=== PATIENT | female | born 1970 | race Caucasian/White ===

== ENCOUNTER 2017-07-27 14:41 | Emergency (ER) | payer BC ==
[2017-07-27 15:02] VITALS: RESP 18
[2017-07-27] MEDS ORDERED: SODIUM CHLORIDE 0.9% 1,000 ML IV ONE (15:31)
[2017-07-27] MEDS ORDERED: METOCLOPRAMIDE 5 MG/ML 2 ML VIAL IVP STA (15:31)
[2017-07-27] MEDS ORDERED: diphenhydrAMINE 50 MG/ML 1 ML VIAL IVP STA (15:31)
--- NOTE | 2017-07-27 15:37 | ED ---
Headache HPI - General Chief Complaint: Headache Stated Complaint: Headache Time Seen by Provider: 07/27/17 15:18 Mode of arrival: ambulatory Limitations: no limitations - History of Present Illness Initial Comments: Physical 6-year-old female to history of headaches and chronic low back pain on opiate pain medications or presents emergency room for headache. She states it started at 5:30 this morning and has been persistent. She states that she took some Excedrin which normally relieves her headaches however this did not relieve it. She also took one of her opiate pain medications however this did not help either. She admits to photophobia however no photophobia. Also admits to little bit of nausea and vomiting. She denies any head trauma. No neck pain. She states that she thought she may have slept wrong and has been massaging her neck however does not have any pain there. Denies any focal weakness in her extremities. No focal numbness however states that she feels like her forehead is numb at times. States that she has been sick for the last month with upper respiratory infection however feels better from that. She denies any cough or short of breath. No fevers or chills. No other complaints. - Related Data Home Medications Medication Instructions Recorded Confirmed HYDROcodone/IBUPROFEN 7.5-200 1 tab PO DAILY PRN 07/27/17 07/27/17 [Vicoprofen 7.5-200 mg] LORazepam [Ativan] 1 mg PO HS PRN 07/27/17 07/27/17 Losartan [Cozaar] 25 mg PO DAILY 07/27/17 07/27/17 Previous Rx's Medication Instructions Recorded Butalb/Acetaminophen/Caffeine 1 - 2 cap PO Q4HR #8 cap 07/27/17 [Fioricet 50-300-40 mg Capsule] Allergies Allergy/AdvReac Type Severity Reaction Status Date / Time Iodinated Contrast- Oral and Allergy Anaphylaxis Verified 07/27/17 15:56 IV Dye Review of Systems ROS Statement: Those systems with pertinent positive or pertinent negative responses have been documented in the HPI. ROS Other: All systems not noted in ROS Statement are negative. Past Medical History Past Medical History: Hypertension History of Any Multi-Drug Resistant Organisms: None Reported Past Surgical History: Section, Cholecystectomy, Tubal Ligation Past Psychological History: No Psychological Hx Reported Smoking Status: Never smoker Past Alcohol Use History: None Reported Past Drug Use History: None Reported General Exam - General Exam Comments Initial Comments: Constitutional: Awake alert appears uncomfortable and gripping her head Head: Normocephalic atraumatic Eyes: no conjunctival injection No scleral icterus EOMI, pupils are 4 mm and reactive bilaterally Neck: No JVD Supple Heart: Regular rate rhythm normal S1-S2 no murmurs Lungs: Clear to auscultation bilaterally No wheezing No rales Abdomen: Soft nondistended nontender Extremities: Non edematous DP pulses intact Radial pulses intact Neuro: A&Ox3, cranial nerves II through XII are grossly intact, 5 out of 5 strength in upper and lower extremities bilaterally, the patient is able to ambulate under her own power without any gait disturbance, sensation intact in all extremities No focal neurologic deficits Psych: Appropriate mood and affect Limitations: no limitations Course Vital Signs 07/27/17 14:59 Temperature 97.7 F Pulse Rate 82 Respiratory 18 Rate Blood Pressure 185/105 O2 Sat by Pulse 98 Oximetry Medical Decision Making - Medical Decision Making This is a 46-year-old female who presents emergency department for headache. Patient was given Reglan and Benadryl and fluids and she had much improvement in her headache. CT of the head was negative. No focal neurologic findings on examination. The patient has been battling sinusitis for the last month and I feel that the headache may be related to this. I stated to continue with her Excedrin at home. I did give her some Fioricet that she can use as needed over the next couple of days. I told to return if the headache worsens or return. All questions were answered. - Lab Data Lab Results 07/27/17 Range/Units 16:00 Urine HCG, Qual Not Detected (Not Detectd) Disposition Clinical Impression: Headache Disposition: HOME SELF-CARE Condition: Stable Instructions: Acute Headache (ED) Prescriptions: Butalb/Acetaminophen/Caffeine [Fioricet 50-300-40 mg Capsule] 1 - 2 cap PO Q4HR #8 cap Referrals: Andree Sanchez MD [Primary Care Provider] - 1-2 days
--- NOTE | 2017-07-27 17:01 | CT ---
EXAMINATION TYPE: CT brain wo con DATE OF EXAM: 07/27/2017 COMPARISON: NONE HISTORY: Headache and numbness to head today. CT DLP: 1025.10 mGycm. Automated Exposure Control for Dose Reduction was Utilized. TECHNIQUE: CT scan of the head is performed without contrast. FINDINGS: There is mucosal thickening and almost complete opacification of the right maxillary sinu s. There is fluid level in left maxillary sinus. There is mild mucosal thickening in the anterior eth moid sinus. Ventricles have normal size. There is no mass effect nor midline shift. There is no sign of intracran ial hemorrhage. The calvarium is intact. CONCLUSION: Sinusitis. Otherwise negative CT scan of the brain.
[2017-07-27] MEDS ORDERED: KETOROLAC 30 MG/ML 1 ML VIAL IVP STA (17:22)
[2017-07-27 17:32] VITALS: BP 169/70; PULSE 67; TEMP 97
== END 2017-07-27 17:38 | disposition home or self-care (01) ==
LOC: EC 14:41
DX: R51 Headache (principal); H53.149 Visual discomfort, unspecified; R11.2 Nausea with vomiting, unspecified; I10 Essential (primary) hypertension; Z79.899 Other long term (current) drug therapy; Z91.041 Radiographic dye allergy status
CPT/HCPCS: 81025; 70450; 99284; 96374; 96375 ×2; 96361; J1200; J2765; J1885

== ENCOUNTER 2021-05-07 11:10 | Emergency (ER) | payer BC, OTHER ==
[2021-05-07 11:15] VITALS: RESP 18; TEMP 98
[2021-05-07] MEDS ORDERED: MECLIZINE 12.5 MG TAB PO STA (11:53)
--- NOTE | 2021-05-07 11:55 | ED ---
Dizziness HPI - General Chief Complaint: Dizziness Stated Complaint: blurred vision/dizziness Source: patient Mode of arrival: ambulatory Limitations: no limitations - History of Present Illness Initial Comments: 50-year-old female past history of high blood pressure presents emergency room with reported vertiginous symptoms and presyncope. Patient states that her symptoms [place] States that the dizziness has gotten so severe that she had an episode on Tuesday night where her vision became slightly blurry. She denies headaches. No current vision changes. No neck stiffness. No recent head trauma or chiropractic manipulations melanotic. No history of aneurysm. She denies chest pain or shortness of breath. No weakness, slurred speech, unilateral numbness or facial droop. No history of stroke. She denies any fevers, chills or shortness of breath. No weakness in her chimneys. No history of similar in the past. Patient does arrive and is super hypertensive. States that she did not take her medications today. She is on 25 mg of losartan. No other alleviating, precipitating or modifying factors - Related Data Home Medications Medication Instructions Recorded Confirmed HYDROcodone/IBUPROFEN 7.5-200 1 tab PO DAILY PRN 07/27/17 05/07/21 [Vicoprofen 7.5-200 mg] Losartan [Cozaar] 25 mg PO HS 07/27/17 05/07/21 Previous Rx's Medication Instructions Recorded Losartan [Cozaar] 50 mg PO DAILY #14 tab 05/07/21 Allergies Allergy/AdvReac Type Severity Reaction Status Date / Time Iodinated Contrast Media Allergy Anaphylaxis Verified 05/07/21 12:20 [Iodinated Contrast- Oral and IV Dye] Review of Systems ROS Statement: Those systems with pertinent positive or pertinent negative responses have been documented in the HPI. ROS Other: All systems not noted in ROS Statement are negative. Past Medical History Past Medical History: Hypertension History of Any Multi-Drug Resistant Organisms: None Reported Past Surgical History: Section, Cholecystectomy, Tubal Ligation Past Psychological History: No Psychological Hx Reported Smoking Status: Never smoker Past Alcohol Use History: Occasional Past Drug Use History: None Reported General Exam Limitations: no limitations General appearance: alert, in no apparent distress Head exam: Present: atraumatic, normocephalic, normal inspection Eye exam: Present: normal appearance, PERRL, EOMI. Absent: scleral icterus, conjunctival injection, periorbital swelling ENT exam: Present: normal exam, mucous membranes moist Neck exam: Present: normal inspection. Absent: tenderness, meningismus, lymphadenopathy Respiratory exam: Present: normal lung sounds bilaterally. Absent: respiratory distress, wheezes, rales, rhonchi, stridor Cardiovascular Exam: Present: regular rate, normal rhythm, normal heart sounds. Absent: systolic murmur, diastolic murmur, rubs, gallop, clicks GI/Abdominal exam: Present: soft, normal bowel sounds. Absent: distended, tenderness, guarding, rebound, rigid Extremities exam: Present: normal inspection, full ROM, normal capillary refill. Absent: tenderness, pedal edema, joint swelling, calf tenderness Back exam: Present: normal inspection Neurological exam: Present: alert, oriented X3, CN II-XII intact Psychiatric exam: Present: normal affect, normal mood Skin exam: Present: warm, dry, intact, normal color. Absent: rash Course Vital Signs 05/07/21 05/07/21 05/07/21 11:13 13:26 14:21 Temperature 98 F Pulse Rate 88 71 71 Respiratory 18 18 Rate Blood Pressure 187/128 205/110 199/94 O2 Sat by Pulse 97 97 95 Oximetry 05/07/21 15:06 Temperature Pulse Rate 88 Respiratory 18 Rate Blood Pressure 137/79 O2 Sat by Pulse 97 Oximetry EKG Findings - EKG Comments: EKG Findings:: EKG demonstrates normal sinus rhythm with a ventricular rate of 73. WI interval 150. QRS 98. QTC of 427. No acute ST segment elevations or depressions Medical Decision Making - Medical Decision Making Upon arrival patient is placed into room 2. A thorough history and physical exam was performed. NIH is obtained and is 0. Patient is markedly hypertensive with a blood pressure of 205/110. IV is established laboratory studies were conducted. 12-lead EKG was performed. She is sent over for a CT as well as CT angiography of her head due to her reported dizziness and hypertension. Laboratory studies within normal limits. Chest x-ray demonstrates no acute intrathoracic process.. CT angiography of the head demonstrates no significant stenosis or any additional abnormality. The patient is given 20 mg of hydralazine pressure control. She does have improvement in her blood pressures. She is able to get up and ambulate and states she feels much improved. Patient requests discharge at this time. I did recommend increasing the patient's dose of losartan to 50 mg. She is to keep a blood pressure log and follow up with her primary care doctor for further evaluation of her medication change. Patient understood this. Given written and verbal discharge instructions and discharged home in stable condition - Lab Data Result diagrams: 05/07/21 12:02 05/07/21 12:02 Lab Results 05/07/21 05/07/21 05/07/21 Range/Units 12:01 12:02 12:02 WBC 5.5 (3.8-10.6) k/uL RBC 4.74 (3.80-5.40) m/uL Hgb 14.4 (11.4-16.0) gm/dL Hct 41.3 (34.0-46.0) % MCV 87.1 (80.0-100.0) fL MCH 30.4 (25.0-35.0) pg MCHC 34.9 (31.0-37.0) g/dL RDW 13.0 (11.5-15.5) % Plt Count 226 (150-450) k/uL MPV 7.9 Neutrophils % 68 % Lymphocytes % 24 % Monocytes % 4 % Eosinophils % 2 % Basophils % 0 % Neutrophils # 3.8 (1.3-7.7) k/uL Lymphocytes # 1.3 (1.0-4.8) k/uL Monocytes # 0.2 (0-1.0) k/uL Eosinophils # 0.1 (0-0.7) k/uL Basophils # 0.0 (0-0.2) k/uL PT 9.8 (9.0-12.0) sec INR 0.9 (<1.2) APTT 23.3 (22.0-30.0) sec Sodium (137-145) mmol/L Potassium (3.5-5.1) mmol/L Chloride (98-107) mmol/L Carbon Dioxide (22-30) mmol/L Anion Gap mmol/L BUN (7-17) mg/dL Creatinine (0.52-1.04) mg/dL Est GFR (CKD-EPI)AfAm (>60 ml/min/1.73 sqM) Est GFR (CKD-EPI)NonAf (>60 ml/min/1.73 sqM) Glucose (74-99) mg/dL Calcium (8.4-10.2) mg/dL Total Bilirubin (0.2-1.3) mg/dL AST (14-36) U/L ALT (4-34) U/L Alkaline Phosphatase (38-126) U/L Troponin I (0.000-0.034) ng/mL Total Protein (6.3-8.2) g/dL Albumin (3.5-5.0) g/dL TSH (0.465-4.680) mIU/L Urine Color Yellow Urine Appearance Clear (Clear) Urine pH 5.5 (5.0-8.0) Ur Specific [place] 1.021 (1.001-1.035) Urine Protein Trace H (Negative) Urine Glucose (UA) Negative (Negative) Urine Ketones Negative (Negative) Urine Blood Small H (Negative) Urine Nitrite Negative (Negative) Urine Bilirubin Negative (Negative) Urine Urobilinogen <2.0 (<2.0) mg/dL Ur Leukocyte Esterase Negative (Negative) Urine RBC 3 (0-5) /hpf Urine WBC 1 (0-5) /hpf Ur Squamous Epith Cells 3 (0-4) /hpf Urine Bacteria Rare H (None) /hpf Urine Mucus Rare H (None) /hpf 05/07/21 05/07/21 Range/Units 12:02 12:02 WBC (3.8-10.6) k/uL RBC (3.80-5.40) m/uL Hgb (11.4-16.0) gm/dL Hct (34.0-46.0) % MCV (80.0-100.0) fL MCH (25.0-35.0) pg MCHC (31.0-37.0) g/dL RDW (11.5-15.5) % Plt Count (150-450) k/uL MPV Neutrophils % % Lymphocytes % % Monocytes % % Eosinophils % % Basophils % % Neutrophils # (1.3-7.7) k/uL Lymphocytes # (1.0-4.8) k/uL Monocytes # (0-1.0) k/uL Eosinophils # (0-0.7) k/uL Basophils # (0-0.2) k/uL PT (9.0-12.0) sec INR (<1.2) APTT (22.0-30.0) sec Sodium 138 (137-145) mmol/L Potassium 3.8 (3.5-5.1) mmol/L Chloride 105 (98-107) mmol/L Carbon Dioxide 26 (22-30) mmol/L Anion Gap 7 mmol/L BUN 15 (7-17) mg/dL Creatinine 0.69 (0.52-1.04) mg/dL Est GFR (CKD-EPI)AfAm >90 (>60 ml/min/1.73 sqM) Est GFR (CKD-EPI)NonAf >90 (>60 ml/min/1.73 sqM) Glucose 116 H (74-99) mg/dL Calcium 9.2 (8.4-10.2) mg/dL Total Bilirubin 0.6 (0.2-1.3) mg/dL AST 24 (14-36) U/L ALT 22 (4-34) U/L Alkaline Phosphatase 70 (38-126) U/L Troponin I <0.012 (0.000-0.034) ng/mL Total Protein 7.6 (6.3-8.2) g/dL Albumin 4.3 (3.5-5.0) g/dL TSH 1.720 (0.465-4.680) mIU/L Urine Color Urine Appearance (Clear) Urine pH (5.0-8.0) Ur Specific [place] (1.001-1.035) Urine Protein (Negative) Urine Glucose (UA) (Negative) Urine Ketones (Negative) Urine Blood (Negative) Urine Nitrite (Negative) Urine Bilirubin (Negative) Urine Urobilinogen (<2.0) mg/dL Ur Leukocyte Esterase (Negative) Urine RBC (0-5) /hpf Urine WBC (0-5) /hpf Ur Squamous Epith Cells (0-4) /hpf Urine Bacteria (None) /hpf Urine Mucus (None) /hpf Disposition Clinical Impression: Pre-syncope, Ataxia, Hypertensive urgency Disposition: HOME SELF-CARE Condition: Stable Instructions (If sedation given, give patient instructions): Chronic Hypertension (ED), Dizziness (ED) Additional Instructions: Please follow up with your PCP in 2-4 days for re-evaluation. Take your blood pressure measurements twice daily and keep a log. Return to the ED for any new or worsening symptoms. Prescriptions: Losartan [Cozaar] 50 mg PO DAILY #14 tab Is patient prescribed a controlled substance at d/c from ED?: No Referrals: Andree Sanchez MD [Primary Care Provider] - 1-2 days Time of Disposition: 14:54
[2021-05-07] MEDS ORDERED: diphenhydrAMINE 50 MG/ML 1 ML VIAL IVP STA (12:03)
[2021-05-07] MEDS ORDERED: methylPREDNISolone SOD SUCCI 125 MG/2 ML VIAL IV STA (12:03)
[2021-05-07] MEDS ORDERED: FAMOTIDINE 20 MG/2 ML VIAL IV STA (12:03)
[2021-05-07 12:28] LABS: Appearance,Urine Clear (Clear); Bacteria,Urine Rare /hpf; Bilirubin,Urine Negative (Negative); Blood,Urine Small (Negative); Color,Urine Yellow; Glucose,Urine (UA) Negative (Negative); Ketones,Urine Negative (Negative); Leukocyte Esterase,Urine Negative (Negative); Mucus,Urine Rare /hpf; Nitrite,Urine Negative (Negative); PH, Urine 5.5 (5.0-8.0); Protein,Urine Trace (Negative); RBC,Urine 3 /hpf (0-5); Specific Gravity,Urine 1.021 (1.001-1.035); Squamous Epithelial Cell,Urine 3 /hpf (0-4); Urobilinogen,Urine <2.0 mg/dL (<2.0); WBC,Urine 1 /hpf (0-5)
[2021-05-07 12:38] LABS: INR 0.9 (<1.2); Partial Thromboplastin Time 23.3 sec (22.0-30.0); Prothrombin Time 9.8 sec (9.0-12.0)
[2021-05-07 12:40] LABS: Basophils % (A) 0 %; Eosinophils # (A) 0.1 k/uL (0-0.7); Eosinophils % (A) 2 %; HCT 41.3 % (34.0-46.0); HGB 14.4 gm/dL (11.4-16.0); Lymphocytes # (A) 1.3 k/uL (1.0-4.8); Lymphocytes % (A) 24 %; MCH 30.4 pg (25.0-35.0); MCHC 34.9 g/dL (31.0-37.0); MCV 87.1 fL (80.0-100.0); Mean Platelet Volume 7.9; Monocytes # (A) 0.2 k/uL (0-1.0); Monocytes % (A) 4 %; Neutrophils # (A) 3.8 k/uL (1.3-7.7); Neutrophils % (A) 68 %; Platelet Count 226 k/uL (150-450); RBC 4.74 m/uL (3.80-5.40); WBC 5.5 k/uL (3.8-10.6)
--- NOTE | 2021-05-07 12:41 | XR ---
EXAMINATION TYPE: XR chest 2V DATE OF EXAM: 05/07/2021 COMPARISON: NONE HISTORY: Chest pain TECHNIQUE: Frontal and lateral views of the chest are obtained. FINDINGS: There is no focal air space opacity. No evidence for pneumothorax. No pleural effusion. The cardiac silhouette size is within normal limits. The osseous structures are grossly intact. IMPRESSION: 1. No acute cardiopulmonary process.
[2021-05-07 12:43] LABS: ALT 22 U/L (4-34); AST 24 U/L (14-36); African American GFR (CKD) >90 (>60 ml/min/1.73 sqM); Albumin 4.3 g/dL (3.5-5.0); Alkaline Phosphatase 70 U/L (38-126); Anion Gap 7 mmol/L; Blood Urea Nitrogen 15 mg/dL (7-17); Calcium 9.2 mg/dL (8.4-10.2); Carbon Dioxide 26 mmol/L (22-30); Chloride 105 mmol/L (98-107); Glucose 116 mg/dL (74-99); Non-African American GFR(CKD) >90 (>60 ml/min/1.73 sqM); Potassium 3.8 mmol/L (3.5-5.1); Sodium 138 mmol/L (137-145); Total Bilirubin 0.6 mg/dL (0.2-1.3); Total Protein 7.6 g/dL (6.3-8.2)
--- NOTE | 2021-05-07 12:47 | CT ---
EXAMINATION TYPE: CT brain wo con DATE OF EXAM: 05/07/2021 COMPARISON: CT brain July 27, 2017 HISTORY: dizziness, high blood pressure CT DLP: 1022 mGycm. Automated Exposure Control for Dose Reduction was Utilized. TECHNIQUE: CT scan of the head is performed without contrast. FINDINGS: There is no acute intracranial hemorrhage, mass effect, or midline shift identified. The ventricles and sulci are within normal limits in size. No significant change from prior study. The g lobes are intact and the visualized sinuses are clear on current study. IMPRESSION: Unremarkable study.
--- NOTE | 2021-05-07 13:03 | CT ---
EXAMINATION TYPE: CT angio head neck DATE OF EXAM: 05/07/2021 HISTORY: dizziness, high blood pressure COMPARISON: None. CT DLP: 548.4 mGycm. Automated Exposure Control for Dose Reduction was Utilized. TECHNIQUE: CTA scan of the head and neck are performed with IV Contrast, patient injected with 65 mL of Isovue 370, axial images are obtained, coronal and sagittal reformatted images are reviewed. 3D r econstructed images are created on an independent workstation and reviewed. FINDINGS: Carotid/Vascular Structures: There is bovine type aortic arch which is normal variant. No significant focal plaque or stenosis. Normal origin right common carotid artery from right brachiocephalic arter y. Less than optimal opacification without significant plaque or stenosis in the common carotid arter ies bilaterally. Patent external carotid arteries bilaterally without significant plaque or stenosis. No significant plaque or stenosis at carotid bulb level bilaterally. There are codominant vertebral arteries patent to basilar junction. There is no significant focal ritika nosis or aneurysm identified. There is a patent right-sided posterior communicating artery. There is hypoplastic left-sided posterior communicating artery. No significant focal plaque or stenosis in the internal carotid arteries bilaterally. Suspect hypoplastic anterior communicating artery. No signifi cant focal stenosis or aneurysm change in the anterior circulation. Other: Mild disc space narrowing and spurring C5-C6 and C6-C7 levels with posterior spurs effacing th e anterior thecal sac. IMPRESSION: No significant abnormality is seen. NASCET criteria was used in interpretation of this exam?
[2021-05-07] MEDS ORDERED: hydrALAZINE HCL 20 MG/ML 1 ML VIAL IVP STA (13:30)
[2021-05-07 15:06] VITALS: BP 137/79; PULSE 88
== END 2021-05-07 15:19 | disposition home or self-care (01) ==
LOC: EC 11:10
DX: R27.0 Ataxia, unspecified (principal); I10 Essential (primary) hypertension; R55 Syncope and collapse; I16.0 Hypertensive urgency; Z79.899 Other long term (current) drug therapy; Z88.8 Allergy status to other drugs, medicaments and biological substances
CPT/HCPCS: 36415; 93005; 80053; 84443; 84484; 85025; 85610; 85730; 81001; 71046; 70496; 70450; 70498; 99284; 96374; 96375; J0360; J1200; J2930; Q9967

== ENCOUNTER 2021-07-06 09:40 | Inpatient (IN) | payer OTHER ==
[2021-07-06] MEDS ORDERED: SODIUM CHLORIDE 0.9% 1,000 ML IV STA (09:49)
[2021-07-06 10:32] LABS: Basophils % (A) 0 %; Eosinophils % (A) 0 %; HCT 33.9 % (34.0-46.0); Lymphocytes % (A) 8 %; MCHC 32.6 g/dL (31.0-37.0); Monocytes % (A) 8 %; Neutrophils # (A) 10.5 k/uL (1.3-7.7); Neutrophils % (A) 82 %; Platelet Count 257 k/uL (150-450); RDW 12.1 % (11.5-15.5); WBC 12.8 k/uL (3.8-10.6)
[2021-07-06 10:43] LABS: Appearance,Urine Cloudy (Clear); Bilirubin,Urine Negative (Negative); Blood,Urine Small (Negative); Color,Urine Yellow; Glucose,Urine (UA) Negative (Negative); Ketones,Urine Negative (Negative); Leukocyte Esterase,Urine Negative (Negative); Mucus,Urine Occasional /hpf; Nitrite,Urine Negative (Negative); Protein,Urine 1+ (Negative); RBC,Urine 3 /hpf (0-5); Specific Gravity,Urine 1.023 (1.001-1.035); Squamous Epithelial Cell,Urine 16 /hpf (0-4); WBC,Urine 4 /hpf (0-5)
[2021-07-06 10:44] LABS: ALT 19 U/L (4-34); AST 20 U/L (14-36); African American GFR (CKD) >90 (>60 ml/min/1.73 sqM); Albumin 3.1 g/dL (3.5-5.0); Alkaline Phosphatase 66 U/L (38-126); Amylase 32 U/L (30-110); Anion Gap 7 mmol/L; Blood Urea Nitrogen 11 mg/dL (7-17); Calcium 8.3 mg/dL (8.4-10.2); Carbon Dioxide 30 mmol/L (22-30); Chloride 99 mmol/L (98-107); Glucose 130 mg/dL (74-99); Lipase 44 U/L (23-300); Non-African American GFR(CKD) >90 (>60 ml/min/1.73 sqM); Potassium 3.6 mmol/L (3.5-5.1); Sodium 136 mmol/L (137-145); Total Bilirubin 0.9 mg/dL (0.2-1.3); Total Protein 6.3 g/dL (6.3-8.2)
--- NOTE | 2021-07-06 10:44 | CT ---
EXAMINATION TYPE: CT abdomen pelvis wo con DATE OF EXAM: 07/06/2021 COMPARISON: HISTORY: Right lower quadrant pain. CT DLP: 1073.4 mGycm Examination of the solid and hollow viscera is limited given the lack of contrast. FINDINGS: LUNG BASES: No evidence for nodule. No evidence for infiltrate. LIVER/GB: The gallbladder surgically absent. No space-occupying hepatic lesion. PANCREAS: No pancreatic mass identified. No inflammatory process seen. SPLEEN: No evidence for splenomegaly. No intrasplenic lesions seen. ADRENALS: No adrenal nodules identified. No evidence for thickening. KIDNEYS: No evidence for renal mass. No nephrolithiasis. No hydronephrosis. BOWEL: Large area of inflammatory phlegmon right lower quadrant measuring 6.1 x 4.7 cm. There is poor visualization of the appendix. No free air or drainable abscess. Lymph nodes: No evidence for adenopathy greater than 1 cm. Abdominal aorta: Atheromatous changes seen. No evidence for aneurysm. Genital organs: Tubal ligation changes left ovary. Visualization of the right ovary. Other: No significant abnormality. IMPRESSION: 1. Findings which may reflect acute appendicitis with phlegmon formation.
[2021-07-06] MEDS ORDERED: PIPERACILLIN-TAZOBACTAM 3.375 GM in SODIUM CHLORIDE 0.9% 100 ML IVPB STA ×2 (10:58→11:19)
--- NOTE | 2021-07-06 10:59 | ED ---
Abdominal Pain HPI - General Chief Complaint: Abdominal Pain Stated Complaint: abd pain Time Seen by Provider: 07/06/21 09:48 Source: patient, RN notes reviewed Mode of arrival: ambulatory Limitations: no limitations - History of Present Illness Initial Comments: This a 50-year-old female presents emergency Department chief complaint of abdominal pain. Patient states pain started 3-4 days ago and right lower quadrant states it seems to be spreading. Patient states she feels nauseated when she eats. No specific diarrhea or constipation patient does complain of some chills without fever. Patient had prior cholecystomy, history of diverticulitis, states that she seen Dr. Dorado the past also had some breast biopsies by him. Patient denies any dysuria hematuria - Related Data Home Medications Medication Instructions Recorded Confirmed Losartan Potassium 100 mg PO DAILY 07/06/21 07/06/21 atenoloL [Tenormin] 25 mg PO HS 07/06/21 07/06/21 hydroCHLOROthiazide [Hydrodiuril] 12.5 mg PO DAILY 07/06/21 07/06/21 hydroCHLOROthiazide [Hydrodiuril] 25 mg PO DAILY 07/06/21 07/06/21 Allergies Allergy/AdvReac Type Severity Reaction Status Date / Time Iodinated Contrast Media Allergy Anaphylaxis Verified 07/06/21 10:28 [Iodinated Contrast- Oral and IV Dye] Review of Systems ROS Statement: Those systems with pertinent positive or pertinent negative responses have been documented in the HPI. ROS Other: All systems not noted in ROS Statement are negative. Past Medical History Past Medical History: Hypertension History of Any Multi-Drug Resistant Organisms: None Reported Past Surgical History: Section, Cholecystectomy, Tubal Ligation Past Psychological History: No Psychological Hx Reported Smoking Status: Never smoker Past Alcohol Use History: Occasional Past Drug Use History: None Reported General Exam Limitations: no limitations General appearance: alert, in no apparent distress Head exam: Present: atraumatic, normocephalic, normal inspection Eye exam: Present: normal appearance, PERRL, EOMI. Absent: scleral icterus, conjunctival injection, periorbital swelling ENT exam: Present: normal exam, mucous membranes moist Neck exam: Present: normal inspection, full ROM. Absent: tenderness, meningismus, lymphadenopathy Respiratory exam: Present: normal lung sounds bilaterally. Absent: respiratory distress, wheezes, rales, rhonchi, stridor Cardiovascular Exam: Present: regular rate, normal rhythm, normal heart sounds. Absent: systolic murmur, diastolic murmur, rubs, gallop, clicks GI/Abdominal exam: Present: soft, tenderness (Right lower quadrant), normal bowel sounds. Absent: distended, guarding, rebound, rigid Back exam: Absent: CVA tenderness (R), CVA tenderness (L) Skin exam: Present: warm, dry, intact, normal color. Absent: rash Course Vital Signs 07/06/21 09:41 Temperature 98.1 F Pulse Rate 104 H Respiratory 18 Rate Blood Pressure 119/76 O2 Sat by Pulse 97 Oximetry Medical Decision Making - Medical Decision Making Case discussed with Dr. Green on-call for surgery. Patient has acute appendicitis, NPO, admitted nothing by mouth with IV antibiotics. - Lab Data Result diagrams: 07/06/21 10:22 07/06/21 10:22 Lab Results 07/06/21 07/06/21 07/06/21 Range/Units 10:22 10:22 10:22 WBC 12.8 H (3.8-10.6) k/uL RBC 3.80 (3.80-5.40) m/uL Hgb 11.0 L D (11.4-16.0) gm/dL Hct 33.9 L (34.0-46.0) % MCV 89.0 (80.0-100.0) fL MCH 29.0 (25.0-35.0) pg MCHC 32.6 (31.0-37.0) g/dL RDW 12.1 (11.5-15.5) % Plt Count 257 (150-450) k/uL MPV 8.0 Neutrophils % 82 % Lymphocytes % 8 % Monocytes % 8 % Eosinophils % 0 % Basophils % 0 % Neutrophils # 10.5 H (1.3-7.7) k/uL Lymphocytes # 1.0 (1.0-4.8) k/uL Monocytes # 1.0 (0-1.0) k/uL Eosinophils # 0.0 (0-0.7) k/uL Basophils # 0.0 (0-0.2) k/uL Sodium 136 L (137-145) mmol/L Potassium 3.6 (3.5-5.1) mmol/L Chloride 99 (98-107) mmol/L Carbon Dioxide 30 (22-30) mmol/L Anion Gap 7 mmol/L BUN 11 (7-17) mg/dL Creatinine 0.73 (0.52-1.04) mg/dL Est GFR (CKD-EPI)AfAm >90 (>60 ml/min/1.73 sqM) Est GFR (CKD-EPI)NonAf >90 (>60 ml/min/1.73 sqM) Glucose 130 H (74-99) mg/dL Plasma Lactic Acid David (0.7-2.0) mmol/L Calcium 8.3 L (8.4-10.2) mg/dL Total Bilirubin 0.9 (0.2-1.3) mg/dL AST 20 (14-36) U/L ALT 19 (4-34) U/L Alkaline Phosphatase 66 (38-126) U/L Total Protein 6.3 (6.3-8.2) g/dL Albumin 3.1 L (3.5-5.0) g/dL Amylase 32 (30-110) U/L Lipase 44 (23-300) U/L Urine Color Yellow Urine Appearance Cloudy H (Clear) Urine pH 6.0 (5.0-8.0) Ur Specific [place] 1.023 (1.001-1.035) Urine Protein 1+ H (Negative) Urine Glucose (UA) Negative (Negative) Urine Ketones Negative (Negative) Urine Blood Small H (Negative) Urine Nitrite Negative (Negative) Urine Bilirubin Negative (Negative) Urine Urobilinogen 6.0 (<2.0) mg/dL Ur Leukocyte Esterase Negative (Negative) Urine RBC 3 (0-5) /hpf Urine WBC 4 (0-5) /hpf Ur Squamous Epith Cells 16 H (0-4) /hpf Urine Mucus Occasional H (None) /hpf 07/06/ Range/Units 10:22 WBC (3.8-10.6) k/uL RBC (3.80-5.40) m/uL Hgb (11.4-16.0) gm/dL Hct (34.0-46.0) % MCV (80.0-100.0) fL MCH (25.0-35.0) pg MCHC (31.0-37.0) g/dL RDW (11.5-15.5) % Plt Count (150-450) k/uL MPV Neutrophils % % Lymphocytes % % Monocytes % % Eosinophils % % Basophils % % Neutrophils # (1.3-7.7) k/uL Lymphocytes # (1.0-4.8) k/uL Monocytes # (0-1.0) k/uL Eosinophils # (0-0.7) k/uL Basophils # (0-0.2) k/uL Sodium (137-145) mmol/L Potassium (3.5-5.1) mmol/L Chloride (98-107) mmol/L Carbon Dioxide (22-30) mmol/L Anion Gap mmol/L BUN (7-17) mg/dL Creatinine (0.52-1.04) mg/dL Est GFR (CKD-EPI)AfAm (>60 ml/min/1.73 sqM) Est GFR (CKD-EPI)NonAf (>60 ml/min/1.73 sqM) Glucose (74-99) mg/dL Plasma Lactic Acid David 0.8 (0.7-2.0) mmol/L Calcium (8.4-10.2) mg/dL Total Bilirubin (0.2-1.3) mg/dL AST (14-36) U/L ALT (4-34) U/L Alkaline Phosphatase (38-126) U/L Total Protein (6.3-8.2) g/dL Albumin (3.5-5.0) g/dL Amylase (30-110) U/L Lipase (23-300) U/L Urine Color Urine Appearance (Clear) Urine pH (5.0-8.0) Ur Specific [place] (1.001-1.035) Urine Protein (Negative) Urine Glucose (UA) (Negative) Urine Ketones (Negative) Urine Blood (Negative) Urine Nitrite (Negative) Urine Bilirubin (Negative) Urine Urobilinogen (<2.0) mg/dL Ur Leukocyte Esterase (Negative) Urine RBC (0-5) /hpf Urine WBC (0-5) /hpf Ur Squamous Epith Cells (0-4) /hpf Urine Mucus (None) /hpf Disposition Clinical Impression: Acute appendicitis Disposition: ADMITTED IP TO THIS [facility] Condition: Fair Referrals: Andree Sanchez MD [Primary Care Provider] - 1-2 days
[2021-07-06] MEDS ORDERED: ONDANSETRON 4 MG/2 ML VIAL IVP PRN (11:22)
[2021-07-06] MEDS ORDERED: HYDROmorphone 0.5 MG/0.5 ML SYRINGE IVP PRN (11:22)
[2021-07-06] MEDS ORDERED: NALOXONE 0.4 MG/ML 1 ML VIAL IV PRN (11:22)
[2021-07-06] MEDS: SODIUM CHLORIDE 0.9% 1,000 ML IV SCH ×2 (12:23→21:06)
[2021-07-06] MEDS ORDERED: ACETAMINOPHEN IV (For NPO) 1,000 MG in EMPTY BAG 1 BAG IVPB STA (12:44)
[2021-07-06] MEDS: atenoloL 25 MG TAB PO SCH (21:04)
[2021-07-07] MEDS ORDERED: TRIMETHOBENZAMIDE 100 MG/ML 2 ML VIAL IM PRN (02:39)
[2021-07-07] MEDS ORDERED: SODIUM CHLORIDE 0.9% 2,000 ML IV ONE (02:40)
[2021-07-07] MEDS ORDERED: HYDROmorphone 1 MG/ML 1 ML SYRINGE IVP PRN (02:41)
[2021-07-07] MEDS ORDERED: diphenhydrAMINE 50 MG/ML 1 ML VIAL IVP PRN (02:41)
[2021-07-07] MEDS ORDERED: SCOPOLAMINE 1.5MG/72HR PATCH TRANSDERM SCH (02:45)
[2021-07-07] MEDS: ACETAMINOPHEN TAB 500 MG TAB PO SCH ×4 (02:57→21:42)
[2021-07-07] MEDS: SODIUM CHLORIDE 0.9% 1,000 ML IV SCH ×3 (02:58→21:42)
[2021-07-07] MEDS: ONDANSETRON 4 MG/2 ML VIAL IVP SCH ×3 (03:13→14:59)
[2021-07-07] MEDS: PIPERACILLIN-TAZOBACTAM 3.375 GM in SODIUM CHLORIDE 0.9% 100 ML IVPB SCH ×3 (03:15→19:11)
[2021-07-07] MEDS: metroNIDAZOLE-NS PMX 500 MG in SALINE 1 100ML.BAG IVPB SCH ×4 (06:08→23:52)
[2021-07-07] MEDS: KETOROLAC 30 MG/ML 1 ML VIAL IVP SCH ×4 (06:08→23:51)
--- NOTE | 2021-07-07 07:44 | P.GSHP ---
History of Present Illness H&P Date: 07/06/21 CHIEF COMPLAINT: Right lower quadrant abdominal pain for 4 days. HISTORY OF PRESENT ILLNESS: The patient is a 50-year-old female with pre-existing history of diverticulitis and passed Covid infection over 3-1/2 weeks ago who presented with 4 day history of right lower quadrant abdominal pain. She reports her pain felt crampy similar to her diverticulitis attack. No reports of blood in stools. Diagnostic studies demonstrated appendicitis. No recent colonoscopies. Patient is admitted for appendicitis. PAST MEDICAL HISTORY: List reviewed. PAST SURGICAL HISTORY: List reviewed. CURRENT MEDICATIONS: List reviewed. ALLERGIES: List reviewed. SOCIAL HISTORY: Non-tobacco user. FAMILY HISTORY: Denies Crohns disease and ulcerative colitis. REVIEW OF ORGAN SYSTEMS: CONSTITUTIONAL: Had fever in the emergency room over 100.0. Morbidly obese with body mass index 37.6. HEENT: Denies any trouble with vision, hearing or nosebleeds. No difficulty swallowing. LYMPHATIC: The patient denies any lumps and bumps around the neck. ENDOCRINE: Denies any thyroid disorders. Denies any blood sugar glucose intolerance. RESPIRATORY: Denies shortness of breath including chronic cough. CARDIOVASCULAR: Denies history of chest pain with exertion. Has hypertensive heart disease. GASTROINTESTINAL: Personal history of diverticulitis. GENITOURINARY: Denies any blood in urine or increased urinary frequency. MUSCULOSKELETAL: Denies current joint arthritis. NEUROLOGIC: Denies any numbness or tingling along the distal extremities. No seizure disorders or headaches. PSYCHIATRIC: Denies any depression or suicidal ideation. HEMATOLOGIC: Denies any abnormal bleeding or bruising. PHYSICAL EXAMINATION: Vital signs: Reviewed GENERAL: Well developed and in no acute distress. HEENT: No sclera icterus. Extraocular movements grossly intact. Moist buccal mucosa. Head is atraumatic, normocephalic. Hears conversational speech. No nasal drainage. NECK: Supple without lymphadenopathy. No JV distention. CHEST: Prior to tachypnea now improved. Non-labored respirations and equal bilateral excursions. CARDIOVASCULAR: Regular rate and rhythm. Palpable 2+ radial pulses. ABDOMEN: Soft, tender at the right lower quadrant. MUSCULOSKELETAL: No clubbing, cyanosis or edema. NEUROLOGIC: No focal or lateralizing signs. PSYCH: Appropriate affect. Alert and oriented to person, place and time. SKIN: Well perfused. Good skin turgor. LABS: Reviewed. WBC over 12,800. Covid antigen negative. STUDIES: CT of the abdomen and pelvis independently reviewed with severe inflammatory changes with the right lower quadrant consistent with phlegmon and perforated appendicitis. This is my independent interpretation. ASSESSMENT: 1. Right lower quadrant pain due to perforated appendicitis. 2. Sepsis due to appendicitis. 3. Hypertensive heart disease 4. Fevers with tachypnea PLAN: 1. She has perforation with phlegmon on computed tomography scan. She is high risk for right colectomy due to phlegmon. Interval appendectomy described. 2. Conservative management with intravenous antibiotics. 3. Infectious disease consultation for antibiotic management. 4. Inpatient hospitalization more than 2 nights due to sepsis from perforated appendicitis and phlegmon 5. Scheduled nonnarcotic pain management reviewed 6. May have diet. Past Medical History Past Medical History: Hypertension Additional Past Medical History / Comment(s): Diverticulitis, occasionally low back pain, covid infection approximately 3.5 weeks ago History of Any Multi-Drug Resistant Organisms: None Reported Past Surgical History: Section, Cholecystectomy, Tubal Ligation Additional Past Surgical History / Comment(s): D&Cs, EGD, colonoscopy Past Anesthesia/Blood Transfusion Reactions: No Reported Reaction Past Psychological History: No Psychological Hx Reported Additional Psychological History / Comment(s): Pt lives with her spouse and matt. She is independent. Smoking Status: Never smoker Past Alcohol Use History: Occasional Past Drug Use History: None Reported - Past Family History Father Family Medical History: Cancer Additional Family Medical History / Comment(s): Father is living. He has heart problems. Mother Family Medical History: COPD Additional Family Medical History / Comment(s): Mother from COPD. She was a smoker. Medications and Allergies Home Medications Medication Instructions Recorded Confirmed Type Losartan Potassium 100 mg PO DAILY 07/06/21 07/06/21 History atenoloL [Tenormin] 25 mg PO HS 07/06/21 07/06/21 History hydroCHLOROthiazide [Hydrodiuril] 12.5 mg PO DAILY 07/06/21 07/06/21 History hydroCHLOROthiazide [Hydrodiuril] 25 mg PO DAILY 07/06/21 07/06/21 History Allergies Allergy/AdvReac Type Severity Reaction Status Date / Time Iodinated Contrast Media Allergy Anaphylaxis Verified 07/06/21 10:28 [Iodinated Contrast- Oral and IV Dye] Surgical - Exam Vital Signs Temp Pulse Resp BP Pulse Ox 98.1 F 104 H 18 119/76 97 07/06/21 09:41 07/06/21 09:41 07/06/21 09:41 07/06/21 09:41 07/06/21 09:41 Results - Labs 07/06/21 10:22 07/06/21 10:22 Abnormal Lab Results - Last 24 Hours (Table) 07/06/21 07/06/21 07/06/21 Range/Units 10:22 10:22 10:22 WBC 12.8 H (3.8-10.6) k/uL Hgb 11.0 L D (11.4-16.0) gm/dL Hct 33.9 L (34.0-46.0) % Neutrophils # 10.5 H (1.3-7.7) k/uL Sodium 136 L (137-145) mmol/L Glucose 130 H (74-99) mg/dL Calcium 8.3 L (8.4-10.2) mg/dL Albumin 3.1 L (3.5-5.0) g/dL Urine Appearance Cloudy H (Clear) Urine Protein 1+ H (Negative) Urine Blood Small H (Negative) Ur Squamous Epith Cells 16 H (0-4) /hpf Urine Mucus Occasional H (None) /hpf Diabetes panel 07/06/21 Range/Units 10:22 Sodium 136 L (137-145) mmol/L Potassium 3.6 (3.5-5.1) mmol/L Chloride 99 (98-107) mmol/L Carbon Dioxide 30 (22-30) mmol/L BUN 11 (7-17) mg/dL Creatinine 0.73 (0.52-1.04) mg/dL Glucose 130 H (74-99) mg/dL Calcium 8.3 L (8.4-10.2) mg/dL AST 20 (14-36) U/L ALT 19 (4-34) U/L Alkaline Phosphatase 66 (38-126) U/L Total Protein 6.3 (6.3-8.2) g/dL Albumin 3.1 L (3.5-5.0) g/dL Calcium panel 07/06/21 Range/Units 10:22 Calcium 8.3 L (8.4-10.2) mg/dL Albumin 3.1 L (3.5-5.0) g/dL Pituitary panel 07/06/21 Range/Units 10:22 Sodium 136 L (137-145) mmol/L Potassium 3.6 (3.5-5.1) mmol/L Chloride 99 (98-107) mmol/L Carbon Dioxide 30 (22-30) mmol/L BUN 11 (7-17) mg/dL Creatinine 0.73 (0.52-1.04) mg/dL Glucose 130 H (74-99) mg/dL Calcium 8.3 L (8.4-10.2) mg/dL Adrenal panel 07/06/21 Range/Units 10:22 Sodium 136 L (137-145) mmol/L Potassium 3.6 (3.5-5.1) mmol/L Chloride 99 (98-107) mmol/L Carbon Dioxide 30 (22-30) mmol/L BUN 11 (7-17) mg/dL Creatinine 0.73 (0.52-1.04) mg/dL Glucose 130 H (74-99) mg/dL Calcium 8.3 L (8.4-10.2) mg/dL Total Bilirubin 0.9 (0.2-1.3) mg/dL AST 20 (14-36) U/L ALT 19 (4-34) U/L Alkaline Phosphatase 66 (38-126) U/L Total Protein 6.3 (6.3-8.2) g/dL Albumin 3.1 L (3.5-5.0) g/dL Assessment and Plan (1) Ruptured appendicitis Current Visit: Yes Status: Acute Code(s): K35.32 - ACUTE APPENDICITIS WITH PERF AND LOC PERITONITIS, W/O ABSCS SNOMED Code(s): 72375687 (2) Acute phlegmonous appendicitis Current Visit: Yes Status: Acute Code(s): K35.890 - OTHER ACUTE APPENDICITIS WITHOUT PERFORATION OR GANGRENE SNOMED Code(s): 384728428 (3) Sepsis Current Visit: Yes Status: Acute Code(s): A41.9 - SEPSIS, UNSPECIFIED ORGANISM SNOMED Code(s): 30064111 (4) Hypertensive heart disease Current Visit: Yes Status: Acute Code(s): I11.9 - HYPERTENSIVE HEART DISEASE WITHOUT HEART FAILURE SNOMED Code(s): 10043078 (5) Diverticulitis Current Visit: Yes Status: Acute Code(s): K57.92 - DVTRCLI OF INTEST, PART UNSP, W/O PERF OR ABSCESS W/O BLEED SNOMED Code(s): 528693402 (6) Morbid obesity due to excess calories Current Visit: Yes Status: Acute Code(s): E66.01 - MORBID (SEVERE) OBESITY DUE TO EXCESS CALORIES SNOMED Code(s): 614595104 (7) Adult BMI 37.0-37.9 kg/sq m Current Visit: Yes Status: Acute Code(s): Z68.37 - BODY MASS INDEX [BMI] 37.0-37.9, ADULT SNOMED Code(s): 454774643
[2021-07-07] MEDS: hydroCHLOROthiazide 25 MG TAB PO SCH (09:05)
[2021-07-07] MEDS: LOSARTAN 50 MG TAB PO SCH (09:05)
[2021-07-07] MEDS: hydroCHLOROthiazide 12.5 MG CAP PO SCH (09:05)
[2021-07-07 11:41] LABS: Basophils % (A) 0 %; Eosinophils # (A) 0.1 k/uL (0-0.7); Eosinophils % (A) 1 %; HCT 31.3 % (34.0-46.0); HGB 10.2 gm/dL (11.4-16.0); Hypochromasia Slight; Lymphocytes # (A) 0.8 k/uL (1.0-4.8); Lymphocytes % (A) 8 %; MCH 29.2 pg (25.0-35.0); MCHC 32.4 g/dL (31.0-37.0); Mean Platelet Volume 7.5; Monocytes # (A) 0.6 k/uL (0-1.0); Monocytes % (A) 7 %; Neutrophils # (A) 7.6 k/uL (1.3-7.7); Neutrophils % (A) 82 %; Platelet Count 270 k/uL (150-450); RBC 3.48 m/uL (3.80-5.40); RDW 12.5 % (11.5-15.5); WBC 9.3 k/uL (3.8-10.6)
[2021-07-07 11:59] VITALS: BMI 37.5
[2021-07-07 13:12] LABS: ALT 24 U/L (4-34); AST 25 U/L (14-36); African American GFR (CKD) >90 (>60 ml/min/1.73 sqM); Albumin 2.8 g/dL (3.5-5.0); Alkaline Phosphatase 69 U/L (38-126); Anion Gap 5 mmol/L; Blood Urea Nitrogen 8 mg/dL (7-17); Calcium 7.8 mg/dL (8.4-10.2); Carbon Dioxide 29 mmol/L (22-30); Chloride 108 mmol/L (98-107); Glucose 89 mg/dL (74-99); Non-African American GFR(CKD) >90 (>60 ml/min/1.73 sqM); Potassium 3.4 mmol/L (3.5-5.1); Sodium 142 mmol/L (137-145); Total Bilirubin 0.7 mg/dL (0.2-1.3); Total Protein 5.9 g/dL (6.3-8.2)
[2021-07-07] MEDS ORDERED: ONDANSETRON 4 MG/2 ML VIAL IVP PRN (17:39)
--- NOTE | 2021-07-07 20:13 | P.PN ---
Subjective Progress Note Date: 07/07/21 CHIEF COMPLAINT: Ruptured appendicitis with phlegmon HISTORY OF PRESENT ILLNESS: The patient is a 50-year-old female admitted with 4-5 day history of right lower quadrant abdominal pain. Overnight, she had fevers over 100.0. She is COVID negative. She is in scheduled non-narcotic pain management. She is tolerating regular diet. Her pain is well controlled. She is having bowel movements with diarrhea. Her initial moderate to severe right lower quadrant abdominal pain is very mild. REVIEW OF ORGAN SYSTEMS: No chest pain. No shortness of breath. Fevers initially 100.8 now resolved 98.1 PHYSICAL EXAMINATION: Vital signs: Reviewed GENERAL: Well developed and in no acute distress. HEENT: No sclera icterus. Extraocular movements grossly intact. Moist buccal mucosa. Head is atraumatic, normocephalic. Hears conversational speech. No nasal drainage. NECK: Supple without lymphadenopathy. No JV distention. CHEST: Prior to tachypnea now improved. Non-labored respirations and equal bilateral excursions. CARDIOVASCULAR: Palpable 2+ radial pulses. ABDOMEN: Protuberant, right lower quadrant tenderness moderately improved. MUSCULOSKELETAL: No clubbing, cyanosis or edema. NEUROLOGIC: No focal or lateralizing signs. PSYCH: Appropriate affect. Alert and oriented to person, place and time. SKIN: Well perfused. Good skin turgor. LABS: Reviewed. WBC over 12,800 now normal 9,300 ASSESSMENT: 1. Right lower quadrant pain due to perforated appendicitis and phlegmon. 2. Sepsis due to appendicitis. 3. Hypertensive heart disease 4. Fevers with tachypnea PLAN: 1. Continue scheduled IV antibiotics. 2. Diet as tolerated 3. Interval appendectomy reviewed 4. Discharge pending completed resolution of abdominal pain without narcotic pain medications. 5. Prolonged antibiotics treatment beyond 2 weeks reviewed for interval appendectomy. Objective - Vital Signs Vital signs: Vital Signs Temp 98.5 F 07/07/21 19:39 Pulse 89 07/07/21 19:39 Resp 16 07/07/21 19:39 BP 124/81 07/07/21 19:39 Pulse Ox 97 07/07/21 08:00 Intake & Output 07/07/21 07/07/21 07/08/21 06:59 18:59 06:59 Weight 108.862 kg Other: # Voids 3 2 # Bowel Movements 2 - Labs CBC & Chem 7: 07/07/21 11:04 07/07/21 11:04 Labs: Abnormal Lab Results - Last 24 Hours (Table) 07/07/21 07/07/21 Range/Units 11:04 11:04 RBC 3.48 L (3.80-5.40) m/uL Hgb 10.2 L (11.4-16.0) gm/dL Hct 31.3 L (34.0-46.0) % Lymphocytes # 0.8 L (1.0-4.8) k/uL Potassium 3.4 L (3.5-5.1) mmol/L Chloride 108 H (98-107) mmol/L Calcium 7.8 L (8.4-10.2) mg/dL Total Protein 5.9 L (6.3-8.2) g/dL Albumin 2.8 L (3.5-5.0) g/dL Assessment and Plan (1) Ruptured appendicitis Current Visit: Yes Status: Acute Code(s): K35.32 - ACUTE APPENDICITIS WITH PERF AND LOC PERITONITIS, W/O ABSCS SNOMED Code(s): 02939757 (2) Acute phlegmonous appendicitis Current Visit: Yes Status: Acute Code(s): K35.890 - OTHER ACUTE APPENDICITIS WITHOUT PERFORATION OR GANGRENE SNOMED Code(s): 878912966 (3) Sepsis Current Visit: Yes Status: Acute Code(s): A41.9 - SEPSIS, UNSPECIFIED ORGANISM SNOMED Code(s): 34746402 (4) Hypertensive heart disease Current Visit: Yes Status: Acute Code(s): I11.9 - HYPERTENSIVE HEART DISEASE WITHOUT HEART FAILURE SNOMED Code(s): 57689322 (5) Diverticulitis Current Visit: Yes Status: Acute Code(s): K57.92 - DVTRCLI OF INTEST, PART UNSP, W/O PERF OR ABSCESS W/O BLEED SNOMED Code(s): 813333833 (6) Morbid obesity due to excess calories Current Visit: Yes Status: Acute Code(s): E66.01 - MORBID (SEVERE) OBESITY DUE TO EXCESS CALORIES SNOMED Code(s): 745019495 (7) Adult BMI 37.0-37.9 kg/sq m Current Visit: Yes Status: Acute Code(s): Z68.37 - BODY MASS INDEX [BMI] 37.0-37.9, ADULT SNOMED Code(s): 512604782
[2021-07-07] MEDS: atenoloL 25 MG TAB PO SCH (21:43)
--- NOTE | 2021-07-08 00:14 | P.CONS ---
History of Present Illness - Reason for Consult Consult date: 07/07/21 perforated appendicitis Requesting physician: Ethel Yu - Chief Complaint abd pain x 3 days - History of Present Illness History of present illness : Patient is a 50-year-old female with a past medical history sniffing for diverticulitis in this patient presented to hospital yesterday morning for evaluation of abdominal pain in the right lower quadrant that has been going on for 3 to 4 days before presentation to the hospital patient described the pain to be more of a sharp in nature intensity is almost 7-8 out of 10 and no radiation patient has felt nauseated but did not have any vomiting denies any vomiting diarrhea or any constipation patient did have some chills but denies high-grade fever on presentation to the hospital patient did have a fever of 100.8 F patient fever has subsequently resolved patient also white count of 12.8 with a left shift kidney function has been normal urine is negative brown PCR was negative patient did have CT of abdominal pelvis findings reflect acute appendicitis with follicle formation patient was started on Zosyn has been admitted to hospital infectious disease was consulted for further management Review of system: CONSTITUTIONAL: Positive for weakness along with the fever. EYES: No complaint. ENT: No complaint. RESPIRATORY: No complaint. CARDIOVASCULAR: No complaint. GENITOURINARY: No complaint. GASTROINTESTINAL: As per history of present illness. MUSCULOSKELETAL: No complaint. INTEGUMENTARY: No complaint. PSYCHOLOGIC: No complaint. ENDOCRINE: No complaint. NEUROLOGIC: No complaint. Past medical history : Reviewed, documented below Past surgical history : Reviewed, documented below Social history: Reviewed, documented below Medications: Reviewed, as documented below EXAMINATION: Vital sigans= Reviewed and documented below GENERAL DESCRIPTION: Middle-aged female lying in bed, no distress. No tachypnea or accessory muscle of respiration use. HEENT: Shows Pallor , no scleral icterus. Oral mucous membrane is dry. NECK: Trachea central, no thyromegaly. LUNGS: Unlabored breathing. Clear to auscultation anteriorly. No wheeze or crackle. HEART: S1, S2, regular rate and rhythm. ABDOMEN: Soft, mild right lower quadrant tenderness , guarding or rigidity EXTREMITIES: No edema of feet. SKIN: No rash, no masses palpable. NEUROLOGICAL: The patient is awake, alert, oriented x3, mood and affect normal. LABS AND RADIOLOGY: Reviewed results see below Assessment : Patient presented to hospital with sepsis and respiratory fever elevated white count source is acute perforated appendicitis with phlegmon formation and no evidence of any drainable abscess CT was reviewed with the IR, will need to cover for the enteric gram-negative both aerobes and anaerobes, with no plan for surgery at this point patient benefit from a PICC line outpatient antibiotic for at least 2 weeks Plan: 1-patient to continue with the Zosyn 3.37 g every 8 hours 2-gentle IV fluid and pain control 3-manager audit to arrange for outpatient antibiotic therapy 2 weeks We will follow on clinical condition and cultures to further adjust medication if needed Thank you for this consultation we will follow the patient along with you Past Medical History Past Medical History: Hypertension Additional Past Medical History / Comment(s): Diverticulitis, occasionally low back pain, covid infection approximately 3.5 weeks ago History of Any Multi-Drug Resistant Organisms: None Reported Past Surgical History: Section, Cholecystectomy, Tubal Ligation Additional Past Surgical History / Comment(s): D&Cs, EGD, colonoscopy Past Anesthesia/Blood Transfusion Reactions: No Reported Reaction Past Psychological History: No Psychological Hx Reported Additional Psychological History / Comment(s): Pt lives with her spouse and matt. She is independent. Smoking Status: Never smoker Past Alcohol Use History: Occasional Past Drug Use History: None Reported - Past Family History Father Family Medical History: Cancer Additional Family Medical History / Comment(s): Father is living. He has heart problems. Mother Family Medical History: COPD Additional Family Medical History / Comment(s): Mother from COPD. She was a smoker. Medications and Allergies Home Medications Medication Instructions Recorded Confirmed Type Losartan Potassium 100 mg PO DAILY 07/06/21 07/06/21 History atenoloL [Tenormin] 25 mg PO HS 07/06/21 07/06/21 History hydroCHLOROthiazide [Hydrodiuril] 12.5 mg PO DAILY 07/06/21 07/06/21 History hydroCHLOROthiazide [Hydrodiuril] 25 mg PO DAILY 07/06/21 07/06/21 History Allergies Allergy/AdvReac Type Severity Reaction Status Date / Time Iodinated Contrast Media Allergy Anaphylaxis Verified 07/06/21 10:28 [Iodinated Contrast- Oral and IV Dye] Physical Exam Vitals: Vital Signs Temp Pulse Pulse Resp BP BP Pulse Ox 07/07/21 08:00 98.3 F 70 16 112/74 97 07/07/21 04:39 98.8 F 07/07/21 02:59 100.6 F H 92 16 107/72 07/06/21 23:55 100.0 F H 82 16 109/72 07/06/21 20:00 99.0 F 89 16 120/78 07/06/21 15:30 100.0 F H 84 18 107/66 99 07/06/21 14:20 100.8 F H 84 20 130/68 97 07/06/21 12:12 100.2 F H 72 16 125/80 97 Intake and Output 07/06/21 07/07/21 07/07/21 22:59 06:59 14:59 Intake Total 0 Balance 0 Intake: Oral 0 Other: # Voids 2 3 Results CBC & Chem 7: 07/07/21 11:04 07/07/21 11:04
[2021-07-08] MEDS: PIPERACILLIN-TAZOBACTAM 3.375 GM in SODIUM CHLORIDE 0.9% 100 ML IVPB SCH ×3 (02:53→19:27)
[2021-07-08] MEDS: ACETAMINOPHEN TAB 500 MG TAB PO SCH ×2 (02:54→08:57)
[2021-07-08] MEDS: KETOROLAC 30 MG/ML 1 ML VIAL IVP SCH ×3 (06:16→18:50)
[2021-07-08] MEDS: metroNIDAZOLE-NS PMX 500 MG in SALINE 1 100ML.BAG IVPB SCH ×3 (06:16→18:14)
[2021-07-08] MEDS: SODIUM CHLORIDE 0.9% 1,000 ML IV SCH ×2 (06:17→16:55)
[2021-07-08 07:36] LABS: Basophils % (A) 0 %; Eosinophils # (A) 0.1 k/uL (0-0.7); Eosinophils % (A) 1 %; HCT 30.7 % (34.0-46.0); HGB 9.9 gm/dL (11.4-16.0); Lymphocytes # (A) 0.8 k/uL (1.0-4.8); Lymphocytes % (A) 8 %; MCH 28.9 pg (25.0-35.0); MCHC 32.2 g/dL (31.0-37.0); MCV 89.8 fL (80.0-100.0); Mean Platelet Volume 7.6; Monocytes # (A) 0.8 k/uL (0-1.0); Monocytes % (A) 8 %; Neutrophils # (A) 8.1 k/uL (1.3-7.7); Neutrophils % (A) 81 %; Platelet Count 277 k/uL (150-450); RBC 3.42 m/uL (3.80-5.40); WBC 9.9 k/uL (3.8-10.6)
[2021-07-08 07:48] LABS: ALT 21 U/L (4-34); AST 18 U/L (14-36); African American GFR (CKD) >90 (>60 ml/min/1.73 sqM); Albumin 2.7 g/dL (3.5-5.0); Alkaline Phosphatase 65 U/L (38-126); Anion Gap 8 mmol/L; Blood Urea Nitrogen 8 mg/dL (7-17); Calcium 7.7 mg/dL (8.4-10.2); Carbon Dioxide 26 mmol/L (22-30); Chloride 107 mmol/L (98-107); Glucose 103 mg/dL (74-99); Non-African American GFR(CKD) >90 (>60 ml/min/1.73 sqM); Potassium 3.2 mmol/L (3.5-5.1); Sodium 141 mmol/L (137-145); Total Bilirubin 0.4 mg/dL (0.2-1.3); Total Protein 5.7 g/dL (6.3-8.2)
[2021-07-08] MEDS: hydroCHLOROthiazide 25 MG TAB PO SCH (08:59)
[2021-07-08] MEDS: hydroCHLOROthiazide 12.5 MG CAP PO SCH (08:59)
[2021-07-08] MEDS: LOSARTAN 50 MG TAB PO SCH (08:59)
[2021-07-08] MEDS ORDERED: Potassium Replacement Protocol 1 EACH MISC MISCELLANE PRN (09:59)
[2021-07-08] MEDS ORDERED: ACETAMINOPHEN TAB 500 MG TAB PO PRN (10:00)
[2021-07-08 11:02] LABS: Prothrombin Time 10.9 sec (9.0-12.0)
[2021-07-08] MEDS: POTASSIUM CHLORIDE ER 20 MEQ TAB.ER PO SCH ×2 (12:10→12:48)
--- NOTE | 2021-07-08 12:22 | P.PN ---
Subjective Progress Note Date: 07/08/21 CHIEF COMPLAINT: Ruptured appendicitis with phlegmon HISTORY OF PRESENT ILLNESS: The patient is a 50-year-old female admitted with ruptured appendicitis with phlegmon. She reports 0- out of 10 pain today. No fevers. She is eager to go home. I personally discussed her case with infectious disease specialist where IV antibiotics is advised due to the extent of infection. Patient's also at bedside. REVIEW OF ORGAN SYSTEMS: No chest pain. No shortness of breath. Afebrile. Morbid obesity due to excess calories, BMI 37.6 PHYSICAL EXAMINATION: Vital signs: Reviewed GENERAL: Well developed and in no acute distress. HEENT: No sclera icterus. Extraocular movements grossly intact. Moist buccal mucosa. Head is atraumatic, normocephalic. Hears conversational speech. No nasal drainage. NECK: Supple without lymphadenopathy. No JV distention. CHEST: Prior to tachypnea now improved. Non-labored respirations and equal bilateral excursions. CARDIOVASCULAR: Palpable 2+ radial pulses. ABDOMEN: Protuberant. no peritonitis. MUSCULOSKELETAL: No clubbing, cyanosis or edema. NEUROLOGIC: No focal or lateralizing signs. PSYCH: Appropriate affect. Alert and oriented to person, place and time. SKIN: Well perfused. Good skin turgor. LABS: Reviewed. WBC over 12,800 on admission trending upward from 9.3-9.9 today. Potassium with hypokalemia at 3.2 ASSESSMENT: 1. Right lower quadrant pain due to perforated appendicitis and phlegmon. 2. Sepsis due to appendicitis. 3. Hypertensive heart disease 4. Morbid obesity due to excess calories, BMI 37.6 5. Hypokalemia PLAN: 1. Potassium replacement advised with 40 mEq by mouth potassium supplement 2. IV fluid normal saline discontinue from 130 mL/h to 70 mL per hour with potassium supplement 3. Patient scheduled for PICC line placement for prolonged IV antibiotics due to ruptured appendicitis with phlegmon 4. Continued inpatient hospitalization pending PICC line including arrangement for home IV antibiotics 5. Extended discussion with patient, nurse, including review of images and computed tomography scan described with care plan over 30 minutes reviewed. Objective - Vital Signs Vital signs: Vital Signs Temp 98.3 F 07/08/21 08:00 Pulse 74 07/08/21 08:00 Resp 18 07/08/21 08:00 BP 116/70 12/29/21 08:00 Pulse Ox 96 07/08/21 08:00 Intake & Output 07/07/21 07/08/21 07/08/21 18:59 06:59 18:59 Weight 108.862 kg Other: # Voids 2 4 # Bowel Movements 2 - Labs CBC & Chem 7: 07/08/21 07:16 07/08/21 07:16 Labs: Abnormal Lab Results - Last 24 Hours (Table) 07/07/21 07/08/21 07/08/21 Range/Units 11:04 07:16 07:16 RBC 3.42 L (3.80-5.40) m/uL Hgb 9.9 L (11.4-16.0) gm/dL Hct 30.7 L (34.0-46.0) % Neutrophils # 8.1 H (1.3-7.7) k/uL Lymphocytes # 0.8 L (1.0-4.8) k/uL Potassium 3.4 L 3.2 L (3.5-5.1) mmol/L Chloride 108 H (98-107) mmol/L Glucose 103 H (74-99) mg/dL Calcium 7.8 L 7.7 L (8.4-10.2) mg/dL Total Protein 5.9 L 5.7 L (6.3-8.2) g/dL Albumin 2.8 L 2.7 L (3.5-5.0) g/dL Assessment and Plan (1) Ruptured appendicitis Current Visit: Yes Status: Acute Code(s): K35.32 - ACUTE APPENDICITIS WITH PERF AND LOC PERITONITIS, W/O ABSCS SNOMED Code(s): 45157517 (2) Acute phlegmonous appendicitis Current Visit: Yes Status: Acute Code(s): K35.890 - OTHER ACUTE APPENDICITIS WITHOUT PERFORATION OR GANGRENE SNOMED Code(s): 826024468 (3) Sepsis Current Visit: Yes Status: Acute Code(s): A41.9 - SEPSIS, UNSPECIFIED ORGANISM SNOMED Code(s): 14266965 (4) Hypertensive heart disease Current Visit: Yes Status: Acute Code(s): I11.9 - HYPERTENSIVE HEART DISEASE WITHOUT HEART FAILURE SNOMED Code(s): 02743197 (5) Diverticulitis Current Visit: Yes Status: Acute Code(s): K57.92 - DVTRCLI OF INTEST, PART UNSP, W/O PERF OR ABSCESS W/O BLEED SNOMED Code(s): 414684387 (6) Morbid obesity due to excess calories Current Visit: Yes Status: Acute Code(s): E66.01 - MORBID (SEVERE) OBESITY DUE TO EXCESS CALORIES SNOMED Code(s): 963780855 (7) Adult BMI 37.0-37.9 kg/sq m Current Visit: Yes Status: Acute Code(s): Z68.37 - BODY MASS INDEX [BMI] 37.0-37.9, ADULT SNOMED Code(s): 024023350
[2021-07-08] MEDS ORDERED: LIDOCAINE 1% INJ 10MG/ML (20 ML MDV) ONE (14:36)
[2021-07-08] MEDS ORDERED: LIDOCAINE 1% INJ 10MG/ML (20 ML MDV) SQ ONE (14:52)
[2021-07-08] MEDS: 0.9% NACL WITH KCL 20 MEQ/L 1,000 ML IV SCH (15:33)
--- NOTE | 2021-07-08 15:54 | PN ---
PROGRESS NOTE DATE OF SERVICE: 07/08/2021 REASON FOR FOLLOWUP: Intraabdominal infection from a perforated appendicitis. INTERVAL HISTORY: The patient is afebrile. The patient's abdominal pain is currently controlled. The patient denies having any chest pain. No shortness of breath or cough. No nausea, vomiting. No diarrhea. PHYSICAL EXAMINATION: Blood pressure 138/78 with a pulse of 94, temperature 98.4. She is 97% on room air. General description is a middle-aged female lying in bed in no distress. Respiratory system: Unlabored breathing, clear to auscultation anteriorly. Heart S1, S2. Regular rate. Abdomen soft, no tenderness. Extremities: No edema of the feet. LABS: Hemoglobin 9.1, white count 9.9, creatinine 0.65. DIAGNOSTIC IMPRESSION AND PLAN: Patient with and intraabdominal no definite abscess. In view of extensive infection, she will benefit from Zosyn to continue for another 10 days. this was discussed with the surgeon. Continue supportive care. MMODL / IJN: [id number] /
[2021-07-08] MEDS ORDERED: BENZONATATE 100 MG CAP PO PRN (16:15)
--- NOTE | 2021-07-08 19:54 | P.PN ---
Progress Note - Text Progress Note Date: 07/08/21 Patient had pre-existing cough and still persistent during hospitalization. 2 view chest x-ray ordered. Per discussion with nursing, patient being arranged for home IV infusion. Patient had infiltration of her peripheral IV where antibiotics are due. Antibiotics switched to oral 1 dose of Augmentin and Flagyl. Anticipated discharge pending clearance from infectious disease and home infusion therapy.
[2021-07-08] MEDS ORDERED: AMOXIC-POT CLAV 875-125MG 1 EACH TAB PO ONE (20:00)
[2021-07-08] MEDS ORDERED: metroNIDAZOLE 500 MG TAB PO ONE (20:00)
[2021-07-08] MEDS: atenoloL 25 MG TAB PO SCH (20:23)
--- NOTE | 2021-07-08 23:09 | XR ---
EXAMINATION TYPE: XR chest 2V DATE OF EXAM: 07/08/2021 COMPARISON: 05/07/2021 HISTORY: Cough TECHNIQUE: FINDINGS: Heart and mediastinum are normal. Lungs are clear. Diaphragm is normal. There is left-sided central venous catheter with tip in the superior vena cava. Bony thorax is intact. IMPRESSION: Normal chest. No change.
[2021-07-09] MEDS: KETOROLAC 30 MG/ML 1 ML VIAL IVP SCH ×3 (00:27→13:03)
[2021-07-09] MEDS: 0.9% NACL WITH KCL 20 MEQ/L 1,000 ML IV SCH ×2 (06:38→13:29)
[2021-07-09 07:27] LABS: Basophils % (A) 0 %; Eosinophils # (A) 0.2 k/uL (0-0.7); Eosinophils % (A) 2 %; HCT 30.9 % (34.0-46.0); HGB 9.9 gm/dL (11.4-16.0); Hypochromasia Slight; Lymphocytes # (A) 0.9 k/uL (1.0-4.8); Lymphocytes % (A) 8 %; MCH 28.8 pg (25.0-35.0); MCHC 32.2 g/dL (31.0-37.0); MCV 89.4 fL (80.0-100.0); Mean Platelet Volume 7.6; Monocytes # (A) 0.8 k/uL (0-1.0); Monocytes % (A) 7 %; Neutrophils # (A) 9.3 k/uL (1.3-7.7); Neutrophils % (A) 81 %; Platelet Count 298 k/uL (150-450); RBC 3.45 m/uL (3.80-5.40); RDW 12.2 % (11.5-15.5); WBC 11.5 k/uL (3.8-10.6)
[2021-07-09 07:37] LABS: African American GFR (CKD) >90 (>60 ml/min/1.73 sqM); Anion Gap 5 mmol/L; Blood Urea Nitrogen 7 mg/dL (7-17); Calcium 7.9 mg/dL (8.4-10.2); Carbon Dioxide 29 mmol/L (22-30); Chloride 105 mmol/L (98-107); Glucose 117 mg/dL (74-99); Non-African American GFR(CKD) >90 (>60 ml/min/1.73 sqM); Potassium 3.4 mmol/L (3.5-5.1); Sodium 139 mmol/L (137-145)
[2021-07-09] MEDS: hydroCHLOROthiazide 12.5 MG CAP PO SCH (08:34)
[2021-07-09] MEDS: hydroCHLOROthiazide 25 MG TAB PO SCH (08:35)
[2021-07-09] MEDS: LOSARTAN 50 MG TAB PO SCH (08:35)
[2021-07-09] MEDS: POTASSIUM BICARBONATE/CIT AC 20 MEQ TABLET.EFF PO SCH ×2 (08:41→09:41)
--- NOTE | 2021-07-09 08:57 | IR ---
PICC LINE PLACEMENT: HISTORY: Infection requiring long-term antibiotic therapy PROCEDURE: Ultrasound and fluoroscopic guidance of PICC line placement. COMPLICATIONS: None ANESTHESIA: 1. 1% Lidocaine locally. FINDINGS/TECHNIQUE: The procedure was explained to the patient. The risks, complications, benefits and alternatives were discussed and any questions were answered. Informed consent was obtained. The patient was placed supine on the fluoroscopic table and prepped and draped in the usual sterile fas ion. Utilizing a 21 gauge needle and sonographic and fluoroscopic guidance, access in the vein was achieved and there is placement of a 0.018 guidewire. The vein is patent. A 4-F sheath was placed o popeye the guidewire. The guidewire and dilator were removed and a 4-F. PICC line was placed through th e sheath with the tip at the level of the SVC. The sheath was removed, the catheter was flushed and sutured into position. The patient was stable throughout the procedure and remained stable upon disc harge from the Department of Radiology. The vein puncture was patent under ultrasound. A bernardo scale image was obtained to document patency of the vein punctured. All elements of the maximal barrier technique were utilized. FLUOROSCOPY TIME: 0.2 minutes and one image submitted. IMPRESSION: Successful PICC line placement under ultrasound and fluoroscopic guidance.
[2021-07-09] MEDS: metroNIDAZOLE-NS PMX 500 MG in SALINE 1 100ML.BAG IVPB SCH ×2 (09:06→09:15)
[2021-07-09] MEDS: ACETAMINOPHEN TAB 500 MG TAB PO SCH ×2 (09:12→13:03)
[2021-07-09] MEDS: BARIUM SULFATE 450 ML ORAL.SUSP BOTTLE PO PRN ×2 (10:09→13:29)
[2021-07-09 10:41] VITALS: BP 143/83; PULSE 92; RESP 14; TEMP 99.6
[2021-07-09] MEDS: PIPERACILLIN-TAZOBACTAM 3.375 GM in SODIUM CHLORIDE 0.9% 100 ML IVPB SCH ×2 (11:36)
--- NOTE | 2021-07-09 14:25 | P.DS ---
Providers Date of admission: 07/07/21 07:45 Expected date of discharge: 07/09/21 Attending physician: Ethel Yu Consults: 07/07/21 09:31 Consult Physician Stat Consulting Provider: Miley Posada Consult Reason/Comments: Sepsis due to perforated appendix Do you want consulting provider notified?: Yes Primary care physician: Daniel Candelario - Discharge Diagnosis(es) (1) Ruptured appendicitis Status: Acute (2) Acute phlegmonous appendicitis Status: Acute (3) Sepsis Status: Acute (4) Hypertensive heart disease Status: Acute (5) Diverticulitis Status: Acute (6) Morbid obesity due to excess calories Status: Acute (7) Adult BMI 37.0-37.9 kg/sq m Status: Acute Hospital Course: CHIEF COMPLAINT: Ruptured appendicitis with phlegmon HISTORY OF PRESENT ILLNESS: The patient is a 50-year-old female admitted with ruptured appendicitis with phlegmon. She reports her abdominal pain is resolved. She also reports diarrhea which was present prior to her admission. She is tolerating diet. She has a PICC line. REVIEW OF ORGAN SYSTEMS: No chest pain. No shortness of breath. Morbid obesity due to excess calories, BMI 37.6 PHYSICAL EXAMINATION: Vital signs: Reviewed GENERAL: Well developed and in no acute distress. HEENT: No sclera icterus. Extraocular movements grossly intact. Moist buccal mucosa. Head is atraumatic, normocephalic. Hears conversational speech. No nasal drainage. NECK: Supple without lymphadenopathy. No JV distention. CHEST: Prior to tachypnea now improved. Non-labored respirations and equal bilateral excursions. CARDIOVASCULAR: Palpable 2+ radial pulses. ABDOMEN: Protuberant. No peritonitis. MUSCULOSKELETAL: No clubbing, cyanosis or edema. NEUROLOGIC: No focal or lateralizing signs. PSYCH: Appropriate affect. Alert and oriented to person, place and time. SKIN: Well perfused. Good skin turgor. LABS: Reviewed. WBC over 11,000. ASSESSMENT: 1. Right lower quadrant pain due to perforated appendicitis and phlegmon. 2. Sepsis due to appendicitis. 3. Hypertensive heart disease 4. Morbid obesity due to excess calories, BMI 37.6 5. Hypokalemia PLAN: 1. She had mild elevation of white blood cell count with repeat CT of the abdomen pelvis and personally reviewed demonstrating no organized fluid collection or abscess. 2. I personally spoke with infectious disease provider regarding antibiotic management and patient being cleared for discharge. Patient to receive Rocephin daily as outpatient. 3. Strict follow-up instructions in 1 week also reviewed. Patient Condition at Discharge: Stable Plan - Discharge Summary Discharge Rx Participant: No New Discharge Prescriptions: New metroNIDAZOLE [Flagyl] 500 mg PO TID #30 tab Ibuprofen [Motrin] 600 mg PO Q8HR PRN #30 tab PRN Reason: Pain Acetaminophen Tab [Tylenol Tab] 1,000 mg PO Q6HR PRN #30 tablet PRN Reason: Pain Continue hydroCHLOROthiazide [Hydrodiuril] 25 mg PO DAILY atenoloL [Tenormin] 25 mg PO HS hydroCHLOROthiazide [Hydrodiuril] 12.5 mg PO DAILY Losartan Potassium 100 mg PO DAILY Discharge Medication List Losartan Potassium 100 mg PO DAILY 07/06/21 [History] atenoloL [Tenormin] 25 mg PO HS 07/06/21 [History] hydroCHLOROthiazide [Hydrodiuril] 12.5 mg PO DAILY 07/06/21 [History] hydroCHLOROthiazide [Hydrodiuril] 25 mg PO DAILY 07/06/21 [History] Acetaminophen Tab [Tylenol Tab] 1,000 mg PO Q6HR PRN #30 tablet 07/09/21 [Rx] Ibuprofen [Motrin] 600 mg PO Q8HR PRN #30 tab 07/09/21 [Rx] metroNIDAZOLE [Flagyl] 500 mg PO TID #30 tab 07/09/21 [Rx] Follow up Appointment(s)/Referral(s): Andree Sanchez MD [Primary Care Provider] - 1-2 days Ethel Yu MD [STAFF PHYSICIAN] - 07/16/21 [facility],Infusion [NON-STAFF] - 07/10/21 10:00 am Miley Posada MD [STAFF PHYSICIAN] - 1 Week Patient Instructions/Handouts: Appendicitis (GEN), Peripherally Inserted Central Catheters and Midline Catheters in... (DC) Activity/Diet/Wound Care/Special Instructions: Diet as tolerated. Use Tylenol and ibuprofen or Aleve scheduled for best pain relief. Discharge Disposition: HOME SELF-CARE
--- NOTE | 2021-07-09 14:37 | CT ---
EXAMINATION TYPE: CT abdomen pelvis wo con DATE OF EXAM: 07/09/2021 COMPARISON: 07/06/2021 HISTORY: Appendicitis. TECHNIQUE: CT scan of the abdomen and pelvis performed without IV contrast. Oral contrast was given for the stud y. CT DLP: 1207.3 mGycm Automated exposure control for dose reduction was used. FINDINGS: LUNG BASES: No significant abnormality is appreciated. INCLUDED CARDIAC STRUCTURES: Unremarkable LIVER: There is a 1.4 x 1.3 cm low attenuating lesion of fluid density in the medial aspect of the ri ght hepatic lobe. There is a subcentimeter low attenuating lesion left hepatic lobe, too small to vis ualize. The hepatic contour is smooth. No intrahepatic biliary ductal dilatation. GALLBLADDER : Surgically absent. BILIARY TREE: No abnormal biliary tree dilation. PANCREAS: No significant abnormality is seen. SPLEEN: No significant abnormality is seen. Surgical clips stable in position inferior to the spleen. ADRENALS: Normal in size KIDNEYS AND URETERS: No significant abnormality is seen. URINARY BLADDER: Partially distended, unremarkable as seen ESOPHAGUS: No significant abnormality is seen. STOMACH: No significant abnormality is seen. SMALL BOWEL: No significant abnormality is seen. LARGE BOWEL: Pancolonic diverticulosis. APPENDIX: Not definitely identified. HERNIAS: No hernia seen. UTERUS/ADNEXA: No gross abnormality seen. No significant change in appearance since prior. Surgical c lip again seen in the left adnexal region. PERITONEUM/MESENTRY: There is extensive mesenteric inflammation in the lower abdomen and upper pelvis . This appears to be centered more on the right side and associated with the cecum. Inflammatory mittal ges are also in close proximity to the descending and sigmoid colon. Soft tissue density in the right lower abdomen (series 3 image 71) has grown in size now measuring about 6.9 x 6.7 x 3.4 cm previousl y 6.3 x 5.5 x 3.4 cm. There is also free fluid in the pelvis which has increased and size. No definit e pneumoperitoneum. LYMPH NODES: Prominent, likely reactive lymph nodes are seen in the right abdomen. MAJOR VASCULAR STRUCTURES: Nonaneurysmal aorta. Unremarkable inferior vena cava. OSSEOUS STRUCTURES: Osseous structures are not significantly changed in appearance compared to the pr ior. There is no acute osseous abnormality. Mild to moderate degenerative changes mild scoliosis of t he spine are again seen. IMPRESSION: 1. Sqvzvjiuye-adkuzhqlo-saeaywerpjcp changes, free fluid in the pelvis and the size of soft tissue at tenuating collection in the right lower abdomen which may be on the basis of phlegmon. The appendix i s not visualized and may be the cause of these inflammatory changes. The presence of pancolonic diver ticulosis and the close proximity of the inflammatory changes to the sigmoid colon makes it difficult to exclude acute diverticulitis as the etiology. Additionally a cecal inflammatory/malignant mass is included in the differential given the patient's age. No definite pneumoperitoneum appreciated. At t his time, no drainable abscess is seen, I recommend using intravenous contrast if renal function allo ws if repeat CT is obtained. 2. Right hepatic lobe low attenuating lesion measuring up to 1.4 cm, stable in appearance since study performed 3 days ago, statistically likely to be on the basis of a cyst.
--- NOTE | 2021-07-09 18:44 | PN ---
PROGRESS NOTE DATE OF SERVICE: 07/09/2021 REASON FOR FOLLOWUP: Intraabdominal infection from perforated appendicitis. INTERVAL HISTORY: The patient did have a low-grade fever of 99.2 this morning. The patient denies having any fever or chills. The patient denies having any chest pain or shortness of breath or cough. Abdominal pain is currently controlled. No nausea, vomiting. PHYSICAL EXAMINATION: Blood pressure 173/83 with a pulse of 92, temperature 99.6. He is 96% on room air. General description is an elderly female lying in bed in no distress. Respiratory system: Unlabored breathing. Clear to auscultation anteriorly. Heart S1, S2. Regular rate and rhythm. Abdomen soft, no tenderness. No guarding or rigidity. LABS: Hemoglobin is 9.9, white count 11.5, creatinine 0.61. Patient did have a repeat CT which shows intraabdominal phlegmon with no evidence of any drainable abscess. DIAGNOSTIC IMPRESSION AND PLAN: Patient with an intraabdominal infection from perforated appendicitis. Patient did have some clinical response to the IV antibiotic therapy. We did recommend Zosyn at home; however, the patient does not have any coverage for home antibiotics and has to go to clinic. Antibiotic consequently has been switched to Rocephin and Flagyl with a plan for repeat CT scan in 10 days to 2 weeks before antibiotic therapy. She did have multiple questions. Those were answered. ESMER / EDDIE: [id number] /
== END 2021-07-09 15:50 | disposition home or self-care (01) | DRG 871 ==
LOC: EC 09:40 → 4FBP 11:28 → OBSVTOIN 07-07 07:45
PROVIDERS: ADMIT Surgery Plastic and Reconstructive Surgery; ATTEND Surgery Plastic and Reconstructive Surgery
PROC: B548ZZA Ultrasonography of Superior Vena Cava, Guidance (ICD-10-PCS; principal; 2021-07-08 16:50)
PROC: 02HV33Z Insertion of Infusion Device into Superior Vena Cava, Percutaneous Approach (ICD-10-PCS; principal; 2021-07-08 16:50)
PROC: B5181ZA Fluoroscopy of Superior Vena Cava using Low Osmolar Contrast, Guidance (ICD-10-PCS; principal; 2021-07-08 16:50)
DX: A41.9 Sepsis, unspecified organism (principal); K35.33 Acute appendicitis with perforation, localized peritonitis, and gangrene, with abscess; K35.80 Unspecified acute appendicitis; E66.01 Morbid (severe) obesity due to excess calories; E87.6 Hypokalemia; Z20.822 Contact with and (suspected) exposure to COVID-19; M54.50 Low back pain, unspecified; I11.9 Hypertensive heart disease without heart failure; Z68.37 Body mass index [BMI] 37.0-37.9, adult; Z98.51 Tubal ligation status; Z91.041 Radiographic dye allergy status; Z86.16 Personal history of COVID-19; Z90.49 Acquired absence of other specified parts of digestive tract; Z98.890 Other specified postprocedural states; Z79.899 Other long term (current) drug therapy; Z87.19 Personal history of other diseases of the digestive system; Z82.5 Family history of asthma and other chronic lower respiratory diseases; Z80.9 Family history of malignant neoplasm, unspecified
CPT/HCPCS: 36415; 36573; 71046; 74176; 80048; 80053; 81001; 82150; 83605; 83690; 83735; 85025; 85610; 87635; 93005; 96361; 96365; 96367; 99285

== ENCOUNTER 2021-07-09 23:51 | Inpatient (IN) | payer OTHER ==
[2021-07-10] MEDS ORDERED: SODIUM CHLORIDE 0.9% 1,000 ML IV STA ×2 (00:14)
[2021-07-10] MEDS ORDERED: SODIUM CHLORIDE 0.9% 500 ML 500 ML IV STA (00:14)
[2021-07-10] MEDS ORDERED: AMPICILLIN-SULBACTAM 3 GM in SODIUM CHLORIDE 0.9% 100 ML IVPB STA (00:17)
--- NOTE | 2021-07-10 00:20 | ED ---
Recheck HPI - General Chief Complaint: Abdominal Pain Stated Complaint: Abd Pain Time Seen by Provider: 07/10/21 00:09 Source: patient, EMS, RN notes reviewed, old records reviewed Mode of arrival: EMS Limitations: no limitations - History of Present Illness Initial Comments: This is a 50-year-old female to the emergency department today. Patient prese nts today for evaluation of recurrent infection persistent infection abdominal infection appendicitis. Patient is on at home antibiotics will getting worse with severe diarrhea severe abdominal pain and worsening symptoms. MD Complaint: wound re-check (Recheck of appendicitis) -: days(s) Returns Today for: persistent/worsening pain related to initial visit Symptoms Since Prior Visit: worsening pain, fever Context: planned re-check Associated Symptoms: fever, nausea, abdominal pain Treatments Prior to Arrival: Given Antibiotics on, Given Pain Meds on - Related Data Home Medications Medication Instructions Recorded Confirmed Losartan Potassium 100 mg PO DAILY 07/06/21 07/06/21 atenoloL [Tenormin] 25 mg PO HS 07/06/21 07/06/21 hydroCHLOROthiazide [Hydrodiuril] 12.5 mg PO DAILY 07/06/21 07/06/21 hydroCHLOROthiazide [Hydrodiuril] 25 mg PO DAILY 07/06/21 07/06/21 Previous Rx's Medication Instructions Recorded Acetaminophen Tab [Tylenol Tab] 1,000 mg PO Q6HR PRN #30 tablet 07/09/21 Ibuprofen [Motrin] 600 mg PO Q8HR PRN #30 tab 07/09/21 metroNIDAZOLE [Flagyl] 500 mg PO TID #30 tab 07/09/21 Allergies Allergy/AdvReac Type Severity Reaction Status Date / Time Iodinated Contrast Media Allergy Anaphylaxis Verified 07/09/21 23:58 [Iodinated Contrast- Oral and IV Dye] Review of Systems ROS Statement: Those systems with pertinent positive or pertinent negative responses have been documented in the HPI. ROS Other: All systems not noted in ROS Statement are negative. Past Medical History Past Medical History: Hypertension Additional Past Medical History / Comment(s): Diverticulitis, occasionally low back pain, covid 06/2021, PICC line History of Any Multi-Drug Resistant Organisms: None Reported Past Surgical History: Section, Cholecystectomy, Tubal Ligation Additional Past Surgical History / Comment(s): D&Cs, EGD, colonoscopy Past Anesthesia/Blood Transfusion Reactions: No Reported Reaction Past Psychological History: No Psychological Hx Reported Smoking Status: Never smoker Past Alcohol Use History: Occasional Past Drug Use History: None Reported - Past Family History Father Family Medical History: Cancer Additional Family Medical History / Comment(s): Father is living. He has heart problems. Mother Family Medical History: COPD Additional Family Medical History / Comment(s): Mother from COPD. She was a smoker. General Exam Limitations: no limitations General appearance: alert, in no apparent distress, anxious Head exam: Present: atraumatic, normocephalic, normal inspection Eye exam: Present: normal appearance, PERRL, EOMI. Absent: scleral icterus, conjunctival injection, periorbital swelling ENT exam: Present: normal exam, mucous membranes moist Neck exam: Present: normal inspection. Absent: tenderness, meningismus, lymphadenopathy Respiratory exam: Present: normal lung sounds bilaterally. Absent: respiratory distress, wheezes, rales, rhonchi, stridor Cardiovascular Exam: Present: regular rate, normal rhythm, normal heart sounds. Absent: systolic murmur, diastolic murmur, rubs, gallop, clicks GI/Abdominal exam: Present: soft, tenderness, normal bowel sounds. Absent: distended, guarding, rebound, rigid Extremities exam: Present: normal inspection, full ROM, normal capillary refill. Absent: tenderness, pedal edema, joint swelling, calf tenderness Back exam: Present: normal inspection Neurological exam: Present: alert, oriented X3, CN II-XII intact Psychiatric exam: Present: normal affect, normal mood Skin exam: Present: warm, dry, intact, normal color. Absent: rash Course Vital Signs 07/09/21 07/10/21 23:58 01:10 Temperature 98.6 F Pulse Rate 130 H 110 H Respiratory 20 20 Rate Blood Pressure 94/49 123/80 O2 Sat by Pulse 95 94 L Oximetry - Reevaluation(s) Reevaluation #1: 07/10/21 01:21 Record is reviewed Reevaluation #2: 07/10/21 01:21 Patient symptoms are improved here in the ER Reevaluation #3: 07/10/21 01:21 Patient is informed of results and questions have been answered - Consultations Consultation #1: Spoke with [facility] we'll admit this patient Medical Decision Making - Medical Decision Making 50 female for recheck of abdominal pain nausea vomiting diarrhea and acute appendicitis with rupture. Patient is on antibiotics at home and now will be admitted for IV antibiotics fluid resuscitation and monitoring of infection - Lab Data Result diagrams: 07/10/21 00:30 Lab Results 07/10/21 07/10/21 Range/Units 00:30 00:30 WBC 14.4 H (3.8-10.6) k/uL RBC 4.15 (3.80-5.40) m/uL Hgb 11.9 (11.4-16.0) gm/dL Hct 36.7 (34.0-46.0) % MCV 88.5 (80.0-100.0) fL MCH 28.8 (25.0-35.0) pg MCHC 32.5 (31.0-37.0) g/dL RDW 12.2 (11.5-15.5) % Plt Count 358 (150-450) k/uL MPV 7.8 Neutrophils % 85 % Lymphocytes % 6 % Monocytes % 7 % Eosinophils % 0 % Basophils % 0 % Neutrophils # 12.2 H (1.3-7.7) k/uL Lymphocytes # 0.9 L (1.0-4.8) k/uL Monocytes # 1.0 (0-1.0) k/uL Eosinophils # 0.1 (0-0.7) k/uL Basophils # 0.0 (0-0.2) k/uL PT 10.8 (9.0-12.0) sec INR 1.0 (<1.2) APTT 26.1 (22.0-30.0) sec - EKG Data -: EKG Interpreted by Me (EKG shows sinus tachycardia 116 NJ 128 QRS 78 QTc 464) Disposition Clinical Impression: Ruptured appendicitis, Sepsis Disposition: ADMITTED IP TO THIS HOSP Condition: Fair Is patient prescribed a controlled substance at d/c from ED?: No Referrals: Andree Sanchez MD [Primary Care Provider] - 1-2 days
[2021-07-10 01:09] LABS: Basophils % (A) 0 %; Eosinophils # (A) 0.1 k/uL (0-0.7); Eosinophils % (A) 0 %; HCT 36.7 % (34.0-46.0); HGB 11.9 gm/dL (11.4-16.0); Lymphocytes # (A) 0.9 k/uL (1.0-4.8); Lymphocytes % (A) 6 %; MCH 28.8 pg (25.0-35.0); MCHC 32.5 g/dL (31.0-37.0); MCV 88.5 fL (80.0-100.0); Mean Platelet Volume 7.8; Monocytes % (A) 7 %; Neutrophils # (A) 12.2 k/uL (1.3-7.7); Neutrophils % (A) 85 %; Platelet Count 358 k/uL (150-450); RBC 4.15 m/uL (3.80-5.40); RDW 12.2 % (11.5-15.5); WBC 14.4 k/uL (3.8-10.6)
[2021-07-10 01:14] LABS: Partial Thromboplastin Time 26.1 sec (22.0-30.0); Prothrombin Time 10.8 sec (9.0-12.0)
[2021-07-10] MEDS: HYDROmorphone 1 MG/ML 1 ML SYRINGE IVP PRN ×4 (01:19→23:05)
[2021-07-10] MEDS ORDERED: NALOXONE 0.4 MG/ML 1 ML VIAL IV PRN (01:22)
[2021-07-10 01:25] LABS: ALT 22 U/L (4-34); AST 27 U/L (14-36); African American GFR (CKD) >90 (>60 ml/min/1.73 sqM); Albumin 3.2 g/dL (3.5-5.0); Alkaline Phosphatase 64 U/L (38-126); Anion Gap 13 mmol/L; Blood Urea Nitrogen 9 mg/dL (7-17); Calcium 8.4 mg/dL (8.4-10.2); Carbon Dioxide 25 mmol/L (22-30); Chloride 100 mmol/L (98-107); Glucose 151 mg/dL (74-99); Magnesium 1.4 mg/dL (1.6-2.3); Non-African American GFR(CKD) >90 (>60 ml/min/1.73 sqM); Phosphorus 3.3 mg/dL (2.5-4.5); Potassium 3.8 mmol/L (3.5-5.1); Sodium 138 mmol/L (137-145); Total Bilirubin 0.7 mg/dL (0.2-1.3); Total Protein 6.6 g/dL (6.3-8.2)
[2021-07-10 01:37] LABS: C Reactive Protein 25.6 mg/dL (<1.0)
[2021-07-10] MEDS: LORazepam 2 MG/ML INJ IV PRN (03:49)
[2021-07-10] MEDS: ONDANSETRON 4 MG/2 ML VIAL IVP PRN ×2 (03:54→23:05)
[2021-07-10 04:35] LABS: Appearance,Urine Clear (Clear); Bilirubin,Urine Negative (Negative); Blood,Urine Negative (Negative); Color,Urine Yellow; Glucose,Urine (UA) Negative (Negative); Ketones,Urine Negative (Negative); Leukocyte Esterase,Urine Trace (Negative); Mucus,Urine Occasional /hpf; Nitrite,Urine Negative (Negative); Protein,Urine Trace (Negative); Specific Gravity,Urine 1.011 (1.001-1.035); Squamous Epithelial Cell,Urine 2 /hpf (0-4); Urobilinogen,Urine <2.0 mg/dL (<2.0); WBC,Urine 4 /hpf (0-5)
[2021-07-10] MEDS: PANTOPRAZOLE 40 MG/10 ML VIAL IV SCH (08:22)
[2021-07-10] MEDS ORDERED: AMPICILLIN-SULBACTAM 3 GM in SODIUM CHLORIDE 0.9% 100 ML IVPB SCH (09:00)
--- NOTE | 2021-07-10 14:51 | XR ---
EXAMINATION TYPE: XR chest 1V portable DATE OF EXAM: 07/10/2021 COMPARISON: 07/08/2021 HISTORY: Recent Covid TECHNIQUE: Single frontal view of the chest is obtained. FINDINGS: Mild increased density right medial lung base could reflect vascular crowding, atelectasis or develop ing infiltrate. Correlate clinically. The cardiac silhouette size is within normal limits. The osseous structures are intact. IMPRESSION: 1. Mild increased density right medial lung base could reflect vascular crowding, atelectasis or dev eloping infiltrate. Correlate clinically.
--- NOTE | 2021-07-10 14:59 | P.GSCN ---
History of Present Illness Consult date: 07/10/21 History of present illness: CHIEF COMPLAINT: Complicated ruptured appendicitis HISTORY OF PRESENT ILLNESS: The patient is a 50-year-old female recently discharged yesterday for complicated ruptured appendicitis with phlegmon treated with IV antibiotics for over 3 days with anticipated interval appendectomy. Patient reports prior to discharge that her abdominal pain resolved. Her pain was 0 out of 10. She was passing flatus. She was eager to go home. Antibiotic management was provided by infectious disease. Patient has pre-existing diarrhea from Covid over 3 weeks ago. Patient had gone home yesterday . She reports doing well prior to discharge. Patient went home and reported recurrent abdominal pain with worsening diarrhea. She came back to the emergency room. She denied fevers at home. She denies chills at home. PAST MEDICAL HISTORY: List reviewed. PAST SURGICAL HISTORY: List reviewed. CURRENT MEDICATIONS: List reviewed. ALLERGIES: List reviewed. SOCIAL HISTORY: Non-tobacco user. FAMILY HISTORY: Denies Crohns disease and ulcerative colitis. REVIEW OF ORGAN SYSTEMS: CONSTITUTIONAL: No fevers or chills and 24 hours. Morbidly obese with body mass index 37.6. HEENT: Denies any trouble with vision, hearing or nosebleeds. No difficulty swallowing. LYMPHATIC: The patient denies any lumps and bumps around the neck. ENDOCRINE: Denies any thyroid disorders. Denies any blood sugar glucose intolerance. RESPIRATORY: Denies shortness of breath including chronic cough. CARDIOVASCULAR: Denies history of chest pain with exertion. Has hypertensive heart disease. GASTROINTESTINAL: Personal history of diverticulitis. Has diarrhea over 2 weeks GENITOURINARY: Denies any blood in urine or increased urinary frequency. MUSCULOSKELETAL: Denies current joint arthritis. NEUROLOGIC: Denies any numbness or tingling along the distal extremities. No seizure disorders or headaches. PSYCHIATRIC: Denies any depression or suicidal ideation. HEMATOLOGIC: Denies any abnormal bleeding or bruising. PHYSICAL EXAMINATION: Vital signs: Reviewed GENERAL: Well developed and in no acute distress. HEENT: No sclera icterus. Extraocular movements grossly intact. Moist buccal mucosa. Head is atraumatic, normocephalic. Hears conversational speech. No nasal drainage. NECK: Supple without lymphadenopathy. No JV distention. CHEST: Prior to tachypnea now improved. Non-labored respirations and equal bilateral excursions. CARDIOVASCULAR: Regular rate and rhythm. Palpable 2+ radial pulses. ABDOMEN: Protuberant. Tender right lower quadrant. No peritonitis. MUSCULOSKELETAL: No clubbing, cyanosis or edema. NEUROLOGIC: No focal or lateralizing signs. PSYCH: Appropriate affect. Alert and oriented to person, place and time. SKIN: Well perfused. Good skin turgor. LABS: Reviewed. WBC over 12,800. Covid antigen negative. STUDIES: CT of the abdomen pelvis before discharge less than 24 hours ago reviewed demonstrates no identifiable abscess with phlegmon and ruptured appendicitis This is my independent interpretation. ASSESSMENT: 1. Complicated appendicitis with rupture, phlegmon 2. Covid positive 3. Leukocytosis 4. Hypertensive heart disease 5. Morbid obesity due to excess calories, BMI 37.6 6. Covid-induced diarrhea PLAN: 1. Recommend infectious disease consultation. 2. CT of the abdomen and pelvis may be deferred next week otherwise 3-5 days for assessment of progression of phlegmon. 3. Send stool cultures including C Diff. Past Medical History Past Medical History: Hypertension Additional Past Medical History / Comment(s): Diverticulitis, occasionally low back pain, covid 06/2021, PICC line, appendicitis History of Any Multi-Drug Resistant Organisms: None Reported Past Surgical History: Section, Cholecystectomy, Tubal Ligation Additional Past Surgical History / Comment(s): D&Cs, EGD, colonoscopy Past Anesthesia/Blood Transfusion Reactions: No Reported Reaction Past Psychological History: No Psychological Hx Reported Additional Psychological History / Comment(s): Pt lives with her spouse and matt. She is independent. Smoking Status: Never smoker Past Alcohol Use History: Occasional Past Drug Use History: None Reported - Past Family History Father Family Medical History: Cancer Additional Family Medical History / Comment(s): Father is living. He has heart problems. Mother Family Medical History: COPD Additional Family Medical History / Comment(s): Mother from COPD. She was a smoker. Medications and Allergies Home Medications Medication Instructions Recorded Confirmed Type Losartan Potassium 100 mg PO DAILY 07/06/21 07/10/21 History atenoloL [Tenormin] 25 mg PO HS 07/06/21 07/10/21 History hydroCHLOROthiazide [Hydrodiuril] 12.5 mg PO DAILY 07/06/21 07/10/21 History hydroCHLOROthiazide [Hydrodiuril] 25 mg PO DAILY 07/06/21 07/10/21 History metroNIDAZOLE [Flagyl] 500 mg PO TID #30 tab 07/09/21 07/10/21 Rx Acetaminophen Tab [Tylenol Tab] 1,000 mg PO Q6H PRN 07/10/21 07/10/21 History Ibuprofen [Motrin] 600 mg PO Q8H PRN 07/10/21 07/10/21 History Allergies Allergy/AdvReac Type Severity Reaction Status Date / Time Iodinated Contrast Media Allergy Anaphylaxis Verified 07/14/21 16:13 [Iodinated Contrast- Oral and IV Dye] Surgical - Exam Vital Signs Temp Pulse Resp BP Pulse Ox 98.6 F 130 H 20 94/49 95 07/09/21 23:58 07/09/21 23:58 07/09/21 23:58 07/09/21 23:58 07/09/21 23:58 Results - Labs 07/15/21 07:36 07/15/21 07:36 Abnormal Lab Results - Last 24 Hours (Table) 07/10/21 07/10/21 07/10/21 Range/Units 00:30 00:30 01:50 WBC 14.4 H (3.8-10.6) k/uL Neutrophils # 12.2 H (1.3-7.7) k/uL Lymphocytes # 0.9 L (1.0-4.8) k/uL Glucose 151 H (74-99) mg/dL Magnesium 1.4 L (1.6-2.3) mg/dL C-Reactive Protein 25.6 H (<1.0) mg/dL Albumin 3.2 L (3.5-5.0) g/dL Urine Protein (Negative) Ur Leukocyte Esterase (Negative) Urine Mucus (None) /hpf Coronavirus (PCR) Detected A (Not Detectd) 07/10/21 Range/Units 03:30 WBC (3.8-10.6) k/uL Neutrophils # (1.3-7.7) k/uL Lymphocytes # (1.0-4.8) k/uL Glucose (74-99) mg/dL Magnesium (1.6-2.3) mg/dL C-Reactive Protein (<1.0) mg/dL Albumin (3.5-5.0) g/dL Urine Protein Trace H (Negative) Ur Leukocyte Esterase Trace H (Negative) Urine Mucus Occasional H (None) /hpf Coronavirus (PCR) (Not Detectd) Diabetes panel 07/10/21 Range/Units 00:30 Sodium 138 (137-145) mmol/L Potassium 3.8 (3.5-5.1) mmol/L Chloride 100 (98-107) mmol/L Carbon Dioxide 25 (22-30) mmol/L BUN 9 (7-17) mg/dL Creatinine 0.75 (0.52-1.04) mg/dL Glucose 151 H (74-99) mg/dL Calcium 8.4 (8.4-10.2) mg/dL AST 27 (14-36) U/L ALT 22 (4-34) U/L Alkaline Phosphatase 64 (38-126) U/L Total Protein 6.6 (6.3-8.2) g/dL Albumin 3.2 L (3.5-5.0) g/dL Calcium panel 07/10/21 Range/Units 00:30 Calcium 8.4 (8.4-10.2) mg/dL Phosphorus 3.3 (2.5-4.5) mg/dL Albumin 3.2 L (3.5-5.0) g/dL Pituitary panel 07/10/21 Range/Units 00:30 Sodium 138 (137-145) mmol/L Potassium 3.8 (3.5-5.1) mmol/L Chloride 100 (98-107) mmol/L Carbon Dioxide 25 (22-30) mmol/L BUN 9 (7-17) mg/dL Creatinine 0.75 (0.52-1.04) mg/dL Glucose 151 H (74-99) mg/dL Calcium 8.4 (8.4-10.2) mg/dL Adrenal panel 07/10/21 Range/Units 00:30 Sodium 138 (137-145) mmol/L Potassium 3.8 (3.5-5.1) mmol/L Chloride 100 (98-107) mmol/L Carbon Dioxide 25 (22-30) mmol/L BUN 9 (7-17) mg/dL Creatinine 0.75 (0.52-1.04) mg/dL Glucose 151 H (74-99) mg/dL Calcium 8.4 (8.4-10.2) mg/dL Total Bilirubin 0.7 (0.2-1.3) mg/dL AST 27 (14-36) U/L ALT 22 (4-34) U/L Alkaline Phosphatase 64 (38-126) U/L Total Protein 6.6 (6.3-8.2) g/dL Albumin 3.2 L (3.5-5.0) g/dL Assessment and Plan (1) Ruptured appendicitis Current Visit: Yes Status: Acute Code(s): K35.32 - ACUTE APPENDICITIS WITH PERF AND LOC PERITONITIS, W/O ABSCS SNOMED Code(s): 01052800 (2) Sepsis Current Visit: Yes Status: Acute Code(s): A41.9 - SEPSIS, UNSPECIFIED ORGANISM SNOMED Code(s): 42139020 (3) Acute phlegmonous appendicitis Current Visit: No Status: Acute Code(s): K35.890 - OTHER ACUTE APPENDICITIS WITHOUT PERFORATION OR GANGRENE SNOMED Code(s): 607658463 (4) Adult BMI 37.0-37.9 kg/sq m Current Visit: No Status: Acute Code(s): Z68.37 - BODY MASS INDEX [BMI] 37.0-37.9, ADULT SNOMED Code(s): 165041241 (5) Hypertensive heart disease Current Visit: No Status: Acute Code(s): I11.9 - HYPERTENSIVE HEART DISEASE WITHOUT HEART FAILURE SNOMED Code(s): 42416982 (6) Morbid obesity due to excess calories Current Visit: No Status: Acute Code(s): E66.01 - MORBID (SEVERE) OBESITY DUE TO EXCESS CALORIES SNOMED Code(s): 472577900
--- NOTE | 2021-07-10 15:50 | HP ---
HISTORY AND PHYSICAL CHIEF COMPLAINT: Abdominal pain. HISTORY OF PRESENT ILLNESS: This 50-year-old woman with a past medical history of hypertension, history of diverticulitis, being followed by Dr. Sanchez in the outpatient setting was recently admitted and discharged by Dr. Yu with diagnosis of ruptured appendicitis and acute phlegmonous appendicitis. IV antibiotics arranged. Dr. Azul had also seen the patient during the hospitalization. After going home the patient complaining of abdominal distention, abdominal pain. Patient has significant diarrhea. The patient came to [facility] and for further evaluation and treatment. The patient also had Covid 19 positive. The patient apparently had Covid 19 previously also. The patient's sats are 90% on 2 L. The chest x-ray which was done in the ER and reviewed personally by me showed some lower lobe infiltrates. There is no history of fever, rigors. No headache or loss of consciousness or seizures. PAST MEDICAL HISTORY: History of hypertension, diabetes, recent history of perforated appendix and IV antibiotics. MEDICATIONS: Tenormin, losartan, Tylenol, Flagyl, Motrin. Doses are reviewed. ALLERGIES: Iodinated contrast. FAMILY HISTORY: History of cancer in the family. SOCIAL HISTORY: No history of smoking. Occasional alcohol intake. REVIEW OF SYSTEMS: ENT: No diminished vision. Cardiovascular: No chest pain. Respiratory: No cough or hemoptysis. GI as mentioned. : No dysuria or hematuria. Nervous system: No numbness or weakness. Allergy: No asthma or hayfever. Musculoskeletal: As mentioned. Hematology/Oncology: No history of anemia. Endocrine: No history of diabetes or hypothyroidism. Constitutional: Negative. Dermatology: Negative. Constitutional: As mentioned. PHYSICAL EXAMINATION: Alert and oriented. Pulse is 106, blood pressure 160/90, respirations 20, temperature 97.7, pulse ox 98% on 2 L. HEENT conjunctivae normal. Oral mucosa moist. Neck supple. Cardiovascular respirations diminished at the bases. Few scattered rhonchi. Abdomen soft, obese, distended. Mild diffuse tenderness. No guarding. No rigidity. Bowel sounds diminished. No ascites. Legs no edema, no swelling. Nervous system as mentioned. Moves all extremities equally. No focal numbness or weakness. Lymphatics no lymph nodes. Skin no rash. Joints no active arthropathy. LAB STUDIES: WBC 14, hemoglobin 7.9, glucose 151, magnesium 1.4, albumin to 3.2. UA noted. Covid 19 positive. Chest x-ray reviewed personally. ASSESSMENT: 1. Acute abdominal pain with possibly appendiceal perforation and abdominal distention possible sepsis with severe abdominal pain present on admission. 2. Severe diarrhea rule out C difficile colitis. 3. Status post PICC line and IV antibiotics. 4. Increased WBC. 5. Increased random glucose. 6. Hypomagnesemia. 7. Elevated CRP. 8. Acute COVID-19 infection. 9. History of hypertension. 10.History of diverticulitis. 11.Rule out pneumonia secondary to Covid 19. 12.History of PICC line. 13.Cholecystectomy. 14.Morbid obesity BMI of 37.6. 15.Full code. RECOMMENDATIONS: In this 50-year-old woman who presented with multiple medical issues, we will monitor the patient closely. Continue the current management. I recommend surgical evaluation. Continued evaluation by Dr. Yu. Also recommend consultation with Dr. Posada and also recommend consultation with Dr. Moe regarding the pulmonary status. Prognosis extremely guarded because of multiple complex medical issues. Discussed with the patient and family at the bedside and closely follow with surgery as mentioned earlier. Please refer to the previous admission notes and including Surgery and infectious Disease notes from the previous admission for further details. MMODL / IJN: [id number] /
[2021-07-10] MEDS: AMPICILLIN-SULBACTAM 3 GM in SODIUM CHLORIDE 0.9% 100 ML IVPB SCH (15:51)
[2021-07-10] MEDS: metroNIDAZOLE-NS PMX 500 MG in SALINE 1 100ML.BAG IVPB SCH ×2 (15:51→23:05)
[2021-07-10] MEDS ORDERED: ACETAMINOPHEN TAB 500 MG TAB PO PRN (23:02)
[2021-07-10] MEDS: atenoloL 25 MG TAB PO SCH (23:05)
[2021-07-11] MEDS: AMPICILLIN-SULBACTAM 3 GM in SODIUM CHLORIDE 0.9% 100 ML IVPB SCH ×4 (00:51→15:52)
[2021-07-11] MEDS: metroNIDAZOLE-NS PMX 500 MG in SALINE 1 100ML.BAG IVPB SCH ×4 (03:02→21:50)
[2021-07-11] MEDS: ONDANSETRON 4 MG/2 ML VIAL IVP PRN ×3 (06:45→21:50)
[2021-07-11] MEDS: PANTOPRAZOLE 40 MG/10 ML VIAL IV SCH (07:18)
[2021-07-11] MEDS: HYDROmorphone 1 MG/ML 1 ML SYRINGE IVP PRN ×4 (10:50→22:32)
[2021-07-11 13:33] LABS: Basophils # (A) 0.02 X 10*3/uL (0.00-0.10); Basophils % (A) 0.1 %; Eosinophils # (A) 0.02 X 10*3/uL (0.04-0.35); Eosinophils % (A) 0.1 %; HCT 31.6 % (37.2-46.3); HGB 9.7 g/dL (12.0-15.0); Lymphocytes # (A) 1.02 X 10*3/uL (0.90-5.00); Lymphocytes % (A) 5.9 %; MCH 27.6 pg (27.0-32.0); MCHC 30.7 g/dL (32.0-37.0); Mean Platelet Volume 10.1 fL (9.5-12.2); Monocytes # (A) 1.06 X 10*3/uL (0.20-1.00); Monocytes % (A) 6.2 %; Neutrophils # (A) 14.99 X 10*3/uL (1.80-7.70); Neutrophils % (A) 87.2 %; Platelet Count 396 X 10*3/uL (140-440); RBC 3.51 X 10*6/uL (4.10-5.20); RDW 12.9 % (11.5-14.5)
[2021-07-11 14:20] LABS: African American GFR (CKD) 100.3 (60.0-200.0); Albumin 2.5 g/dL (3.8-4.9); Anion Gap 12.7 mmol/L (10.00-18.00); BUN/Creat Ratio 14.63 Ratio (12.00-20.00); Blood Urea Nitrogen 11.7 mg/dL (9.0-27.0); Calcium 7.7 mg/dL (8.7-10.3); Carbon Dioxide 21.3 mmol/L (20.0-27.5); Globulin 2.5 g/dL (1.6-3.3); Non-African American GFR(CKD) 86.6 (60.0-200.0); Potassium 3.7 mmol/L (3.5-5.5); Total Bilirubin 0.4 mg/dL (0.30-1.20)
--- NOTE | 2021-07-11 19:10 | PN ---
PROGRESS NOTE DATE OF SERVICE: 07/11/2021 This 50-year-old woman who was admitted with abdominal pain has a recent history of appendicitis. The patient is on IV antibiotics. A CT scan of the abdomen has been deferred by surgery. No chest pain. No palpitations. No fever. The white count is elevated to 17.20. The patient is complaining of abdominal pain. The COVID-19 was positive at this time. PAST MEDICAL HISTORY: Reviewed. REVIEW OF SYSTEMS: Cardiovascular system: No angina. Respiratory system: As mentioned earlier. GI: As mentioned earlier. : No dysuria. Nervous system: No numbness or weakness. CURRENT MEDICATIONS: Reviewed and include Tylenol, Unasyn, Dilaudid, Ativan. PHYSICAL EXAMINATION: Patient is alert, oriented x3. Pulse is 101, blood pressure 103/70, respiration 17, temperature 98.2, T-max 100.6, pulse ox 96% on 2 L. HEENT: Conjunctivae normal. Oral mucosa moist. NECK: No jugular venous distention. No lymph node enlargement. CARDIOVASCULAR: S1, S2, muffled. No S3, no S4, RESPIRATORY: Diminished breath sounds at the bases. A few scattered rhonchi. ABDOMEN: Soft, diffuse distention, tender. No guarding or rigidity. Bowel sounds diminished. LEGS: No edema, no swelling. NERVOUS SYSTEM: No focal deficits. LAB STUDIES: WBC 17.20, hemoglobin 9.7. ASSESSMENT: 1. Acute abdominal pain with possible appendiceal perforation with abdominal distention possible sepsis and severe abdominal pain, present on admission. 2. Severe diarrhea, rule out C difficile colitis. 3. Acute COVID-19 infection. 4. Status post PICC line and IV antibiotics. 5. Increased WBC. 6. Increased random glucose. 7. Hypomagnesemia. 8. Elevated CRP. 9. History of hypertension. 10.History of diverticulitis. 11.Possible pneumonia secondary to COVID-19 infection. RECOMMENDATION: Recommend to continue current management, continue symptomatic treatment. Otherwise, closely follow with IV antibiotics. Closely follow with Infectious Disease. d/w Dr Posada. recommends surgery. Concurs. D/w Dr Azul. He advised CT. He will look in to that and decide. Guarded prognosis because of multiple complex medical issues. Further recommendations to follow. The patient's D-dimer is elevated up to 31.14. surgery aware. MMODL / IJN: [id number] / MTDD
[2021-07-11] MEDS ORDERED: IOPAMIDOL CONTRAST (ORAL USE) VIAL PO PRN (19:14)
[2021-07-11] MEDS ORDERED: BARIUM SULFATE 450 ML ORAL.SUSP BOTTLE PO ONE ×2 (20:01→23:30)
--- NOTE | 2021-07-11 21:37 | PN ---
PROGRESS NOTE DATE OF SERVICE: 07/11/2021 REASON FOR FOLLOWUP: Intraabdominal abscess from perforated appendicitis. INTERVAL HISTORY: The patient did spike a fever last night of 102 degrees Fahrenheit and low-grade fever of 100.6 this morning. She has been complaining of pain mostly in the left lower abdominal area and did have diarrhea. The patient denies having any chest pain or shortness of breath. She did have a cough; mentioned not any worsening from previous. No nausea. No vomiting. PHYSICAL EXAMINATION: Blood pressure 102/72 with a pulse of 101, temperature 98.8, T-max 102. She is 96% on 2 L nasal cannula. General description is a middle-aged female lying in bed in no distress. Respiratory system: Unlabored breathing, clear to auscultation anteriorly. Heart S1, S2. Regular rate and rhythm. Abdomen soft. Mostly tender in the left upper quadrant area. No guarding or rigidity. LABS: Hemoglobin is 9.3, white count 17.20, creatinine 0.8. DIAGNOSTIC IMPRESSION AND PLAN: Patient with abdominal sepsis from perforated appendicitis and a possible abscess with concern for possible failure of medical treatment. CT abdomen and pelvis is going to be repeated tonight, and if any worsening, may benefit from surgery as per discussion with the medical team, as her symptoms are mostly to the left abdominal area. We will go ahead and check stool for C difficile and treat if positive. Antibiotic will be adjusted to Zosyn while waiting for the workup to be completed and continue supportive care. MMODL / IJN: [id number] /
[2021-07-11] MEDS: atenoloL 25 MG TAB PO SCH (21:50)
[2021-07-12] MEDS: PIPERACILLIN-TAZOBACTAM 3.375 GM in SODIUM CHLORIDE 0.9% 100 ML IVPB SCH ×3 (00:05→17:40)
--- NOTE | 2021-07-12 01:17 | CT ---
EXAMINATION TYPE: CT ChestAbdPelvis wo con DATE OF EXAM: 07/12/2021 COMPARISON: CT abdomen pelvis 07/09/2021 HISTORY: Abd. pain CT DLP: 1457.80 mGycm Automated exposure control for dose reduction was used. Images obtained from the thoracic inlet to the floor the pelvis with oral contrast only. The lungs are clear of consolidation. There is no evidence of pleural effusion. Heart size is normal. There is no pericardial effusion. Liver is intact. There are clips from cholecystectomy. Spleen is intact. The stomach is intact. There is contrast in the stomach but no contrast in the small bowel. There are multiple dilated loops of f luid-filled small bowel upper and lower abdomen. There is no evidence of pancreatic mass. The bile du cts are nondilated. There is no adrenal mass. Kidneys show normal size and contour. There is no hydronephrosis. Ureters a re not dilated. Urinary bladder is almost empty. Uterus is intact. There is some free fluid in the pe lvis. There is small amount of free fluid in the paracolic gutters. There is no evidence of free air. Small bowel is dilated up to 5 cm. The thoracic and lumbar vertebrae have normal alignment. There is no compression fracture. Sternum is intact. The bony pelvis is intact. Hip joints are intact. There are multiple large bowel diverticula . The terminal ileum is dilated with wall thickening. There is a 6 cm inflammatory-appearing mass in the right lower quadrant. This is medial to the cecum and could relate to an inflamed appendix. The t horacic and lumbar spine appear intact. There is no compression fracture. Sternum is intact. The bony pelvis appears intact. IMPRESSION: There is extensive dilation of the small bowel with fluid and very minimal wall thickening involving the distal ileum. I would consider possibilities of mechanical bowel obstruction secondary to bowel i nflammation and peritonitis. There is inflammatory appearing mass right lower quadrant similar to las t exam and could be markedly thickened appendix with large phlegmon. Obstructive pattern of the small bowel is a change compared to recent exam. Mild ascites fluid.
[2021-07-12] MEDS: metroNIDAZOLE-NS PMX 500 MG in SALINE 1 100ML.BAG IVPB SCH ×4 (03:09→21:39)
[2021-07-12] MEDS: HYDROmorphone 1 MG/ML 1 ML SYRINGE IVP PRN ×6 (03:10→21:40)
[2021-07-12] MEDS: PANTOPRAZOLE 40 MG/10 ML VIAL IV SCH (07:34)
[2021-07-12] MEDS: ONDANSETRON 4 MG/2 ML VIAL IVP PRN ×3 (10:08→21:38)
--- NOTE | 2021-07-12 11:31 | P.GSCN ---
History of Present Illness Consult date: 07/11/21 Reason for Consult: History of chronic appendicitis History of present illness: Is a 50-year-old female who is readmitted to the hospital. Patient complaints of nausea abdominal pain. Patient's history of chronic appendicitis. She was just recently discharged from Hospital. She was being treated with IV antibiotics for possible interval appendectomy. Patient states her pain worsen which precipitated her coming back to the emergency room. The patient's also covered positive. She has minimal shortness of breath. Past Medical History Past Medical History: Hypertension Additional Past Medical History / Comment(s): Diverticulitis, occasionally low back pain, covid 06/2021, PICC line, appendicitis History of Any Multi-Drug Resistant Organisms: None Reported Past Surgical History: Section, Cholecystectomy, Tubal Ligation Additional Past Surgical History / Comment(s): D&Cs, EGD, colonoscopy Past Anesthesia/Blood Transfusion Reactions: No Reported Reaction Past Psychological History: No Psychological Hx Reported Additional Psychological History / Comment(s): Pt lives with her spouse and matt. She is independent. Smoking Status: Never smoker Past Alcohol Use History: Occasional Past Drug Use History: None Reported - Past Family History Father Family Medical History: Cancer Additional Family Medical History / Comment(s): Father is living. He has heart problems. Mother Family Medical History: COPD Additional Family Medical History / Comment(s): Mother from COPD. She was a smoker. Medications and Allergies Home Medications Medication Instructions Recorded Confirmed Type Losartan Potassium 100 mg PO DAILY 07/06/21 07/10/21 History atenoloL [Tenormin] 25 mg PO HS 07/06/21 07/10/21 History hydroCHLOROthiazide [Hydrodiuril] 12.5 mg PO DAILY 07/06/21 07/10/21 History hydroCHLOROthiazide [Hydrodiuril] 25 mg PO DAILY 07/06/21 07/10/21 History metroNIDAZOLE [Flagyl] 500 mg PO TID #30 tab 07/09/21 07/10/21 Rx Acetaminophen Tab [Tylenol Tab] 1,000 mg PO Q6H PRN 07/10/21 07/10/21 History Ibuprofen [Motrin] 600 mg PO Q8H PRN 07/10/21 07/10/21 History Allergies Allergy/AdvReac Type Severity Reaction Status Date / Time Iodinated Contrast Media Allergy Anaphylaxis Verified 07/10/21 07:41 [Iodinated Contrast- Oral and IV Dye] Surgical - Exam Vital Signs Temp Pulse Resp BP Pulse Ox 98.6 F 130 H 20 94/49 95 07/09/21 23:58 07/09/21 23:58 07/09/21 23:58 07/09/21 23:58 07/09/21 23:58 - General well developed, moderate distress - Eyes PERRL - ENT normal pinna - Neck no masses - Respiratory normal expansion - Cardiovascular Rhythm: regular - Abdomen Tender right lower quadrant Abdomen: soft Results - Labs 07/11/21 07:47 07/11/21 07:47 Abnormal Lab Results - Last 24 Hours (Table) 07/11/21 07/11/21 Range/Units 07:47 07:47 WBC 17.20 H (4.50-10.00) X 10*3/uL RBC 3.51 L (4.10-5.20) X 10*6/uL Hgb 9.7 L (12.0-15.0) g/dL Hct 31.6 L (37.2-46.3) % MCHC 30.7 L (32.0-37.0) g/dL Immature Gran # 0.09 H (0.00-0.04) X 10*3/uL Neutrophils # 14.99 H (1.80-7.70) X 10*3/uL Monocytes # 1.06 H (0.20-1.00) X 10*3/uL Eosinophils # 0.02 L (0.04-0.35) X 10*3/uL Glucose 114 H (70-110) mg/dL Calcium 7.7 L (8.7-10.3) mg/dL Total Protein 5.0 L (6.2-8.2) g/dL Albumin 2.5 L (3.8-4.9) g/dL Albumin/Globulin Ratio 1.00 L (1.60-3.17) g/dL Microbiology - Last 24 Hours (Table) 07/10/21 01:00 Blood Culture - Preliminary Blood No Growth after 48 hours 07/10/21 00:45 Blood Culture - Preliminary Blood No Growth after 48 hours Diabetes panel 07/11/21 Range/Units 07:47 Sodium 139 (135-145) mmol/L Potassium 3.7 (3.5-5.5) mmol/L Chloride 105 (96-109) mmol/L Carbon Dioxide 21.3 (20.0-27.5) mmol/L BUN 11.7 (9.0-27.0) mg/dL Creatinine 0.8 (0.6-1.5) mg/dL Glucose 114 H (70-110) mg/dL Calcium 7.7 L (8.7-10.3) mg/dL AST 24 (13-35) U/L ALT 19 (8-44) U/L Alkaline Phosphatase 50 (41-126) U/L Total Protein 5.0 L (6.2-8.2) g/dL Albumin 2.5 L (3.8-4.9) g/dL Calcium panel 07/11/21 Range/Units 07:47 Calcium 7.7 L (8.7-10.3) mg/dL Albumin 2.5 L (3.8-4.9) g/dL Pituitary panel 07/11/21 Range/Units 07:47 Sodium 139 (135-145) mmol/L Potassium 3.7 (3.5-5.5) mmol/L Chloride 105 (96-109) mmol/L Carbon Dioxide 21.3 (20.0-27.5) mmol/L BUN 11.7 (9.0-27.0) mg/dL Creatinine 0.8 (0.6-1.5) mg/dL Glucose 114 H (70-110) mg/dL Calcium 7.7 L (8.7-10.3) mg/dL Adrenal panel 07/11/21 Range/Units 07:47 Sodium 139 (135-145) mmol/L Potassium 3.7 (3.5-5.5) mmol/L Chloride 105 (96-109) mmol/L Carbon Dioxide 21.3 (20.0-27.5) mmol/L BUN 11.7 (9.0-27.0) mg/dL Creatinine 0.8 (0.6-1.5) mg/dL Glucose 114 H (70-110) mg/dL Calcium 7.7 L (8.7-10.3) mg/dL Total Bilirubin 0.40 (0.30-1.20) mg/dL AST 24 (13-35) U/L ALT 19 (8-44) U/L Alkaline Phosphatase 50 (41-126) U/L Total Protein 5.0 L (6.2-8.2) g/dL Albumin 2.5 L (3.8-4.9) g/dL Assessment and Plan Assessment: History of chronic appendicitis with phlegmon. Patient will continue receive IV antibiotics.
--- NOTE | 2021-07-12 11:32 | P.PN ---
Progress Note - Text Progress Note Date: 07/12/21 Patient states she feels better. She had a large bowel movement today. She has some complaints of diarrhea. On exam vital signs appear stable. Abdomen soft. There is tenderness in the right lower quadrant. There is no rebound or guarding. CAT scan of the abdomen was performed last night. This shows evidence of ileus. She also has a phlegmon in the right lower quadrant. The patient will be observed closely. If her condition changes she'll undergo exploratory laparotomy and possible appendectomy. She'll be reevaluated in the morning by Dr. Green.
[2021-07-12 12:17] LABS: Basophils % (A) 0 %; Eosinophils # (A) 0.2 k/uL (0-0.7); Eosinophils % (A) 1 %; Hypochromasia Marked; Lymphocytes # (A) 0.5 k/uL (1.0-4.8); Lymphocytes % (A) 3 %; MCH 29.4 pg (25.0-35.0); MCHC 31.4 g/dL (31.0-37.0); Mean Platelet Volume 7.8; Monocytes % (A) 7 %; Neutrophils # (A) 12.8 k/uL (1.3-7.7); Neutrophils % (A) 86 %; Platelet Count 333 k/uL (150-450); RBC 3.31 m/uL (3.80-5.40); RDW 12.4 % (11.5-15.5); WBC 14.9 k/uL (3.8-10.6)
[2021-07-12 12:21] LABS: ALT 17 U/L (4-34); AST 25 U/L (14-36); African American GFR (CKD) >90 (>60 ml/min/1.73 sqM); Albumin 2.3 g/dL (3.5-5.0); Albumin/Globulin Ratio 0.8; Alkaline Phosphatase 45 U/L (38-126); Anion Gap 10 mmol/L; Blood Urea Nitrogen 13 mg/dL (7-17); Calcium 7.9 mg/dL (8.4-10.2); Carbon Dioxide 23 mmol/L (22-30); Chloride 103 mmol/L (98-107); Globulin 2.8 g/dL; Glucose 113 mg/dL (74-99); Non-African American GFR(CKD) >90 (>60 ml/min/1.73 sqM); Potassium 3.4 mmol/L (3.5-5.1); Sodium 136 mmol/L (137-145); Total Bilirubin 0.4 mg/dL (0.2-1.3); Total Protein 5.1 g/dL (6.3-8.2)
[2021-07-12 12:37] LABS: MCV 93.7 fL (80.0-100.0)
[2021-07-12 12:38] LABS: HGB 9.7 gm/dL (11.4-16.0)
--- NOTE | 2021-07-12 17:43 | PN ---
PROGRESS NOTE DATE OF SERVICE: 07/12/2021 This 50-year-old woman who was admitted with acute abdomen as well as multiple other medical issues is on broad-spectrum IV antibiotics. CT scan of abdomen and pelvis was noted. Dr. Azul from the surgical team has seen the patient and felt the patient is feeling better. CT scan some phlegmon as well as some evidence of ileus, per Dr. Azul. The patient is to be re-evaluated in the morning by Dr. Yu per Dr. Azul. No chest pain. No palpitations. No fever. PHYSICAL EXAMINATION: Alert and oriented x3. Pulse 97, blood pressure 118/80, respiration 20, temperature 98.4, pulse ox 96% on room air. HEENT: Conjunctivae normal. NECK: No jugular venous distention. CARDIOVASCULAR: S1, S2 muffled. RESPIRATION: Breath sounds diminished at the bases. A few scattered rhonchi. ABDOMEN: Soft. Mild diffuse discomfort. LEGS: No edema. No swelling. NERVOUS SYSTEM: No focal deficit. LABS: WBC 14.9, hemoglobin 9.6, sodium 136, potassium 3.4. Other labs are noted. ASSESSMENT: 1. Acute abdominal pain with possible appendiceal perforation with abdominal distention with possible sepsis, abscess and severe abdominal pain, present on admission. 2. Severe diarrhea. Rule out C difficile colitis. 3. Acute COVID-19 infection. 4. Status post PICC line and IV antibiotics. 5. Increased white count. 6. Increased blood glucose. 7. Hypomagnesemia. 8. Elevated CRP. 9. Abnormal CT scan, reviewed by Surgery. 10.Hypertension. 11.History of diverticulitis. 12.Possible pneumonia secondary to COVID-19 infection. RECOMMENDATIONS AND DISCUSSION: I recommend to continue current medications, continue with the monitoring, symptomatic treatment. Otherwise at this time continue the antibiotics. Dr. Azul has seen the patient and deferred to Dr. Yu regarding any surgical intervention. Otherwise, we will continue to monitor. The CT scan did not show any significant pneumonia at this point. We will continue to monitor. White count is 14.9 compared to 17 yesterday. C difficile is negative. Closely monitor with Surgery and infectious Disease. Further recommendations to follow. MMODL / IJN: [id number] / [facility]
[2021-07-12] MEDS: atenoloL 25 MG TAB PO SCH (21:39)
--- NOTE | 2021-07-12 22:56 | PN ---
PROGRESS NOTE DATE OF SERVICE: 07/12/2021 REASON FOR FOLLOWUP: 1. Intraabdominal abscess from perforated appendicitis. 2. Positive COVID test. INTERVAL HISTORY: The patient is afebrile. The patient is feeling better today. The patient denies having any nausea or vomiting. Abdominal pain has decreased in intensity and no worsening diarrhea. The patient denies having any chest pain or shortness of breath or cough and currently is 98% on room air. PHYSICAL EXAMINATION: Blood pressure is 121/77 with a pulse of 97, temperature 98.2. She is 98% on room air. General description is a middle-aged female lying in bed in no distress. Respiratory system: Unlabored breathing. Clear to auscultation anteriorly. Heart S1, S2. Regular rate and rhythm. Abdomen soft, mildly distended. No guarding or rigidity. LABS: Hemoglobin is 9.7, white count 14.9. repeat CT did show evidence of a small- bowel ileus and right lower quadrant inflammatory changes, not significantly changed. DIAGNOSTIC IMPRESSION AND PLAN: 1. Patient with abdominal sepsis from perforated appendicitis and possible phlegmon with no evidence of any drainable abscess on the previous CT. Now the patient is developing complication in the form of an ileus, more likely related to the phlegmon and inflammatory changes at the cecal area. May benefit from surgical exploration. Will discuss with the surgical team. For now, continue with Cristina. 2. Patient with a positive COVID test. CT chest did not show any pneumonia and the patient did have a COVID infection back in May. She is currently out of the 10 to 20 days of required quarantine and can be taken off the droplet isolation. MMODL / IJN: [id number] /
[2021-07-13] MEDS: PIPERACILLIN-TAZOBACTAM 3.375 GM in SODIUM CHLORIDE 0.9% 100 ML IVPB SCH ×4 (00:32→23:55)
[2021-07-13] MEDS: HYDROmorphone 1 MG/ML 1 ML SYRINGE IVP PRN ×5 (03:45→22:06)
[2021-07-13] MEDS: ONDANSETRON 4 MG/2 ML VIAL IVP PRN ×4 (03:45→22:06)
[2021-07-13] MEDS: metroNIDAZOLE-NS PMX 500 MG in SALINE 1 100ML.BAG IVPB SCH ×4 (04:29→21:48)
[2021-07-13] MEDS: PANTOPRAZOLE 40 MG/10 ML VIAL IV SCH (07:05)
[2021-07-13 09:12] LABS: Basophils # (A) 0.01 X 10*3/uL (0.00-0.10); Basophils % (A) 0.1 %; Eosinophils # (A) 0.21 X 10*3/uL (0.04-0.35); Eosinophils % (A) 1.8 %; HCT 27.6 % (37.2-46.3); HGB 8.6 g/dL (12.0-15.0); Lymphocytes # (A) 0.78 X 10*3/uL (0.90-5.00); Lymphocytes % (A) 6.9 %; MCH 27.7 pg (27.0-32.0); MCHC 31.2 g/dL (32.0-37.0); Mean Platelet Volume 9.9 fL (9.5-12.2); Monocytes # (A) 0.74 X 10*3/uL (0.20-1.00); Monocytes % (A) 6.5 %; Neutrophils # (A) 9.55 X 10*3/uL (1.80-7.70); Neutrophils % (A) 84.1 %; Platelet Count 403 X 10*3/uL (140-440); RDW 12.8 % (11.5-14.5); WBC 11.36 X 10*3/uL (4.50-10.00)
[2021-07-13 09:24] LABS: ALT 15 U/L (8-44); AST 16 U/L (13-35); African American GFR (CKD) 117.9 (60.0-200.0); Albumin 2.5 g/dL (3.8-4.9); Albumin/Globulin Ratio 1.14 (1.60-3.17); Alkaline Phosphatase 45 U/L (41-126); BUN/Creat Ratio 12.29 Ratio (12.00-20.00); Blood Urea Nitrogen 8.6 mg/dL (9.0-27.0); Calcium 7.6 mg/dL (8.7-10.3); Carbon Dioxide 23.7 mmol/L (20.0-27.5); Chloride 106 mmol/L (96-109); Globulin 2.2 g/dL (1.6-3.3); Glucose 97 mg/dL (70-110); Non-African American GFR(CKD) 101.7 (60.0-200.0); Potassium 3.7 mmol/L (3.5-5.5); Sodium 140 mmol/L (135-145); Total Bilirubin <0.20 mg/dL (0.30-1.20); Total Protein 4.7 g/dL (6.2-8.2)
--- NOTE | 2021-07-13 09:47 | P.PN ---
Subjective Progress Note Date: 07/13/21 CHIEF COMPLAINT: Complicated ruptured appendicitis with phlegmon HISTORY OF PRESENT ILLNESS: The patient is a 50-year-old female readmitted with new coronavirus diagnosis after being tested negative on her recent hospitalization. She reports diarrhea. Today she is not passing flatus. She has abdominal distention. She has generalized pain. She has pre-existing history of joseph ruptured appendicitis with phlegmon. She is on IV antibiotics. ROS: Recent fevers or chills temperature 100.2 0.12 days ago now resolved. No new chest pain. No shortness of breath PHYSICAL EXAM: VITAL SIGNS: Reviewed CONSTITUTIONAL: Well developed and in no acute distress. EYES: Conjuctivae without sclera icterus. Extraocular movements grossly intact. HEAD, EARS, NOSE, THROAT: Moist buccal mucosa. Head is atraumatic, normocephalic. Hears conversational speech. No nasal drainage. RESPIRATORY: Non-labored respirations and equal bilateral excursions. CARDIOVASCULAR: Palpable 2+ radial pulses. ABDOMEN: Distended, mild. Mild tenderness right lower quadrant. MUSCULOSKELETAL: No gross deformity of the lower extremities noted. No clubbing. No cyanosis. SKIN: Good skin turgor. Well perfused. NEUROLOGIC: Cranial nerves II through XII grossly intact. No focal or lateralizing signs. PSYCH: Appropriate affect. Alert and oriented to person, place and time. CLINICAL LABS: Reviewed. WBC down from 17,000-11,000 today. Hemoglobin down 9.7-8.6 today. STUDIES: CT of the abdomen and pelvis independent review demonstrating new dilation of the small intestine consistent mechanical bowel obstruction. Phlegmon present in the right lower quadrant. This is my independent interpretation. ASSESSMENT: 1. Complicated ruptured appendicitis with phlegmon 2. Anemia 3. Diverticulosis 4. Small bowel obstruction PLAN: 1. Patient has worsening progression of her phlegmon and appendicitis. Open appendectomy with possible colectomy and ostomy were described. 2. Placement of nasogastric tube for small bowel obstruction 3. Recommend iron indices for anemia. 4. Recommend iron infusions Objective - Vital Signs Vital signs: Vital Signs Temp 98.6 F 07/13/21 05:14 Pulse 80 07/13/21 05:14 Resp 17 07/13/21 05:14 BP 105/67 07/13/21 05:14 Pulse Ox 92 L 07/13/21 05:14 Intake & Output 07/12/21 07/13/21 07/13/21 18:59 06:59 18:59 Other: # Voids 2 2 # Bowel Movements 4 # Emeses 0 - Labs CBC & Chem 7: 07/13/21 06:33 07/13/21 06:33 Labs: Abnormal Lab Results - Last 24 Hours (Table) 07/12/21 07/12/21 07/13/21 Range/Units 11:34 11:34 06:33 WBC 14.9 H 11.36 H (3.8-10.6) k/uL RBC 3.31 L 3.10 L (3.80-5.40) m/uL Hgb 9.7 L D 8.6 L (11.4-16.0) gm/dL Hct 31.0 L 27.6 L (34.0-46.0) % MCHC 31.2 L (32.0-37.0) g/dL Immature Gran # 0.07 H (0.00-0.04) X 10*3/uL Neutrophils # 12.8 H 9.55 H (1.3-7.7) k/uL Lymphocytes # 0.5 L 0.78 L (1.0-4.8) k/uL Sodium 136 L (137-145) mmol/L Potassium 3.4 L (3.5-5.1) mmol/L BUN (9.0-27.0) mg/dL Glucose 113 H (74-99) mg/dL Calcium 7.9 L (8.4-10.2) mg/dL Total Bilirubin (0.30-1.20) mg/dL Total Protein 5.1 L (6.3-8.2) g/dL Albumin 2.3 L (3.5-5.0) g/dL Albumin/Globulin Ratio (1.60-3.17) g/dL 07/13/21 Range/Units 06:33 WBC (3.8-10.6) k/uL RBC (3.80-5.40) m/uL Hgb (11.4-16.0) gm/dL Hct (34.0-46.0) % MCHC (32.0-37.0) g/dL Immature Gran # (0.00-0.04) X 10*3/uL Neutrophils # (1.3-7.7) k/uL Lymphocytes # (1.0-4.8) k/uL Sodium (137-145) mmol/L Potassium (3.5-5.1) mmol/L BUN 8.6 L (9.0-27.0) mg/dL Glucose (74-99) mg/dL Calcium 7.6 L (8.4-10.2) mg/dL Total Bilirubin <0.20 L (0.30-1.20) mg/dL Total Protein 4.7 L (6.3-8.2) g/dL Albumin 2.5 L (3.5-5.0) g/dL Albumin/Globulin Ratio 1.14 L (1.60-3.17) g/dL Microbiology - Last 24 Hours (Table) 07/10/21 01:00 Blood Culture - Preliminary Blood No Growth after 72 hours 07/10/21 00:45 Blood Culture - Preliminary Blood No Growth after 72 hours Assessment and Plan (1) Ruptured appendicitis Current Visit: Yes Status: Acute Code(s): K35.32 - ACUTE APPENDICITIS WITH PERF AND LOC PERITONITIS, W/O ABSCS SNOMED Code(s): 92210789 (2) Sepsis Current Visit: Yes Status: Acute Code(s): A41.9 - SEPSIS, UNSPECIFIED ORGANISM SNOMED Code(s): 17609448 (3) Acute phlegmonous appendicitis Current Visit: No Status: Acute Code(s): K35.890 - OTHER ACUTE APPENDICITIS WITHOUT PERFORATION OR GANGRENE SNOMED Code(s): 307537714 (4) Adult BMI 37.0-37.9 kg/sq m Current Visit: No Status: Acute Code(s): Z68.37 - BODY MASS INDEX [BMI] 37.0-37.9, ADULT SNOMED Code(s): 398296940 (5) Morbid obesity due to excess calories Current Visit: No Status: Acute Code(s): E66.01 - MORBID (SEVERE) OBESITY DUE TO EXCESS CALORIES SNOMED Code(s): 984081994 (6) Small bowel obstruction Current Visit: Yes Status: Acute Code(s): K56.609 - UNSP INTESTNL OBST, UNSP TO PARTIAL VERSUS COMPLETE OBST SNOMED Code(s): 108512907
[2021-07-13] MEDS ORDERED: ENOXAPARIN 30 MG/0.3 ML SYRINGE SQ SCH (10:00)
[2021-07-13] MEDS: LORazepam 2 MG/ML INJ IV PRN (10:51)
[2021-07-13] MEDS: ACETAMINOPHEN IV (For NPO) 1,000 MG in EMPTY BAG 1 BAG IVPB SCH ×3 (11:58→23:54)
[2021-07-13] MEDS ORDERED: KETOROLAC 30 MG/ML 1 ML VIAL IVP SCH (12:00)
--- NOTE | 2021-07-13 12:56 | XR ---
EXAMINATION TYPE: XR abdomen 1V DATE OF EXAM: 07/13/2021 12:41 PM CLINICAL HISTORY: NG tube placement. Bowel obstruction. TECHNIQUE: Single portable supine KUB image of the abdomen is obtained. COMPARISON: CT from one day earlier.. FINDINGS: Nasogastric tube projects below diaphragm. Gas prominent and distended small bowel loops in the left midabdomen are redemonstrated. Gas is seen in nondistended colon along the periphery on cur rent study. Cholecystectomy clips are redemonstrated. Tubal ligation clips in the pelvis redemonstrat ed. Osseous structures are intact. Lung bases not included. IMPRESSION: Successful placement of nasogastric tube. Persistent nonspecific bowel gas pattern, mid t o distal small bowel obstruction is in the differential.
[2021-07-13] MEDS ORDERED: BENZOCAINE SPRAY 1 CAN MUCOUS MEM PRN (13:35)
[2021-07-13 14:01] LABS: % Iron Saturation 8.62 (12.00-45.00)
--- NOTE | 2021-07-13 17:48 | XR ---
EXAMINATION TYPE: XR chest 1V portable DATE OF EXAM: 07/13/2021 COMPARISON: 07/10/2021 HISTORY: Short of breath TECHNIQUE: FINDINGS: Heart is normal. Lungs are clear of consolidation. There is nasogastric tube in the stomach . There are no hilar masses. The bony thorax is intact. There is left-sided central venous catheter w ith tip in the superior vena cava. IMPRESSION: No active cardiopulmonary disease. There is improved inspiration compared to last exam.
--- NOTE | 2021-07-13 17:51 | PN ---
PROGRESS NOTE DATE OF SERVICE: 07/13/2021 This 50-year-old woman was admitted with possible appendiceal perforation, phlegmon and sepsis also had a bowel obstruction. The patient was seen by Dr. Azul over the weekend. Please refer Dr. Azul's notes for further information. Dr. Yu has seen the patient today and recommended surgery at this time. No chest pain. No palpitations. No fever. Past medical history reviewed. REVIEW OF SYSTEMS: Cardiovascular system: No angina. Respiratory: As mentioned earlier. GI: As mentioned earlier. : No dysuria. Nervous system: No numbness or weakness. CURRENT MEDICATIONS: Reviewed and include: Tylenol, Tenormin, Dilaudid, Ativan, Flagyl, Zosyn. Doses and other medications reviewed. PHYSICAL EXAMINATION: Alert and oriented times three. Pulse 80, blood pressure 114/74, respirations 18, temperature 98.6, pulse ox 94% on room air. HEENT: Conjunctivae normal. Neck: No JVD. Cardiovascular: S1, S2 muffled. Respiratory: Breath sounds diminished in the bases. A few scattered rhonchi. Abdomen: Soft. Diffuse distention. Mild diffuse discomfort. No guarding. No mass palpable. Bowel sounds diminished. Legs are no edema, no swelling. LABS: WBC 11.36, hemoglobin 8.6, sodium 140, potassium 3.7. Other labs are noted. ASSESSMENT: 1. Acute abdominal pain with possible appendiceal perforation with abdominal distention, possible sepsis/phlegmon abscess, severe abdominal pain present on admission. 2. Severe diarrhea. C difficile ruled out. 3. Possible bowel obstruction secondary to phlegmon. 4. Acute Covid 19 infection. 5. Status post PICC line IV antibiotics. 6. Increased WBC. 7. Increased blood glucose. 8. Hypomagnesemia. 9. Elevated CRP. 10.Abnormal CT scan reviewed by surgery. 11.Hypertension. 12.History of diverticulitis. 13.Possible pneumonia secondary to Covid 19 infection. RECOMMENDATIONS AND DISCUSSION: Recommend to continue current medications, symptomatic treatment. Closely follow with Pulmonary as well as surgery and also Infectious Disease and surgery. Otherwise continue to monitor. D. dimer is elevated to 31.14. I would recommend a follow up chest x-ray also. Further recommendations to follow. MMODL / IJN: [id number] /
[2021-07-13] MEDS ORDERED: LACTATED RINGERS 1,000 ML IV SCH (19:14)
[2021-07-13] MEDS: atenoloL 25 MG TAB PO SCH (20:46)
--- NOTE | 2021-07-13 22:27 | PN ---
PROGRESS NOTE DATE OF SERVICE: 07/13/2021 REASON FOR FOLLOWUP: Intraabdominal abscess from perforated appendicitis. INTERVAL HISTORY: Patient is afebrile. The patient's abdominal pain seems to have slightly decreased in intensity. The patient denies having any chest pain, shortness of breath or cough. The patient did get NG for the ileus. No vomiting. PHYSICAL EXAMINATION: Blood pressure 154/86, pulse of 85, temperature 98.4. She is 93% on room air. General description is a middle-aged female lying in bed in no distress. Respiratory system: Unlabored breathing, decreased intensity in breath sounds. No wheeze. Heart S1, S2. Regular rate and rhythm. Abdomen: Soft, mildly distended. No guarding. No rigidity. LABS: Hemoglobin is 8.6, white count 11.36, creatinine 0.7. DIAGNOSTIC IMPRESSION AND PLAN: Patient with intraabdominal abscess from ruptured appendicitis seemed to have failed medical therapy, for surgery tomorrow. Continue Zosyn. White count showing a downward trend and continue supportive care. MMODL / IJN: [id number] /
[2021-07-14] MEDS: HYDROmorphone 1 MG/ML 1 ML SYRINGE IVP PRN ×6 (02:43→22:14)
[2021-07-14] MEDS: metroNIDAZOLE-NS PMX 500 MG in SALINE 1 100ML.BAG IVPB SCH ×4 (03:56→22:14)
[2021-07-14] MEDS: ONDANSETRON 4 MG/2 ML VIAL IVP PRN ×3 (03:59→15:56)
[2021-07-14] MEDS: ACETAMINOPHEN IV (For NPO) 1,000 MG in EMPTY BAG 1 BAG IVPB SCH (05:30)
[2021-07-14] MEDS: PANTOPRAZOLE 40 MG/10 ML VIAL IV SCH (08:04)
[2021-07-14] MEDS: PIPERACILLIN-TAZOBACTAM 3.375 GM in SODIUM CHLORIDE 0.9% 100 ML IVPB SCH ×2 (08:04→20:05)
[2021-07-14 10:18] LABS: Basophils % (A) 0 %; Eosinophils # (A) 0.1 k/uL (0-0.7); Eosinophils % (A) 1 %; HCT 31.3 % (34.0-46.0); HGB 9.8 gm/dL (11.4-16.0); Hypochromasia Slight; Lymphocytes # (A) 0.8 k/uL (1.0-4.8); Lymphocytes % (A) 6 %; MCHC 31.3 g/dL (31.0-37.0); MCV 89.5 fL (80.0-100.0); Mean Platelet Volume 7.2; Monocytes % (A) 8 %; Neutrophils # (A) 10.7 k/uL (1.3-7.7); Neutrophils % (A) 83 %; Platelet Count 521 k/uL (150-450); RDW 13.1 % (11.5-15.5); WBC 12.9 k/uL (3.8-10.6)
[2021-07-14 10:19] LABS: ALT 14 U/L (4-34); AST 22 U/L (14-36); African American GFR (CKD) >90 (>60 ml/min/1.73 sqM); Albumin 2.5 g/dL (3.5-5.0); Albumin/Globulin Ratio 0.8; Alkaline Phosphatase 59 U/L (38-126); Anion Gap 12 mmol/L; Blood Urea Nitrogen 7 mg/dL (7-17); Calcium 7.8 mg/dL (8.4-10.2); Carbon Dioxide 24 mmol/L (22-30); Chloride 104 mmol/L (98-107); Globulin 3.1 g/dL; Glucose 87 mg/dL (74-99); Non-African American GFR(CKD) >90 (>60 ml/min/1.73 sqM); Potassium 3.2 mmol/L (3.5-5.1); Sodium 140 mmol/L (137-145); Total Bilirubin 0.5 mg/dL (0.2-1.3); Total Protein 5.6 g/dL (6.3-8.2)
[2021-07-14] MEDS: atenoloL 25 MG TAB PO SCH ×2 (11:36→20:08)
[2021-07-14] MEDS ORDERED: Potassium Replacement Protocol 1 EACH MISC MISCELLANE PRN (12:40)
[2021-07-14] MEDS ORDERED: IV FLUID CONTINUATION 1,000 ML IV ONE (15:41)
--- NOTE | 2021-07-14 15:51 | P.HPADDEND ---
H&P Addendum H&P Addendum Date: 07/14/21 Open exploratory laparotomy with possible colectomy, appendectomy and possible ostomy reviewed. All questions addressed.
[2021-07-14] MEDS ORDERED: ONDANSETRON 4 MG/2 ML VIAL IVP ONE (15:52)
[2021-07-14] MEDS ORDERED: SCOPOLAMINE 1.5MG/72HR PATCH TRANSDERM ONE ×2 (15:52→15:57)
[2021-07-14] MEDS ORDERED: DEXAMETHASONE SOD PHOSPHATE 4 MG/ML 1 ML VIAL IV ONE (15:52)
[2021-07-14] MEDS ORDERED: DEXAMETHASONE SOD PHOSPHATE 4 MG/ML 1 ML VIAL IVP ONE (15:57)
[2021-07-14] MEDS ORDERED: LACTATED RINGERS 1,000 ML IV SCH (16:00)
[2021-07-14] MEDS ORDERED: HEPARIN SODIUM,PORCINE 5,000 UNIT/ML 1 ML VIAL SQ ONE (16:01)
[2021-07-14] MEDS ORDERED: MIDAZOLAM 2 MG/2 ML VIAL IVP ONE (16:01)
[2021-07-14] MEDS ORDERED: NEOSTIGMINE 1 MG/ML 10 ML VIAL ONE (16:15)
[2021-07-14] MEDS ORDERED: HYDROmorphone (PF) 1 MG/ML ONE (16:15)
[2021-07-14] MEDS ORDERED: GLYCOPYRROLATE 0.2 MG/ML 2 ML VIAL ONE (16:15)
[2021-07-14] MEDS ORDERED: diphenhydrAMINE 50 MG/ML 1 ML VIAL ONE (16:15)
[2021-07-14] MEDS ORDERED: LIDOCAINE 1% INJ 10MG/ML (20 ML MDV) ONE (16:15)
[2021-07-14] MEDS ORDERED: ROCURONIUM 10 MG/ML (5 ML VIAL) IV ONE (16:15)
[2021-07-14] MEDS ORDERED: SUCCINYLCHOLINE CHLORIDE 100 MG/5 ML SYR IV ONE (16:15)
[2021-07-14] MEDS ORDERED: PROPOFOL 10 MG/ML 20 ML VIAL IV ONE (16:15)
[2021-07-14] MEDS ORDERED: fentaNYL (PF) 50 MCG/ML 2 ML AMP ONE (16:15)
[2021-07-14] MEDS ORDERED: BUPIVACAIN-EPI 0.25%-1:200,000 30 ML VIAL SQ ONE (16:49)
[2021-07-14] MEDS ORDERED: LACTATED RINGERS 1,000 ML IV ONE (18:29)
--- NOTE | 2021-07-14 18:43 | P.OP ---
Date of Procedure: 07/14/21 Description of Procedure: SURGEON: HUSSAIN ARTEAGA MD PREOPERATIVE DIAGNOSIS: 1. Complicated appendicitis with rupture, phlegmon with sepsis 2. Covid positive 3. Leukocytosis 4. Hypertensive heart disease 5. Morbid obesity due to excess calories, BMI 37.6 6. Covid-induced diarrhea 7. Small bowel obstruction 8. Iron induced anemia POSTOPERATIVE DIAGNOSIS: 1. Complicated appendicitis with rupture, phlegmon with sepsis 2. Covid positive 3. Leukocytosis 4. Hypertensive heart disease 5. Morbid obesity due to excess calories, BMI 37.6 6. Covid-induced diarrhea 7. Appendiceal with pelvic abscess 8. Small bowel obstruction 9. Iron induced anemia 10. Peritoneal adhesions due to infection Procedure(s) Performed: 1. Exploratory laparotomy 2. Extensive lysis of adhesions over 1 hour 3. Drainage of appendiceal and pelvis abscess, 75 mL 4. Omentectomy, partial 5. Open appendectomy 6. Placement of incisional wound VAC system, 20-cm 7. Placement of Fawad-Garcia drain round #19, right pelvis 8. Peritoneal lavage 3 L normal saline Anesthesia: GETA Estimated Blood Loss (ml): 50 Pathology: other (Aerobic and anaerobic culture peritoneal fluid, appendix with omentum) Condition: gaurded Disposition: Floor Complications: None. Operative Findings: 1. Dense firm right lower quadrant phlegmon with over 75 mL non-malodorous thick purulent drainage evacuated. 2. Dense intrapelvic adhesions involving distal and mid ileum, mid and distal jejunum lysed over 1 hour 3. Cecum unremarkable 4. Phlegmon involving body and tip of the appendix 5. Sigmoid colon with dense inflammatory changes due to phlegmon and pelvic abscess INDICATIONS: The patient is a 50-year-old female She presented with complicated appendicitis including bowel obstruction and sepsis due to perforation and phlegmon. Despite conservative measures, patient's condition continued to deteriorate. Open appendectomy possible colectomy and ostomy creation were reviewed. Benefits and risks of the procedures were discussed. Informed consent was obtained. The patient's family were at bedside. DESCRIPTION: The patient was brought to the operating room. After general induction, a Vargas catheter was placed. Next, nasogastric tube was palpated in the stomach and positioned. The abdomen was prepped and draped in standard sterile fashion. Ioban draping was also placed. Prior to incision, a timeout protocol was confirmed with surgical team regarding patient's name including procedures to be performed. Patient is on scheduled antibiotics. DVT prophylaxis was confirmed. A #10 blade was used to enter along the epigastrium and extended down to the pubis. Carefully the abdomen was entered using electro- Bovie cautery. Abnormal adhesions were found along the right lower quadrant and pelvis involving a phlegmon. Adhesions were bluntly dissected over 1 hour using digital palpation. The distal omentum was resected using Enseal energy device. The small bowel was viable and dilated with adhesions causing small bowel obstruction to the appendiceal pocket involving the right lower quadrant. The inflammatory thick rind of the mid and distal ileum was peeled away with over 75 mL of non- malodorous thick purulent drainage evacuated from the abdominal cavity. The small bowel was investigated from the ligament of Treitz distally to the ileocecal valve with all adhesions dissected free. The omentum was tethered to the sigmoid colon and similarly dissected free. The base of the cecum was unremarkable. The base of the appendix was unremarkable. The body and tip of the appendix was encased in phlegmon of the greater omentum and resected using Enseal. The base of the appendix was mobilized with the mesoappendix. A Covidien 60 mm springer staple load was fired along the base of the appendix and hemostatic. The phlegmon and specimen was removed. Aerobic, anaerobic and fungal cultures were sent. The abdomen was irrigated with 3 L normal saline solution for abdominal lavage. A #19 HARESH drain was placed in deep pelvis to facilitate moderate fluid irrigation and exited via the right lower abdominal wall. The drain was tacked to the skin using 2-0 nylon. The abdomen was hemostatic. All sponge count was verified as correct. The abdomen was closed using double stranded 0 PDS. A 20-cm PREVENA incisional wound VAC system was placed. A suction device was placed. No leak within the system was confirmed. Optifoam Ag 4x4 was placed over the drain site. At the end of the procedure, needle, sponge, and instrument count had been verified correct by the surgical orderly. The patient was sent to the postanesthesia care unit in stable condition. Intraoperative findings were described to the patient's family. Postoperative recovery in detail was described.
[2021-07-14] MEDS ORDERED: SCOPOLAMINE 1.5MG/72HR PATCH TRANSDERM SCH (18:45)
[2021-07-14] MEDS: HYDROmorphone 0.5 MG/0.5 ML SYRINGE IVP PRN ×4 (18:55→19:38)
--- NOTE | 2021-07-14 19:37 | PN ---
PROGRESS NOTE DATE OF SERVICE: 07/14/2021 This 50-year-old woman was admitted with possible appendiceal perforation, phlegmon, sepsis, as well as features of bowel obstruction. She is scheduled for surgery today. The patient on broad spectrum IV antibiotics. Dr. Posada and as well as Surgery is following the patient closely. PAST MEDICAL HISTORY: Reviewed. REVIEW OF SYSTEMS: Cardiovascular system: No angina. Respiratory system: As mentioned earlier. GI: As mentioned earlier. : No dysuria. Nervous system: No numbness or weakness. CURRENT MEDICATIONS: Reviewed include Tenormin, Dilaudid, ( ), antibiotics, Ativan. Doses are reviewed. Other medications reviewed. PHYSICAL EXAMINATION: Alert and oriented x3. Pulse 98, blood pressure 130/75, respiration 18, temperature 98 degrees, pulse ox 98% on room air. HEENT: Conjunctivae normal. Oral mucosa moist. NG tube in situ. NECK: No jugular venous distention. No lymph node enlargement. CARDIOVASCULAR: S1, S2, muffled. No S3, no S4, RESPIRATORY: Diminished breath sounds at the bases. A few scattered rhonchi. ABDOMEN: Soft. Mild diffuse tenderness present. No guarding. No mass palpable. Bowel sounds diminished. LEGS: No edema, no swelling. NERVOUS SYSTEM: No focal deficits. LABS: WBC 12, hemoglobin 10.8, sodium 140, potassium 3.2. Other labs are noted. ASSESSMENT: 1. Acute abdominal pain with possible appendiceal perforation with abdominal distention, possible phlegmon abscess with severe abdominal pain, present on admission with sepsis. 2. Severe diarrhea. C difficile ruled out. 3. Possible bowel obstruction secondary to phlegmon. 4. Acute COVID-19 infection. 5. Status post PICC line for IV antibiotics. 6. Increased WBC. 7. Increased random glucose. 8. Hypomagnesemia. 9. Elevated CRP. 10.Abnormal CT scan reviewed by surgery. 11.Hypertension. 12.History of diverticulitis. 13.Possible pneumonia secondary to COVID-19 infection. RECOMMENDATIONS: Recommend to continue current management and symptomatic treatment. Otherwise, at this time we will continue to monitor, continue the antibiotics. Surgery by Dr. Yu. Otherwise, follow the cultures. Prognosis guarded because of multiple complex medical issues. Further recommendations to follow. Patient had a chest x-ray today which was reviewed personally by me, showed slightly improved inspiration compared to previous exam and continue to monitor. MMODL / IJN: [id number] /
[2021-07-14] MEDS: SODIUM FERRIC GLUCONAT-SUCROSE 125 MG in SODIUM CHLORIDE 0.9% 100 ML IVPB SCH ×2 (20:07→20:08)
[2021-07-14] MEDS: METOCLOPRAMIDE 5 MG/ML 2 ML VIAL IVP SCH (20:13)
[2021-07-14] MEDS: POTASSIUM CHLORIDE 20 MEQ in WATER FOR INJECTION 1 100ML.BAG IVPB SCH ×2 (20:13→23:16)
[2021-07-14] MEDS: 0.9% NACL WITH KCL 40 MEQ/L 1,000 ML IV SCH (21:10)
--- NOTE | 2021-07-14 23:43 | PN ---
PROGRESS NOTE DATE OF SERVICE: 07/14/2021 REASON FOR FOLLOWUP: Intraabdominal abscess from perforated diverticulitis. INTERVAL HISTORY: The patient was seen on rounds this morning. The patient was afebrile. She was feeling better, breathing comfortably. Abdominal pain was controlled. Still has the NG. No vomiting. No diarrhea. Subsequently the patient was taken to the OR and is status post laparotomy with lysis of adhesions, drainage of the abscess and appendectomy. PHYSICAL EXAMINATION: Blood pressure 121/79 with pulse of 90, temperature 98. She is 93% on 4 L nasal cannula. General description is a middle-aged female lying in bed in no distress. Respiratory system: Unlabored breathing, clear to auscultation anteriorly. Heart S1, S2. Regular rate and rhythm. Abdomen: Soft, mildly distended. No guarding. No rigidity. LABS: White count of 12.9, creatinine 0.57. DIAGNOSTIC IMPRESSION AND PLAN: Patient with intraabdominal abscess from a perforated appendicitis, status post drainage of wound. Culture will be done and will be followed for now. Continue Zosyn and monitor clinical course closely. MMODL / IJN: [id number] /
[2021-07-14] MEDS: KETOROLAC 30 MG/ML 1 ML VIAL IVP SCH (23:55)
[2021-07-15] MEDS: METOCLOPRAMIDE 5 MG/ML 2 ML VIAL IVP SCH ×4 (00:16→17:30)
[2021-07-15] MEDS: PIPERACILLIN-TAZOBACTAM 3.375 GM in SODIUM CHLORIDE 0.9% 100 ML IVPB SCH ×3 (01:18→16:40)
[2021-07-15] MEDS: 0.9% NACL WITH KCL 40 MEQ/L 1,000 ML IV SCH ×3 (01:19→18:05)
[2021-07-15] MEDS: KETOROLAC 30 MG/ML 1 ML VIAL IVP SCH ×3 (05:16→17:30)
[2021-07-15] MEDS: metroNIDAZOLE-NS PMX 500 MG in SALINE 1 100ML.BAG IVPB SCH ×4 (05:18→22:25)
[2021-07-15] MEDS: PANTOPRAZOLE 40 MG/10 ML VIAL IV SCH (07:28)
[2021-07-15] MEDS: HYDROmorphone 1 MG/ML 1 ML SYRINGE IVP PRN ×5 (07:28→20:41)
[2021-07-15] MEDS: ENOXAPARIN 30 MG/0.3 ML SYRINGE SQ SCH (07:29)
[2021-07-15 07:54] LABS: Basophils % (A) 0 %; Eosinophils % (A) 0 %; HCT 31.6 % (34.0-46.0); HGB 10.1 gm/dL (11.4-16.0); Hypochromasia Slight; Lymphocytes # (A) 0.9 k/uL (1.0-4.8); Lymphocytes % (A) 5 %; MCH 28.8 pg (25.0-35.0); MCHC 31.9 g/dL (31.0-37.0); MCV 90.6 fL (80.0-100.0); Mean Platelet Volume 7.3; Monocytes # (A) 1.2 k/uL (0-1.0); Monocytes % (A) 7 %; Neutrophils # (A) 15.6 k/uL (1.3-7.7); Neutrophils % (A) 87 %; Platelet Count 630 k/uL (150-450); RBC 3.49 m/uL (3.80-5.40); RDW 13.6 % (11.5-15.5); WBC 18.1 k/uL (3.8-10.6)
[2021-07-15 07:58] LABS: African American GFR (CKD) 74 (>60 ml/min/1.73 sqM); Anion Gap 10 mmol/L; Blood Urea Nitrogen 13 mg/dL (7-17); Calcium 7.6 mg/dL (8.4-10.2); Carbon Dioxide 26 mmol/L (22-30); Chloride 106 mmol/L (98-107); Glucose 111 mg/dL (74-99); Non-African American GFR(CKD) 64 (>60 ml/min/1.73 sqM); Sodium 142 mmol/L (137-145)
[2021-07-15] MEDS: SODIUM FERRIC GLUCONAT-SUCROSE 125 MG in SODIUM CHLORIDE 0.9% 100 ML IVPB SCH (08:55)
[2021-07-15] MEDS: ONDANSETRON 4 MG/2 ML VIAL IVP PRN ×2 (10:09→16:40)
[2021-07-15] MEDS: ACETAMINOPHEN IV (For NPO) 1,000 MG in EMPTY BAG 1 BAG IVPB SCH ×2 (12:16→17:29)
--- NOTE | 2021-07-15 14:38 | P.PN ---
<Nisa Altamirano - Last Filed: 07/15/21 14:29> Subjective Progress Note Date: 07/15/21 CHIEF COMPLAINT: Complicated ruptured appendicitis with phlegmon HISTORY OF PRESENT ILLNESS: Patient is POD#1 status post Exploratory laparotomy, Extensive lysis of adhesions, Drainage of appendiceal abscess, partial omentectomy and Open appendectomy. Patient currently complaining of abdominal pain. Has been having nausea controlled with the Zofran. NG tube output about 100ml bilious in color. Patient denies any flatus. Afebrile. Minimal tachycardia heart rate of 103 during the night now down to 91. WBC is up from 12.9 and 18.1 hemoglobin is up from 9.8-10.1 sodium 142 potassium 4.0 creatinine 1.06 PHYSICAL EXAM: VITAL SIGNS: Reviewed GENERAL: Well-developed in no acute distress. HEENT: No sclera icterus. Extraocular movements grossly intact. Moist buccal mucosa. Head is atraumatic, normocephalic. Hears conversational speech. No nasal drainage. NECK: Supple without lymphadenopathy. CHEST: Non-labored respirations and equal bilateral excursions. CARDIOVASCULAR: Palpable 2+ radial pulses. ABDOMEN: Soft. Nondistended. Has abdominal binder in place. Has prevena dressing. Area is clean dry and intact HARESH drain serosanguineous 50 mL output MUSCULOSKELETAL: No clubbing or cyanosis. NEUROLOGIC: No focal or lateralizing signs. Cranial nerves II through XII grossly intact. PSYCH: Appropriate affect. Alert and oriented to person, place and time. SKIN: Well perfused. Good skin turgor. ASSESSMENT: 1. Complicated appendiceal abscess status post Exploratory laparotomy, Extensive lysis of adhesions, Drainage of appendiceal abscess, partial omentectomy and Open appendectomy PLAN: -Add IV Tylenol to help with pain control -Continue NG tube for decompression -Continue antibiotics -Continue IV fluids -Encourage incentive spirometer use -Patient has 1 more dose of IV iron -GI prophylaxis Protonix and DVT prophylaxis Lovenox Physician Knockdown Man note has been reviewed by physician. Signing provider agrees with the documented findings, assessment, and plan of care. Objective - Vital Signs Vital signs: Vital Signs Temp 98.4 F 07/15/21 08:00 Pulse 91 07/15/21 08:00 Resp 18 07/15/21 08:00 BP 105/64 07/15/21 08:00 Pulse Ox 96 07/15/21 08:00 Intake & Output 07/14/21 07/15/21 07/15/21 18:59 06:59 18:59 Intake Total 1100 960 Output Total 275 350 Balance 825 610 Intake: IV 1100 960 0.9% NaCl with KCl 40 Meq 260 /l 1,000 ml @ 130 mls/hr IV .Q7H42M [facility] Rx#: [id number] Piperacillin-Tazobactam 3 100 .375 gm In Sodium Chloride 0.9% 100 ml @ 25 mls/hr IVPB Q8HR [facility] Rx# :[id number] Potassium Chloride 20 meq 200 In Water For Injection 1 100ml.bag @ 50 mls/hr IVPB Q2H [facility] Rx#: [id number] metroNIDAZOLE-NS PMX 500 200 mg In Saline 1 100ml.bag @ 100 mls/hr IVPB Q6H [facility] Rx#:[id number] Output: Drainage 50 Abdomen 50 Urine 225 300 Estimated Blood Loss 50 Other: Voiding Method Indwelling Catheter - Labs CBC & Chem 7: 07/15/21 07:36 07/15/21 07:36 Labs: Abnormal Lab Results - Last 24 Hours (Table) 07/15/21 07/15/21 Range/Units 07:36 07:36 WBC 18.1 H (3.8-10.6) k/uL RBC 3.49 L (3.80-5.40) m/uL Hgb 10.1 L (11.4-16.0) gm/dL Hct 31.6 L (34.0-46.0) % Plt Count 630 H (150-450) k/uL Neutrophils # 15.6 H (1.3-7.7) k/uL Lymphocytes # 0.9 L (1.0-4.8) k/uL Monocytes # 1.2 H (0-1.0) k/uL Glucose 111 H (74-99) mg/dL Calcium 7.6 L (8.4-10.2) mg/dL Microbiology - Last 24 Hours (Table) 07/10/21 00:45 Blood Culture - Preliminary Blood No Growth after 120 hours 07/10/21 01:00 Blood Culture - Preliminary Blood No Growth after 120 hours <Ethel Yu - Last Filed: 07/16/21 10:09> Subjective CHIEF COMPLAINT: Complicated ruptured appendicitis HISTORY OF PRESENT ILLNESS: Patient is a 50-year-old female status post exploratory laparotomy for ruptured appendicitis with phlegmon. She reports moderate incisional pain. She is yet to ambulate. No passage of flatus. Intraoperative findings were described reviewed. REVIEW OF ORGAN SYSTEMS: No fevers or chills. No shortness of breath. PHYSICAL EXAMINATION: Vital signs: Reviewed GENERAL: Well developed and in no acute distress. HEENT: No sclera icterus. Extraocular movements grossly intact. Moist buccal mucosa. Head is atraumatic, normocephalic. Hears conversational speech. No nasal drainage. Nasogastric tube present. CHEST: Non-labored respirations and equal bilateral excursions. CARDIOVASCULAR: Palpable 2+ radial pulses. ABDOMEN: Incisional wound VAC system intact. HARESH serosanguineous. MUSCULOSKELETAL: No clubbing, cyanosis or edema. NEUROLOGIC: No focal or lateralizing signs. PSYCH: Appropriate affect. Alert and oriented to person, place and time. SKIN: Well perfused. Good skin turgor. LABS: Reviewed. WBC over 18,000. Iron panel low. ASSESSMENT: 1. Complicated appendicitis with rupture, phlegmon 2. Covid positive 3. Leukocytosis 4. Hypertensive heart disease 5. Morbid obesity due to excess calories, BMI 37.6 6. Covid-induced diarrhea 7. Periappendiceal abscess 8. Small bowel obstruction 9. Iron deficiency anemia PLAN: 1. Recommend iron infusions for deficiency anemia. 2. Continue IV antibiotics. 3. Postoperative course of 7-10 days' due to concurrent Covid infection reviewed Objective - Vital Signs Vital signs: Vital Signs Temp 98.4 F 07/15/21 08:00 Pulse 91 07/15/21 08:00 Resp 18 07/15/21 08:00 BP 105/64 07/15/21 08:00 Pulse Ox 96 07/15/21 08:00 Intake & Output 07/14/21 07/15/21 07/15/21 18:59 06:59 18:59 Intake Total 1100 960 Output Total 275 350 Balance 825 610 Weight 108.862 kg Intake: IV 1100 960 0.9% NaCl with KCl 40 Meq 260 /l 1,000 ml @ 130 mls/hr IV .Q7H42M [facility] Rx#: [id number] Piperacillin-Tazobactam 3 100 .375 gm In Sodium Chloride 0.9% 100 ml @ 25 mls/hr IVPB Q8HR [facility] Rx# :[id number] Potassium Chloride 20 meq 200 In Water For Injection 1 100ml.bag @ 50 mls/hr IVPB Q2H [facility] Rx#: [id number] metroNIDAZOLE-NS PMX 500 200 mg In Saline 1 100ml.bag @ 100 mls/hr IVPB Q6H TIM Rx#:[id number] Output: Drainage 50 Abdomen 50 Urine 225 300 Estimated Blood Loss 50 Other: Voiding Method Indwelling Catheter - Labs CBC & Chem 7: 07/15/21 07:36 07/15/21 07:36 Labs: Abnormal Lab Results - Last 24 Hours (Table) 07/15/21 07/15/21 Range/Units 07:36 07:36 WBC 18.1 H (3.8-10.6) k/uL RBC 3.49 L (3.80-5.40) m/uL Hgb 10.1 L (11.4-16.0) gm/dL Hct 31.6 L (34.0-46.0) % Plt Count 630 H (150-450) k/uL Neutrophils # 15.6 H (1.3-7.7) k/uL Lymphocytes # 0.9 L (1.0-4.8) k/uL Monocytes # 1.2 H (0-1.0) k/uL Glucose 111 H (74-99) mg/dL Calcium 7.6 L (8.4-10.2) mg/dL Microbiology - Last 24 Hours (Table) 07/14/21 18:15 Wound Culture - Preliminary Other - Other 07/14/21 18:15 Anaerobic Culture - Preliminary Other - Other 07/14/21 18:15 Wound Culture - Preliminary Other - Other 07/14/21 18:15 Anaerobic Culture - Preliminary Other - Other 07/14/21 18:15 Anaerobic Culture - Preliminary Other - Other 07/14/21 18:15 Tissue Culture - Preliminary Other - Other 07/10/21 00:45 Blood Culture - Preliminary Blood No Growth after 120 hours 07/10/21 01:00 Blood Culture - Preliminary Blood No Growth after 120 hours Assessment and Plan (1) Ruptured appendicitis Current Visit: Yes Status: Acute Code(s): K35.32 - ACUTE APPENDICITIS WITH PERF AND LOC PERITONITIS, W/O ABSCS SNOMED Code(s): 58944901 (2) Sepsis Current Visit: Yes Status: Acute Code(s): A41.9 - SEPSIS, UNSPECIFIED ORGAN ISM SNOMED Code(s): 92286922 (3) Acute phlegmonous appendicitis Current Visit: No Status: Acute Code(s): K35.890 - OTHER ACUTE APPENDICITIS WITHOUT PERFORATION OR GANGRENE SNOMED Code(s): 479557768 (4) Adult BMI 37.0-37.9 kg/sq m Current Visit: No Status: Acute Code(s): Z68.37 - BODY MASS INDEX [BMI] 37.0-37.9, ADULT SNOMED Code(s): 929415237 (5) Morbid obesity due to excess calories Current Visit: No Status: Acute Code(s): E66.01 - MORBID (SEVERE) OBESITY DUE TO EXCESS CALORIES SNOMED Code(s): 810779242 (6) Small bowel obstruction Current Visit: Yes Status: Acute Code(s): K56.609 - UNSP INTESTNL OBST, UNSP TO PARTIAL VERSUS COMPLETE OBST SNOMED Code(s): 616380621 (7) Iron deficiency anemia Current Visit: Yes Status: Acute Code(s): D50.9 - IRON DEFICIENCY ANEMIA, UNSPECIFIED SNOMED Code(s): 03793431
[2021-07-15 16:03] VITALS: BMI 37.5
--- NOTE | 2021-07-15 17:29 | PN ---
PROGRESS NOTE DATE OF SERVICE: 07/15/2021 This 50-year-old woman was admitted with acute abdomen with abdominal distention, had surgery by Dr. Yu. The patient underwent exploratory laparotomy, extensive lysis of adhesions and drainage of abscess, partial omentectomy and open appendectomy. The patient is also seen by multiple consultants. The patient is on broad-spectrum IV antibiotics. Cultures are negative so far. Past medical history reviewed. REVIEW OF SYSTEMS: Cardiovascular: No angina. Respiratory: As mentioned earlier. GI: As mentioned earlier. : No dysuria. Nervous system: No numbness or weakness. CURRENT MEDICATIONS: Reviewed and include: Tylenol, Tenormin, Lovenox, iron, Dilaudid, Ativan, doses reviewed. PHYSICAL EXAMINATION: Patient is alert, oriented x2, NG tube in. Pulse 91, blood pressure 105/64, respiration 18. Temperature 98.4, pulse ox 96% on room air. HEENT: Conjunctivae normal. Neck: No JVD. Cardiovascular: S1, S2 muffled. Respirations: Breath sounds diminished in the bases. A few scattered rhonchi and crackles. Legs: No edema. No swelling. Nervous system: Higher functions as mentioned earlier. Moves all four extremities. No focal deficits. Lymphatics: No lymph nodes palpable in the neck, axillae or groin. Skin: No ulcer, no rash and no bleeding. Joints: No active deforming arthropathy. Examination of the abdomen status post surgery. LABS: WBC 18.1, hemoglobin 10.1, sodium 142, potassium 4. Other labs are noted. ASSESSMENT: 1. Acute abdominal pain with possible appendiceal perforation, abdominal distention with possible phlegmon abscess, severe abdominal pain present on admission, sepsis. 2. Status post exploratory laparotomy, extensive lysis of adhesions and drainage of appendiceal abscess, partial omentectomy and open appendectomy. 3. Severe diarrhea. C difficile ruled out. 4. Possible bowel obstruction secondary to phlegmon. 5. Possible bowel obstruction secondary to phlegmon. 6. Acute COVID-19 infection. 7. Status post PICC line for IV antibiotics. 8. Increased WBC. 9. Increased random glucose. 10.Hypomagnesemia. 11.Elevated CRP. 12.Abnormal CT scan reviewed by surgery. 13.Hypertension. 14.History of diverticulitis. 15.Possible pneumonia secondary to Covid 19 infection. RECOMMENDATIONS AND DISCUSSION: Continue current medications, symptomatic treatment. I would recommend continue the antibiotics. Follow the cultures. The patient's pulse ox maintained by supplemental oxygen at this time. The last x-ray on July 13 reviewed. I would recommend a repeat chest x-ray tomorrow along with labs. Closely monitor. Further recommendations to follow. MMBRYSONL / IJN: [id number] / MTDD
[2021-07-15] MEDS: atenoloL 25 MG TAB PO SCH (20:27)
--- NOTE | 2021-07-15 23:25 | PN ---
PROGRESS NOTE DATE OF SERVICE: 07/15/2021 REASON FOR FOLLOWUP: Intraabdominal abscess from perforated appendicitis. INTERVAL HISTORY: Patient is afebrile. The patient is breathing comfortably. The patient's abdominal pain is currently controlled. Patient denies having any chest pain, shortness of breath or cough. No abdominal pain. No diarrhea. PHYSICAL EXAMINATION: Blood pressure 114/76, pulse 102, temperature is 97.8. She is 95% on room air. General description is a middle-aged female lying in bed in no distress. Respiratory system: Unlabored breathing. Decreased intensity of breath sounds. No wheeze. Heart S1, S2. Regular rate and rhythm. Abdomen: Soft, mildly tender. No guarding. No rigidity. LABS: Hemoglobin is 10, white count 18.1, creatinine is 1.0. DIAGNOSTIC IMPRESSION AND PLAN: Patient with intraabdominal abscess from ruptured appendicitis, status post laparotomy and drainage of the abscess. The patient tolerated the procedure. The patient is covered with Zosyn that will be continued while waiting for the culture to finalize and monitor clinical course closely. MMODL / IJN: [id number] /
[2021-07-16] MEDS: METOCLOPRAMIDE 5 MG/ML 2 ML VIAL IVP SCH ×5 (00:09→23:58)
[2021-07-16] MEDS: KETOROLAC 30 MG/ML 1 ML VIAL IVP SCH ×4 (00:09→17:42)
[2021-07-16] MEDS: ACETAMINOPHEN IV (For NPO) 1,000 MG in EMPTY BAG 1 BAG IVPB SCH ×2 (00:10→06:20)
[2021-07-16] MEDS: HYDROmorphone 1 MG/ML 1 ML SYRINGE IVP PRN ×8 (00:10→22:49)
[2021-07-16] MEDS: PIPERACILLIN-TAZOBACTAM 3.375 GM in SODIUM CHLORIDE 0.9% 100 ML IVPB SCH ×4 (02:00→23:58)
[2021-07-16] MEDS: 0.9% NACL WITH KCL 40 MEQ/L 1,000 ML IV SCH ×3 (02:00→19:15)
[2021-07-16] MEDS: metroNIDAZOLE-NS PMX 500 MG in SALINE 1 100ML.BAG IVPB SCH ×3 (06:19→17:41)
[2021-07-16] MEDS: ENOXAPARIN 30 MG/0.3 ML SYRINGE SQ SCH (07:22)
[2021-07-16] MEDS: PANTOPRAZOLE 40 MG/10 ML VIAL IV SCH (07:22)
--- NOTE | 2021-07-16 07:38 | XR ---
EXAMINATION TYPE: XR chest 1V portable DATE OF EXAM: 07/16/2021 Comparison: 07/13/2021 Clinical History: 50-year-old female pneumonia Findings: Low lung volumes and crowded vascular markings. Interval projects along the periphery of the left lex g. Left PICC tip at the caval atrial junction. Heart normal size. Some mild patchy retrocardiac opaci ty. Hazy density in the periphery of the left base shows improvement. New patchy opacity at the right base. NG tube courses below the diaphragm. Surgical clips right upper quadrant and upper abdominal m idline skin delaney. Impression: Hypoventilatory changes. New right basilar opacity could represent atelectasis or early developing in filtrate.
[2021-07-16] MEDS: SODIUM FERRIC GLUCONAT-SUCROSE 125 MG in SODIUM CHLORIDE 0.9% 100 ML IVPB SCH (08:14)
--- NOTE | 2021-07-16 10:50 | P.PN ---
Subjective Progress Note Date: 07/16/21 CHIEF COMPLAINT: Complicated ruptured appendicitis with phlegmon HISTORY OF PRESENT ILLNESS: Patient is POD#2 status post Exploratory laparotomy, Extensive lysis of adhesions, Drainage of appendiceal abscess, partial omentectomy and Open appendectomy. She is complaining of abdominal pain. She is having flatus. Pain medication does help with the pain. She does complain of nausea. Afebrile. Mild tachycardia heart rate 102 Labs pending. Chest x-ray hypoventilatory changes. New right basilar opacity could represent atelectasis or early developing infiltrate PHYSICAL EXAM: VITAL SIGNS: Reviewed GENERAL: Well-developed in no acute distress. HEENT: No sclera icterus. Extraocular movements grossly intact. Moist buccal mucosa. Head is atraumatic, normocephalic. Hears conversational speech. No nasal drainage. NECK: Supple without lymphadenopathy. CHEST: Non-labored respirations and equal bilateral excursions. CARDIOVASCULAR: Palpable 2+ radial pulses. ABDOMEN: Soft. Nondistended. Has abdominal binder in place. Has prevena dressing. Area is clean dry and intact HARESH drain serosanguineous 40 mL output MUSCULOSKELETAL: No clubbing or cyanosis. NEUROLOGIC: No focal or lateralizing signs. Cranial nerves II through XII grossly intact. PSYCH: Appropriate affect. Alert and oriented to person, place and time. SKIN: Well perfused. Good skin turgor. ASSESSMENT: 1. Complicated appendicitis with rupture, phlegmon and appendiceal abscess status post Exploratory laparotomy, Extensive lysis of adhesions, Drainage of appendiceal abscess, partial omentectomy and Open appendectomy 2. Covid positive 3. Leukocytosis 4. Hypertensive heart disease 5. Morbid obesity due to excess calories, BMI 37.6 6. Covid-induced diarrhea 7. Periappendiceal abscess 8. Small bowel obstruction 9. Iron deficiency anemia PLAN: -Discontinue NG tube -Start full liquid diet -Discontinue Vargas catheter -Encouraged patient to use incentive spirometer -Encouraged patient to ambulate. PT OT consulted -GI prophylaxis Protonix and DVT prophylaxis Lovenox Physician Quilting Supervisor note has been reviewed by physician. Signing provider agrees with the documented findings, assessment, and plan of care. Objective - Vital Signs Vital signs: Vital Signs Temp 98.3 F 07/16/21 09:02 Pulse 99 07/16/21 09:02 Resp 16 07/16/21 09:02 BP 149/83 07/16/21 09:02 Pulse Ox 97 07/16/21 09:02 Intake & Output 07/15/21 07/16/21 07/16/21 18:59 06:59 18:59 Output Total 570 300 40 Balance -570 -300 -40 Weight 108.862 kg Output: Drainage 20 40 Abdomen 20 40 Urine 550 300 Other: Voiding Method Indwelling Catheter Indwelling Catheter - Labs CBC & Chem 7: 07/15/21 07:36 07/15/21 07:36 Labs: Microbiology - Last 24 Hours (Table) 07/14/21 18:15 Gram Stain - Preliminary Other - Other Wound Culture - Preliminary 07/14/21 18:15 Gram Stain - Preliminary Other - Other Wound Culture - Preliminary 07/14/21 18:15 Gram Stain - Preliminary Other - Other Tissue Culture - Preliminary 07/10/21 01:00 Blood Culture - Final Blood No Growth after 144 hours 07/10/21 00:45 Blood Culture - Final Blood No Growth after 144 hours 07/14/21 18:15 Anaerobic Culture - Preliminary Other - Other 07/14/21 18:15 Anaerobic Culture - Preliminary Other - Other 07/14/21 18:15 Anaerobic Culture - Preliminary Other - Other
[2021-07-16 11:09] LABS: Basophils # (A) 0.04 X 10*3/uL (0.00-0.10); Basophils % (A) 0.2 %; Eosinophils % (A) 0.5 %; HCT 30.9 % (37.2-46.3); HGB 9.2 g/dL (12.0-15.0); Lymphocytes # (A) 1.23 X 10*3/uL (0.90-5.00); Lymphocytes % (A) 6.6 %; MCH 27.6 pg (27.0-32.0); MCHC 29.8 g/dL (32.0-37.0); MCV 92.8 fL (80.0-97.0); Mean Platelet Volume 9.6 fL (9.5-12.2); Monocytes # (A) 0.98 X 10*3/uL (0.20-1.00); Monocytes % (A) 5.3 %; Neutrophils # (A) 15.95 X 10*3/uL (1.80-7.70); Neutrophils % (A) 86.3 %; Platelet Count 585 X 10*3/uL (140-440); RBC 3.33 X 10*6/uL (4.10-5.20); RDW 13.8 % (11.5-14.5); WBC 18.51 X 10*3/uL (4.50-10.00)
[2021-07-16 12:33] LABS: Albumin 2.5 g/dL (3.8-4.9); Albumin/Globulin Ratio 0.93 (1.60-3.17); Anion Gap 11.2 mmol/L (10.00-18.00); BUN/Creat Ratio 17.33 Ratio (12.00-20.00); Blood Urea Nitrogen 15.6 mg/dL (9.0-27.0); Calcium 7.6 mg/dL (8.7-10.3); Carbon Dioxide 22.8 mmol/L (20.0-27.5); Globulin 2.7 g/dL (1.6-3.3); Non-African American GFR(CKD) 75.1 (60.0-200.0); Potassium 4.8 mmol/L (3.5-5.5); Total Bilirubin 0.2 mg/dL (0.30-1.20); Total Protein 5.2 g/dL (6.2-8.2)
[2021-07-16] MEDS: ONDANSETRON 4 MG/2 ML VIAL IVP PRN ×2 (13:02→19:14)
[2021-07-16] MEDS ORDERED: ALBUTEROL HFA INHALER INHALATION PRN (16:14)
--- NOTE | 2021-07-16 18:06 | PN ---
PROGRESS NOTE DATE OF SERVICE: 07/16/2021 This 50-year-old woman who was admitted with acute abdominal pain with possible appendiceal perforation and abdominal distention with possible phlegmon, had surgery. The patient continues to have some shortness of breath with severe pain. The most recent chest x-ray which was done today and reviewed personally by me showed features of some possible atelectasis. The patient is being closely monitored. PAST MEDICAL HISTORY: Reviewed. REVIEW OF SYSTEMS: Cardiovascular system: No angina. Respiratory system: As mentioned earlier. GI: As mentioned earlier. : No dysuria. Nervous system: No numbness or weakness. CURRENT MEDICATIONS: Are reviewed include Tenormin, Hurricaine spray, Lovenox, Dilaudid, Toradol, Ativan. Doses are and other medications reviewed. PHYSICAL EXAMINATION: Alert and oriented x3. Pulse 106, blood pressure 124/80, respirations 16, temperature 98.2, pulse ox 98% on 3 L. HEENT: Conjunctivae normal. Oral mucosa moist. NECK: No jugular venous distention. No lymph node enlargement. CARDIOVASCULAR: S1, S2, muffled. No S3, no S4, RESPIRATORY: Diminished breath sounds at the bases. A few scattered rhonchi. ABDOMEN: Soft, obese, status post surgery. LEGS: No edema, no swelling. NERVOUS SYSTEM: No focal deficits. LABS: WBC 18, hemoglobin 10.2, total protein is 5 and albumin is 2.5. ASSESSMENT: 1. Acute abdominal pain with possible appendiceal perforation, abdominal distention with possible phlegmon abscess, severe abdominal pain present on admission with sepsis. 2. Status post exploratory laparotomy, extensive lysis of adhesions and drainage of the appendiceal abscess, partial omentectomy and open appendectomy. 3. Severe diarrhea, C difficile ruled out, improved. 4. Possible bowel obstruction secondary to phlegmon. 5. Atelectasis. 6. Acute COVID-19 infection. 7. Status post PICC line for IV antibiotics. 8. Increased WBC. 9. Increased random glucose. 10.Hypomagnesemia. 11.Elevated CRP. 12.Abnormal CT scan reviewed by Surgery previously. 13.Hypertension. 14.History of diverticulitis. 15.Possible pneumonia secondary to COVID-19 infection. RECOMMENDATIONS AND DISCUSSION: Recommend to continue current management, continue symptomatic treatment. I would recommend incentive spirometry. Add albuterol to the current regimen. Continue the rest of medications. Further recommendations to follow. Incentive spirometry. DVT prophylaxis. MMODL / IJN: [id number] /
[2021-07-16] MEDS: atenoloL 25 MG TAB PO SCH (20:01)
[2021-07-16] MEDS: ALBUTEROL HFA INHALER INHALATION SCH (21:14)
[2021-07-16] MEDS: FLUCONAZOLE IN NACL,ISO-OSM 200 MG in SALINE 1 100ML.BAG IVPB SCH (22:49)
--- NOTE | 2021-07-17 | PN ---
PROGRESS NOTE DATE OF SERVICE: 07/16/2021 REASON FOR FOLLOWUP: Intra-abdominal abscess from ruptured appendicitis. INTERVAL HISTORY: The patient is afebrile. The patient is breathing slightly comfortably. The patient denies having any chest pain or shortness of breath or cough. Abdominal pain is currently controlled. No vomiting or diarrhea. PHYSICAL EXAMINATION: Blood pressure 130/82 with a pulse of 108 temperature 98.5. She is 97% on 2 L nasal cannula. General description is a middle-aged female lying in bed in no distress. Respiratory system: Unlabored breathing, decreased intensity of breath sounds, no wheeze. Heart S1, S2. Regular rate and rhythm. Abdomen soft, no tenderness. LABS: Hemoglobin is 9.1, white count 18.5. DIAGNOSTIC IMPRESSION AND PLAN: Patient with intra-abdominal abscess from ruptured appendicitis, status post laparotomy and drainage of the abscess. Patient's abdominal cultures currently pending. White count is still elevated. We will continue with Zosyn, add Diflucan and monitor clinical course closely. MMODL / IJN: [id number] /
[2021-07-17] MEDS: 0.9% NACL WITH KCL 40 MEQ/L 1,000 ML IV SCH ×2 (01:56→12:16)
[2021-07-17] MEDS: ONDANSETRON 4 MG/2 ML VIAL IVP PRN ×2 (01:56→11:59)
[2021-07-17] MEDS: HYDROmorphone 1 MG/ML 1 ML SYRINGE IVP PRN ×7 (01:56→21:11)
[2021-07-17] MEDS: METOCLOPRAMIDE 5 MG/ML 2 ML VIAL IVP SCH ×3 (05:45→18:05)
[2021-07-17] MEDS: ENOXAPARIN 30 MG/0.3 ML SYRINGE SQ SCH (07:37)
[2021-07-17] MEDS: PANTOPRAZOLE 40 MG/10 ML VIAL IV SCH (07:37)
[2021-07-17] MEDS: PIPERACILLIN-TAZOBACTAM 3.375 GM in SODIUM CHLORIDE 0.9% 100 ML IVPB SCH ×2 (07:37→17:24)
[2021-07-17] MEDS: ALBUTEROL HFA INHALER INHALATION SCH ×4 (08:35→20:22)
[2021-07-17] MEDS ORDERED: FUROSEMIDE 10 MG/ML 2 ML VIAL IV STA (11:32)
[2021-07-17 11:45] LABS: Basophils # (A) 0.04 X 10*3/uL (0.00-0.10); Basophils % (A) 0.2 %; Eosinophils % (A) 2.4 %; HGB 9.3 g/dL (12.0-15.0); Lymphocytes # (A) 1.26 X 10*3/uL (0.90-5.00); Lymphocytes % (A) 7.6 %; MCH 27.5 pg (27.0-32.0); MCHC 29.1 g/dL (32.0-37.0); MCV 94.7 fL (80.0-97.0); Mean Platelet Volume 9.9 fL (9.5-12.2); Monocytes # (A) 0.86 X 10*3/uL (0.20-1.00); Monocytes % (A) 5.2 %; Neutrophils % (A) 82.7 %; Platelet Count 669 X 10*3/uL (140-440); RBC 3.38 X 10*6/uL (4.10-5.20); RDW 13.9 % (11.5-14.5); WBC 16.48 X 10*3/uL (4.50-10.00)
[2021-07-17 12:31] LABS: ALT 16 U/L (8-44); AST 22 U/L (13-35); African American GFR (CKD) 109.7 (60.0-200.0); Albumin 2.6 g/dL (3.8-4.9); Albumin/Globulin Ratio 0.88 (1.60-3.17); Alkaline Phosphatase 51 U/L (41-126); BUN/Creat Ratio 15.61 Ratio (12.00-20.00); Blood Urea Nitrogen 11.6 mg/dL (9.0-27.0); Calcium 7.8 mg/dL (8.7-10.3); Carbon Dioxide 23.6 mmol/L (20.0-27.5); Chloride 108 mmol/L (96-109); Globulin 2.9 g/dL (1.6-3.3); Glucose 108 mg/dL (70-110); Non-African American GFR(CKD) 94.7 (60.0-200.0); Potassium 4.9 mmol/L (3.5-5.5); Sodium 142 mmol/L (135-145); Total Bilirubin <0.20 mg/dL (0.30-1.20); Total Protein 5.5 g/dL (6.2-8.2)
--- NOTE | 2021-07-17 12:53 | P.PN ---
Subjective Progress Note Date: 07/17/21 CHIEF COMPLAINT: Complicated ruptured appendicitis with phlegmon HISTORY OF PRESENT ILLNESS: Patient is POD#3 status post Exploratory laparotomy, Extensive lysis of adhesions, Drainage of appendiceal abscess, partial omentectomy and Open appendectomy. She reports that her abdominal pain is controlled with the pain medication. She is now having bowel movements and flatus. Patient is working with physical therapy. She denies any nausea or vomiting. She is tolerating full liquid diet. She is urinating a lot and without difficulty. Patient reports that she is starting to feel better each day. Afebrile. WBC trending down at 16.48 hemoglobin 9.3 platelets 669 creatinine 0.7 abdominal cultures pending PHYSICAL EXAM: VITAL SIGNS: Reviewed GENERAL: Well-developed in no acute distress. HEENT: No sclera icterus. Extraocular movements grossly intact. Moist buccal mucosa. Head is atraumatic, normocephalic. Hears conversational speech. No nasal drainage. NECK: Supple without lymphadenopathy. CHEST: Non-labored respirations and equal bilateral excursions. CARDIOVASCULAR: Palpable 2+ radial pulses. ABDOMEN: Soft. Nondistended. Has abdominal binder in place. Has prevena dressing. Area is clean dry and intact. HARESH drain 20 mL serous output MUSCULOSKELETAL: No clubbing or cyanosis. NEUROLOGIC: No focal or lateralizing signs. Cranial nerves II through XII grossly intact. PSYCH: Appropriate affect. Alert and oriented to person, place and time. SKIN: Well perfused. Good skin turgor. ASSESSMENT: 1. Complicated appendicitis with rupture, phlegmon and appendiceal abscess status post Exploratory laparotomy, Extensive lysis of adhesions, Drainage of appendiceal abscess, partial omentectomy and Open appendectomy 2. Covid positive 3. Leukocytosis 4. Hypertensive heart disease 5. Morbid obesity due to excess calories, BMI 37.6 6. Covid-induced diarrhea 7. Periappendiceal abscess 8. Small bowel obstruction 9. Iron deficiency anemia PLAN: -Advance diet to low fiber -Hep-Lock IV fluids -Antibiotics per ID service -Continue pain medication as needed -Encouraged patient to use incentive spirometer -Encouraged patient to ambulate. PT OT consulted -GI prophylaxis Protonix and DVT prophylaxis Lovenox Physician Registered Radiation Therapist note has been reviewed by physician. Signing provider agrees with the documented findings, assessment, and plan of care. Objective - Vital Signs Vital signs: Vital Signs Temp 98.4 F 07/17/21 07:43 Pulse 88 07/17/21 07:43 Resp 16 07/17/21 07:43 BP 149/89 07/17/21 07:43 Pulse Ox 98 07/17/21 07:43 Intake & Output 07/16/21 07/17/21 07/17/21 18:59 06:59 18:59 Output Total 40 1020 20 Balance -40 -1020 -20 Weight 108.862 kg Output: Drainage 40 20 20 Abdomen 40 20 20 Urine 1000 Other: Voiding Method Indwelling Catheter Indwelling Catheter # Voids 2 4 # Bowel Movements 2 1 - Labs CBC & Chem 7: 07/17/21 07:51 07/17/21 07:51 Labs: Abnormal Lab Results - Last 24 Hours (Table) 07/17/21 07/17/21 Range/Units 07:51 07:51 WBC 16.48 H (4.50-10.00) X 10*3/uL RBC 3.38 L (4.10-5.20) X 10*6/uL Hgb 9.3 L (12.0-15.0) g/dL Hct 32.0 L (37.2-46.3) % MCHC 29.1 L (32.0-37.0) g/dL Plt Count 669 H (140-440) X 10*3/uL Immature Gran # 0.32 H (0.00-0.04) X 10*3/uL Neutrophils # 13.60 H (1.80-7.70) X 10*3/uL Eosinophils # 0.40 H (0.04-0.35) X 10*3/uL Calcium 7.8 L (8.7-10.3) mg/dL Total Bilirubin <0.20 L (0.30-1.20) mg/dL Total Protein 5.5 L (6.2-8.2) g/dL Albumin 2.6 L (3.8-4.9) g/dL Albumin/Globulin Ratio 0.88 L (1.60-3.17) g/dL Microbiology - Last 24 Hours (Table) 07/14/21 18:15 Gram Stain - Final Other - Other Wound Culture - Final 07/14/21 18:15 Gram Stain - Final Other - Other Wound Culture - Final 07/14/21 18:15 Gram Stain - Preliminary Other - Other Tissue Culture - Preliminary
--- NOTE | 2021-07-17 17:34 | PN ---
PROGRESS NOTE DATE OF SERVICE: 07/17/2021 This 50-year-old woman who was admitted with acute abdominal pain had possible appendiceal perforation and surgery. No chest pain. No palpitations. No fever. The patient had some fluid overload, also. Past medical history reviewed. REVIEW OF SYSTEMS: CARDIOVASCULAR SYSTEM: No angina. RESPIRATION: As mentioned earlier. GI: As mentioned earlier. : No dysuria. NERVOUS SYSTEM: No numbness, weakness. CURRENT MEDICATIONS: Reviewed. They include Ventolin, Tenormin,, Lovenox, fluconazole, Dilaudid. Doses and other medications are reviewed. PHYSICAL EXAMINATION: Patient is alert, oriented x3. Pulse is 98, blood pressure 126/87, respirations 16, temperature 98.2, pulse ox 94% on room air. HEENT: Conjunctivae normal. NECK: No jugular venous distention. RESPIRATION: Breath sounds diminished at the bases. A few scattered rhonchi. ABDOMEN: Soft, nontender. No mass palpable. LEGS: No edema. No swelling. NERVOUS SYSTEM: No focal deficit. LABS: WBC 16.8. Otherwise, noted. ASSESSMENT: 1. Acute abdominal pain with acute appendiceal perforation and abdominal distention with possible phlegmon abscess, severe abdominal pain with sepsis. 2. Status post exploratory laparotomy, extensive lysis of adhesions, drainage of appendiceal abscess and partial omentectomy and open appendectomy. 3. Severe diarrhea. C difficile ruled out. Improved. 4. Possible bowel obstruction secondary to phlegmon. 5. Possible fluid overload. 6. Atelectasis. 7. Acute COVID-19 infection. 8. Status post PICC line for IV antibiotics. 9. Increased white count. 10.Increased random glucose. 11.Hypomagnesemia. 12.Elevated CRP. 13.Abdominal CT scan reviewed by Surgery previously. 14.Hypertension. 15.History of diverticulosis. 16.Possible pneumonia secondary to COVID-19 infection. RECOMMENDATIONS AND DISCUSSION: I recommend to continue current medications, continue with the monitoring, symptomatic treatment. Continue with antibiotics, antifungals. Continue to monitor. Closely follow with Dr. Posada. I would also recommend a small dose of Lasix, troponin, BNP and 2D echo also. Prognosis guarded. Further recommendations to follow. Recommend close followup with primary physician in the outpatient setting regarding the cardiac issues once the acute condition has been resolved. MMODL / IJN: [id number] / BURT
--- NOTE | 2021-07-17 20:37 | PN ---
PROGRESS NOTE DATE OF SERVICE: 07/17/2021 REASON FOR FOLLOWUP: Intraabdominal abscess from a perforated appendicitis. INTERVAL HISTORY: The patient is afebrile. The patient is breathing slightly comfortably. The patient denies having any chest pain or worried cough or sputum production. Abdominal pain is currently controlled. No vomiting. Did have bowel movement. PHYSICAL EXAMINATION: Blood pressure 136/87, pulse of 94, temperature 97.9. She is 98% on room air. General description is a middle-aged female up in the bed in no distress. Respiratory system: Unlabored breathing, decreased intensity of breath sounds. No wheeze. Heart S1, S2. Regular rate and rhythm. Abdomen soft, mildly distended. No guarding or rigidity. LABS: Hemoglobin is 9.3, white count down to 16.4, creatinine 0.7. DIAGNOSTIC IMPRESSION AND PLAN: Patient with an intraabdominal abscess from perforated appendicitis, status post drainage of the abscess. Cultures are currently pending. The patient's white count is trending down with the addition of Diflucan. That will be continued along with Zosyn, with the discharge antibiotic on the basis of culture report. Continue supportive care. MMODL / IJN: [id number] /
[2021-07-17] MEDS: FLUCONAZOLE IN NACL,ISO-OSM 200 MG in SALINE 1 100ML.BAG IVPB SCH (21:12)
[2021-07-17] MEDS: atenoloL 25 MG TAB PO SCH (21:12)
[2021-07-18] MEDS: HYDROmorphone 1 MG/ML 1 ML SYRINGE IVP PRN ×8 (00:02→22:30)
[2021-07-18] MEDS: PIPERACILLIN-TAZOBACTAM 3.375 GM in SODIUM CHLORIDE 0.9% 100 ML IVPB SCH ×3 (00:03→16:16)
[2021-07-18] MEDS: METOCLOPRAMIDE 5 MG/ML 2 ML VIAL IVP SCH ×4 (00:36→16:15)
[2021-07-18] MEDS: ALBUTEROL HFA INHALER INHALATION SCH ×4 (08:23→19:04)
[2021-07-18] MEDS: PANTOPRAZOLE 40 MG/10 ML VIAL IV SCH (09:01)
[2021-07-18] MEDS: ENOXAPARIN 30 MG/0.3 ML SYRINGE SQ SCH (09:01)
[2021-07-18 10:03] LABS: Basophils # (A) 0.03 X 10*3/uL (0.00-0.10); Basophils % (A) 0.2 %; Eosinophils # (A) 0.44 X 10*3/uL (0.04-0.35); Eosinophils % (A) 3.5 %; HCT 28.6 % (37.2-46.3); HGB 8.4 g/dL (12.0-15.0); MCH 27.5 pg (27.0-32.0); MCHC 29.4 g/dL (32.0-37.0); MCV 93.5 fL (80.0-97.0); Mean Platelet Volume 9.9 fL (9.5-12.2); Monocytes % (A) 6.3 %; Neutrophils # (A) 9.86 X 10*3/uL (1.80-7.70); Neutrophils % (A) 77.7 %; Platelet Count 571 X 10*3/uL (140-440); RBC 3.06 X 10*6/uL (4.10-5.20); RDW 14.1 % (11.5-14.5)
[2021-07-18 10:35] LABS: African American GFR (CKD) 105.3 (60.0-200.0); Anion Gap 9.7 mmol/L (10.00-18.00); BUN/Creat Ratio 10.99 Ratio (12.00-20.00); Blood Urea Nitrogen 8.5 mg/dL (9.0-27.0); Calcium 7.5 mg/dL (8.7-10.3); Carbon Dioxide 25.7 mmol/L (20.0-27.5); Non-African American GFR(CKD) 90.8 (60.0-200.0); Potassium 4.3 mmol/L (3.5-5.5)
--- NOTE | 2021-07-18 10:44 | ECHOF ---
Referral Reason:chf MEASUREMENTS -------- HEIGHT: 170.2 cm WEIGHT: 108.9 kg BP: 126/87 RVIDd: 3.4 cm (< 3.3) IVSd: 1.1 cm (0.6 - 1.1) LVIDd: 4.8 cm (3.9 - 5.3) LVPWd: 1.1 cm (0.6 - 1.1) IVSs: 1.5 cm LVIDs: 3.2 cm LVPWs: 1.7 cm LA Diam: 4.0 cm (2.7 - 3.8) LAESV Index (A-L): 28.09 ml/m Ao Diam: 2.9 cm (2.0 - 3.7) AV Cusp: 1.9 cm (1.5 - 2.6) MV EXCURSION: 14.054 mm (> 18.000) MV EF SLOPE: 81 mm/s (70 - 150) EPSS: 0.5 cm MV E Nguyễn: 0.90 m/s MV DecT: 205 ms MV A Nguyễn: 1.03 m/s MV E/A Ratio: 0.88 RAP: 5.00 mmHg RVSP: 28.92 mmHg FINDINGS -------- Sinus rhythm. This was a technically good study. The left ventricular size is normal. There is borderline concentric left ventricular hypertrophy. Overall left ventricular systolic function is normal with, an EF between 60 - 65 %. The right ventricle is mildly enlarged. Normal LA size by volume 22+/-6 ml/m2. The right atrium is normal in size. Interatrial and interventricular septum intact. The aortic valve is trileaflet, and appears structurally normal. No aortic stenosis or regurgitation. There is trace mitral regurgitation. Trace tricuspid regurgitation present. Right ventricular systolic pressure is normal at < 35 mmHg. The pulmonic valve is normal. The aortic root size is normal. IVC Not well visulized. There is no pericardial effusion. CONCLUSIONS -------- 1. The left ventricular size is normal. 2. There is borderline concentric left ventricular hypertrophy. 3. Overall left ventricular systolic function is normal with, an EF between 60 - 65 %. 4. The right ventricle is mildly enlarged. 5. The aortic valve is trileaflet, and appears structurally normal. No aortic stenosis or regurgitati on. 6. There is trace mitral regurgitation. 7. Trace tricuspid regurgitation present. 8. There is no pericardial effusion. RETORT KILN BURNER: FLORENCE Ramirez
--- NOTE | 2021-07-18 11:55 | P.PN ---
Subjective Progress Note Date: 07/18/21 Principal diagnosis: Appendiceal abscess Patient doing better today. Says her diarrhea has improved. White blood cell count 12.7, hemoglobin 8.4. Tolerating low fiber diet. Feels tired today. Objective - Vital Signs Vital signs: Vital Signs Temp 98 F 07/18/21 08:24 Pulse 82 07/18/21 08:24 Resp 17 07/18/21 08:24 BP 125/84 07/18/21 08:24 Pulse Ox 100 07/18/21 08:24 Intake & Output 07/17/21 07/18/21 07/18/21 18:59 06:59 18:59 Intake Total 236 500 Output Total 20 20 Balance 216 480 Intake: IV 100 Piperacillin-Tazobactam 3 100 .375 gm In Sodium Chloride 0.9% 100 ml @ 25 mls/hr IVPB Q8HR [facility] Rx# :[id number] Intake, IV Titration 100 Amount Fluconazole in NaCl,Iso- 100 Osm 200 mg In Saline 1 100ml.bag @ 100 mls/hr IVPB DAILY@2100 [facility] Rx#: [id number] Oral 236 300 Output: Drainage 20 20 Abdomen 20 20 Other: Voiding Method Indwelling Catheter Bedside Commode Bedside Commode # Voids 6 4 # Bowel Movements 1 - Exam Abdomen: Soft, nondistended, dressing clean and dry, mild tenderness - Labs CBC & Chem 7: 07/18/21 05:53 07/18/21 05:53 Labs: Abnormal Lab Results - Last 24 Hours (Table) 07/17/21 07/18/21 07/18/21 Range/Units 07:51 05:53 05:53 WBC 12.70 H (4.50-10.00) X 10*3/uL RBC 3.06 L (4.10-5.20) X 10*6/uL Hgb 8.4 L (12.0-15.0) g/dL Hct 28.6 L (37.2-46.3) % MCHC 29.4 L (32.0-37.0) g/dL Plt Count 571 H (140-440) X 10*3/uL Immature Gran # 0.17 H (0.00-0.04) X 10*3/uL Neutrophils # 9.86 H (1.80-7.70) X 10*3/uL Eosinophils # 0.44 H (0.04-0.35) X 10*3/uL Anion Gap 9.70 L (10.00-18.00) mmol/L BUN 8.5 L (9.0-27.0) mg/dL BUN/Creatinine Ratio 10.99 L (12.00-20.00) Ratio Calcium 7.8 L 7.5 L (8.7-10.3) mg/dL Total Bilirubin <0.20 L (0.30-1.20) mg/dL Total Protein 5.5 L (6.2-8.2) g/dL Albumin 2.6 L (3.8-4.9) g/dL Albumin/Globulin Ratio 0.88 L (1.60-3.17) g/dL Microbiology - Last 24 Hours (Table) 07/14/21 18:15 Gram Stain - Preliminary Other - Other Tissue Culture - Preliminary 07/14/21 18:15 Anaerobic Culture - Preliminary Other - Other 07/14/21 18:15 Anaerobic Culture - Preliminary Other - Other 07/14/21 18:15 Anaerobic Culture - Preliminary Other - Other 07/14/21 18:15 Gram Stain - Final Other - Other Wound Culture - Final 07/14/21 18:15 Gram Stain - Final Other - Other Wound Culture - Final Assessment and Plan (1) Ruptured appendicitis Narrative/Plan: Seems to be doing better. Monitor labs. Monitor degree of diarrhea. Continue fiber diet. Crease activity as tolerated. Current Visit: Yes Status: Acute Code(s): K35.32 - ACUTE APPENDICITIS WITH PERF AND LOC PERITONITIS, W/O ABSCS SNOMED Code(s): 85553052
--- NOTE | 2021-07-18 16:12 | P.PN ---
Subjective This is a pleasant 50 years old female with past medical history of hypertension and presents with appendiceal abscess secondary to complicated appendicitis status post exploratory laparotomy and open appendectomy on 07/14. Also patient was found to have covert infection without evidence of pneumonia or hypoxia. Currently she is saturating 100% on 3 L oxygen via nasal cannula, she denies chest pain or dyspnea or coughing. She still have some abdominal pain and surgical site which is expected, drain is in place but is empty. Also looks like she has anemia of chronic disease and right lower lobe atelectasis. Patient herself denies any respiratory symptoms as above. She tolerates diet about 50% and have some loose bowel movement. Troponins are negative, covert this was positive on 07/10. C. diff is negative. Ejection fraction was 60-65% for chest bilateral Although she states improvement. We'll order ultrasound of the leg, Also she is on fluconazole and Zosyn pending abdominal wound results of which are not back yet. Objective - Vital Signs Vital signs: Vital Signs Temp 98 F 07/18/21 08:24 Pulse 82 07/18/21 08:24 Resp 17 07/18/21 08:24 BP 125/84 07/18/21 08:24 Pulse Ox 100 07/18/21 08:24 Intake & Output 07/17/21 07/18/21 07/18/21 18:59 06:59 18:59 Intake Total 236 500 Output Total 20 20 Balance 216 480 Intake: IV 100 Piperacillin-Tazobactam 3 100 .375 gm In Sodium Chloride 0.9% 100 ml @ 25 mls/hr IVPB Q8HR [facility] Rx# :[id number] Intake, IV Titration 100 Amount Fluconazole in NaCl,Iso- 100 Osm 200 mg In Saline 1 100ml.bag @ 100 mls/hr IVPB DAILY@2100 [facility] Rx#: [id number] Oral 236 300 Output: Drainage 20 20 Abdomen 20 20 Other: Voiding Method Indwelling Catheter Bedside Commode Bedside Commode # Voids 6 4 # Bowel Movements 1 - Exam GENERAL: The patient is alert and oriented x3, not in any acute distress. Well developed, well nourished. HEENT: Pupils are round and equally reacting to light. EOMI. No scleral icterus. No conjunctival pallor. Normocephalic, atraumatic. No pharyngeal erythema. No thyromegaly. CARDIOVASCULAR: S1 and S2 present. No murmurs, rubs, or gallops. PULMONARY: Chest is clear to auscultation, no wheezing or crackles. -ABDOMEN: Soft, nontender, nondistended, normoactive bowel sounds. No palpable organomegaly. Surgical abdominal wound is closed and healing with addressing the place, draining is in place which is empty MUSCULOSKELETAL: No joint swelling or deformity. -EXTREMITIES: No cyanosis, clubbing, or pedal edema. Patient has Moderate bilateral leg swelling, with some pitting edema NEUROLOGICAL: Gross neurological examination did not reveal any focal deficits. SKIN: No rashes. no petechiae. - Labs CBC & Chem 7: 07/18/21 05:53 07/18/21 05:53 Labs: Abnormal Lab Results - Last 24 Hours (Table) 07/18/21 07/18/21 Range/Units 05:53 05:53 WBC 12.70 H (4.50-10.00) X 10*3/uL RBC 3.06 L (4.10-5.20) X 10*6/uL Hgb 8.4 L (12.0-15.0) g/dL Hct 28.6 L (37.2-46.3) % MCHC 29.4 L (32.0-37.0) g/dL Plt Count 571 H (140-440) X 10*3/uL Immature Gran # 0.17 H (0.00-0.04) X 10*3/uL Neutrophils # 9.86 H (1.80-7.70) X 10*3/uL Eosinophils # 0.44 H (0.04-0.35) X 10*3/uL Anion Gap 9.70 L (10.00-18.00) mmol/L BUN 8.5 L (9.0-27.0) mg/dL BUN/Creatinine Ratio 10.99 L (12.00-20.00) Ratio Calcium 7.5 L (8.7-10.3) mg/dL Microbiology - Last 24 Hours (Table) 07/14/21 18:15 Gram Stain - Preliminary Other - Other Tissue Culture - Preliminary 07/14/21 18:15 Anaerobic Culture - Preliminary Other - Other 07/14/21 18:15 Anaerobic Culture - Preliminary Other - Other 07/14/21 18:15 Anaerobic Culture - Preliminary Other - Other 07/14/21 18:15 Gram Stain - Final Other - Other Wound Culture - Final 07/14/21 18:15 Gram Stain - Final Other - Other Wound Culture - Final Assessment and Plan Assessment: Appendiceal abscess secondary to complicated appendicitis status post expiratory laparotomy and adhesion lysis with abscess drainage and open appendectomy Intra-abdominal infection secondary to above Complete infection without pneumonia or hypoxia Anemia of chronic disease Right lower lobe atelectasis Plan: This is a pleasant 50 years old female with perforated appendicitis status post appendectomy and exploratory laparotomy. Continue with antibiotics fluconazole and Zosyn. Infectious disease on the case. Advance diet as tolerated. Surgical team consult. Follow-up wound culture results. we will do ultrasound of the legs although suspicion for DVT is low. Labs and medication were reviewed.. Continue same treatment. Continue with symptomatic treatment. Resume home medication. Monitor lytes and vitals. DVT and GI prophylaxis. Further recommendationsas per clinical course of the patient DVT prophylaxis: Subcutaneous Lovenox GI Prophylaxis: Ppi Prognosis is guarded
--- NOTE | 2021-07-18 17:18 | US ---
EXAMINATION TYPE: US venous doppler duplex LE BI DATE OF EXAM: 07/18/2021 5:01 PM COMPARISON: NONE CLINICAL HISTORY: leg swelling. Swelling s/p bowel surgery SIDE PERFORMED: Bilateral TECHNIQUE: The lower extremity deep venous system is examined utilizing real time linear array sonog mane with graded compression, doppler sonography and color-flow sonography. VESSELS IMAGED: Common Femoral Vein Deep Femoral Vein Greater Saphenous Vein * Femoral Vein Popliteal Vein Small Saphenous Vein * Proximal Calf Veins (* superficial vessels) Right Leg: Negative for DVT Left Leg: Negative for DVT IMPRESSION: No evidence of deep vein thrombosis in the right and left leg.
--- NOTE | 2021-07-18 18:44 | PN ---
PROGRESS NOTE DATE OF SERVICE: 07/18/2021 REASON FOR FOLLOWUP: Intraabdominal abscess. INTERVAL HISTORY: The patient is afebrile. The patient is breathing comfortably. The patient denies having any chest pain. No shortness of breath or cough. Abdominal pain is currently controlled. No vomiting or diarrhea. Has been tolerating her diet. PHYSICAL EXAMINATION: Blood pressure 136/81 with a pulse of 88, temperature of 98.5. She is 95% on 3 L nasal cannula. General description is a middle-aged female up in the bed in no distress. Respiratory system: Unlabored breathing, decreased intensity of breath sounds. No wheeze. Heart S1, S2. Regular rate and rhythm. Abdomen soft. Mild distention. No guarding or rigidity. LABS: Hemoglobin 8.4, white count 12.70. Creatinine 0.8. DIAGNOSTIC IMPRESSION AND PLAN: Patient with intraabdominal abscess from ruptured appendicitis. Abdominal cultures have been negative so far. Patient is covered with Zosyn. White count is currently trending down. Monitor clinical course closely. Discharge antibiotic on the basis of cultures. MMODL / IJN: [id number] /
[2021-07-18] MEDS: FLUCONAZOLE IN NACL,ISO-OSM 200 MG in SALINE 1 100ML.BAG IVPB SCH (20:35)
[2021-07-18] MEDS: atenoloL 25 MG TAB PO SCH (20:35)
[2021-07-19] MEDS: PIPERACILLIN-TAZOBACTAM 3.375 GM in SODIUM CHLORIDE 0.9% 100 ML IVPB SCH ×3 (00:28→17:30)
[2021-07-19] MEDS: METOCLOPRAMIDE 5 MG/ML 2 ML VIAL IVP SCH ×4 (00:28→20:44)
[2021-07-19] MEDS: HYDROmorphone 1 MG/ML 1 ML SYRINGE IVP PRN ×7 (01:34→20:44)
[2021-07-19] MEDS: PANTOPRAZOLE 40 MG/10 ML VIAL IV SCH (07:32)
[2021-07-19] MEDS: ENOXAPARIN 30 MG/0.3 ML SYRINGE SQ SCH (07:33)
[2021-07-19] MEDS: ALBUTEROL HFA INHALER INHALATION SCH ×4 (08:47→19:59)
[2021-07-19 11:00] LABS: Basophils # (A) 0.04 X 10*3/uL (0.00-0.10); Basophils % (A) 0.4 %; Eosinophils # (A) 0.29 X 10*3/uL (0.04-0.35); Eosinophils % (A) 2.9 %; HGB 8.9 g/dL (12.0-15.0); Lymphocytes # (A) 1.28 X 10*3/uL (0.90-5.00); Lymphocytes % (A) 12.6 %; MCH 27.6 pg (27.0-32.0); MCHC 29.7 g/dL (32.0-37.0); MCV 92.9 fL (80.0-97.0); Mean Platelet Volume 9.7 fL (9.5-12.2); Monocytes # (A) 0.68 X 10*3/uL (0.20-1.00); Monocytes % (A) 6.7 %; Neutrophils # (A) 7.65 X 10*3/uL (1.80-7.70); Neutrophils % (A) 75.6 %; Platelet Count 562 X 10*3/uL (140-440); RBC 3.23 X 10*6/uL (4.10-5.20); RDW 13.8 % (11.5-14.5); WBC 10.12 X 10*3/uL (4.50-10.00)
[2021-07-19 11:29] LABS: African American GFR (CKD) 104.1 (60.0-200.0); BUN/Creat Ratio 8.67 Ratio (12.00-20.00); Blood Urea Nitrogen 6.7 mg/dL (9.0-27.0); Calcium 7.9 mg/dL (8.7-10.3); Carbon Dioxide 29.1 mmol/L (20.0-27.5); Non-African American GFR(CKD) 89.8 (60.0-200.0); Potassium 4.5 mmol/L (3.5-5.5)
--- NOTE | 2021-07-19 12:23 | P.PN ---
Subjective Progress Note Date: 07/19/21 Principal diagnosis: Appendiceal abscess Patient doing well today. T-max 99.1. Says her diarrhea is definitely improved. Mild pain. Still requiring narcotics however. Objective - Vital Signs Vital signs: Vital Signs Temp 98.3 F 07/19/21 08:09 Pulse 91 07/19/21 08:09 Resp 18 07/19/21 08:09 BP 128/83 07/19/21 08:09 Pulse Ox 94 L 07/19/21 08:09 Intake & Output 07/18/21 07/19/21 07/19/21 18:59 06:59 18:59 Intake Total 450 Output Total 8 Balance 450 -8 Intake: IV 100 Piperacillin-Tazobactam 3 100 .375 gm In Sodium Chloride 0.9% 100 ml @ 25 mls/hr IVPB Q8HR [facility] Rx# :[id number] Oral 350 Output: Drainage 8 Abdomen 8 Other: Voiding Method Bedside Commode Bedside Commode Bedside Commode # Voids 3 4 # Bowel Movements 0 1 - Exam Abdomen: Soft, nondistended, incision clean and dry, mild tenderness - Labs CBC & Chem 7: 07/19/21 06:10 07/19/21 06:10 Labs: Abnormal Lab Results - Last 24 Hours (Table) 07/19/21 07/19/21 Range/Units 06:10 06:10 WBC 10.12 H (4.50-10.00) X 10*3/uL RBC 3.23 L (4.10-5.20) X 10*6/uL Hgb 8.9 L (12.0-15.0) g/dL Hct 30.0 L (37.2-46.3) % MCHC 29.7 L (32.0-37.0) g/dL Plt Count 562 H (140-440) X 10*3/uL Immature Gran # 0.18 H (0.00-0.04) X 10*3/uL Carbon Dioxide 29.1 H (20.0-27.5) mmol/L Anion Gap 9.00 L (10.00-18.00) mmol/L BUN 6.7 L (9.0-27.0) mg/dL BUN/Creatinine Ratio 8.67 L (12.00-20.00) Ratio Calcium 7.9 L (8.7-10.3) mg/dL Microbiology - Last 24 Hours (Table) 07/14/21 18:15 Anaerobic Culture - Final Other - Other 07/14/21 18:15 Anaerobic Culture - Final Other - Other 07/14/21 18:15 Anaerobic Culture - Final Other - Other 07/14/21 18:15 Gram Stain - Final Other - Other Tissue Culture - Final Assessment and Plan (1) Ruptured appendicitis Narrative/Plan: Patient seems to be doing better. Continue weaning narcotics as tolerated. Continue diet as tolerated. Current Visit: Yes Status: Acute Code(s): K35.32 - ACUTE APPENDICITIS WITH PERF AND LOC PERITONITIS, W/O ABSCS SNOMED Code(s): 92224305
--- NOTE | 2021-07-19 17:49 | P.PN ---
Subjective This is a pleasant 50 years old female with past medical history of hypertension and presents with appendiceal abscess secondary to complicated appendicitis status post exploratory laparotomy and open appendectomy on 07/14. Also patient was found to have covert infection without evidence of pneumonia or hypoxia. Currently she is saturating 100% on 3 L oxygen via nasal cannula, she denies chest pain or dyspnea or coughing. She still have some abdominal pain and surgical site which is expected, drain is in place but is empty. Also looks like she has anemia of chronic disease and right lower lobe atelectasis. Patient herself denies any respiratory symptoms as above. She tolerates diet about 50% and have some loose bowel movement. Troponins are negative, covert this was positive on 07/10. C. diff is negative. Ejection fraction was 60-65% for chest bilateral Although she states improvement. We'll order ultrasound of the leg, Also she is on fluconazole and Zosyn pending abdominal wound results of which are not back yet. 07/19/2020 Patient abdominal symptoms improving, her abdominal pain is minimal today, she tolerates his diet very well that 800% of her meals, no nausea vomiting, and having bowel movement. However with culture came back negative from her surgery on 07/14. She remains on Zosyn and fluconazole per infectious disease team on the case. She is hemodynamically stable, on 3 L/m oxygen. WBC is 10.1, She remains on fluconazole and Zosyn. Objective - Vital Signs Vital signs: Vital Signs Temp 98.3 F 07/19/21 08:09 Pulse 91 07/19/21 08:09 Resp 18 07/19/21 08:09 BP 128/83 07/19/21 08:09 Pulse Ox 94 L 07/19/21 08:09 Intake & Output 07/18/21 07/19/21 07/19/21 18:59 06:59 18:59 Intake Total 450 Output Total 8 Balance 450 -8 Intake: IV 100 Piperacillin-Tazobactam 3 100 .375 gm In Sodium Chloride 0.9% 100 ml @ 25 mls/hr IVPB Q8HR [facility] Rx# :[id number] Oral 350 Output: Drainage 8 Abdomen 8 Other: Voiding Method Bedside Commode Bedside Commode Bedside Commode # Voids 3 4 # Bowel Movements 0 1 - Exam GENERAL: The patient is alert and oriented x3, not in any acute distress. Well developed, well nourished. HEENT: Pupils are round and equally reacting to light. EOMI. No scleral icterus. No conjunctival pallor. Normocephalic, atraumatic. No pharyngeal erythema. No thyromegaly. CARDIOVASCULAR: S1 and S2 present. No murmurs, rubs, or gallops. PULMONARY: Chest is clear to auscultation, no wheezing or crackles. -ABDOMEN: Soft, nontender, nondistended, normoactive bowel sounds. No palpable organomegaly. Surgical abdominal wound is closed and healing with addressing the place, draining is in place which is empty MUSCULOSKELETAL: No joint swelling or deformity. -EXTREMITIES: No cyanosis, clubbing, or pedal edema. Patient has Moderate bilateral leg swelling, with some pitting edema NEUROLOGICAL: Gross neurological examination did not reveal any focal deficits. SKIN: No rashes. no petechiae. - Labs CBC & Chem 7: 07/19/21 06:10 07/19/21 06:10 Labs: Microbiology - Last 24 Hours (Table) 07/14/21 18:15 Gram Stain - Final Other - Other Tissue Culture - Final Assessment and Plan Assessment: Appendiceal abscess secondary to complicated appendicitis status post expiratory laparotomy and adhesion lysis with abscess drainage and open appendectomy Intra-abdominal infection secondary to above Complete infection without pneumonia or hypoxia Anemia of chronic disease Right lower lobe atelectasis Plan: This is a pleasant 50 years old female with perforated appendicitis status post appendectomy and exploratory laparotomy. Continue with antibiotics fluconazole and Zosyn. Infectious disease on the case. Advance diet as tolerated. Surgical team consult. Follow-up wound culture results. we will do ultrasound of the legs although suspicion for DVT is low. Labs and medication were reviewed.. Continue same treatment. Continue with symptomatic treatment. Resume home medication. Monitor lytes and vitals. DVT and GI prophylaxis. Further recommendationsas per clinical course of the patient DVT prophylaxis: Subcutaneous Lovenox GI Prophylaxis: Ppi Prognosis is guarded
[2021-07-19] MEDS: FLUCONAZOLE IN NACL,ISO-OSM 200 MG in SALINE 1 100ML.BAG IVPB SCH (20:44)
[2021-07-19] MEDS: atenoloL 25 MG TAB PO SCH (20:45)
[2021-07-20] MEDS: PIPERACILLIN-TAZOBACTAM 3.375 GM in SODIUM CHLORIDE 0.9% 100 ML IVPB SCH ×3 (00:13→16:59)
[2021-07-20] MEDS: HYDROmorphone 1 MG/ML 1 ML SYRINGE IVP PRN ×5 (00:14→15:55)
[2021-07-20] MEDS: METOCLOPRAMIDE 5 MG/ML 2 ML VIAL IVP SCH ×3 (00:14→12:26)
--- NOTE | 2021-07-20 05:27 | PN ---
PROGRESS NOTE DATE OF SERVICE: 07/19/2021 REASON FOR FOLLOWUP: Intraabdominal abscess from perforated appendicitis. INTERVAL HISTORY: Patient is afebrile. Patient is breathing comfortably on room air. The patient denies having any chest pain. No worsening of sputum production. Abdominal pain is currently controlled. No nausea, vomiting or diarrhea. PHYSICAL EXAMINATION: Blood pressure 135/79 with pulse of 89, temperature 98. She is 98% on room air. General description is a middle-aged female lying in bed in no distress. Respiratory system: Unlabored breathing, decreased intensity of breath sounds. No wheeze. Heart S1, S2. Regular rate and rhythm. Abdomen: Soft, no tenderness. LABS: Hemoglobin was 8, white count 10.1, and creatinine 0.8. Abdominal culture has been negative. DIAGNOSTIC IMPRESSION AND PLAN: Patient with intraabdominal sepsis from perforated appendix. Patient is status post appendectomy. Culture has been negative for any resistant pathogen. Patient has received more than 2 weeks of IV antibiotic therapy. We will be able to transition to oral Augmentin for a short course on discharge. No need for outpatient antibiotics. Continue supportive care. MMODL / IJN: [id number] /
[2021-07-20] MEDS: ALBUTEROL HFA INHALER INHALATION SCH ×4 (08:44→21:43)
[2021-07-20 09:21] LABS: Basophils % (A) 0 %; Eosinophils # (A) 0.3 k/uL (0-0.7); Eosinophils % (A) 3 %; HCT 29.4 % (34.0-46.0); HGB 9.3 gm/dL (11.4-16.0); Hypochromasia Moderate; Lymphocytes # (A) 0.9 k/uL (1.0-4.8); Lymphocytes % (A) 9 %; MCH 28.9 pg (25.0-35.0); MCHC 31.6 g/dL (31.0-37.0); MCV 91.6 fL (80.0-100.0); Mean Platelet Volume 7.2; Monocytes # (A) 0.6 k/uL (0-1.0); Monocytes % (A) 7 %; Neutrophils # (A) 7.2 k/uL (1.3-7.7); Neutrophils % (A) 78 %; Platelet Count 500 k/uL (150-450); RBC 3.21 m/uL (3.80-5.40); RDW 14.4 % (11.5-15.5); WBC 9.2 k/uL (3.8-10.6)
[2021-07-20] MEDS: PANTOPRAZOLE 40 MG/10 ML VIAL IV SCH (09:31)
[2021-07-20] MEDS: ENOXAPARIN 30 MG/0.3 ML SYRINGE SQ SCH (09:31)
--- NOTE | 2021-07-20 11:45 | P.PN ---
<Nisa Altamirano - Last Filed: 07/20/21 11:41> Subjective Progress Note Date: 07/20/21 CHIEF COMPLAINT: Complicated ruptured appendicitis with phlegmon HISTORY OF PRESENT ILLNESS: Patient is POD#6 status post Exploratory laparotomy, Extensive lysis of adhesions, Drainage of appendiceal abscess, partial omentectomy and Open appendectomy. Patient is still been requiring the IV Dilaudid regularly. Medicine service has added oral [place]. Patient does report bowel movements and flatus. Afebrile. WBC has normalized at 9.2 Hgb9.3 platelets 500 PHYSICAL EXAM: VITAL SIGNS: Reviewed GENERAL: Well-developed in no acute distress. HEENT: No sclera icterus. Extraocular movements grossly intact. Moist buccal mucosa. Head is atraumatic, normocephalic. Hears conversational speech. No nasal drainage. NECK: Supple without lymphadenopathy. CHEST: Non-labored respirations and equal bilateral excursions. CARDIOVASCULAR: Palpable 2+ radial pulses. ABDOMEN: Soft. Nondistended. Has abdominal binder in place. Has prevena dressing. Area is clean dry and intact. HARESH drain 5 mL serosanguineous output MUSCULOSKELETAL: No clubbing or cyanosis. NEUROLOGIC: No focal or lateralizing signs. Cranial nerves II through XII grossly intact. PSYCH: Appropriate affect. Alert and oriented to person, place and time. SKIN: Well perfused. Good skin turgor. ASSESSMENT: 1. Complicated appendicitis with rupture, phlegmon and appendiceal abscess status post Exploratory laparotomy, Extensive lysis of adhesions, Drainage of appendiceal abscess, partial omentectomy and Open appendectomy 2. Covid positive 3. Leukocytosis 4. Hypertensive heart disease 5. Morbid obesity due to excess calories, BMI 37.6 6. Covid-induced diarrhea 7. Periappendiceal abscess 8. Small bowel obstruction 9. Iron deficiency anemia PLAN: -Continue to wean off IV Dilaudid -Encouraged patient to use the oral [place] -Continue low fiber diet -Antibiotics per ID service -Encouraged patient to use incentive spirometer -Encouraged patient to ambulate -Anticipate discharge tomorrow -GI prophylaxis Protonix and DVT prophylaxis Lovenox Physician Behavioral Health Assistant note has been reviewed by physician. Signing provider agrees with the documented findings, assessment, and plan of care. Objective - Vital Signs Vital signs: Vital Signs Temp 98.0 F 07/20/21 08:00 Pulse 77 07/20/21 08:00 Resp 19 07/20/21 08:00 BP 145/82 07/20/21 08:00 Pulse Ox 97 07/20/21 08:00 Intake & Output 07/19/21 07/20/21 07/20/21 18:59 06:59 18:59 Intake Total 550 900 Output Total 3 5 Balance 547 895 Intake: IV 200 Piperacillin-Tazobactam 3 200 .375 gm In Sodium Chloride 0.9% 100 ml @ 25 mls/hr IVPB Q8HR [facility] Rx# :[id number] Intake, IV Titration 100 100 Amount Fluconazole in NaCl,Iso- 100 Osm 200 mg In Saline 1 100ml.bag @ 100 mls/hr IVPB DAILY@2100 [facility] Rx#: [id number] Piperacillin-Tazobactam 3 100 .375 gm In Sodium Chloride 0.9% 100 ml @ 25 mls/hr IVPB Q8HR [facility] Rx# :[id number] Oral 450 600 Output: Drainage 3 5 Abdomen 3 5 Other: Voiding Method Bedside Commode Toilet Toilet Bedside Commode # Voids 3 5 # Bowel Movements 1 - Labs CBC & Chem 7: 07/20/21 08:37 07/19/21 06:10 Labs: Abnormal Lab Results - Last 24 Hours (Table) 07/20/21 Range/Units 08:37 RBC 3.21 L (3.80-5.40) m/uL Hgb 9.3 L (11.4-16.0) gm/dL Hct 29.4 L (34.0-46.0) % Plt Count 500 H (150-450) k/uL Lymphocytes # 0.9 L (1.0-4.8) k/uL Microbiology - Last 24 Hours (Table) 07/14/21 18:15 Anaerobic Culture - Final Other - Other 07/14/21 18:15 Anaerobic Culture - Final Other - Other 07/14/21 18:15 Anaerobic Culture - Final Other - Other 07/14/21 18:15 Gram Stain - Final Other - Other Tissue Culture - Final <Sam Taylor - Last Filed: 07/20/21 12:31> Subjective I have personally seen and examined the patient, reviewed the ORE DRYER /PAs history, exam and MDM and agree with the assessment and plan as written. Based on total visit time, I have performed more than 50% of the visit. As above. Patient doing well. Pain is improved. Continue diet as tolerated. Stable for discharge. Objective - Vital Signs Vital signs: Vital Signs Temp 98.0 F 07/20/21 08:00 Pulse 77 07/20/21 08:00 Resp 19 07/20/21 08:00 BP 145/82 07/20/21 08:00 Pulse Ox 97 07/20/21 08:00 Intake & Output 07/19/21 07/20/21 07/20/21 18:59 06:59 18:59 Intake Total 550 900 Output Total 3 5 Balance 547 895 Intake: IV 200 Piperacillin-Tazobactam 3 200 .375 gm In Sodium Chloride 0.9% 100 ml @ 25 mls/hr IVPB Q8HR [facility] Rx# :[id number] Intake, IV Titration 100 100 Amount Fluconazole in NaCl,Iso- 100 Osm 200 mg In Saline 1 100ml.bag @ 100 mls/hr IVPB DAILY@2100 [facility] Rx#: [id number] Piperacillin-Tazobactam 3 100 .375 gm In Sodium Chloride 0.9% 100 ml @ 25 mls/hr IVPB Q8HR [facility] Rx# :[id number] Oral 450 600 Output: Drainage 3 5 Abdomen 3 5 Other: Voiding Method Bedside Commode Toilet Toilet Bedside Commode # Voids 3 5 # Bowel Movements 1 - Labs CBC & Chem 7: 07/20/21 08:37 07/19/21 06:10 Labs: Abnormal Lab Results - Last 24 Hours (Table) 07/20/21 Range/Units 08:37 RBC 3.21 L (3.80-5.40) m/uL Hgb 9.3 L (11.4-16.0) gm/dL Hct 29.4 L (34.0-46.0) % Plt Count 500 H (150-450) k/uL Lymphocytes # 0.9 L (1.0-4.8) k/uL Microbiology - Last 24 Hours (Table) 07/14/21 18:15 Anaerobic Culture - Final Other - Other 07/14/21 18:15 Anaerobic Culture - Final Other - Other 07/14/21 18:15 Anaerobic Culture - Final Other - Other 07/14/21 18:15 Gram Stain - Final Other - Other Tissue Culture - Final Assessment and Plan (1) Ruptured appendicitis Current Visit: Yes Status: Acute Code(s): K35.32 - ACUTE APPENDICITIS WITH PERF AND LOC PERITONITIS, W/O ABSCS SNOMED Code(s): 66719714
[2021-07-20] MEDS: HYDROcodone/APAP 5-325MG 1 EACH TAB PO PRN ×2 (12:31→18:05)
--- NOTE | 2021-07-20 17:31 | PN ---
PROGRESS NOTE DATE OF SERVICE: 07/20/2021 REASON FOR FOLLOW UP: Intraabdominal abscess. INTERVAL HISTORY: Patient is afebrile. The patient is currently breathing comfortably. Denies having any chest pain, shortness of breath, or cough. Abdominal pain has improved. No vomiting. No diarrhea. PHYSICAL EXAMINATION: Blood pressure 152/84 with a pulse of 83, temperature 98.6. She is 96% on room air. General description is a middle-aged female lying in bed in no distress. Respiratory system: Unlabored breathing, clear to auscultation anteriorly. Heart S1, S2. Regular rate and rhythm. Abdomen: Soft, no tenderness. LABORATORY DATA: Hemoglobin 9.4, white count 9.2. DIAGNOSTIC IMPRESSION AND PLAN: Patient with intraabdominal abscess from perforated appendicitis in this patient who has shown overall clinical improvement. The patient is status post drainage of the abscess surgically. Culture has been negative. White count normalized on Zosyn. Transition to a short course of oral Augmentin on discharge and close outpatient followup. MMODL / IJN: [id number] /
[2021-07-20] MEDS: METOCLOPRAMIDE 10 MG TAB PO SCH (18:05)
--- NOTE | 2021-07-20 20:29 | P.PN ---
Subjective This is a pleasant 50 years old female with past medical history of hypertension and presents with appendiceal abscess secondary to complicated appendicitis status post exploratory laparotomy and open appendectomy on 07/14. Also patient was found to have covert infection without evidence of pneumonia or hypoxia. Currently she is saturating 100% on 3 L oxygen via nasal cannula, she denies chest pain or dyspnea or coughing. She still have some abdominal pain and surgical site which is expected, drain is in place but is empty. Also looks like she has anemia of chronic disease and right lower lobe atelectasis. Patient herself denies any respiratory symptoms as above. She tolerates diet about 50% and have some loose bowel movement. Troponins are negative, covert this was positive on 07/10. C. diff is negative. Ejection fraction was 60-65% for chest bilateral Although she states improvement. We'll order ultrasound of the leg, Also she is on fluconazole and Zosyn pending abdominal wound results of which are not back yet. 07/19/2020 Patient abdominal symptoms improving, her abdominal pain is minimal today, she tolerates his diet very well that 800% of her meals, no nausea vomiting, and having bowel movement. However with culture came back negative from her surgery on 07/14. She remains on Zosyn and fluconazole per infectious disease team on the case. She is hemodynamically stable, on 3 L/m oxygen. WBC is 10.1, She remains on fluconazole and Zosyn. 07/20/2020 Patient is having bowel movement although it is smoshy or on the loose side, abdominal pain is minimal and her pain medication adjusted to [place] today instead of Dilaudid. She is able to tolerate diet 75-100%. She was walking in the room and to the restroom freely. Also she is hemodynamically stable. Labs today showing WBC is 9.2 and hemoglobin 9.3. Her wound culture is finalized with no specific organisms. She remains on fluconazole and Zosyn Possible discharge in 24-48 hours if she keeps improvement and was she is cleared by surgery team and other consultants Objective - Vital Signs Vital signs: Vital Signs Temp 98.0 F 07/20/21 08:00 Pulse 77 07/20/21 08:00 Resp 19 07/20/21 08:00 BP 145/82 07/20/21 08:00 Pulse Ox 97 07/20/21 08:00 Intake & Output 07/19/21 07/20/21 07/20/21 18:59 06:59 18:59 Intake Total 550 900 Output Total 3 5 Balance 547 895 Intake: IV 200 Piperacillin-Tazobactam 3 200 .375 gm In Sodium Chloride 0.9% 100 ml @ 25 mls/hr IVPB Q8HR TIM Rx# :[id number] Intake, IV Titration 100 100 Amount Fluconazole in NaCl,Iso- 100 Osm 200 mg In Saline 1 100ml.bag @ 100 mls/hr IVPB DAILY@2100 [facility] Rx#: [id number] Piperacillin-Tazobactam 3 100 .375 gm In Sodium Chloride 0.9% 100 ml @ 25 mls/hr IVPB Q8HR [facility] Rx# :[id number] Oral 450 600 Output: Drainage 3 5 Abdomen 3 5 Other: Voiding Method Bedside Commode Toilet Toilet Bedside Commode # Voids 3 5 # Bowel Movements 1 - Exam GENERAL: The patient is alert and oriented x3, not in any acute distress. Well developed, well nourished. HEENT: Pupils are round and equally reacting to light. EOMI. No scleral icterus. No conjunctival pallor. Normocephalic, atraumatic. No pharyngeal erythema. No thyromegaly. CARDIOVASCULAR: S1 and S2 present. No murmurs, rubs, or gallops. PULMONARY: Chest is clear to auscultation, no wheezing or crackles. -ABDOMEN: Soft, nontender, nondistended, normoactive bowel sounds. No palpable organomegaly. Surgical abdominal wound is closed and healing with addressing the place, draining is in place which is empty MUSCULOSKELETAL: No joint swelling or deformity. -EXTREMITIES: No cyanosis, clubbing, or pedal edema. Patient has Moderate bilateral leg swelling, with some pitting edema NEUROLOGICAL: Gross neurological examination did not reveal any focal deficits. SKIN: No rashes. no petechiae. - Labs CBC & Chem 7: 07/20/21 08:37 07/19/21 06:10 Labs: Abnormal Lab Results - Last 24 Hours (Table) 07/20/21 Range/Units 08:37 RBC 3.21 L (3.80-5.40) m/uL Hgb 9.3 L (11.4-16.0) gm/dL Hct 29.4 L (34.0-46.0) % Plt Count 500 H (150-450) k/uL Lymphocytes # 0.9 L (1.0-4.8) k/uL Microbiology - Last 24 Hours (Table) 07/14/21 18:15 Anaerobic Culture - Final Other - Other 07/14/21 18:15 Anaerobic Culture - Final Other - Other 07/14/21 18:15 Anaerobic Culture - Final Other - Other 07/14/21 18:15 Gram Stain - Final Other - Other Tissue Culture - Final Assessment and Plan Assessment: Appendiceal abscess secondary to complicated appendicitis status post expiratory laparotomy and adhesion lysis with abscess drainage and open appendectomy Intra-abdominal infection secondary to above Complete infection without pneumonia or hypoxia Anemia of chronic disease Right lower lobe atelectasis Plan: This is a pleasant 50 years old female with perforated appendicitis status post appendectomy and exploratory laparotomy. Continue with antibiotics fluconazole and Zosyn. Infectious disease on the case. Advance diet as tolerated. Surgical team consult. we will do ultrasound of the legs although suspicion for DVT is low. Labs and medication were reviewed.. Continue same treatment. Continue with symptomatic treatment. Resume home medication. Monitor lytes and vitals. DVT and GI prophylaxis. Further recommendationsas per clinical course of the patient DVT prophylaxis: Subcutaneous Lovenox GI Prophylaxis: Ppi Possible discharge in 24-48 hours
[2021-07-20] MEDS: atenoloL 25 MG TAB PO SCH (20:53)
[2021-07-20] MEDS: FLUCONAZOLE 100 MG TAB PO SCH (20:53)
[2021-07-20] MEDS: HYDROmorphone 0.5 MG/0.5 ML SYRINGE IVP PRN (21:23)
[2021-07-21] MEDS: PIPERACILLIN-TAZOBACTAM 3.375 GM in SODIUM CHLORIDE 0.9% 100 ML IVPB SCH ×3 (00:06→17:14)
[2021-07-21] MEDS: METOCLOPRAMIDE 10 MG TAB PO SCH ×4 (00:06→17:14)
[2021-07-21] MEDS: HYDROcodone/APAP 5-325MG 1 EACH TAB PO PRN ×2 (00:07→05:58)
[2021-07-21] MEDS: HYDROmorphone 0.5 MG/0.5 ML SYRINGE IVP PRN ×2 (03:23→08:36)
[2021-07-21] MEDS: ALBUTEROL HFA INHALER INHALATION SCH ×4 (07:26→21:56)
[2021-07-21] MEDS: ENOXAPARIN 30 MG/0.3 ML SYRINGE SQ SCH (08:05)
[2021-07-21] MEDS: PANTOPRAZOLE 40 MG TABLET PO SCH (08:05)
[2021-07-21] MEDS: HYDROcodone/APAP 7.5-325MG 1 EACH TAB PO PRN ×2 (12:29→18:09)
--- NOTE | 2021-07-21 12:37 | P.PN ---
<Nisa Altamirano - Last Filed: 07/21/21 12:33> Subjective Progress Note Date: 07/21/21 CHIEF COMPLAINT: Complicated ruptured appendicitis with phlegmon HISTORY OF PRESENT ILLNESS: Patient is POD#7 status post Exploratory laparotomy, Extensive lysis of adhesions, Drainage of appendiceal abscess, partial omentectomy and Open appendectomy. The patient reported increase in abdominal pain last night. She required IV pain medication. She reports that she had been moving a lot in bed and the abdominal binder had been bothering her. Her pain this morning has improved. Medicine service has added the [place] 7.5. The [place] 5s were not lasting long enough. She reports having bowel movements. Denies any nausea or vomiting. She has been up and ambulating. ID service recommending Augmentin at discharge. PHYSICAL EXAM: VITAL SIGNS: Reviewed GENERAL: Well-developed in no acute distress. HEENT: No sclera icterus. Extraocular movements grossly intact. Moist buccal mucosa. Head is atraumatic, normocephalic. Hears conversational speech. No nasal drainage. NECK: Supple without lymphadenopathy. CHEST: Non-labored respirations and equal bilateral excursions. CARDIOVASCULAR: Palpable 2+ radial pulses. ABDOMEN: Soft. Nondistended. Incision site clean dry and intact. HARESH drain 10 mL serosanguineous output MUSCULOSKELETAL: No clubbing or cyanosis. NEUROLOGIC: No focal or lateralizing signs. Cranial nerves II through XII grossly intact. PSYCH: Appropriate affect. Alert and oriented to person, place and time. SKIN: Well perfused. Good skin turgor. ASSESSMENT: 1. Complicated appendicitis with rupture, phlegmon and appendiceal abscess status post Exploratory laparotomy, Extensive lysis of adhesions, Drainage of appendiceal abscess, partial omentectomy and Open appendectomy 2. Covid positive 3. Leukocytosis 4. Hypertensive heart disease 5. Morbid obesity due to excess calories, BMI 37.6 6. Covid-induced diarrhea 7. Periappendiceal abscess 8. Small bowel obstruction 9. Iron deficiency anemia PLAN: -removed Prevena dressing and applied ABDs and gauze -Continue to monitor pain control -Continue low fiber diet -Antibiotics per ID service -Encouraged patient to use incentive spirometer -Encouraged patient to ambulate -Anticipate discharge tomorrow -GI prophylaxis Protonix and DVT prophylaxis Lovenox Physician Lump Receiver note has been reviewed by physician. Signing provider agrees with the documented findings, assessment, and plan of care. Objective - Vital Signs Vital signs: Vital Signs Temp 99.5 F 07/21/21 07:41 Pulse 77 07/21/21 07:41 Resp 18 07/21/21 07:41 BP 139/84 07/21/21 07:41 Pulse Ox 96 07/21/21 07:41 Intake & Output 07/20/21 07/21/21 07/21/21 18:59 06:59 18:59 Output Total 10 Balance -10 Weight 108.862 kg Output: Drainage 10 Abdomen 10 Other: Voiding Method Toilet # Voids 5 # Bowel Movements 4 - Labs CBC & Chem 7: 07/20/21 08:37 07/19/21 06:10 <aSm Taylor - Last Filed: 07/21/21 17:03> Subjective I have personally seen and examined the patient, reviewed the COST SPECIALIST /PAs history, exam and MDM and agree with the assessment and plan as written. Based on total visit time, I have performed more than 50% of the visit. As above. Patient says she had pain last night but that has resolved at this t lilian. Tolerating diet. No diarrhea. Probable discharge tomorrow. Objective - Vital Signs Vital signs: Vital Signs Temp 97.9 F 07/21/21 14:00 Pulse 87 07/21/21 14:00 Resp 18 07/21/21 14:00 BP 103/70 07/21/21 14:00 Pulse Ox 94 L 07/21/21 14:00 Intake & Output 07/20/21 07/21/21 07/21/21 18:59 06:59 18:59 Output Total 10 Balance -10 Weight 108.862 kg Output: Drainage 10 Abdomen 10 Other: Voiding Method Toilet # Voids 5 # Bowel Movements 4 - Labs CBC & Chem 7: 07/20/21 08:37 07/19/21 06:10 Assessment and Plan (1) Ruptured appendicitis Current Visit: Yes Status: Acute Code(s): K35.32 - ACUTE APPENDICITIS WITH PERF AND LOC PERITONITIS, W/O ABSCS SNOMED Code(s): 18316540
[2021-07-21] MEDS: atenoloL 25 MG TAB PO SCH (20:21)
[2021-07-21] MEDS: FLUCONAZOLE 100 MG TAB PO SCH (20:21)
--- NOTE | 2021-07-21 20:23 | PN ---
PROGRESS NOTE DATE OF SERVICE: 07/21/2021 REASON FOR FOLLOWUP: Intraabdominal abscess. INTERVAL HISTORY: The patient is afebrile. The patient mentioned she did have a lower abdominal pain last night. resolved since then. The patient denies having any chest pain, shortness of breath or cough. No nausea, vomiting or diarrhea. PHYSICAL EXAMINATION: Blood pressure 103/72 with a pulse of 87, temperature 97.9. She is 94% on room air. General description is a middle-aged female in the chair in no distress. Respiratory system: Unlabored breathing, clear to auscultation. Heart S1, S2. Regular rate and rhythm. Abdomen: Soft. No tenderness. No guarding. No rigidity. LABS: White count normal at as of yesterday. No CBC was done today. DIAGNOSTIC IMPRESSION AND PLAN: Patient with intraabdominal abscess with perforated appendicitis in this patient who is status post drainage of the abscess surgically. Culture has been negative. On Zosyn discharge and monitor clinical course closely. MMODL / IJN: [id number] /
--- NOTE | 2021-07-22 00:06 | P.PN ---
Subjective This is a pleasant 50 years old female with past medical history of hypertension and presents with appendiceal abscess secondary to complicated appendicitis status post exploratory laparotomy and open appendectomy on 07/14. Also patient was found to have covert infection without evidence of pneumonia or hypoxia. Currently she is saturating 100% on 3 L oxygen via nasal cannula, she denies chest pain or dyspnea or coughing. She still have some abdominal pain and surgical site which is expected, drain is in place but is empty. Also looks like she has anemia of chronic disease and right lower lobe atelectasis. Patient herself denies any respiratory symptoms as above. She tolerates diet about 50% and have some loose bowel movement. Troponins are negative, covert this was positive on 07/10. C. diff is negative. Ejection fraction was 60-65% for chest bilateral Although she states improvement. We'll order ultrasound of the leg, Also she is on fluconazole and Zosyn pending abdominal wound results of which are not back yet. 07/19/2020 Patient abdominal symptoms improving, her abdominal pain is minimal today, she tolerates his diet very well that 800% of her meals, no nausea vomiting, and having bowel movement. However with culture came back negative from her surgery on 07/14. She remains on Zosyn and fluconazole per infectious disease team on the case. She is hemodynamically stable, on 3 L/m oxygen. WBC is 10.1, She remains on fluconazole and Zosyn. 07/20/2020 Patient is having bowel movement although it is smoshy or on the loose side, abdominal pain is minimal and her pain medication adjusted to [place] today instead of Dilaudid. She is able to tolerate diet 75-100%. She was walking in the room and to the restroom freely. Also she is hemodynamically stable. Labs today showing WBC is 9.2 and hemoglobin 9.3. Her wound culture is finalized with no specific organisms. She remains on fluconazole and Zosyn Possible discharge in 24-48 hours if she keeps improvement and was she is cleared by surgery team and other consultants 07/21/2020 Patient tolerates diet, she is able to walk and that prompted her restroom. She is having bowel movement which is becoming more formed. However today she was having more abdominal pain after decreasing the dose of Dilaudid and start her on [place] 5 mg and after some physical activity therefore we'll decrease her narcotic to 7.5 mg and stopped Dilaudid altogether and we are going to monitor her response to pain management. Vitals are stable. Continue with antibiotics fluconazole and Zosyn Possible discharge tomorrow per surgery team recommendation Objective - Vital Signs Vital signs: Vital Signs Temp 99.5 F 07/21/21 07:41 Pulse 77 07/21/21 07:41 Resp 18 07/21/21 07:41 BP 139/84 07/21/21 07:41 Pulse Ox 96 07/21/21 07:41 Intake & Output 07/20/21 07/21/21 07/21/21 18:59 06:59 18:59 Output Total 10 Balance -10 Weight 108.862 kg Output: Drainage 10 Abdomen 10 Other: Voiding Method Toilet # Voids 5 # Bowel Movements 4 - Exam GENERAL: The patient is alert and oriented x3, not in any acute distress. Well developed, well nourished. HEENT: Pupils are round and equally reacting to light. EOMI. No scleral icterus. No conjunctival pallor. Normocephalic, atraumatic. No pharyngeal erythema. No thyromegaly. CARDIOVASCULAR: S1 and S2 present. No murmurs, rubs, or gallops. PULMONARY: Chest is clear to auscultation, no wheezing or crackles. -ABDOMEN: Soft, nontender, nondistended, normoactive bowel sounds. No palpable organomegaly. Surgical abdominal wound is closed and healing with addressing the place, draining is in place which is empty MUSCULOSKELETAL: No joint swelling or deformity. -EXTREMITIES: No cyanosis, clubbing, or pedal edema. Patient has Moderate bilateral leg swelling, with some pitting edema NEUROLOGICAL: Gross neurological examination did not reveal any focal deficits. SKIN: No rashes. no petechiae. - Labs CBC & Chem 7: 07/20/21 08:37 07/19/21 06:10 Assessment and Plan Assessment: Appendiceal abscess secondary to complicated appendicitis status post expiratory laparotomy and adhesion lysis with abscess drainage and open appendectomy Intra-abdominal infection secondary to above Complete infection without pneumonia or hypoxia Anemia of chronic disease Right lower lobe atelectasis Plan: This is a pleasant 50 years old female with perforated appendicitis status post appendectomy and exploratory laparotomy. Continue with antibiotics fluconazole and Zosyn. Infectious disease on the case. Advance diet as tolerated. Surgical team consult. we will do ultrasound of the legs although suspicion for DVT is low. Labs and medication were reviewed.. Continue same treatment. Continue with symptomatic treatment. Resume home medication. Monitor lytes and vitals. DVT and GI prophylaxis. Further recommendationsas per clinical course of the pat ient DVT prophylaxis: Subcutaneous Lovenox GI Prophylaxis: Ppi Possible discharge in 24-48 hours
[2021-07-22] MEDS: HYDROcodone/APAP 7.5-325MG 1 EACH TAB PO PRN ×3 (00:17→11:36)
[2021-07-22] MEDS: PIPERACILLIN-TAZOBACTAM 3.375 GM in SODIUM CHLORIDE 0.9% 100 ML IVPB SCH ×2 (00:18→09:18)
[2021-07-22] MEDS: METOCLOPRAMIDE 10 MG TAB PO SCH ×3 (00:50→11:36)
[2021-07-22 02:35] VITALS: RESP 16
[2021-07-22] MEDS: ENOXAPARIN 30 MG/0.3 ML SYRINGE SQ SCH (09:19)
[2021-07-22] MEDS: PANTOPRAZOLE 40 MG TABLET PO SCH (09:19)
[2021-07-22] MEDS: ALBUTEROL HFA INHALER INHALATION SCH ×3 (09:22→16:30)
--- NOTE | 2021-07-22 11:46 | P.PN ---
<NikkoshakeelNisa - Last Filed: 07/22/21 11:44> Subjective Progress Note Date: 07/22/21 CHIEF COMPLAINT: Complicated ruptured appendicitis with phlegmon HISTORY OF PRESENT ILLNESS: Patient is POD#8 status post Exploratory laparotomy, Extensive lysis of adhesions, Drainage of appendiceal abscess, partial omentectomy and Open appendectomy. Patient reports that her pain is improving. She reports that is controlled with the [place]. She feels comfortable with being discharged home. She is having bowel movements and flatus. Denies any nausea or vomiting. She is tolerating diet. Afebrile. Minimal serosanguineous output through HARESH drain. ID service recommending Augmentin at discharge. PHYSICAL EXAM: VITAL SIGNS: Reviewed GENERAL: Well-developed in no acute distress. HEENT: No sclera icterus. Extraocular movements grossly intact. Moist buccal mucosa. Head is atraumatic, normocephalic. Hears conversational speech. No nasal drainage. NECK: Supple without lymphadenopathy. CHEST: Non-labored respirations and equal bilateral excursions. CARDIOVASCULAR: Palpable 2+ radial pulses. ABDOMEN: Soft. Nondistended. Incision site clean dry and intact. HARESH drain 10 mL serosanguineous output MUSCULOSKELETAL: No clubbing or cyanosis. NEUROLOGIC: No focal or lateralizing signs. Cranial nerves II through XII grossly intact. PSYCH: Appropriate affect. Alert and oriented to person, place and time. SKIN: Well perfused. Good skin turgor. ASSESSMENT: 1. Complicated appendicitis with rupture, phlegmon and appendiceal abscess status post Exploratory laparotomy, Extensive lysis of adhesions, Drainage of appendiceal abscess, partial omentectomy and Open appendectomy 2. Covid positive 3. Leukocytosis 4. Hypertensive heart disease 5. Morbid obesity due to excess calories, BMI 37.6 6. Covid-induced diarrhea 7. Periappendiceal abscess 8. Small bowel obstruction 9. Iron deficiency anemia PLAN: -Patient can be discharge from surgical standpoint -Removed HARESH drain prior to discharge -Continue low fiber diet -Discharge Antibiotics per ID service -Continue pain medication as needed -Encouraged patient to use incentive spirometer -Encouraged patient to ambulate -GI prophylaxis Protonix and DVT prophylaxis Lovenox Physician Anode Worker note has been reviewed by physician. Signing provider agrees with the documented findings, assessment, and plan of care. Objective - Vital Signs Vital signs: Vital Signs Temp 98.4 F 07/22/21 07:45 Pulse 79 07/22/21 07:45 Resp 16 07/22/21 07:45 BP 131/79 07/22/21 07:45 Pulse Ox 93 L 07/22/21 07:45 Intake & Output 07/21/21 07/22/21 07/22/21 18:59 06:59 18:59 Output Total 10 Balance -10 Output: Drainage 10 Abdomen 10 Other: # Voids 4 2 # Bowel Movements 2 - Labs CBC & Chem 7: 07/20/21 08:37 07/19/21 06:10 <Sam Taylor - Last Filed: 07/22/21 12:14> Subjective I have personally seen and examined the patient, reviewed the SYSTEMS DESIGNER /PAs history, exam and MDM and agree with the assessment and plan as written. Based on total visit time, I have performed more than 50% of the visit. Patient doing well. May discharge. Removed HARESH drain. Follow-up with Dr. Yu 1 week. Objective - Vital Signs Vital signs: Vital Signs Temp 98.4 F 07/22/21 07:45 Pulse 79 07/22/21 07:45 Resp 16 07/22/21 07:45 BP 131/79 07/22/21 07:45 Pulse Ox 93 L 07/22/21 07:45 Intake & Output 07/21/21 07/22/21 07/22/21 18:59 06:59 18:59 Output Total 10 Balance -10 Output: Drainage 10 Abdomen 10 Other: # Voids 4 2 # Bowel Movements 2 - Labs CBC & Chem 7: 07/20/21 08:37 07/19/21 06:10 Assessment and Plan (1) Ruptured appendicitis Current Visit: Yes Status: Acute Code(s): K35.32 - ACUTE APPENDICITIS WITH PERF AND LOC PERITONITIS, W/O ABSCS SNOMED Code(s): 45826613
--- NOTE | 2021-07-22 12:30 | PN ---
PROGRESS NOTE DATE OF SERVICE: 07/22/2021 REASON FOR FOLLOWUP: Intraabdominal abscess from perforated appendicitis. INTERVAL HISTORY: The patient is afebrile. The patient is breathing comfortably. The patient denies having any chest pain, shortness of breath or cough. No further abdominal pain. No vomiting or diarrhea. PHYSICAL EXAMINATION: Blood pressure 131/79, pulse 69, temperature 98.4. She is 93% on room air. General description is a middle-aged female lying in bed in no distress. Respiratory system: Unlabored breathing. Clear to auscultation anteriorly. Heart S1, S2. Regular rate and rhythm. Abdomen soft, no tenderness. LABS: No new labs have been obtained today. DIAGNOSTIC IMPRESSION AND PLAN: Patient with abdominal abscess from a perforated appendicitis, status post drainage of the abscess. The patient received more than 2 weeks of IV antibiotic therapy which can be transitioned to oral Augmentin for a short course on discharge and close outpatient followup. MMODL / IJN: [id number] /
[2021-07-22 14:40] VITALS: BP 144/85; PULSE 77; TEMP 98.5
--- NOTE | 2021-07-23 00:18 | P.DS ---
Providers Date of admission: 07/10/21 01:22 Attending physician: Anna Arthur Consults: 07/10/21 01:23 Consult Physician Routine Consulting Provider: Ethel Yu Consult Reason/Comments: known Do you want consulting provider notified?: Yes Consult Physician Routine Consulting Provider: Miley Posada Consult Reason/Comments: known Do you want consulting provider notified?: Yes Primary care physician: Daniel Candelario Hospital Course: Diagnoses: Appendiceal abscess secondary to complicated appendicitis status post expiratory laparotomy and adhesion lysis with abscess drainage and open appendectomy Intra-abdominal infection secondary to above Complete infection without pneumonia or hypoxia Anemia of chronic disease Right lower lobe atelectasis Hospital course: This is a pleasant 50 years old female with past medical history of hypertension and presents with appendiceal abscess secondary to complicated appendicitis status post exploratory laparotomy and open appendectomy on 07/14. Also patient was found to have covid infection without evidence of pneumonia or hypoxia. Patient was followed closely by surgical team, infectious disease team. she was treated with antibiotics fluconazole and Zosyn. Patient showed interval improvement on the day of discharge she tolerates diet, pain controlled with [place] 7.5, she had regular bowel movement. Patient was cleared for discharge by both surgery and infectious disease team, discussed the case with ID team she will be discharged on Augmentin for 7 days Problems and management plan were discussed with the patient and he verbalized understanding and acceptance Patient was found stable and can be discharged home however he needs follow-up as an outpatient. Patient was instructed to follow up with PCP Dr. Sanchez within one week and patient agrees Patient was instructed to follow up with her surgeon Dr. Green on 07/28 and she agrees Physical exam Gen: patient is a AAOx3, no distress CVS: S1-S2, RRR, no murmur Lungs: B/L CTA, no wheezing -Abdomen: soft, no distention, no tenderness, positive bowel sounds. Surgical wound closed and healing, dressing is in place Extremity: no leg edema or induration Time spent more than 35 minutes Patient Condition at Discharge: Fair Plan - Discharge Summary Discharge Rx Participant: Yes New Discharge Prescriptions: New HYDROcodone/APAP 7.5-325MG [[place] 7.5-325] 1 tab PO Q6HR PRN 3 Days #12 tab PRN Reason: Pain Amoxicillin/Potassium Clav [Augmentin 875-125 Tablet] 1 tab PO Q12HR 7 Days #14 tab Continue hydroCHLOROthiazide [Hydrodiuril] 25 mg PO DAILY atenoloL [Tenormin] 25 mg PO HS hydroCHLOROthiazide [Hydrodiuril] 12.5 mg PO DAILY Acetaminophen Tab [Tylenol] 1,000 mg PO Q6H PRN PRN Reason: Pain Discontinued metroNIDAZOLE [Flagyl] 500 mg PO TID #30 tab Losartan Potassium 100 mg PO DAILY Ibuprofen [Motrin] 600 mg PO Q8H PRN PRN Reason: Pain Discharge Medication List atenoloL [Tenormin] 25 mg PO HS 07/06/21 [History] hydroCHLOROthiazide [Hydrodiuril] 12.5 mg PO DAILY 07/06/21 [History] hydroCHLOROthiazide [Hydrodiuril] 25 mg PO DAILY 07/06/21 [History] Acetaminophen Tab [Tylenol] 1,000 mg PO Q6H PRN 07/10/21 [History] Amoxicillin/Potassium Clav [Augmentin 875-125 Tablet] 1 tab PO Q12HR 7 Days #14 tab 07/22/21 [Rx] HYDROcodone/APAP 7.5-325MG [[place] 7.5-325] 1 tab PO Q6HR PRN 3 Days #12 tab 07/22/21 [Rx] Follow up Appointment(s)/Referral(s): Andree Sanchez MD [Primary Care Provider] - 07/30/21 10:20 am Ethel Yu MD [STAFF PHYSICIAN] - 07/28/21 1:45 pm Miley Posada MD [STAFF PHYSICIAN] - 07/27/21 3:15 pm Patient Instructions/Handouts: Open Appendectomy (DC) Activity/Diet/Wound Care/Special Instructions: Heart healthy, low fiber diet Activity is restricted till you see your doctor Discharge Disposition: HOME SELF-CARE
== END 2021-07-22 16:44 | disposition home or self-care (01) | DRG 853 ==
LOC: EC 23:51 → 4SSUR 07-10 01:22
PROVIDERS: ADMIT Hospitalist; ATTEND Hospitalist
PROC: 0DNW0ZZ Release Peritoneum, Open Approach (ICD-10-PCS; 2021-07-14)
PROC: 0DTJ0ZZ Resection of Appendix, Open Approach (ICD-10-PCS; principal; 2021-07-14 15:00)
PROC: 0DBU0ZZ Excision of Omentum, Open Approach (ICD-10-PCS; 2021-07-14 15:00)
DX: A41.89 Other specified sepsis (principal); U07.1 COVID-19; K35.33 Acute appendicitis with perforation, localized peritonitis, and gangrene, with abscess; A08.39 Other viral enteritis; K56.7 Ileus, unspecified; K56.50 Intestinal adhesions [bands], unspecified as to partial versus complete obstruction; D50.9 Iron deficiency anemia, unspecified; D63.8 Anemia in other chronic diseases classified elsewhere; E11.9 Type 2 diabetes mellitus without complications; E66.01 Morbid (severe) obesity due to excess calories; Z90.49 Acquired absence of other specified parts of digestive tract; Z68.37 Body mass index [BMI] 37.0-37.9, adult; E83.42 Hypomagnesemia; I11.9 Hypertensive heart disease without heart failure; Z79.899 Other long term (current) drug therapy; Z98.51 Tubal ligation status; Z98.890 Other specified postprocedural states; Z80.9 Family history of malignant neoplasm, unspecified; Z82.5 Family history of asthma and other chronic lower respiratory diseases
CPT/HCPCS: 36415; 64400; 71045; 71250; 74018; 74176; 80048; 80053; 81001; 81025; 82728; 83540; 83550; 83605; 83615; 83735; 83880; 84100; 84132; 84484; 85025; 85379; 85610; 85730; 86140; 86850; 86900; 86901; 87040; 87070; 87075; 87205; 87324; 87635; 88304; 93005; 93306; 93970; 94640; 94760; 96361; 96365; 96366; 96375

== ENCOUNTER → 2022-05-20 | Outpatient (CLI) | payer OTHER ==
--- NOTE | 2022-05-20 14:14 | XR ---
EXAMINATION TYPE: XR lumbosacral spine min 4V DATE OF EXAM: 05/20/2022 COMPARISON: None HISTORY: Low back pain TECHNIQUE: 5 view lumbar spine FINDINGS: There are 5 lumbar-type vertebral bodies. Pedicles are intact. Mild diffuse facet changes a re present. Disc heights are preserved. Vertebral body heights are preserved. Mild scoliosis may be p resent which can be positional. IMPRESSION: 1. No acute osseous abnormality lumbar spine
== END | disposition home or self-care (01) ==
LOC: RADXRMAIN 13:42
PROVIDERS: ATTEND Family Medicine
DX: M54.50 Low back pain, unspecified (principal)
CPT/HCPCS: 72110

== ENCOUNTER → 2022-07-06 | Outpatient (CLI) | payer OTHER ==
--- NOTE | 2022-07-06 17:53 | BD ---
EXAMINATION TYPE: Axial Bone Density DATE OF EXAM: 07/06/2022 COMPARISON: NONE CLINICAL HISTORY: 51 years year old Female. ICD-10 CODE: N95.1 POST MENOPAUSAL SYMPTOMS Height: 5 FT 6 IN Weight: 251 FRAX RISK QUESTIONS: Alcohol (3 or more units per day): NO Family History (Parent hip fracture): NO Glucocorticoids (More than 3mos): NO (Ex: prednisone, prednisolone, methylprednisolone, dexamethasone, and hydrocortisone). History of Fracture in Adulthood: NO Secondary Osteoporosis: 1. Type 1 Diabetes: NO 2. Hyperthyroidism: NO 3. Menopause before 45: YES 4. Malnutrition: NO 5. Chronic liver disease: NO Rheumatoid Arthritis: NO Current Tobacco Use: NO RISK FACTORS HISTORY OF: Surgery to Spine/Hip(right/left)/Wrist (right/left): NO Family History of Osteoporosis: UNKNOWN Active: YES Diet low in dairy products/other sources of calcium: NO Postmenopausal woman: YES Take estrogen and/or progesterone medications: NO Lost more than 2 inches in height since high school: NO Frequent falls: NO Poor Health: GOOD Hyperparathyroidism: NO Adrenal Insufficiency: NO MEDICATIONS: Additional Medications: BLOOD PRESSURE MEDS, BETA NENA ,AMBIEN, Additional History: EXAM MEASUREMENTS: Bone mineral densitometry was performed using the [employer] System. Bone mineral density as measured about the Lumbar spine is: ----- L1-L4(G/cm2): 1.312 T Score Values are as follows: ----- L1: -0.6 ----- L2: 1.0 ----- L3: 1.6 ----- L4: 1.8 ----- L1-L4: 1.1 BASELINE Bone mineral density about the R hip (g/cm2): 0.723 Bone mineral density about the L hip (g/cm2): 0.896 T Score values are as follows: -----R Neck: -2.3 -----L Neck: -1.0 -----R Total: -1.8 -----L Total: -0.4 BASELINE FRAX%s: The graph provided illustrates a 5.5 % chance for a major osteoporotic fx and a 0.9 % chance for the hips probability for fx in 10 years time. IMPRESSION: Osteopenia (T Score between -2.5 and -1). There is slightly increased risk of fracture and the patient may be considered for treatment. Re-Screen 2-5 years. NOTE: T-SCORE=SD OF THE YOUNG ADULT MEAN.
--- NOTE | 2022-07-08 08:17 | MM ---
Reason for Exam: Screening (asymptomatic). Last mammogram was performed 9 year(s) and 6 month(s) ago. Patient History: Menarche at age 16. First Full-Term at age 22. Postmenopausal. Hormonal Contraceptives, starting at age 18 for 1 year. 12/31/2011, Benign Core Biopsy on the left side. Risk Values: Sameera 5 year model risk: 0.9%. NCI Lifetime model risk: 8.6%. Prior Study Comparison: 12/16/2011 Bilateral Diagnostic Mammogram, [facility]. 06/20/2012 Left Diagnostic Mammogram, [facility]. 12/19/2012 Bilateral Diagnostic Mammogram, [facility]. Tissue Density: The breast tissue is heterogeneously dense. This may lower the sensitivity of mammography. Findings: Analyzed By CAD. Left biopsy clip There is no suspicious group of microcalcifications or new suspicious mass in either breast. Overall Assessment: Negative, BI-RAD 1 Management: Screening Mammogram of both breasts in 1 year. A clinical breast exam by your physician is recommended on an annual basis and results should be correlated with mammographic findings. [facility] will attempt to contact patient to return for supplemental views and ultrasound if indicated. Electronically signed and approved by: Yonny Bob DO
== END | disposition home or self-care (01) ==
LOC: RADMAMWWP 15:45
PROVIDERS: ATTEND Family Medicine
DX: Z12.31 Encounter for screening mammogram for malignant neoplasm of breast (principal); M85.89 Other specified disorders of bone density and structure, multiple sites; N95.1 Menopausal and female climacteric states
CPT/HCPCS: 77063; 77067; 77080

== ENCOUNTER → 2022-07-14 | Outpatient (CLI) | payer OTHER ==
--- NOTE | 2022-07-14 10:21 | CA ---
Exercise Stress Test Report Name: Latanya Moss Exam Date: 07/14/2022 09:34 Exam Location: [place] [facility] Ht (in): 67 Wt (lb): 235 BSA: 2.17 Ordering Phys: Jacob Chavira DO Referring Phys: Jacob Chavira DO Technologist: Jacob Hart Age: 51 Gender: F : 1970 Procedure CPT: Indications: R07.89 chest pain ICD-10 Codes: Patient History: CHEST HEAVINESS, NUMBNESS OF FACE/NECK, HTN, FAMILY HX OF HEART DISEASE Medications: ATENOLOL, LOSARTAN Meds past 24 hrs: Pretest Chest Pain: STRESS TEST Juan Manuel Protocol Exercise Duration (min:sec): 06:[address] Depressions (mm): Angina Score: Frederick Score: Resting HR (bpm): 79 Peak HR (bpm): 156 Resting BP (mmHg): 170 / 99 Peak BP (mmHg): 213 / 88 MPHR: 170 Target HR: 145 % MPHR: 92 METS: 7.1 Total Dose: Peak Dose: Atropine: Double Product: 54776 BP Response: Stress Termination: Stress Symptoms: CHEST PRESSURE "3" DURING EXERCISE Stress Summary: ECG ANALYSIS Resting ECG: Stress ECG: CONCLUSIONS Patient underwent exercise stress EKG with a Juan Manuel protocol treadmill stress test. Patient exercised into Stage 2 for a total of 6 minutes 9 seconds reaching a total of 7.1 METS. Patient's maximum heart rate was 156 which represented 91 % age- predicted maximum heart rate. Patient did have a 3 out of 10 chest pressure during exercise. Patient did have hypertensive blood pressure response with systolic going from 166 up to 213. Stress EKG findings: At baseline patient's EKG showed normal sinus rhythm, normal axis, no significant ST or T wave abnormalities. At peak exercise, EKG showed mild nonspecific 0.[address] depressions in the inferior and lateral leads. Conclusions: 1. Normal EKG response to exercise without evidence of inducible ischemia. 2. Chest pressure noted with exertion. Clinical correlation recommended 3. Hypertensive blood pressure response 4. Fair exercise capacity. Dr. Won Aceves DO (Electronically Signed) Final Date: 14 July 2022 10:20
== END | disposition home or self-care (01) ==
LOC: RADNMMAIN 08:31
PROVIDERS: ATTEND Family Medicine
DX: I10 Essential (primary) hypertension (principal); R07.89 Other chest pain
CPT/HCPCS: 93017

== ENCOUNTER → 2022-07-16 | Outpatient (CLI) | payer OTHER ==
--- NOTE | 2022-07-16 12:31 | XR ---
EXAMINATION TYPE: XR chest 2V DATE OF EXAM: 07/16/2022 12:23 PM COMPARISON: Chest radiographs from 07/16/2021 TECHNIQUE: XR chest 2V Frontal and lateral views of the chest. CLINICAL INDICATION:Female, 51 years old with history of R07.9 CHEST PAIN, UNSPECIFIED; FINDINGS: Lungs/Pleura: There is no evidence of pleural effusion, focal consolidation, or pneumothorax. Previo usly seen right basilar opacity has resolved. Pulmonary vascularity: Unremarkable. Heart/mediastinum: Cardiomediastinal silhouette is unremarkable. Musculoskeletal: No acute osseous pathology. IMPRESSION: No acute cardiopulmonary disease/process.
== END | disposition home or self-care (01) ==
LOC: RADXRMAIN 12:05
PROVIDERS: ATTEND Family Medicine
DX: R07.9 Chest pain, unspecified (principal)
CPT/HCPCS: 71046

== ENCOUNTER → 2022-08-09 | Outpatient (CLI) | payer OTHER ==
--- NOTE | 2022-08-09 11:13 | XR ---
EXAMINATION TYPE: XR foot complete LT DATE OF EXAM: 08/09/2022 10:36 AM INDICATION: Patient age:Female; 51 years old; Reason for study: M79.672 pain left foot; PHH. COMPARISON: None TECHNIQUE: The left foot was examined in the AP, oblique, and lateral projections. FINDINGS: No evidence of any acute osseous pathology. No evidence of soft tissue swelling. Joints are preserve d. Incidental note is made of symphalangism of the fifth distal interphalangeal joint. Moderate sized plantar calcaneal enthesophyte. IMPRESSION: No evidence of acute fracture.
== END | disposition home or self-care (01) ==
LOC: RADXRMAIN 10:24
PROVIDERS: ATTEND Family Medicine
DX: M79.672 Pain in left foot (principal)

== ENCOUNTER 2023-01-10 21:58 | Emergency (ER) | payer OTHER ==
[2023-01-10 23:10] VITALS: RESP 18; TEMP 98
--- NOTE | 2023-01-10 23:11 | ED ---
General Adult HPI - General Source: patient Mode of arrival: ambulatory Limitations: no limitations <Osiris Gordillo - Last Filed: 01/10/23 23:10> - History of Present Illness -: days(s) Location: back Quality: aching Consistency: constant Improves with: immobilization Worsens with: movement <Al Gerardo - Last Filed: 01/21/23 06:07> - General Chief complaint: Abdominal Pain Stated complaint: Lt side abd pain/lower back - History of Present Illness Initial comments: 52-year-old female presents emergency department chief complaint of left flank pain 2 days. Patient states that the pain radiates around to her abdomen. (Osiris Gordillo) This patient is a 52-year-old woman who presents with left back and flank pain. The patient states it is going on for a couple of days. The pain is worse with movements. She has not had any history of trauma. No fever or chills. She has not noted change in urination or bowel movements. No radiation to the legs, no saddle anesthesia no loss of control of bladder or bowel (Al Gerardo) - Related Data Home Medications Medication Instructions Recorded Confirmed atenoloL [Tenormin] 25 mg PO HS 07/06/21 07/10/21 hydroCHLOROthiazide [Hydrodiuril] 12.5 mg PO DAILY 07/06/21 07/10/21 hydroCHLOROthiazide [Hydrodiuril] 25 mg PO DAILY 07/06/21 07/10/21 Acetaminophen Tab [Tylenol] 1,000 mg PO Q6H PRN 07/10/21 07/10/21 Previous Rx's Medication Instructions Recorded Amoxicillin/Potassium Clav 1 tab PO Q12HR 7 Days #14 tab 07/22/21 [Augmentin 875-125 Tablet] HYDROcodone/APAP 7.5-325MG [[place] 1 tab PO Q6HR PRN 3 Days #12 tab 07/22/21 7.5-325] Chlorhexidine Gluconate [Hibiclens] 1 applic TOPICAL DAILY #120 ml 08/04/21 Ibuprofen [Motrin] 600 mg PO Q8HR PRN #20 tab 01/11/23 methocarbamoL [Robaxin-750] 1,500 mg PO TID #30 tab 01/11/23 Allergies Allergy/AdvReac Type Severity Reaction Status Date / Time Iodinated Contrast Media Allergy Anaphylaxis Verified 01/10/23 23:08 [Iodinated Contrast- Oral and IV Dye] Review of Systems ROS Other: All systems not noted in ROS Statement are negative. <Osiris Gordillo - Last Filed: 01/10/23 23:10> ROS Other: All systems not noted in ROS Statement are negative. Constitutional: Denies: fever, chills Respiratory: Denies: cough, dyspnea Cardiovascular: Denies: chest pain, palpitations, edema Gastrointestinal: Denies: abdominal pain, nausea, vomiting, diarrhea, constipation Genitourinary: Denies: dysuria, frequency, hematuria Musculoskeletal: Reports: back pain Skin: Denies: rash Neurological: Denies: headache, weakness, numbness, paresthesias <Al Gerardo - Last Filed: 01/21/23 06:07> ROS Statement: Those systems with pertinent positive or pertinent negative responses have been documented in the HPI. Past Medical History Past Medical History: Hypertension Additional Past Medical History / Comment(s): Diverticulitis, occasionally low back pain, covid 06/2021, PICC line, appendicitis History of Any Multi-Drug Resistant Organisms: None Reported Past Surgical History: Appendectomy, Section, Cholecystectomy, Tubal Ligation Additional Past Surgical History / Comment(s): D&Cs, EGD, colonoscopy Past Anesthesia/Blood Transfusion Reactions: No Reported Reaction Past Psychological History: No Psychological Hx Reported Smoking Status: Never smoker Past Alcohol Use History: None Reported Past Drug Use History: None Reported - Past Family History Father Family Medical History: Cancer Additional Family Medical History / Comment(s): Father is living. He has heart problems. Mother Family Medical History: COPD Additional Family Medical History / Comment(s): Mother from COPD. She was a smoker. <Osiris Gordillo - Last Filed: 01/10/23 23:10> General Exam Limitations: no limitations <Osiris Gordillo - Last Filed: 01/10/23 23:10> General appearance: alert, in no apparent distress Head exam: Present: atraumatic, normocephalic Eye exam: Present: normal appearance. Absent: scleral icterus, conjunctival injection Neck exam: Present: normal inspection Respiratory exam: Present: normal lung sounds bilaterally. Absent: respiratory distress, wheezes, rales, rhonchi, stridor Cardiovascular Exam: Present: regular rate, normal rhythm, normal heart sounds. Absent: systolic murmur, diastolic murmur, rubs, gallop GI/Abdominal exam: Present: soft. Absent: distended, tenderness, guarding, rebound, rigid, mass, pulsatile mass Extremities exam: Present: normal inspection, normal capillary refill. Absent: pedal edema, calf tenderness Back exam: Present: normal inspection, CVA tenderness (L), paraspinal tenderness. Absent: CVA tenderness (R), vertebral tenderness Neurological exam: Present: alert. Absent: motor sensory deficit Skin exam: Present: warm, dry, intact, normal color. Absent: rash <Al Gerardo - Last Filed: 01/21/23 06:07> Course Vital Signs 01/10/23 01/11/23 01/11/23 23:08 05:00 05:19 Temperature 98 F Pulse Rate 64 58 L Respiratory 18 18 Rate Blood Pressure 159/99 170/109 170/109 O2 Sat by Pulse 100 99 Oximetry Medical Decision Making - Lab Data Result diagrams: 01/11/23 00:07 01/11/23 00:07 <Al Gerardo - Last Filed: 01/21/23 06:07> - Medical Decision Making Patient's 52-year-old woman presenting with low back and flank pain. The patient did not recall any inciting injury. There were a few cells in the urine therefore computed tomography scan obtained to rule out kidney stone. The patient had CT which I interpreted as being negative for kidney stone or pyelonephritis. Discussed appropriate follow-up as well as return parameters. Was pt. sent in by a medical professional or institution (, PA, WAD LUBRICATOR, urgent care, hospital, or detention...) When possible be specific @ -[No] Did you speak to anyone other than the patient for history (EMS, parent, family, police, friend...)? What history was obtained from this source @ -[No] Did you review nursing and triage notes (agree or disagree)? Why? @ -[I reviewed and agree with nursing and triage notes] Were old charts reviewed (outside hosp., previous admission, EMS record, old EKG, old radiological studies, urgent care reports/EKG's, detention records)? Report findings @ -[No old charts were reviewed] Differential Diagnosis (chest pain, altered mental status, abdominal pain women, abdominal pain men, vaginal bleeding, weakness, fever, dyspnea, syncope, headache, dizziness, GI bleed, back pain, seizure, CVA, palpatations, mental health, musculoskeletal)? @ -[Differential Back Pain: Strain, zoster, cauda equina syndrome, epidural abscess, vertebral osteomyelit is, discitis, fracture, subluxation, disc herniation, DJD, spinal stenosis, dissection, AAA, pancreatitis, peptic ulcer disease, pyelonephritis, kidney stone, this is not meant to be an all-inclusive list. EKG interpreted by me (3pts min.). @ -[ X-rays interpreted by me (1pt min.). @ -[None done] CT interpreted by me (1pt min.). @ -[As above U/S interpreted by me (1pt. min.). @ -[None done] What testing was considered but not performed or refused? (CT, X-rays, U/S, labs)? Why? @ -[None] What meds were considered but not given or refused? Why? @ -[None] Did you discuss the management of the patient with other professionals (professionals i.e. , PA, WAD LUBRICATOR, lab, RT, psych nurse, social work instructor, chief of anesthesiology, teacher, air defence officer, human services case manager)? Give summary @ -[No] Was smoking cessation discussed for >3mins.? @ -[No] Was critical care preformed (if so, how long)? @ -[No] Were there social determinants of health that impacted care today? How? (Homelessness, low income, unemployed, alcoholism, drug addiction, transportation, low edu. Level, literacy, decrease access to med. care, [place] [facility], rehab)? @ -[No] Was there de-escalation of care discussed even if they declined (Discuss DNR or withdrawal of care, Hospice)? DNR status @ -[No] What co-morbidities impacted this encounter? (DM, HTN, Smoking, COPD, CAD, Cancer, CVA, ARF, Chemo, Hep., AIDS, mental health diagnosis, sleep apnea, morbid obesity)? @ -[None] Was patient admitted / discharged? Hospital course, mention meds given and route, prescriptions, significant lab abnormalities, going to OR and other pertinent info. @ -[The patient discharged with follow-up to ensure that her symptoms resolve, we discussed the return parameters as well Undiagnosed new problem with uncertain prognosis? @ -[No] Drug Therapy requiring intensive monitoring for toxicity (Heparin, Nitro, Insulin, Cardizem)? @ -[No] Were any procedures done? @ -[No] Diagnosis/symptom? @ -[Acute low back pain, uncomplicated Acute, or Chronic, or Acute on Chronic? @ -[default] Uncomplicated (without systemic symptoms) or Complicated (systemic symptoms)? @ -[default] Side effects of treatment? @ -[No] Exacerbation, Progression, or Severe Exacerbation? @ -[No] Poses a threat to life or bodily function? How? (Chest pain, [place], [place], pneumonia, PE, COPD, DKA, ARF, appy, cholecystitis, CVA, Diverticulitis, Homicidal, Suicidal, threat to staff... and all critical care pts) @ -[No] (Al Gerardo) - Lab Data Lab Results 01/11/23 01/11/23 01/11/23 Range/Units 00:07 00:07 00:10 WBC 6.3 (3.8-10.6) k/uL RBC 4.45 (3.80-5.40) m/uL Hgb 13.2 (11.4-16.0) gm/dL Hct 39.4 (34.0-46.0) % MCV 88.5 (80.0-100.0) fL MCH 29.8 (25.0-35.0) pg MCHC 33.6 (31.0-37.0) g/dL RDW 12.7 (11.5-15.5) % Plt Count 202 (150-450) k/uL MPV 8.4 Neutrophils % 62 % Lymphocytes % 29 % Monocytes % 5 % Eosinophils % 2 % Basophils % 0 % Neutrophils # 3.9 (1.3-7.7) k/uL Lymphocytes # 1.8 (1.0-4.8) k/uL Monocytes # 0.3 (0-1.0) k/uL Eosinophils # 0.1 (0-0.7) k/uL Basophils # 0.0 (0-0.2) k/uL Sodium 139 (137-145) mmol/L Potassium 3.4 L (3.5-5.1) mmol/L Chloride 103 (98-107) mmol/L Carbon Dioxide 28 (22-30) mmol/L Anion Gap 8 mmol/L BUN 16 (7-17) mg/dL Creatinine 1.02 (0.52-1.04) mg/dL Est GFR (CKD-EPI)AfAm 74 (>60 ml/min/1.73 sqM) Est GFR (CKD-EPI)NonAf 64 (>60 ml/min/1.73 sqM) Glucose 95 (74-99) mg/dL Calcium 8.9 (8.4-10.2) mg/dL Total Bilirubin 0.5 (0.2-1.3) mg/dL AST 21 (14-36) U/L ALT 21 (4-34) U/L Alkaline Phosphatase 58 (38-126) U/L Total Protein 7.0 (6.3-8.2) g/dL Albumin 4.0 (3.5-5.0) g/dL Amylase 47 (30-110) U/L Lipase 94 (23-300) U/L Urine Color Yellow Urine Appearance Clear (Clear) Urine pH 5.0 (5.0-8.0) Ur Specific [place] 1.017 (1.001-1.035) Urine Protein Negative (Negative) Urine Glucose (UA) Negative (Negative) Urine Ketones Negative (Negative) Urine Blood Trace H (Negative) Urine Nitrite Negative (Negative) Urine Bilirubin Negative (Negative) Urine Urobilinogen <2.0 (<2.0) mg/dL Ur Leukocyte Esterase Moderate H (Negative) Urine RBC 2 (0-5) /hpf Urine WBC 15 H (0-5) /hpf Ur Squamous Epith Cells 8 H (0-4) /hpf Amorphous Sediment Occasional H (None) /hpf Urine Bacteria Rare H (None) /hpf Hyaline Casts 11 H (0-2) /lpf Urine Mucus Occasional H (None) /hpf Disposition <Osiris Gordillo - Last Filed: 01/10/23 23:10> Is patient prescribed a controlled substance at d/c from ED?: No <Al Gerardo - Last Filed: 01/21/23 06:07> Clinical Impression: Back pain Disposition: HOME SELF-CARE Condition: Good Instructions (If sedation given, give patient instructions): Low Back Strain (E D) Prescriptions: Ibuprofen [Motrin] 600 mg PO Q8HR PRN #20 tab PRN Reason: Pain methocarbamoL [Robaxin-750] 1,500 mg PO TID #30 tab Referrals: Jacob Chavira DO [Primary Care Provider] - 1-2 days
[2023-01-11 00:16] LABS: Basophils % (A) 0 %; Eosinophils # (A) 0.1 k/uL (0-0.7); Eosinophils % (A) 2 %; HCT 39.4 % (34.0-46.0); HGB 13.2 gm/dL (11.4-16.0); Lymphocytes # (A) 1.8 k/uL (1.0-4.8); Lymphocytes % (A) 29 %; MCH 29.8 pg (25.0-35.0); MCHC 33.6 g/dL (31.0-37.0); MCV 88.5 fL (80.0-100.0); Mean Platelet Volume 8.4; Monocytes # (A) 0.3 k/uL (0-1.0); Monocytes % (A) 5 %; Neutrophils # (A) 3.9 k/uL (1.3-7.7); Neutrophils % (A) 62 %; Platelet Count 202 k/uL (150-450); RBC 4.45 m/uL (3.80-5.40); RDW 12.7 % (11.5-15.5); WBC 6.3 k/uL (3.8-10.6)
[2023-01-11 00:30] LABS: ALT 21 U/L (4-34); AST 21 U/L (14-36); African American GFR (CKD) 74 (>60 ml/min/1.73 sqM); Alkaline Phosphatase 58 U/L (38-126); Amylase 47 U/L (30-110); Anion Gap 8 mmol/L; Blood Urea Nitrogen 16 mg/dL (7-17); Calcium 8.9 mg/dL (8.4-10.2); Carbon Dioxide 28 mmol/L (22-30); Chloride 103 mmol/L (98-107); Glucose 95 mg/dL (74-99); Lipase 94 U/L (23-300); Non-African American GFR(CKD) 64 (>60 ml/min/1.73 sqM); Potassium 3.4 mmol/L (3.5-5.1); Sodium 139 mmol/L (137-145); Total Bilirubin 0.5 mg/dL (0.2-1.3)
[2023-01-11 00:35] LABS: Amorphous Sediment,Urine Occasional /hpf; Appearance,Urine Clear (Clear); Bacteria,Urine Rare /hpf; Bilirubin,Urine Negative (Negative); Blood,Urine Trace (Negative); Color,Urine Yellow; Glucose,Urine (UA) Negative (Negative); Hyaline Casts,Urine 11 /lpf (0-2); Ketones,Urine Negative (Negative); Leukocyte Esterase,Urine Moderate (Negative); Mucus,Urine Occasional /hpf; Nitrite,Urine Negative (Negative); Protein,Urine Negative (Negative); RBC,Urine 2 /hpf (0-5); Specific Gravity,Urine 1.017 (1.001-1.035); Squamous Epithelial Cell,Urine 8 /hpf (0-4); Urobilinogen,Urine <2.0 mg/dL (<2.0); WBC,Urine 15 /hpf (0-5)
[2023-01-11] MEDS ORDERED: ORPHENADRINE 30 MG/ML 2 ML VIAL IM STA (02:16)
--- NOTE | 2023-01-11 04:45 | CT ---
EXAM: CT Abdomen and Pelvis Without Intravenous Contrast CLINICAL HISTORY: ITS.REASON CT Reason: L flank pain, stone protocol TECHNIQUE: Axial computed tomography images of the abdomen and pelvis without intravenous contrast. CTDI is 17.6 mGy and DLP is 1037 mGy-cm. This CT exam was performed using one or more of the following dose reduction techniques: automated exposure control, adjustment of the mA and/or kV according to patient size, and/or use of iterative reconstruction technique. COMPARISON: No relevant prior studies available. FINDINGS: Lung bases: Unremarkable. No mass. No consolidation. ABDOMEN: Liver: 7 mm hepatic segment 3 hypodensity, likely benign. 10 mm hepatic segment 5 hypodensity, likely benign. Gallbladder and bile ducts: Prior cholecystectomy. No ductal dilation. Pancreas: Unremarkable. No ductal dilation. Spleen: Unremarkable. No splenomegaly. Adrenals: Unremarkable. No mass. Kidneys and ureters: Unremarkable. No obstructing stones. No hydronephrosis. Stomach and bowel: Colonic diverticulosis. No obstruction. No mucosal thickening. PELVIS: Appendix: Prior appendectomy. Bladder: Unremarkable. No stones. Reproductive: Unremarkable as visualized. ABDOMEN and PELVIS: Intraperitoneal space: Unremarkable. No free air. No significant fluid collection. Bones/joints: No acute fracture. No dislocation. Soft tissues: Small ventral hernia containing mesenteric fat. Vasculature: Unremarkable. No abdominal aortic aneurysm. Lymph nodes: Unremarkable. No enlarged lymph nodes. Other findings: Midline surgical scar. IMPRESSION: No hydroureteronephrosis, nephrolithiasis, or perinephric stranding.
[2023-01-11] MEDS ORDERED: HYDROcodone/APAP 5-325MG 1 EACH TAB PO STA (05:00)
[2023-01-11] MEDS ORDERED: IBUPROFEN 400 MG TAB PO STA (05:00)
[2023-01-11 05:19] VITALS: BP 170/109
[2023-01-11 05:21] VITALS: PULSE 58
== END 2023-01-11 05:21 | disposition home or self-care (01) ==
LOC: EC 21:58
DX: M54.50 Low back pain, unspecified (principal); I10 Essential (primary) hypertension; Z88.8 Allergy status to other drugs, medicaments and biological substances; Z79.899 Other long term (current) drug therapy; Z86.16 Personal history of COVID-19
CPT/HCPCS: 36415; 80053; 82150; 83690; 85025; 81001; 87086; 74176; 99284; 96372; J2360

== ENCOUNTER 2023-01-23 17:23 | Observation (INO) | payer OTHER ==
[2023-01-23] MEDS ORDERED: SODIUM CHLORIDE 0.9% 1,000 ML IV STA (17:57)
[2023-01-23] MEDS ORDERED: KETOROLAC 15 MG/ML 1 ML VIAL IVP STA (17:58)
--- NOTE | 2023-01-23 18:00 | ED ---
Recheck HPI - General Chief Complaint: Back Pain/Injury Stated Complaint: Back Pain Source: patient, RN notes reviewed, old records reviewed Mode of arrival: ambulatory Limitations: no limitations - History of Present Illness Initial Comments: This is a 52-year-old female presenting for evaluation of back pain left flank pain radiating to groin and abdomen. Patient was in the ER about a week prior for similar complaint. Patient states she was told she had muscle strain and does have follow-up with orthopedics as an outpatient. Patient presents to the ER she's had difficulty following up with orthopedics and is having increasing pain and decreased activity level. Patient states his stress at work activity level is diminished in her function is diminished. Pain is still severe and patient's taking Motrin at home for pain without help. No again traumatic injury no neurological complaints no loss of bowel or bladder MD Complaint: other (Recheck for back pain) -: week(s) Returns Today for: persistent/worsening pain related to initial visit Symptoms Since Prior Visit: worsening pain Associated Symptoms: none Treatments Prior to Arrival: Given Pain Meds on - Related Data Home Medications Medication Instructions Recorded Confirmed atenoloL [Tenormin] 25 mg PO HS 07/06/21 07/10/21 hydroCHLOROthiazide [Hydrodiuril] 12.5 mg PO DAILY 07/06/21 07/10/21 hydroCHLOROthiazide [Hydrodiuril] 25 mg PO DAILY 07/06/21 07/10/21 Acetaminophen Tab [Tylenol] 1,000 mg PO Q6H PRN 07/10/21 07/10/21 Previous Rx's Medication Instructions Recorded Amoxicillin/Potassium Clav 1 tab PO Q12HR 7 Days #14 tab 07/22/21 [Augmentin 875-125 Tablet] HYDROcodone/APAP 7.5-325MG [[place] 1 tab PO Q6HR PRN 3 Days #12 tab 07/22/21 7.5-325] Chlorhexidine Gluconate [Hibiclens] 1 applic TOPICAL DAILY #120 ml 08/04/21 Ibuprofen [Motrin] 600 mg PO Q8HR PRN #20 tab 01/11/23 methocarbamoL [Robaxin-750] 1,500 mg PO TID #30 tab 01/11/23 Allergies Allergy/AdvReac Type Severity Reaction Status Date / Time Iodinated Contrast Media Allergy Anaphylaxis Verified 01/23/23 17:34 [Iodinated Contrast- Oral and IV Dye] Review of Systems ROS Statement: Those systems with pertinent positive or pertinent negative responses have been documented in the HPI. ROS Other: All systems not noted in ROS Statement are negative. Past Medical History Past Medical History: Hypertension Additional Past Medical History / Comment(s): Diverticulitis, occasionally low back pain, covid 06/2021, PICC line, appendicitis History of Any Multi-Drug Resistant Organisms: None Reported Past Surgical History: Appendectomy, Section, Cholecystectomy, Tubal Ligation Additional Past Surgical History / Comment(s): D&Cs, EGD, colonoscopy Past Anesthesia/Blood Transfusion Reactions: No Reported Reaction Past Psychological History: No Psychological Hx Reported Smoking Status: Never smoker Past Alcohol Use History: None Reported Past Drug Use History: None Reported - Past Family History Father Family Medical History: Cancer Additional Family Medical History / Comment(s): Father is living. He has heart problems. Mother Family Medical History: COPD Additional Family Medical History / Comment(s): Mother from COPD. She was a smoker. General Exam Limitations: no limitations General appearance: alert, in no apparent distress Head exam: Present: atraumatic, normocephalic, normal inspection Eye exam: Present: normal appearance, PERRL, EOMI. Absent: scleral icterus, conjunctival injection, periorbital swelling ENT exam: Present: normal exam, mucous membranes moist Neck exam: Present: normal inspection. Absent: tenderness, meningismus, lymphadenopathy Respiratory exam: Present: normal lung sounds bilaterally. Absent: respiratory distress, wheezes, rales, rhonchi, stridor Cardiovascular Exam: Present: regular rate, normal rhythm, normal heart sounds. Absent: systolic murmur, diastolic murmur, rubs, gallop, clicks GI/Abdominal exam: Present: soft, normal bowel sounds. Absent: distended, tenderness, guarding, rebound, rigid Extremities exam: Present: normal inspection, full ROM, normal capillary refill. Absent: tenderness, pedal edema, joint swelling, calf tenderness Back exam: Present: normal inspection Neurological exam: Present: alert, oriented X3, CN II-XII intact Psychiatric exam: Present: normal affect, normal mood Skin exam: Present: warm, dry, intact, normal color. Absent: rash Course Vital Signs 01/23/23 17:31 Temperature 98.2 F Pulse Rate 74 Respiratory 18 Rate Blood Pressure 163/97 O2 Sat by Pulse 97 Oximetry - Reevaluation(s) Reevaluation #1: 01/23/23 20:01 Medical records reviewed Reevaluation #2: 01/23/23 20:01 Patient's pain is difficult to control here in the ER Reevaluation #3: 01/23/23 20:01 Patient informed results questions answered Reevaluation #4: 01/23/23 18:30 Was pt. sent in by a medical professional or institution? @ -no Did you speak to anyone other than the patient for history? @ -no Did you review nursing and triage notes? @ -agree Were old charts reviewed? @ -yes Differential Diagnosis? @ -prior EKG interpreted by me (3pts min.)? @ -yes X-rays interpreted by me (1pt min.)? @ -yes CT interpreted by me (1pt min.)? @ -no U/S interpreted by me (1pt. min.)? @ -no What testing was considered but not performed? (CT, X-rays, U/S, labs)? Why? @ -no What meds were considered but not given? Why? @ -no Did you discuss the management of the patient with other professionals? @ -no Did you reconcile home meds? @ -no Was smoking cessation discussed for >3mins.? @ -no Was critical care preformed (if so, how long)? @ -no Were there social determinants of health that impacted care today? How? (Homelessness, low income, unemployed, alcoholism, drug addiction, transportation, low edu. Level, literacy, decrease access to med. care, skilled nursing, rehab)? @ -no Was there de-escalation of care discussed even if they declined? (Discuss DNR or withdrawal of care, Hospice)? @ -no What co-morbidities impacted this encounter? (DM, HTN, Smoking, COPD, CAD, Cancer, CVA, Hep., AIDS, mental health diagnosis, sleep apnea, morbid obesity)? @ -none Was patient admitted / discharged? @ - Undiagnosed new problem with uncertain prognosis? @ -no Drug Therapy requiring intensive monitoring for toxicity (Heparin, Nitro, Insulin, Cardizem)? @ -no Were any procedures done? @ -no Diagnosis/symptom? @ - Acute, or Chronic, or Acute on Chronic? @ -acute Uncomplicated (without systemic symptoms) or Complicated (systemic symptoms)? @ -complicated Side effects of treatment? @ -no Exacerbation, Progression, or Severe Exacerbation] @ -no Poses a threat to life or bodily function? @ -yes Reevaluation #5: 01/23/23 18:30 Differential Back Pain: Strain, zoster, cauda equina syndrome, epidural abscess, vertebral osteomyelitis, discitis, fracture, subluxation, disc herniation, DJD, spinal stenosis, dissection, AAA, pancreatitis, peptic ulcer disease, pyelonephritis, kidney stone, this is not meant to be an all-inclusive list. - Consultations Consultation #1: spoke w NEVAEH who is ok for admission Medical Decision Making - Medical Decision Making 52 female to reveal left flank pain back pain abdominal pain. Patient has again normal imaging here in the ER similar to prior. Symptoms cannot be improved here in the ER, patient states she does not feel like she can go home and the significant amount of pain that she is currently in. Patient was placed in observation for pain management - Lab Data Result diagrams: 01/23/23 18:10 01/23/23 18:10 Lab Results 01/23/23 01/23/23 01/23/23 Range/Units 18:10 18:10 18:10 WBC 9.4 (3.8-10.6) k/uL RBC 4.61 (3.80-5.40) m/uL Hgb 13.7 (11.4-16.0) gm/dL Hct 41.1 (34.0-46.0) % MCV 89.2 (80.0-100.0) fL MCH 29.7 (25.0-35.0) pg MCHC 33.3 (31.0-37.0) g/dL RDW 12.7 (11.5-15.5) % Plt Count 204 (150-450) k/uL MPV 8.6 Neutrophils % 77 % Lymphocytes % 15 % Monocytes % 5 % Eosinophils % 1 % Basophils % 0 % Neutrophils # 7.2 (1.3-7.7) k/uL Lymphocytes # 1.4 (1.0-4.8) k/uL Monocytes # 0.5 (0-1.0) k/uL Eosinophils # 0.1 (0-0.7) k/uL Basophils # 0.0 (0-0.2) k/uL Sodium 142 (137-145) mmol/L Potassium 3.5 (3.5-5.1) mmol/L Chloride 106 (98-107) mmol/L Carbon Dioxide 29 (22-30) mmol/L Anion Gap 7 mmol/L BUN 27 H (7-17) mg/dL Creatinine 1.01 (0.52-1.04) mg/dL Est GFR (CKD-EPI)AfAm 75 (>60 ml/min/1.73 sqM) Est GFR (CKD-EPI)NonAf 65 (>60 ml/min/1.73 sqM) Glucose 145 H (74-99) mg/dL Plasma Lactic Acid David 1.4 (0.7-2.0) mmol/L Calcium 8.5 (8.4-10.2) mg/dL Phosphorus 3.2 (2.5-4.5) mg/dL Magnesium 2.0 (1.6-2.3) mg/dL Total Bilirubin 0.5 (0.2-1.3) mg/dL AST 69 H (14-36) U/L ALT 121 H (4-34) U/L Alkaline Phosphatase 56 (38-126) U/L Total Protein 6.7 (6.3-8.2) g/dL Albumin 3.8 (3.5-5.0) g/dL Amylase 50 (30-110) U/L Lipase 137 (23-300) U/L - Radiology Data Radiology results: report reviewed (CT head and pelvis negative for acute disease), image reviewed Disposition Clinical Impression: Left flank pain, Back pain Disposition: ADMITTED IP TO THIS [facility] Condition: Good Instructions (If sedation given, give patient instructions): Flank Pain (ED) Is patient prescribed a controlled substance at d/c from ED?: No Referrals: Jacob Chavira DO [Primary Care Provider] - 1-2 days Time of Disposition: 20:00
[2023-01-23 18:39] LABS: Potassium 3.5 mmol/L (3.5-5.1)
[2023-01-23 18:40] LABS: ALT 121 U/L (4-34); AST 69 U/L (14-36); African American GFR (CKD) 75 (>60 ml/min/1.73 sqM); Albumin 3.8 g/dL (3.5-5.0); Alkaline Phosphatase 56 U/L (38-126); Amylase 50 U/L (30-110); Anion Gap 7 mmol/L; Blood Urea Nitrogen 27 mg/dL (7-17); Calcium 8.5 mg/dL (8.4-10.2); Carbon Dioxide 29 mmol/L (22-30); Chloride 106 mmol/L (98-107); Glucose 145 mg/dL (74-99); Lipase 137 U/L (23-300); Non-African American GFR(CKD) 65 (>60 ml/min/1.73 sqM); Phosphorus 3.2 mg/dL (2.5-4.5); Sodium 142 mmol/L (137-145); Total Bilirubin 0.5 mg/dL (0.2-1.3); Total Protein 6.7 g/dL (6.3-8.2)
--- NOTE | 2023-01-23 18:42 | CT ---
EXAMINATION TYPE: CT abdomen pelvis wo con CT DLP: 1399 mGycm, Automated exposure control for dose reduction was used. DATE OF EXAM: 01/23/2023 6:24 PM COMPARISON: CT abdomen pelvis most recent from 01/11/2023 CLINICAL INDICATION:Female, 52 years old with history of pain; left flank pain TECHNIQUE: Axial CT of the abdomen and pelvis. Sagittal and coronal reformats were created on a [employer] workstation. Contrast used: None (none if empty) Oral contrast used: without Oral Contrast (none if empty) FINDINGS: LOWER CHEST: Unremarkable ABDOMEN LIVER: Unremarkable GALLBLADDER AND BILE DUCTS: Unremarkable. PANCREAS: Unremarkable. SPLEEN: Unremarkable. ADRENAL GLANDS: Unremarkable. KIDNEYS AND URETERS: No evidence of hydronephrosis or renal calculus. The ureters are unremarkable. PELVIS BLADDER: Unremarkable REPRODUCTIVE: Unremarkable. ABDOMEN & PELVIS STOMACH AND BOWEL: No evidence of bowel obstruction. Scattered colonic diverticula. PERITONEUM/RETROPERITONEUM: No evidence of pneumoperitoneum or free fluid. VASCULATURE: No evidence of aortic aneurysm. MUSCULOSKELETAL: No acute osseous abnormalities LYMPH NODES: No gross evidence for lymphadenopathy. SOFT TISSUE/ABDOMINAL WALL: Fat-containing umbilical hernia. IMPRESSION: No evidence for acute abdominal process. No evidence of obstructive uropathy or renal calculus.
[2023-01-23] MEDS: MORPHINE SULFATE 4 MG/ML SYRINGE IVP STA ×2 (18:43→18:44)
[2023-01-23] MEDS ORDERED: HYDROmorphone 1 MG/ML 1 ML SYRINGE IVP STA (18:49)
[2023-01-23 18:58] LABS: Basophils % (A) 0 %; Eosinophils # (A) 0.1 k/uL (0-0.7); Eosinophils % (A) 1 %; HCT 41.1 % (34.0-46.0); HGB 13.7 gm/dL (11.4-16.0); Lymphocytes # (A) 1.4 k/uL (1.0-4.8); Lymphocytes % (A) 15 %; MCH 29.7 pg (25.0-35.0); MCHC 33.3 g/dL (31.0-37.0); MCV 89.2 fL (80.0-100.0); Mean Platelet Volume 8.6; Monocytes # (A) 0.5 k/uL (0-1.0); Monocytes % (A) 5 %; Neutrophils # (A) 7.2 k/uL (1.3-7.7); Neutrophils % (A) 77 %; Platelet Count 204 k/uL (150-450); RBC 4.61 m/uL (3.80-5.40); RDW 12.7 % (11.5-15.5); WBC 9.4 k/uL (3.8-10.6)
[2023-01-23] MEDS ORDERED: DEXAMETHASONE SOD PHOSPHATE 10 MG/ML 1 ML VIAL IVP STA (19:33)
[2023-01-23] MEDS ORDERED: Acetaminophen-Codeine 300-30mg TAB PO STA (19:33)
[2023-01-23] MEDS: ACET/COD 300 MG/30 MG STARTER PACK 6 TAB BTL PO STA ×2 (19:48→20:20)
[2023-01-23] MEDS: IBUPROFEN 600 MG STARTER PACK 4 TAB BTL PO STA ×2 (19:51→20:20)
[2023-01-23] MEDS ORDERED: ACETAMINOPHEN TAB 325 MG TAB PO PRN (20:55)
[2023-01-23] MEDS ORDERED: ONDANSETRON 4 MG/2 ML VIAL IVP PRN (20:55)
[2023-01-23] MEDS ORDERED: NALOXONE 0.4 MG/ML 1 ML VIAL IV PRN (20:55)
[2023-01-23] MEDS: SODIUM CHLORIDE 0.9% 1,000 ML IV SCH (21:10)
[2023-01-23] MEDS ORDERED: ZOLPIDEM 5 MG TAB PO PRN (21:37)
[2023-01-23] MEDS ORDERED: FLUTICASONE 44 MCG INHALER INHALATION PRN (21:37)
[2023-01-23] MEDS ORDERED: methocarbamoL 750 MG TAB PO PRN (21:37)
[2023-01-23] MEDS ORDERED: hydrALAZINE HCL 20 MG/ML 1 ML VIAL IVP PRN (21:39)
[2023-01-23] MEDS: HYDROcodone/APAP 5-325MG 1 EACH TAB PO PRN (21:56)
[2023-01-23] MEDS: atenoloL 50 MG TAB PO SCH (21:57)
[2023-01-24] MEDS: HYDROmorphone 1 MG/ML 1 ML SYRINGE IVP PRN ×5 (00:18→21:36)
[2023-01-24] MEDS: PANTOPRAZOLE 40 MG TABLET PO SCH (06:01)
[2023-01-24] MEDS: LOSARTAN 50 MG TAB PO SCH (08:45)
[2023-01-24] MEDS: hydroCHLOROthiazide 12.5 MG CAP PO SCH (08:45)
[2023-01-24 10:05] LABS: ALT 118 U/L (8-44); AST 32 U/L (13-35); Albumin 4.1 d/dL (3.8-4.9); Albumin/Globulin Ratio 1.52 Ratio (1.60-3.17); Alkaline Phosphatase 62 U/L (41-126); BUN/Creat Ratio 25.75 Ratio (12.00-20.00); Blood Urea Nitrogen 20.6 mg/dL (9.0-27.0); Calcium 8.6 mg/dL (8.7-10.3); Carbon Dioxide 27.7 mmol/L (21.6-31.8); Chloride 104 mmol/L (96-109); Globulin 2.7 d/dL (1.6-3.3); Glucose 145 mg/dL (70-110); Potassium 4.3 mmol/L (3.5-5.5); Sodium 142 mmol/L (135-145); Total Bilirubin 0.3 mg/dL (0.3-1.2); Total Protein 6.8 d/dL (6.2-8.2)
--- NOTE | 2023-01-24 11:51 | P.CNOR ---
History of Present Illness - [facility] Consult date: 01/24/23 Requesting physician: Anna Arthur Consult reason: back pain (Left-sided thoracolumbar pain and flank pain) History of present illness: Patient is a very pleasant 52-year-old female who is seen and examined at bedside for further evaluation of her left-sided flank and low back pain. Patient states 2 weeks ago she woke up with significant pain over the left thoracolumbar paraspinal and flank with some radiation around the left ribs towards the abdomen and also into her left groin. She states she has significant difficulty with standing upright position or lying flat in bed. Her pain is better controlled ambulating in a flexed forward position or sitting in a chair with her legs slightly up. She denies any lower extremity weakness or radiculopathy bilaterally. She denies any change or difficulty in urination or bowel movements. She is not experiencing any burning sensations with urination. She denies fever or chills. She denies nausea or vomiting. She states her symptoms have been worsening over the past 2 weeks without any significant improvement. She was evaluated in the emergency department. CT of the abdomen and pelvis was taken at that time without significant findings. Due to her pain she is admitted for further evaluation. She is currently scheduled for further evaluation with pain management at [facility] with Dr. Vogel on 02/01/2023. She has not had MRI imaging. He does not have any other complaints. She is having difficulty working and performing her regular activities of daily living giving her pain. Past Medical History Past Medical History: Hypertension Additional Past Medical History / Comment(s): Diverticulitis, occasionally low back pain, covid 06/2021, PICC line with removal, appendicitis History of Any Multi-Drug Resistant Organisms: None Reported Past Surgical History: Appendectomy, Section, Cholecystectomy, Tubal Ligation Additional Past Surgical History / Comment(s): D&Cs, EGD, colonoscopy Past Anesthesia/Blood Transfusion Reactions: No Reported Reaction Past Psychological History: No Psychological Hx Reported Additional Psychological History / Comment(s): Pt lives with her spouse and matt. She is independent. Smoking Status: Never smoker Past Alcohol Use History: None Reported Past Drug Use History: None Reported - Past Family History Father Family Medical History: Cancer Additional Family Medical History / Comment(s): Father is living. He has heart problems. Mother Family Medical History: COPD Additional Family Medical History / Comment(s): Mother from COPD. She was a smoker. Medications and Allergies Home Medications Medication Instructions Recorded Confirmed Type Ibuprofen [Motrin] 600 mg PO Q8HR PRN #20 tab 01/11/23 01/23/23 Rx Fluticasone Propionate [Flovent 1 puff INHALATION RT-DAILY PRN 01/23/23 01/23/23 History Diskus] Losartan/Hydrochlorothiazide 1 tab PO DAILY 01/23/23 01/23/23 History [Losartan-Hctz 100-12.5 mg Tab] Zolpidem [Ambien] 10 mg PO HS PRN 01/23/23 01/23/23 History atenoloL 100 mg PO HS 01/23/23 01/23/23 History methocarbamoL [Robaxin-750] 1,500 mg PO TID PRN 01/23/23 01/23/23 History Allergies Allergy/AdvReac Type Severity Reaction Status Date / Time Iodinated Contrast Media Allergy Anaphylaxis Verified 01/23/23 21:04 [Iodinated Contrast- Oral and IV Dye] Physical Examination Osteopathic Statement: *. No significant issues noted on an osteopathic structural exam other than those noted in the History and Physical/Consult. Physical exam: Patient is awake, alert, and oriented 3 Vital signs stable Good chest excursion with deep inspiration and expiration Examination of thoracic and lumbar spine reveals skin is intact with no abrasions, lacerations, or bruises; no erythema, purulence or signs of infection Evidence of paraspinal muscle spasm over the left thoracolumbar spine Lower extremity strength 5/5 bilaterally Patient is able to perform active range of motion of lower extremities indepe ndently bilaterally without difficulty Hip flexion against resistance exacerbates left-sided low back pain Evidence of a tattoo over the left calf No signs or symptoms of DVT; no calf pain No pain with internal and external rotation of the hips bilaterally Neurovascularly intact Results Pertinent studies: CT the abdomen pelvis taken on 01/23/2023 reviewed for orthopedic purposes: No evidence of fracture at the lower thoracic and lumbar spine; overall alignment is adequate maintained; no spondylolisthesis; lower thoracic degenerative disc disease; T11-12 anterior osteophytic spurring; disc space and appears to be fairly well maintained throughout the lumbar spine X-ray of the lumbar spine taken on 05/20/2022: Slight scoliotic curvature; evidence of some lateral osteophytic spurring; L3-4 asymmetric degenerative disc disease; no compression fracture deformity; no spondylolisthesis; clips from pr evious cholecystectomy - Labs Labs: Abnormal Lab Results - Last 24 Hours (Table) 01/23/23 01/24/23 Range/Units 18:10 05:43 BUN 27 H (7-17) mg/dL BUN/Creatinine Ratio 25.75 H (12.00-20.00) Ratio Glucose 145 H 145 H (74-99) mg/dL Calcium 8.6 L (8.7-10.3) mg/dL AST 69 H (14-36) U/L ALT 121 H 118 H (4-34) U/L Albumin/Globulin Ratio 1.52 L (1.60-3.17) Ratio H & H 01/23/23 Range/Units 18:10 Hgb 13.7 (11.4-16.0) gm/dL Hct 41.1 (34.0-46.0) % Result Diagrams: 01/23/23 18:10 01/24/23 05:43 Assessment and Plan Assessment: Assessment: Left-sided thoracolumbar paraspinal pain Left-sided flank pain Radicular pain radiating around the left ribs towards the abdomen Pain radiating towards the left groin Lower thoracic degenerative disc disease osteophytic spurring L3-4 asymmetric degenerative disc disease Hypertension Obesity (1) Thoracolumbar back pain Current Visit: Yes Status: Acute Code(s): M54.50 - LOW BACK PAIN, UNSPECIFIED; M54.6 - PAIN IN THORACIC SPINE SNOMED Code(s): 144163212 (2) Left paraspinal back pain Current Visit: Yes Status: Acute Code(s): M54.89 - OTHER DORSALGIA SNOMED Code(s): 249260981 (3) Thoracic degenerative disc disease Current Visit: Yes Status: Acute Code(s): M51.34 - OTHER INTERVERTEBRAL DISC DEGENERATION, THORACIC REGION SNOMED Code(s): 63603274 (4) Lumbar degenerative disc disease Current Visit: Yes Status: Acute Code(s): M51.36 - OTHER INTERVERTEBRAL DISC DEGENERATION, LUMBAR REGION SNOMED Code(s): 89602927 (5) Left groin pain Current Visit: Yes Status: Acute Code(s): R10.32 - LEFT LOWER QUADRANT PAIN SNOMED Code(s): 64485079036050187 (6) Paraspinal muscle spasm Current Visit: Yes Status: Acute Code(s): M62.830 - MUSCLE SPASM OF BACK SNOMED Code(s): 34221880 (7) Hypertension Current Visit: Yes Status: Acute Code(s): I10 - ESSENTIAL (PRIMARY) HYPERTENSION SNOMED Code(s): 66850193 (8) Obesity Current Visit: Yes Status: Acute Code(s): E66.9 - OBESITY, UNSPECIFIED SNOMED Code(s): 202690061 (9) Left flank pain Current Visit: Yes Status: Acute Code(s): R10.9 - UNSPECIFIED ABDOMINAL PAIN SNOMED Code(s): 624595497 Plan: Plan: 1. Patient states 2 weeks ago she woke up with significant pain over the left thoracolumbar paraspinal and flank with some radiation around the left ribs towards the abdomen and also into her left groin. She states she has significant difficulty with standing upright position or lying flat in bed. Her pain is better controlled ambulating in a flexed forward position or sitting in a chair with her legs slightly up. She denies any lower extremity weakness or radiculopathy bilaterally. She denies any change or difficulty in urination or bowel movements. She is not experiencing any burning sensations with urination. She denies fever or chills. She denies nausea or vomiting. She states her symptoms have been worsening over the past 2 weeks without any significant improvement. She does have some mild degenerative change on CT and x-ray imaging. Given her ongoing and worsening symptoms and difficulty with regular activities of daily living and work given her symptoms, we'll plan to obtain further imaging for further evaluation. We will plan to obtain a lumbar MRI imaging to include the lower thoracic spine or possibly thoracic MRI imaging. Patient is discussed in detail with Dr. Mik Stover will plan to assess the patient and will order this imaging. We will follow up with the patient for further evaluation and further discussion about a plan of care proceeding forward following the completion and reviewing of her MRI imaging. We did discuss if she is a candidate for treatment with pain management we could plan to consult pain management here at [facility] during her admission. I agree with the above dictation. The patient was seen and examined at bedside. She has severe radiating pain from her lower thoracic spine towards her abdomen. She is not having any lower extremity symptoms. She does not have any weakness in her lower extremity is but has haven't excruciating pain which is been incapacitating for her despite aggressive conservative treatment and management. She has significant debility due to her symptoms. Her skin is clear. She has had computed tomography scan 2 which does not show evidence of nephrolithiasis apparently. With her persistent pain and radicular type pattern over her left flank toward her abdomen from her lower thoracic spine think that imaging with MRI of the thoracic spine is warranted. We'll obtain this and continue management. Time with Patient: Greater than 30 (Including obtaining history, physical examination, reviewing of imaging, and dictation.)
[2023-01-24] MEDS: SODIUM CHLORIDE 0.9% 1,000 ML IV SCH ×2 (12:10→21:36)
[2023-01-24] MEDS: HYDROcodone/APAP 5-325MG 1 EACH TAB PO PRN (13:32)
[2023-01-24] MEDS: methylPREDNISolone SOD SUCCI 125 MG/2 ML VIAL IV SCH ×2 (13:36→20:43)
[2023-01-24] MEDS: HEPARIN SODIUM,PORCINE/PF 5,000 UNIT/0.5 ML SYRINGE SQ SCH ×2 (16:59→23:27)
--- NOTE | 2023-01-24 17:29 | MR ---
EXAMINATION TYPE: MR thoracic spine wo con DATE OF EXAM: 01/24/2023 4:03 PM COMPARISON: 07/12/2021. INDICATION: Patient age:Female; 52 years old; Reason for study: Thoracolumbar back pain, radiating pain to abdomen; . Thoracolumbar back pain, radi ating pain to abdomen TECHNIQUE: Multi planar, multi sequence imaging was performed utilizing: T1-weighted, short-tau inver benito recovery and T2-weighted of the thoracic spine. The patient was not given Gadolinium. IV Contrast: None FINDINGS: Alignment: Alignment is within normal limits. Vertebral bodies have preserved heights. Spinal cord: Spinal cord is within normal limits for signal. Discs: Multilevel disc desiccation is present with multilevel disc space narrowing. T5-T6 disc bulge without significant spinal canal stenosis. The neural foramen are patent. T7-T8 disc bulge with osteophyte with narrowing the ventral subarachnoid space No evidence for signif icant spinal canal or neural foraminal stenosis. T8-T9 disc bulge/osteophyte which impresses upon thee spinal cord. Maintained. Osseous structures: Multilevel Modic endplate changes are seen throughout the spine with osteophyte f ormation and facet joint arthropathy. IMPRESSION: 1. T8-T9 disc bulge/osteophyte which impresses upon the spinal cord. Cord signal is maintained. This indents the spinal cord slightly. 2. The remainder of the levels demonstrate Multilevel disc degeneration changes are present througho ut the spine without significant spinal canal or neural foraminal stenosis.
[2023-01-24] MEDS: atenoloL 50 MG TAB PO SCH (20:43)
--- NOTE | 2023-01-25 00:58 | P.HPIM ---
History of Present Illness H&P Date: 01/24/23 Chief Complaint: Left flank pain. Patient is a 52-year-old female with known history of hypertension, diverticulitis and history of low back pain presents to ER with complaints of left flank pain and radiating across the anterior abdominal region. Patient was seen in the ER with similar symptoms about a week ago. Patient was supposed to follow-up with orthopedic surgery. Presents to ER due to increased pain and is not able to ambulate due to pain. Patient has been taking pain medications, muscle relaxants without much help. Otherwise patient denies any complaints of numbness or tingling. No weakness in the legs. No bowel bladder incontinence. No saddle anesthesia. No fever no chills. Denies any complaints of chest pain or shortness of breath. On admission CT of the abdomen pelvis was done showed no evidence for acute abdominal process. No evidence of obstructive uropathy renal calculus. Laboratory data showed sodium 142 potassium 3.5 chloride 106 bicarb is 29 BUN 27 creatinine 1.01 and blood sugar is 145 AST 69 ALT 121 and alk phos 56. Lipase level is 137. Acute left flank pain and back pain mainly thoracolumbar region. Thoracolumbar degenerative joint disease. Hypertension Obesity with BMI 37.3 DVT prophylaxis with heparin subcu Plan: Patient will be continued on pain management with [place] and Dilaudid as needed. Patient is also on methocarbamol. Patient was seen by orthopedic surgery and was started on Solu-Medrol 60 mg IV every 12 hours. Thoracic spine MRI was ordered. CT of abdomen pelvis showed no evidence of acute abdominal process. No evidence of obstructive uropathy or renal calculus. Continue with home medications and follow-up closely. Past Medical History Past Medical History: Hypertension Additional Past Medical History / Comment(s): Diverticulitis, occasionally low back pain, covid 06/2021, PICC line with removal, appendicitis History of Any Multi-Drug Resistant Organisms: None Reported Past Surgical History: Appendectomy, Section, Cholecystectomy, Tubal Ligation Additional Past Surgical History / Comment(s): D&Cs, EGD, colonoscopy Past Anesthesia/Blood Transfusion Reactions: No Reported Reaction Past Psychological History: No Psychological Hx Reported Additional Psychological History / Comment(s): Pt lives with her spouse and matt. She is independent. Smoking Status: Never smoker Past Alcohol Use History: None Reported Past Drug Use History: None Reported - Past Family History Father Family Medical History: Cancer Additional Family Medical History / Comment(s): Father is living. He has heart problems. Mother Family Medical History: COPD Additional Family Medical History / Comment(s): Mother from COPD. She was a smoker. Medications and Allergies Home Medications Medication Instructions Recorded Confirmed Type Ibuprofen [Motrin] 600 mg PO Q8HR PRN #20 tab 01/11/23 01/23/23 Rx Fluticasone Propionate [Flovent 1 puff INHALATION RT-DAILY PRN 01/23/23 01/23/23 History Diskus] Losartan/Hydrochlorothiazide 1 tab PO DAILY 01/23/23 01/23/23 History [Losartan-Hctz 100-12.5 mg Tab] Zolpidem [Ambien] 10 mg PO HS PRN 01/23/23 01/23/23 History atenoloL 100 mg PO HS 01/23/23 01/23/23 History methocarbamoL [Robaxin-750] 1,500 mg PO TID PRN 01/23/23 01/23/23 History Allergies Allergy/AdvReac Type Severity Reaction Status Date / Time Iodinated Contrast Media Allergy Anaphylaxis Verified 01/23/23 21:04 [Iodinated Contrast- Oral and IV Dye] Physical Exam Vitals: Vital Signs Temp Pulse Pulse Resp BP BP Pulse Ox 01/24/23 08:00 52 L 16 01/24/23 07:30 97.7 F 52 L 16 160/82 97 01/24/23 02:14 97.9 F 56 L 17 168/86 98 01/23/23 21:43 97.9 F 65 16 159/101 97 01/23/23 21:23 98.1 F 54 L 18 192/98 96 01/23/23 20:25 56 L 18 196/86 01/23/23 17:31 98.2 F 74 18 163/97 97 Intake and Output 01/23/23 01/24/23 01/24/23 22:59 06:59 14:59 Intake Total 250 222 Balance 250 222 Intake: Oral 250 222 Other: Voiding Method Toilet Toilet # Voids 1 2 Weight 111.13 kg Results CBC & Chem 7: 01/23/23 18:10 01/24/23 05:43 Labs: Abnormal Lab Results - Last 24 Hours (Table) 01/23/23 01/24/23 Range/Units 18:10 05:43 BUN 27 H (7-17) mg/dL BUN/Creatinine Ratio 25.75 H (12.00-20.00) Ratio Glucose 145 H 145 H (74-99) mg/dL Calcium 8.6 L (8.7-10.3) mg/dL AST 69 H (14-36) U/L ALT 121 H 118 H (4-34) U/L Albumin/Globulin Ratio 1.52 L (1.60-3.17) Ratio Thrombosis Risk Factor Assmnt - DVT/VTE Prophylaxis DVT/VTE Prophylaxis: Pharmacologic Prophylaxis ordered - Choose All That Apply Each Factor Represents 1 point: Age 41-60 years, Obesity (BMI >25) Thrombosis Risk Factor Assessment Total Risk Factor Score: 2 Thrombosis Risk Factor Assessment Level: Low Risk Assessment and Plan Time with Patient: Greater than 30
[2023-01-25] MEDS: HYDROmorphone 1 MG/ML 1 ML SYRINGE IVP PRN ×2 (04:37→10:00)
[2023-01-25] MEDS: PANTOPRAZOLE 40 MG TABLET PO SCH (05:37)
[2023-01-25 07:39] VITALS: RESP 20
[2023-01-25] MEDS: LOSARTAN 50 MG TAB PO SCH (07:53)
[2023-01-25] MEDS: hydroCHLOROthiazide 12.5 MG CAP PO SCH (07:53)
[2023-01-25] MEDS: HEPARIN SODIUM,PORCINE/PF 5,000 UNIT/0.5 ML SYRINGE SQ SCH ×2 (07:53→07:59)
[2023-01-25] MEDS: methylPREDNISolone SOD SUCCI 125 MG/2 ML VIAL IV SCH (07:54)
--- NOTE | 2023-01-25 08:49 | P.PN ---
Progress Note - Text Progress Note Date: 01/25/23 Orthopedic spine: History of present illness: Patient is a very pleasant 52-year-old female who is seen and examined at bedside for follow-up evaluation of her left-sided flank and low back pain. Patient states 2 weeks ago she woke up with significant pain over the left thoracolumbar paraspinal and flank with some radiation around the left ribs towards the abdomen and also into her left groin. She states she has significant difficulty with standing upright position or lying flat in bed. Her pain is better controlled ambulating in a flexed forward position or sitting in a chair with her legs slightly up. She continues to deny any lower extremity weakness or radiculopathy bilaterally. She has good range of motion of her lower extremities. She denies any change or difficulty in urination or bowel movements. She is not experiencing any burning sensations with urination. She denies fever or chills. She denies nausea or vomiting. She states her symptoms have been worsening over the past 2 weeks without any significant improvement. She was evaluated in the emergency department. CT of the abdomen and pelvis was taken at that time without significant findings. Due to her pain she is admitted for further evaluation. Since being seen and examined yesterday, she has had MRI imaging of the thoracic spine which showed some changes at her thoracic spine without significant stenosis or herniated nucleus pulposus. She has been taking hydrocodone, methocarbamol, and methylprednisolone as prescribed with some improvement of her symptoms. She states her symptoms are worse in the morning and later in the day and do improve throughout the day. She says she is ambulating better. Overall, she feels some improvement but her symptoms continue to be present. She would be willing to have further evaluation with pain management. Physical examination: Patient is awake, alert, and oriented 3 Vital signs stable Good chest excursion with deep inspiration and expiration Examination of thoracic and lumbar spine reveals skin is intact with no abrasions, lacerations, or bruises; no erythema, purulence or signs of infection Evidence of paraspinal muscle spasm over the left thoracolumbar spine Lower extremity strength 5/5 bilaterally Patient is able to perform active range of motion of lower extremities independently bilaterally without difficulty Hip flexion against resistance exacerbates left-sided low back pain Evidence of a tattoo over the left calf No signs or symptoms of DVT; no calf pain No pain with internal and external rotation of the hips bilaterally Neurovascularly intact Pertinent studies: MRI of the thoracic spine taken on 01/24/2023: T8-9 disc bulge with slight indentation to the spinal cord without significant stenosis in which cord signal is maintained; visualized thoracic spinal cord is a normal course, signal, and caliber; no evidence of vertebral body compression fracture; no significant stenosis throughout the thoracic spine CT the abdomen pelvis taken on 01/23/2023 reviewed for orthopedic purposes: No evidence of fracture at the lower thoracic and lumbar spine; overall alignment is adequate maintained; no spondylolisthesis; lower thoracic degenerative disc disease; T11-12 anterior osteophytic spurring; disc space and appears to be fairly well maintained throughout the lumbar spine X-ray of the lumbar spine taken on 05/20/2022: Slight scoliotic curvature; evidence of some lateral osteophytic spurring; L3-4 asymmetric degenerative disc disease; no compression fracture deformity; no spondylolisthesis; clips from previous cholecystectomy Assessment: Left-sided thoracolumbar paraspinal pain Left thoracolumbar paraspinal spasm Left-sided flank pain Radicular pain radiating around the left ribs towards the abdomen Pain radiating towards the left groin Lower thoracic degenerative disc disease osteophytic spurring T8-9 disc bulge L3-4 asymmetric degenerative disc disease Hypertension Obesity Plan: 1. Patient states 2 weeks ago she woke up with significant pain over the left thoracolumbar paraspinal and flank with some radiation around the left ribs towards the abdomen and also into her left groin. She states she has significant difficulty with standing upright position or lying flat in bed. Her pain is better controlled ambulating in a flexed forward position or sitting in a chair with her legs slightly up. She denies any lower extremity weakness or radiculopathy bilaterally. She denies any change or difficulty in urination or bowel movements. She is not experiencing any burning sensations with urination. She denies fever or chills. She denies nausea or vomiting. She states her symptoms had been worsening over the past 2 weeks without any significant improvement. Since being seen and examined yesterday, she has had MRI imaging of the thoracic spine which showed some changes at her thoracic spine without significant stenosis or herniated nucleus pulposus. She has been taking hydrocodone, methocarbamol, and methylprednisolone as prescribed with some improvement of her symptoms. She states her symptoms are worse in the morning and later in the day and do improve throughout the day. She says she is ambulating better. She does feel her pain has had some improvement as compared to yesterday. Currently, we'll plan to recommend conservative treatment with medication and consultation with pain management. We discussed would not currently planning for any acute surgical intervention in regards to her thoracic spine as we do not have indications which surgical intervention would provide any significant improvement of her symptoms. Patient has also had some improvement of her symptoms as compared to yesterday. We did recommend continued conservative treatment. We will plan for consultation with pain management. Patient does feel this is a good plan of care. We discussed patient will be cleared for discharge from an orthopedic spine standpoint and we'll plan to have her follow- up in the outpatient setting. Patient may follow-up with Luis Alberto Bautista PA-C or Dr. Mik Stover at [facility] in 3 weeks following discharge. Depending on her progress with conservative treatment, we could consider further imaging outpatient setting. Patient feels is a good plan of care.
[2023-01-25 08:52] LABS: Basophils # (A) 0.01 X 10*3/uL (0.00-0.10); Basophils % (A) 0.1 %; Eosinophils # (A) 0 X 10*3/uL (0.04-0.35); Eosinophils % (A) 0 %; HCT 41.7 % (37.2-46.3); HGB 13.8 d/dL (12.0-15.0); Lymphocytes % (A) 7.8 %; MCH 29.4 pg (27.0-32.0); MCHC 33.1 d/dL (32.0-37.0); MCV 88.9 FL (80.0-97.0); Mean Platelet Volume 11.2 FL (9.5-12.2); Monocytes # (A) 0.56 X 10*3/uL (0.20-1.00); NRBC Per 100 WBC 0 X 10*3/uL (0.00-0.01); Neutrophils # (A) 12.27 X 10*3/uL (1.80-7.70); Neutrophils % (A) 87.5 %; Platelet Count 265 X 10*3/uL (140-440); RBC 4.69 X 10*6/uL (4.10-5.20); RDW 12.5 % (11.5-14.5); WBC 14.02 X 10*3/uL (4.50-10.00)
[2023-01-25 09:37] LABS: BUN/Creat Ratio 27.25 Ratio (12.00-20.00); Blood Urea Nitrogen 21.8 mg/dL (9.0-27.0); Carbon Dioxide 26.8 mmol/L (21.6-31.8); Chloride 104 mmol/L (96-109); Glucose 125 mg/dL (70-110); Potassium 4.5 mmol/L (3.5-5.5); Sodium 141 mmol/L (135-145)
--- NOTE | 2023-01-25 12:48 | P.PAINCN ---
History of Present Illness - Reason for Consult Consult date: 01/25/23 - History of Present Illness This is 58 years old female with the 2 weeks history of severe low back pain, located in the left thoracolumbar area, with radiation to his left hip and left groin , patient denies any initiating event but she reported that she worked at [employer] and she does a lot of lifting, the pain is constant and severe increased with any activity she is not able to ambulate secondary to intensity of the pain, she denies any lower extremity weakness she denies any fever or night sweats, she denies any change in the bowel movement or urination, [facility] ,and she had appointment next week Pertinent studies: CT the abdomen pelvis taken on 01/23/2023 reviewed for orthopedic purposes: No evidence of fracture at the lower thoracic and lumbar spine; overall alignment is adequate maintained; no spondylolisthesis; lower thoracic degenerative disc disease; T11-12 anterior osteophytic spurring; disc space and appears to be fairly well maintained throughout the lumbar spine X-ray of the lumbar spine taken on 05/20/2022: Slight scoliotic curvature; evidence of some lateral osteophytic spurring; L3-4 asymmetric degenerative disc disease; no compression fracture deformity; no spondylolisthesis; clips from previous cholecystectomy Past Medical History Past Medical History: Hypertension Additional Past Medical History / Comment(s): Diverticulitis, occasionally low back pain, covid 06/2021, PICC line with removal, appendicitis History of Any Multi-Drug Resistant Organisms: None Reported Past Surgical History: Appendectomy, Section, Cholecystectomy, Tubal Ligation Additional Past Surgical History / Comment(s): D&Cs, EGD, colonoscopy Past Anesthesia/Blood Transfusion Reactions: No Reported Reaction Past Psychological History: No Psychological Hx Reported Additional Psychological History / Comment(s): Pt lives with her spouse and matt. She is independent. Smoking Status: Never smoker Past Alcohol Use History: None Reported Past Drug Use History: None Reported - Past Family History Father Family Medical History: Cancer Additional Family Medical History / Comment(s): Father is living. He has heart problems. Mother Family Medical History: COPD Additional Family Medical History / Comment(s): Mother from COPD. She was a smoker. Medications and Allergies Home Medications Medication Instructions Recorded Confirmed Type Ibuprofen [Motrin] 600 mg PO Q8HR PRN #20 tab 01/11/23 01/23/23 Rx Fluticasone Propionate [Flovent 1 puff INHALATION RT-DAILY PRN 01/23/23 01/23/23 History Diskus] Losartan/Hydrochlorothiazide 1 tab PO DAILY 01/23/23 01/23/23 History [Losartan-Hctz 100-12.5 mg Tab] Zolpidem [Ambien] 10 mg PO HS PRN 01/23/23 01/23/23 History atenoloL 100 mg PO HS 01/23/23 01/23/23 History methocarbamoL [Robaxin-750] 1,500 mg PO TID PRN 01/23/23 01/23/23 History Allergies Allergy/AdvReac Type Severity Reaction Status Date / Time Iodinated Contrast Media Allergy Anaphylaxis Verified 01/23/23 21:04 [Iodinated Contrast- Oral and IV Dye] Physical Exam Vitals: Vital Signs Temp Pulse Resp BP Pulse Ox 01/25/23 08:00 52 L 20 01/25/23 07:00 97.5 F L 52 L 20 165/91 100 01/25/23 02:19 97.9 F 53 L 15 151/84 95 01/24/23 19:12 98.2 F 52 L 15 171/75 98 01/24/23 14:23 98.2 F 59 L 16 150/79 100 01/24/23 14:00 59 L 16 Intake and Output 01/24/23 01/25/23 01/25/23 22:59 06:59 14:59 Intake Total 120 Balance 120 Intake: Oral 120 Other: Voiding Method Toilet Toilet # Voids 1 2 Physical Examinations : -Constitutiona : Cooperative , not in acute distress . -HEENT : nech : supple , no Lymphadenopathy , normal thyroid size . : eyes : no ptosis , no icterus, no photophobia . - neurologic : Cranial nerve II to XII intact , no focal neurological deffecit . -psychatric : alert , oriented X 3 , appropriate affect , intact judgment and insight . -Lymphatic : no Lymphadenopathy . - musculoskeltal : Lumber spine moter stegnth lower extremities ,thigh and legs 5/5 Right side , 5/5 Left side deep tendon reflexes : normal Knee Jerk , normal ankle Jerk lumber facet Loading Test = negative bilaterally Range of motion of the lumbar spine Flexion 60 degrees, extension 10 degrees strait leg raising test = negative bilaterally Fabere test= negative bilaterally Sever tenderness over the Sacroiliac joint on the Left sides Gaenslen test= positive left . Seated flexion test= positive Left . Distraction test= positive left Sacroiliac compression test= positive left Results CBC & Chem 7: 01/25/23 05:48 01/25/23 05:48 Labs: Abnormal Lab Results - Last 24 Hours (Table) 01/25/23 01/25/23 Range/Units 05:48 05:48 WBC 14.02 H (4.50-10.00) X 10*3/uL Neutrophils # 12.27 H (1.80-7.70) X 10*3/uL Eosinophils # 0 L (0.04-0.35) X 10*3/uL BUN/Creatinine Ratio 27.25 H (12.00-20.00) Ratio Glucose 125 H (70-110) mg/dL Comments: MRI of the thoracic spine= T8 9 bulging disc disease Assessment and Plan Plan: Assessment and plan=1-acute low back pain secondary to bulging disc disease thoracic spine. 2-left sacroiliitis. Discussed with the patient the option of doing thoracic epidural steroid injection and left sacroiliac joint steroid injection, she reported that currently she is comfortable on the current medication, Dilaudid and [place] when necessary. Patient's reported that she does not want any injection at this point and she want to see Dr Vogel as an outpatient once she is discharged. Time with Patient: Less than 30 PQRS Measure Charge Sheet - Pain Location Back Non-Pharmacological Interventions: Darkened Room, Distraction, Emotional/Spiritual Support, Environmental Control, Reduce Environmental Stimuli, Relaxation Technique Pharmacological Interventions: Medication PQRS Narrative: Smoking Status Never smoker Blood Pressure [Right Arm] 165/91 Blood Pressure 192/98 Pain Intensity [Back] 6 Pain Intensity 5 Pain Scale Used Numeric (1 - 10) Scale Used Numeric (1 - 10) Home Medications: Ambulatory Orders Ibuprofen [Motrin] 600 mg PO Q8HR PRN #20 tab 01/11/23 Fluticasone Propionate [Flovent Diskus] 1 puff INHALATION RT-DAILY PRN 01/23/23 Losartan/Hydrochlorothiazide [Losartan-Hctz 100-12.5 mg Tab] 1 tab PO DAILY 01/23/23 Zolpidem [Ambien] 10 mg PO HS PRN 01/23/23 atenoloL 100 mg PO HS 01/23/23 methocarbamoL [Robaxin-750] 1,500 mg PO TID PRN 01/23/23
[2023-01-25 14:42] VITALS: BP 147/75; PULSE 58; TEMP 98
== END 2023-01-25 16:42 | disposition home or self-care (01) ==
LOC: EC 17:23 → 6NMEDSUR 20:55
PROVIDERS: ADMIT Hospitalist; ATTEND Hospitalist
DX: R10.32 Left lower quadrant pain (principal); M51.34 Other intervertebral disc degeneration, thoracic region; M51.36 Other intervertebral disc degeneration, lumbar region; M41.86 Other forms of scoliosis, lumbar region; M51.16 Intervertebral disc disorders with radiculopathy, lumbar region; M47.25 Other spondylosis with radiculopathy, thoracolumbar region; M25.78 Osteophyte, vertebrae; M62.830 Muscle spasm of back; I10 Essential (primary) hypertension; E66.9 Obesity, unspecified; Z68.37 Body mass index [BMI] 37.0-37.9, adult; Z86.16 Personal history of COVID-19; Z90.49 Acquired absence of other specified parts of digestive tract; Z98.51 Tubal ligation status; Z79.51 Long term (current) use of inhaled steroids; Z79.899 Other long term (current) drug therapy
CPT/HCPCS: 96361 ×2; 96372; 96375 ×2; 96376 ×2; 96374; 99285; 36415; 80053 ×2; 80048; 82150; 83605; 83690; 83735; 84100; 85025 ×2; 83036; 74176; 72146; G0378 ×3; J1100; J2930 ×2; J2405; J1170 ×3; J1885; J1644

== ENCOUNTER → 2023-05-25 | Outpatient (CLI) | payer OTHER ==
--- NOTE | 2023-05-25 13:22 | XR ---
EXAMINATION TYPE: XR chest 2V DATE OF EXAM: 05/25/2023 COMPARISON: 07/16/2022 INDICATION: Presurgical clearance TECHNIQUE: Frontal and lateral views of the chest are obtained. FINDINGS: The heart size is normal. The pulmonary vasculature is normal. The lungs are clear. IMPRESSION: 1. No acute pulmonary process.
== END | disposition home or self-care (01) ==
LOC: LABPAT 12:19
PROVIDERS: ATTEND Orthopaedic Surgery Orthopaedic Surgery of the Spine
DX: Z01.818 Encounter for other preprocedural examination (principal); S06.A1XA Traumatic brain compression with herniation, initial encounter; X58.XXXA Exposure to other specified factors, initial encounter
CPT/HCPCS: 71046

== ENCOUNTER → 2023-05-28 | Outpatient (CLI) | payer OTHER ==
[2023-05-28 11:08] LABS: INR 0.9 (<1.2); Partial Thromboplastin Time 23.3 sec (22.0-30.0); Prothrombin Time 9.7 sec (10.0-12.5)
[2023-05-28 23:15] LABS: Basophils # (A) 0.05 X 10*3/uL (0.00-0.10); Basophils % (A) 0.9 %; Eosinophils # (A) 0.16 X 10*3/uL (0.04-0.35); Eosinophils % (A) 2.7 %; HCT 42.4 % (37.2-46.3); HGB 13.3 g/dL (12.0-15.0); Lymphocytes # (A) 1.26 X 10*3/uL (0.90-5.00); Lymphocytes % (A) 21.6 %; MCH 28.8 pg (27.0-32.0); MCHC 31.4 g/dL (32.0-37.0); MCV 91.8 FL (80.0-97.0); Mean Platelet Volume 10.6 FL (9.5-12.2); Monocytes # (A) 0.39 X 10*3/uL (0.20-1.00); Monocytes % (A) 6.7 %; NRBC Per 100 WBC 0 X 10*3/uL (0.00-0.01); Neutrophils # (A) 3.94 X 10*3/uL (1.80-7.70); Neutrophils % (A) 67.8 %; Platelet Count 252 X 10*3/uL (140-440); RBC 4.62 X 10*6/uL (4.10-5.20); RDW 12.1 % (11.5-14.5); WBC 5.82 X 10*3/uL (4.50-10.00)
[2023-05-28 23:24] LABS: Appearance,Urine Cloudy (Clear); Bilirubin,Urine Negative (Negative); Blood,Urine Trace (Negative); Color,Urine Yellow (Yellow); Ketones,Urine Negative (Negative); Nitrite,Urine Negative (Negative); Specific Gravity,Urine 1.018 (1.001-1.030)
[2023-05-28 23:30] LABS: Bacteria,Urine None Seen (None Seen)
[2023-05-28 23:36] LABS: Blood Urea Nitrogen 16.7 mg/dL (9.0-27.0); Calcium 9.9 mg/dL (8.7-10.3); Carbon Dioxide 28.1 mmol/L (21.6-31.8); Chloride 104 mmol/L (96-109); Glucose 101 mg/dL (70-110); Sodium 143 mmol/L (135-145)
== END | disposition home or self-care (01) ==
LOC: LABPAT 09:52
PROVIDERS: ATTEND Orthopaedic Surgery Orthopaedic Surgery of the Spine
DX: Z01.818 Encounter for other preprocedural examination (principal); S06.A1XA Traumatic brain compression with herniation, initial encounter; X58.XXXA Exposure to other specified factors, initial encounter
CPT/HCPCS: 80048; 81001; 85025; 85610; 85730; 86850; 86900; 86901; 87070

== ENCOUNTER 2023-06-08 06:10 | Observation (INO) | payer OTHER ==
[2023-05-31 10:21] VITALS: BMI 38.5
[~2023-06-08 06:10] MED LIST: ceFAZolin 1,000 MG in SODIUM CHLORIDE 0.9% IRRIGATIO 1,000 ML IRRIGATION PRN
[2023-06-08] MEDS ORDERED: ONDANSETRON 4 MG/2 ML VIAL IVP ONE (06:28)
[2023-06-08] MEDS ORDERED: LIDOCAINE 1% (10MG/ML) FOR IV START INTRADERMA PRN (06:28)
[2023-06-08] MEDS: LACTATED RINGERS 1,000 ML IV SCH ×2 (06:45→15:12)
[2023-06-08] MEDS ORDERED: SUCCINYLCHOLINE CHLORIDE 200 MG/10 ML VIAL IV ONE (07:32)
[2023-06-08] MEDS ORDERED: LIDOCAINE 1% INJ 10MG/ML (20 ML MDV) ONE (07:32)
[2023-06-08] MEDS ORDERED: PROPOFOL 10 MG/ML 20 ML VIAL IV ONE (07:32)
[2023-06-08] MEDS ORDERED: ePHEDrine 50 MG/ML 1 ML VIAL ONE (07:32)
[2023-06-08] MEDS ORDERED: GLYCOPYRROLATE 0.2 MG/ML 2 ML VIAL ONE (07:32)
[2023-06-08] MEDS ORDERED: MIDAZOLAM 2 MG/2 ML VIAL ONE (07:32)
[2023-06-08] MEDS ORDERED: ROCURONIUM 10 MG/ML (5 ML VIAL) IV ONE (07:32)
[2023-06-08] MEDS ORDERED: NEOSTIGMINE 1 MG/ML 10 ML VIAL ONE (07:32)
[2023-06-08] MEDS ORDERED: fentaNYL (PF) 50 MCG/ML 2 ML AMP ONE (07:32)
[2023-06-08] MEDS ORDERED: PHENYLEPHRINE-0.9% NACL SYG 1,000 MCG/10 ML SYRINGE ONE (07:32)
[2023-06-08] MEDS ORDERED: LACTATED RINGERS 1,000 ML IV ONE (07:37)
[2023-06-08] MEDS ORDERED: LIDOCAINE 0.5%-EPI 1:200,000 50 ML VIAL SQ ONE ×2 (08:25)
[2023-06-08] MEDS ORDERED: THROMBIN (BOVINE) 5,000 UNIT VIAL MISCELLANE ONE (08:28)
[2023-06-08] MEDS ORDERED: SENNOSIDES-DOCUSATE SODIUM 1 EACH TAB PO PRN (11:16)
[2023-06-08] MEDS ORDERED: MAGNESIUM HYDROXIDE 2,400 MG/30 ML CUP PO PRN (11:16)
[2023-06-08] MEDS ORDERED: BENZOCAINE/MENTHOL LOZENG 1 EACH LOZENGE MUCOUS MEM PRN (11:16)
[2023-06-08] MEDS ORDERED: methocarbamoL 750 MG TAB PO PRN (11:20)
[2023-06-08] MEDS ORDERED: ZOLPIDEM 5 MG TAB PO PRN (11:20)
[2023-06-08] MEDS ORDERED: HYDROmorphone 1 MG/ML 1 ML SYRINGE IVP ONE (11:26)
--- NOTE | 2023-06-08 11:28 | FL ---
Intraoperative/procedural fluoroscopic services were provided. Total fluoroscopy time is 48 seconds w ith a total of 6 submitted images to PACS. Please see the operative/procedural note for further detai ls. DAP: 134.25 Gycm2
--- NOTE | 2023-06-08 11:30 | P.OP ---
Date of Procedure: 06/08/23 Preoperative Diagnosis: Herniated nucleus pulposus L5-S1, spondylolisthesis L5-S1, degenerative disc disease L5-S1, lower extremity radiculopathy, lower extremity weakness, low back pain, facet arthritis, degenerative disc disease Postoperative Diagnosis: Same Anesthesia: GETA Pathology: none sent Condition: stable Disposition: PACU Description of Procedure: DESCRIPTION OF PROCEDURE(S): BRIEF OPERATIVE NOTE Preoperative Diagnosis: Herniated nucleus pulposus L5-S1, spondylolisthesis L5- S1, degenerative disc disease L5-S1, lower extremity radiculopathy, lower extremity weakness, low back pain, facet arthritis, degenerative disc disease Postoperative Diagnosis: Same Procedure: Laminectomy and decompression L5-S1 for decompression beyond the scope of preparation for fusion Computer CT navigation aided Minimally invasive Posterior lateral decompression and facet fusion L5-S1 Minimally invasive Transforaminal lumbar interbody fusion for a 360 fusion L5-S1 Discectomy for decompression beyond the scope of preparation for fusion at L5-S1 Placement of interbody graft at L5-S1 Use of computer navigation for fusion at L5-S1 Local autogenous bone grafting Aspiration of bone marrow from the vertebral body pedicle at L5 on the right Use of bone graft extenders with DBM bone putty Surgeon: Dr. Stover Antenna Installer: Nasim CERVANTES who is present throughout the entire the case persistence during positioning, dissection, exposure, visualization, and all crucial elements of the case as well as closure. Anesthesia: General anesthesia per Dr. Dorsey Estimated blood loss: Approximately 150 mL Complications: None apparent Components implanted: K2M minimally invasive [place] pedicle screw system withscrews measuring 6.5 mm in diameter to rods one [place] interbody cage with 1 bone graft substitute and 3 mL of DBM [place] bone putty to supplement the local autogenous bone graft and bone marrow aspirate. Of note the case was approved for DBM bone putty from [employer]. The Depuy bone putty was not available at the time of surgery at this hospital, and we had comparable product with DBM bone putty from [employer] with the [place] bone putty which was used in the case as a substitute. Disposition: To recovery room in good stable condition. OPERATIVE INDICATIONS The patient has had severe issues at their lower extremity in her lower back over the past several years with significant worsening over the past several months. Over the past few months the patient had pain at their back and their lower extremities. The patient is having severe radicular symptoms at their lower extremity with weakness. She was having persistent pain despite aggressive conservative care. Her pain stemmed from her disc herniation and listhesis at L5-S1 and correlated well with her imaging findings. The patient is having significant pain in their back. They are unable to obtain any comfort. We did aggressive conservative treatment with medications therapy and interventional pain management however thery were not having any relief. The patient also showed evidence of a listhesis with some dynamic instability. The patient has been through conservative treatment. We discussed various treatment options including surgery, and the patient wishes to proceed with surgery We discussed the risk, patient's alternatives and benefits of surgery including but not limited to, risk of bleeding risk of infection, risk of need for further surgery, risk of decreased, loss of motion, muscle function, malunion nonunion, hardware failure, nerve damage, paralysis, heart attack, blindness and . They understood issues with the current pandemic and the possibility of exposure. OPERATIVE SUMMARY After discussing all the risks, patient alternatives and benefits at length, the patient elected to proceed with surgical intervention, signed informed consent, and presented for their procedure. The patient was seen and examined in the preoperative holding area and the surgical site was marked. The patient was g iven antibiotics and brought to the operating room. The patient was sedated and intubated by anesthesia in standard fashion. The patient was positioned on to the operating room table in a prone position on the appropriate frame which was well-padded and well molded. We were careful to pad any bony prominences and pressure points. We were careful to maintain the patient's cervical spine and good neutral alignment and position throughout. The patient was prepped and draped in a normal standard fashion. An appropriate timeout and keystone protocol performed. We were able to proceed with the surgery. The local wound area was infiltrated with local anesthetic. Over the right iliac crest I was able to make small stab incisions and establish a guidepin screw fixation to the iliac crest 2. I was able place the computer referencing device over the guidepins to establish an appropriate reference point for the [facility] CT navigation. We then were able to place patient in an appropriate drape and do a navigation spin for visualization and 3-D reconstruction of the lumbar spine. I was able utilize C-arm guidance and navigation to establish appropriate position over the pedicles bilaterally at the appropriate levels at L5-S1 . We had to do multiple specimens in order to get excellent guidance system navigation but were able to obtain excellent navigation for the case. With the appropriate levels confirmed was able to make small incisions over the appropriate pedicle sites bilaterally. Utilizing the computer navigation device I was able to establish bony landmarks at the right iliac crest for a bony reference point for the navigation device. I was able to establish a Jamsh[place] needle over the lateral aspect of the pedicle and advanced the trocar into the pedicle being careful not to breech superiorly inferiorly medially or laterally using computer navigation device. Position was confirmed regularly with AP and lateral images on C-arm and with the computer navigation device at the appropriate levels bilaterally. I was able to establish the trocar into the pedicle appropriately into the posterior aspect of the vertebral body bilaterally at the appropriate levels. This was done at each of the pedicle positions and each of the vertebrae. At the superior vertebrae I was able to take approximately 25 mL of bone aspiration for use later in the case to supplement the allograft and autograft bone. I was able place the guidewire into the trocar and into the vertebral body appropriately under C-arm guidance. Dissection was taken down over the wire to the appropriate starting position for the screw placed. The appropriate length screw was chosen, threaded over the guidewire and screwed appropriately into the pedicle and vertebral body under C- arm guidance in excellent alignment and position with good bony purchase. This is done at each of the screw sites at the appropriate levels.. With the screws intact I extended the incision to connect the screw hole sites on the most symptomatic side on the left. I dissected down to establish access over the pars and lamina to the base of the spinous process. I was able to expose the facet joint. The capsule the facet was taken down and showed some facet arthrosis at the joint. I was able to use a combination of curettes and Kerrison rongeurs and a high-speed drill to take down the facet joint and do a facetectomy at L5-S1. I was able get excellent foraminal decompression and central decompression with undermining across midline to perform a laminectomy centrally and contralaterally. I was able get good central decompression. The ligamentum flavum was taken down to further decompress centrally and at bilateral neural foramen. I was able to expose the disc space and visualize the traversing nerve root. Note was made of some disc protrusion and disc herniation that was abutting the traversing nerve root at the level causing further compression of the nerve root. I was able to establish a annulotomy at the appropriate level protecting soft tissue and neural structures. There was a large left paracentral disc herniation with extruded fragment at the area. I was able to remove the disc extrusion and disc herniation. This provided further decompression of the area beyond the scope of preparation for fusion. Note was made of some significant disc desiccation at the disc. I performed a complete discectomy with accommodation of curettes and rasps and scrapers. I was able get good endplate preparation at the disc space. I sized for the appropriate size interbody spacer protecting the soft tissue and neural structures. The wound was copiously irrigated and suctioned dry. There is no evidence of any dural tear or leak. I was able to pack the disc space with local autogenous bone graft as well as a small amount of bone graft which was also placed into the interbody cage itself. Protecting the soft tissue structures and neural structures I was able place the interbody cage in good alignment and good position with good fit and fill at the interbody space. Position was confirmed with C-arm guidance. Good hemostasis maintained. There is no evidence of any dural tear or leak. The wound was irrigated and suctioned dry. With the hardware intact, intraoperative C-arm imaging was again taken which showed good alignment and position of the hardware at the appropriate levels. We were then able to measure, contour and place the rods and appropriate hardware bilaterally at L5-S1. I was able to place capcrews, tighten them down, and torque them with the torque screwdriver appropriately. With this intact I was able to place the local autogenous bone graft with additional bone graft enhancer as necessary into the posterior lateral gutters over the decorticated transverse processes and facet joints on the contralateral side. The remainder of the bone graft was placed over the facet joint on the contralateral side after taking down the facet joint capsule. With the bone graft intact, a stable construct, and good decompression at the appropriate levels, we were able to proceed with closure. Good hemostasis was maintained. There is no evidence of dural tear or leak. The fascia was closed for a watertight closure. he subcuticular tissue was closed with absorbable suture. The wound was cleaned and dried and dressed with the appropriate dressing. The drapes were broken down. The patient was gently rolled back onto their hospital bed being careful to maintain their cervical spine and good neutral alignment and position. They were woken up by anesthesia, extubated, and brought to the recovery room in good stable condition. The patient will be admitted to the hospital for appropriate postoperative care, medical management and monitoring. We will continue to follow them closely about the postoperative course.
[2023-06-08] MEDS: HYDROmorphone 0.5 MG/0.5 ML SYRINGE IVP PRN ×3 (11:39→14:45)
[2023-06-08] MEDS ORDERED: droPERidol 5 MG/2 ML VIAL IVP ONE (12:44)
[2023-06-08] MEDS: HYDROcodone/APAP 10-325MG 1 EACH TAB PO PRN ×2 (16:29→21:19)
[2023-06-08] MEDS: ONDANSETRON 4 MG/2 ML VIAL IVP PRN (17:31)
[2023-06-08] MEDS: CYCLOBENZAPRINE 10 MG TAB PO PRN (19:18)
[2023-06-08] MEDS: HYDROmorphone 1 MG/ML 1 ML SYRINGE IVP PRN ×2 (19:18→23:14)
[2023-06-08] MEDS: SODIUM CHLORIDE 0.9% 1,000 ML IV SCH (21:19)
[2023-06-08] MEDS: atenoloL 50 MG TAB PO SCH (21:19)
[2023-06-08] MEDS: FLUTICASONE 44 MCG INHALER INHALATION SCH (21:40)
--- NOTE | 2023-06-08 23:55 | CONS ---
CONSULTATION REASON FOR CONSULTATION: Advice regarding hypertension and other medical issues, requested by Orthopedic Surgery. HISTORY OF PRESENT ILLNESS: This is a 52-year-old woman with a past medical history of hypertension and multiple complex medical issues, underwent L5-S1 surgery for herniated nucleus pulposus. The patient is complaining of severe back pain. There is no history of any fever, rigor, or chills. PAST MEDICAL HISTORY: Reviewed includes hypertension. Rest of the history and rest of the chart are also reviewed. HOME MEDICATIONS: Reviewed, Robaxin. Doses and rest of the medications are reviewed. ALLERGIES: Iodinated contrast dye. FAMILY HISTORY: History of heart problems. SOCIAL HISTORY: No history of smoking or alcohol intake. REVIEW OF SYSTEMS: Fourteen-point review is negative except as mentioned earlier. PHYSICAL EXAMINATION: VITAL SIGNS: Pulse 64, blood pressure 92/60, respirations 18. HEENT: Conjunctivae are normal. NECK: No jugular venous distention. CARDIOVASCULAR: S1 and S2 muffled. RESPIRATORY: Breath sounds diminished at the bases. ABDOMEN: Soft and nontender. LEGS: No edema. NERVOUS SYSTEM: No focal deficits. BACK: Status post surgery. LABORATORY DATA: Not available. ASSESSMENT: 1. Status post herniated nucleus pulposus surgery. 2. Back pain. 3. Hypertension. 4. History of degenerative joint disease. 5. History of diverticulosis. RECOMMENDATIONS AND DISCUSSION: In this 52-year-old woman presented after surgery, at this time, I recommend to continue with current medications. Continue symptomatic treatment. Otherwise, resume the home medications. DVT prophylaxis. Incentive spirometry. We will follow the patient closely with you. MMODL / IJN: [id number] /
[2023-06-09] MEDS: SODIUM CHLORIDE 0.9% 1,000 ML IV SCH ×2 (00:54→21:22)
[2023-06-09] MEDS: HYDROcodone/APAP 10-325MG 1 EACH TAB PO PRN ×2 (01:58→22:57)
[2023-06-09] MEDS: ONDANSETRON 4 MG/2 ML VIAL IVP PRN (03:37)
[2023-06-09] MEDS: HYDROmorphone 1 MG/ML 1 ML SYRINGE IVP PRN ×5 (03:37→20:04)
[2023-06-09] MEDS: LACTATED RINGERS 1,000 ML IV SCH ×2 (06:14)
[2023-06-09] MEDS: SENNOSIDES-DOCUSATE SODIUM 1 EACH TAB PO SCH (08:00)
[2023-06-09] MEDS: hydroCHLOROthiazide 12.5 MG CAP PO SCH ×2 (08:00→08:01)
[2023-06-09] MEDS: LOSARTAN 50 MG TAB PO SCH (08:00)
[2023-06-09] MEDS: FLUTICASONE 44 MCG INHALER INHALATION SCH ×2 (08:58→21:06)
[2023-06-09] MEDS ORDERED: NON FORMULARY DRUG (Losartan/Hydrochlorothiazide [Losartan-Hctz 100-12.5 Mg Tab] 1 EACH Ta PO SCH (09:00)
--- NOTE | 2023-06-09 09:01 | P.PN ---
Progress Note - Text Progress Note Date: 06/09/23 Postoperative day #1 Patient is seen and examined today at bedside. The patient has some pain around the surgical site as expected. She says her legs are doing well. She is not having any new numbness tingling or weakness in her lower extremity is. She has been able tolerate some of her diet. She is not having any nausea or vomiting Pain is being controlled with medication. Physical Exam Afebrile with stable vital signs Abdomen is soft nontender. Chest has good excursion deep and space expiration The incision site is clean dry and intact. No erythema there is no purulence. Extremities have not had neurologic change from prior to surgery. She has sustained dorsal flexion plantar flexion and EHL intact Calves and thighs were soft nontender without evidence of DVT. Assessment/Plan Postoperative day #1 status post minimally invasive decompression fusion L5-S1 for disc herniation with listhesis and low back pain and lower extremity radiculopathy Patient is progressing as expected from the surgery. We will try to increase her mobilization today. She still requiring some IV medications but hopefully we'll be able to transition over to oral medications fully We will continue to increase the patient's mobilization with therapy. We will continue pain control with oral or IV medications. We'll continue to follow patient closely. Issac she'll be able to mobilize better and potentially be discharged and 1 or 2 days
[2023-06-09 11:16] LABS: Basophils # (A) 0.03 X 10*3/uL (0.00-0.10); Basophils % (A) 0.3 %; Eosinophils # (A) 0.01 X 10*3/uL (0.04-0.35); Eosinophils % (A) 0.1 %; HCT 35.6 % (37.2-46.3); HGB 11.7 g/dL (12.0-15.0); Lymphocytes # (A) 1.17 X 10*3/uL (0.90-5.00); Lymphocytes % (A) 9.9 %; MCH 28.7 pg (27.0-32.0); MCHC 32.9 g/dL (32.0-37.0); MCV 87.5 FL (80.0-97.0); Mean Platelet Volume 10.6 FL (9.5-12.2); Monocytes # (A) 0.82 X 10*3/uL (0.20-1.00); Monocytes % (A) 6.9 %; NRBC Per 100 WBC 0 X 10*3/uL (0.00-0.01); Neutrophils # (A) 9.73 X 10*3/uL (1.80-7.70); Neutrophils % (A) 82.4 %; Platelet Count 205 X 10*3/uL (140-440); RBC 4.07 X 10*6/uL (4.10-5.20); RDW 12.5 % (11.5-14.5); WBC 11.81 X 10*3/uL (4.50-10.00)
[2023-06-09 11:33] LABS: BUN/Creat Ratio 13.75 Ratio (12.00-20.00); Calcium 8.3 mg/dL (8.7-10.3); Carbon Dioxide 25.3 mmol/L (21.6-31.8); Chloride 105 mmol/L (96-109); Glucose 125 mg/dL (70-110); Potassium 3.6 mmol/L (3.5-5.5); Sodium 139 mmol/L (135-145)
--- NOTE | 2023-06-09 15:28 | PN ---
PROGRESS NOTE DATE OF SERVICE: 06/09/2023 SUBJECTIVE: This is a 52-year-old woman, who was admitted after a herniated nucleus pulposus surgery and is being closely monitored at this time. No chest pain. No palpitations. No fever. The patient is able to sit up. PHYSICAL EXAMINATION: VITAL SIGNS: Pulse 77, blood pressure 119/67, respirations 16. CHEST: Clear to auscultation. CARDIOVASCULAR: S1 and S2 muffled ABDOMEN: Soft. NERVOUS SYSTEM: Nonfocal. LABORATORY DATA: Reviewed. ASSESSMENT: 1. Status post herniated nucleus pulposus surgery. 2. Back pain. 3. Hypertension. 4. History of degenerative joint disease. 5. History of diverticulosis. RECOMMENDATIONS: Recommend to continue current medications. Continue symptomatic treatment. Otherwise, closely monitor. DVT prophylaxis. Incentive spirometry. Further recommendations to follow. MMODL / IJN: [id number] /
[2023-06-09] MEDS: atenoloL 50 MG TAB PO SCH (20:29)
[2023-06-09] MEDS: CYCLOBENZAPRINE 10 MG TAB PO PRN (20:29)
[2023-06-10] MEDS: HYDROmorphone 0.5 MG/0.5 ML SYRINGE IVP PRN ×2 (01:27→16:29)
[2023-06-10] MEDS: SODIUM CHLORIDE 0.9% 1,000 ML IV SCH ×2 (03:08→16:30)
[2023-06-10] MEDS: CYCLOBENZAPRINE 10 MG TAB PO PRN ×2 (05:00→16:30)
[2023-06-10] MEDS: HYDROcodone/APAP 10-325MG 1 EACH TAB PO PRN ×6 (05:01→22:10)
--- NOTE | 2023-06-10 08:03 | P.PN ---
Progress Note - Text Progress Note Date: 06/10/23 Postoperative day #2 Patient is seen and examined today at bedside. The patient has some pain around the surgical site as expected. She is up in the chair but still needed some assistance to get up. She still requiring some IV pain medication Pain is being controlled with medication. Physical Exam Afebrile with stable vital signs Abdomen is soft nontender. Chest has good excursion deep and space expiration The incision site is clean dry and intact. No erythema there is no purulence. There is no active drainage Extremities have not had neurologic change from prior to surgery. She has sustained dorsal flexion plantar flexion and EHL intact at her bilateral feet and hips Calves and thighs were soft nontender without evidence of DVT. Assessment/Plan Postoperative day #2 status post minimally invasive decompression fusion L5-S1 for her spondylolisthesis with spinal stenosis and lower extremity radiculopathy Patient is progressing as expected from the surgery. Her pain is getting better controlled that she still requiring occasional IV medication. She is transitioning adequately to orals. We will continue to increase the patient's mobilization with therapy. She still needing some assistance but is making progress and I think she'll be able walk toward the hallways today's with some assistance. I think she'll become more independent tomorrow We will continue pain control with oral or IV medications. We'll continue to follow patient closely. I think it is likely the patient will be able to be discharged home tomorrow when she is fully safe with her independence with mobilization and her pain control.
[2023-06-10] MEDS: FLUTICASONE 44 MCG INHALER INHALATION SCH ×2 (08:42→20:16)
[2023-06-10] MEDS: hydroCHLOROthiazide 12.5 MG CAP PO SCH ×2 (09:06→11:07)
[2023-06-10] MEDS: SENNOSIDES-DOCUSATE SODIUM 1 EACH TAB PO SCH (09:09)
[2023-06-10] MEDS: LACTATED RINGERS 1,000 ML IV SCH ×2 (09:18)
[2023-06-10] MEDS: LOSARTAN 50 MG TAB PO SCH (11:07)
[2023-06-10] MEDS: HYDROmorphone 1 MG/ML 1 ML SYRINGE IVP PRN ×2 (11:15→20:22)
--- NOTE | 2023-06-10 16:43 | PN ---
PROGRESS NOTE DATE OF SERVICE: 06/10/2023 SUBJECTIVE: This is a 52-year-old woman, who was admitted after back surgery. She is improving significantly. No chest pain. No palpitation. PHYSICAL EXAMINATION: VITAL SIGNS: Pulse is 84, blood pressure 104/67, respirations 18. CHEST: Clear to auscultation. CARDIOVASCULAR: S1 and S2 muffled. ABDOMEN: Soft non nontender. LABORATORY DATA: Reviewed. ASSESSMENT: 1. Status post herniated nucleus pulposus surgery. 2. Back pain. 3. Hypertension. 4. History of degenerative joint disease. 5. History of diverticulosis. RECOMMENDATIONS: Recommend to continue current medications. Continue symptomatic treatment. We will continue to monitor. Closely follow with Orthopedic Surgery. Further recommendations to follow. MMODL / IJN: [id number] /
[2023-06-10] MEDS: atenoloL 50 MG TAB PO SCH (20:21)
[2023-06-11] MEDS: CYCLOBENZAPRINE 10 MG TAB PO PRN ×3 (00:49→20:37)
[2023-06-11] MEDS: HYDROmorphone 1 MG/ML 1 ML SYRINGE IVP PRN ×5 (00:49→23:13)
[2023-06-11] MEDS: HYDROcodone/APAP 10-325MG 1 EACH TAB PO PRN ×4 (03:18→20:36)
[2023-06-11] MEDS: LACTATED RINGERS 1,000 ML IV SCH ×2 (06:52)
[2023-06-11] MEDS: SODIUM CHLORIDE 0.9% 1,000 ML IV SCH ×2 (06:52→20:38)
[2023-06-11] MEDS: hydroCHLOROthiazide 12.5 MG CAP PO SCH (08:46)
[2023-06-11] MEDS: LOSARTAN 50 MG TAB PO SCH (08:46)
[2023-06-11] MEDS: SENNOSIDES-DOCUSATE SODIUM 1 EACH TAB PO SCH (08:47)
[2023-06-11] MEDS: FLUTICASONE 44 MCG INHALER INHALATION SCH ×2 (09:38→18:21)
--- NOTE | 2023-06-11 10:03 | P.DS ---
Providers Date of admission: 06/09/23 11:41 Attending physician: Estephania Stover Consults: 06/08/23 11:16 Consult Physician Routine Consulting Provider: Anna Arthur Consult Reason/Comments: Medical management Do you want consulting provider notified?: Yes Primary care physician: Jacob Clinton Hospital Course: The patient presented on the day of admission as per their operative note. She had significant changes at L5-S1 with disc herniation lower extremity radiculopathy and listhesis. She underwent her minimally disc decompression fusion at L5-S1 as per her operative note. She is making progress postoperatively. She is tolerating her diet adequately. She is passing as well. She has been increasing her mobility adequately. Her incision is clear. She is passing gas but has not yet had a bowel movement Physical Exam The incision site is clean dry and intact. There is no erythema no drainage. There is no purulence no evidence of infection. There is no active drainage Abdomen soft and nontender. Chest has good excursion with deep inspiration and expiration. The patient has active and passive range of motion intact at the upper and lower extremities. There is no acute change in neurologic status. She has sustained dorsal flexion plantarflexion and EHL at her lower extremities Hospital Course Postoperative day #3 status post minimally invasive decompression fusion L5-S1 for her listhesis with stenosis and disc herniation and lower extremity radiculopathy. The patient has been making good progress postoperatively. They have completed the prophylactic antibiotics without any signs or symptoms of infection. The patient has been able to advance their diet, and is tolerating diet adequately. The pain was initially controlled with IV medications and is now controlled appropriately with oral medications. The patient has been able to increase their mobilization. The patient has progressed appropriately. I think they are in good stable condition for discharge today if she is able to somewhat improve her mobility and continues to pass cast. She feels she is ready to have a bowel movement and is not having any nausea. They will be sent home with appropriate prescriptions. I answered their questions to the best of my ability in a language that they can understand and they are agreeable with the plan. If she is able to continue to control her pain adequately with oral medications and she'll likely be discharged home today and They will follow up as directed. If she is not able to adequately tolerates they we may keep her overnight for 1 more he Patient Condition at Discharge: Good Plan - Discharge Summary Discharge Rx Participant: No New Discharge Prescriptions: New Hydrocodone/Acetaminophen [Hydrocodone/Acetaminophen 10-300 mg] 1 tab PO Q4HR PRN 7 Days #42 tab PRN Reason: Pain No Action Ibuprofen [Motrin] 600 mg PO Q8HR PRN #20 tab PRN Reason: Pain atenoloL 100 mg PO HS Losartan/Hydrochlorothiazide [Losartan-Hctz 100-12.5 mg Tab] 1 tab PO QAM Fluticasone Propionate [Flovent Diskus] 1 puff INHALATION DAILY PRN PRN Reason: Shortness Of Breath methocarbamoL [Robaxin-750] 1,500 mg PO TID PRN PRN Reason: Muscle Pain Zolpidem [Ambien] 10 mg PO HS PRN PRN Reason: Insomnia HYDROcodone/APAP 10-325MG [[place] 10-325] 1 tab PO Q6HR PRN PRN Reason: Pain Discharge Medication List Ibuprofen [Motrin] 600 mg PO Q8HR PRN #20 tab 01/11/23 [Rx] Fluticasone Propionate [Flovent Diskus] 1 puff INHALATION DAILY PRN 01/23/23 [History] Losartan/Hydrochlorothiazide [Losartan-Hctz 100-12.5 mg Tab] 1 tab PO QAM 01/23/23 [History] Zolpidem [Ambien] 10 mg PO HS PRN 01/23/23 [History] atenoloL 100 mg PO HS 01/23/23 [History] methocarbamoL [Robaxin-750] 1,500 mg PO TID PRN 01/23/23 [History] HYDROcodone/APAP 10-325MG [[place] 10-325] 1 tab PO Q6HR PRN 05/31/23 [History] Hydrocodone/Acetaminophen [Hydrocodone/Acetaminophen 10-300 mg] 1 tab PO Q4HR PRN 7 Days #42 tab 06/09/23 [Rx] Follow up Appointment(s)/Referral(s): Estephania Stover DO [Doctor of Osteopathic Medicine] - 2 Weeks [facility], [NON-STAFF] - As Needed Activity/Diet/Wound Care/Special Instructions: Keep site clean. May shower with waterproof Tegaderm intact. Do not soak in a tub. On June 12Tuesday patient May remove dressing and then may shower with area uncovered. Leave glue intact and allow it to fray off on its own. May ambulate as tolerated. Avoid heavy or rigorous activity. No repetitive bending twisting or lifting. No overhead work. Discharge Disposition: HOME SELF-CARE
--- NOTE | 2023-06-11 19:47 | PN ---
PROGRESS NOTE DATE OF SERVICE: 06/11/2023 SUBJECTIVE: This is a 52-year-old woman, who was admitted after herniated nucleus pulposus surgery. She still has some back pain. No chest pain. No palpitations. No fever. OBJECTIVE: VITAL SIGNS: Pulse 72, blood pressure 120/73, respirations 18. CHEST: Clear to auscultation. CARDIOVASCULAR: S1, S2. ABDOMEN: Soft. NERVOUS SYSTEM: Nonfocal. LABORATORY DATA: Reviewed. ASSESSMENT: 1. Status post herniated nucleus pulposus surgery. 2. Back pain. 3. Hypertension history. 4. History of degenerative joint disease. 5. History of diverticulosis. RECOMMENDATIONS: Recommend to continue current management and continue symptomatic treatment. Otherwise, the blood pressure is improved. We will continue to monitor. Continue with hydrochlorothiazide. Recommend repeat labs in the morning. Further recommendations to follow. MMODL / IJN: [id number] /
[2023-06-11] MEDS: atenoloL 50 MG TAB PO SCH (20:37)
[2023-06-12] MEDS: HYDROcodone/APAP 10-325MG 1 EACH TAB PO PRN ×3 (01:35→10:30)
[2023-06-12] MEDS: LACTATED RINGERS 1,000 ML IV SCH ×2 (02:58)
[2023-06-12] MEDS: HYDROmorphone 1 MG/ML 1 ML SYRINGE IVP PRN (04:42)
[2023-06-12] MEDS: CYCLOBENZAPRINE 10 MG TAB PO PRN (06:06)
[2023-06-12] MEDS: FLUTICASONE 44 MCG INHALER INHALATION SCH (09:09)
[2023-06-12] MEDS: LOSARTAN 50 MG TAB PO SCH (09:14)
[2023-06-12] MEDS: SENNOSIDES-DOCUSATE SODIUM 1 EACH TAB PO SCH (09:14)
[2023-06-12] MEDS: hydroCHLOROthiazide 12.5 MG CAP PO SCH (09:14)
[2023-06-12 09:24] VITALS: BP 109/73; PULSE 67; RESP 20; TEMP 98.3
--- NOTE | 2023-06-12 10:04 | P.DS ---
Providers Date of admission: 06/09/23 11:41 Expected date of discharge: 06/12/23 Attending physician: Estephania Stover Consults: 06/08/23 11:16 Consult Physician Routine Consulting Provider: Anna Arthur Consult Reason/Comments: Medical management Do you want consulting provider notified?: Yes Primary care physician: [place] Hospital Course: This is a 52 year-old female with a history of listhesis with stenosis, disc herniation and lower extremity radiculopathy. Patient is status post minimally invasive decompression fusion L5-S1 on 06/08/[address] Stover. Patient is doing well postoperatively. Labs and vital signs are stable and discharge. Patient is seen and evaluated at bedside today. Patient states that she has been able to walk the halls with minimal pain. Patient states that she is passing gas, but has not yet had a bowel movement. Patient denies any abdominal pain or nausea this morning. Patient states that she is feeling better and moving better than yesterday and agreeable to discharge home today. On exam dressing is clean, dry and intact. Patient moves bilateral upper and lower extremities freely. Bilateral lower extremities are warm and well perfused. Patient is in good condition for discharge home today. Patient Condition at Discharge: Good Plan - Discharge Summary Discharge Rx Participant: No New Discharge Prescriptions: New Hydrocodone/Acetaminophen [Hydrocodone/Acetaminophen 10-300 mg] 1 tab PO Q4HR PRN 7 Days #42 tab PRN Reason: Pain Cyclobenzaprine [Flexeril] 10 mg PO TID PRN #60 tab PRN Reason: Spasms No Action Ibuprofen [Motrin] 600 mg PO Q8HR PRN #20 tab PRN Reason: Pain atenoloL 100 mg PO HS Losartan/Hydrochlorothiazide [Losartan-Hctz 100-12.5 mg Tab] 1 tab PO QAM Fluticasone Propionate [Flovent Diskus] 1 puff INHALATION DAILY PRN PRN Reason: Shortness Of Breath methocarbamoL [Robaxin-750] 1,500 mg PO TID PRN PRN Reason: Muscle Pain Zolpidem [Ambien] 10 mg PO HS PRN PRN Reason: Insomnia HYDROcodone/APAP 10-325MG [[place] 10-325] 1 tab PO Q6HR PRN PRN Reason: Pain Discharge Medication List Ibuprofen [Motrin] 600 mg PO Q8HR PRN #20 tab 01/11/23 [Rx] Fluticasone Propionate [Flovent Diskus] 1 puff INHALATION DAILY PRN 01/23/23 [History] Losartan/Hydrochlorothiazide [Losartan-Hctz 100-12.5 mg Tab] 1 tab PO QAM 01/23/23 [History] Zolpidem [Ambien] 10 mg PO HS PRN 01/23/23 [History] atenoloL 100 mg PO HS 01/23/23 [History] methocarbamoL [Robaxin-750] 1,500 mg PO TID PRN 01/23/23 [History] HYDROcodone/APAP 10-325MG [[place] 10-325] 1 tab PO Q6HR PRN 05/31/23 [History] Hydrocodone/Acetaminophen [Hydrocodone/Acetaminophen 10-300 mg] 1 tab PO Q4HR PRN 7 Days #42 tab 06/09/23 [Rx] Cyclobenzaprine [Flexeril] 10 mg PO TID PRN #60 tab 06/11/23 [Rx] Follow up Appointment(s)/Referral(s): Estephania Stover DO [Doctor of Osteopathic Medicine] - 2 Weeks (Please call Tuesday to schedule appointment) Crist[facility], [NON-STAFF] - As Needed Activity/Diet/Wound Care/Special Instructions: Keep site clean. May shower with waterproof Tegaderm intact. Do not soak in a tub. On June 12Tuesday patient May remove dressing and then may shower with area uncovered. Leave glue intact and allow it to fray off on its own. May ambulate as tolerated. Avoid heavy or rigorous activity. No repetitive bending twisting or lifting. No overhead work. Discharge Disposition: HOME SELF-CARE
[2023-06-12 10:20] LABS: Basophils % (A) 1 %; Eosinophils # (A) 0.3 k/uL (0-0.7); Eosinophils % (A) 6 %; HCT 34.5 % (34.0-46.0); HGB 11.3 gm/dL (11.4-16.0); Lymphocytes # (A) 1.3 k/uL (1.0-4.8); Lymphocytes % (A) 23 %; MCH 29.9 pg (25.0-35.0); MCHC 32.9 g/dL (31.0-37.0); MCV 90.8 fL (80.0-100.0); Mean Platelet Volume 8.4; Monocytes # (A) 0.3 k/uL (0-1.0); Monocytes % (A) 5 %; Neutrophils # (A) 3.7 k/uL (1.3-7.7); Neutrophils % (A) 64 %; Platelet Count 241 k/uL (150-450); RBC 3.79 m/uL (3.80-5.40); RDW 12.6 % (11.5-15.5); WBC 5.8 k/uL (3.8-10.6)
[2023-06-12] MEDS: SODIUM CHLORIDE 0.9% 1,000 ML IV SCH (10:28)
[2023-06-12 11:03] LABS: African American GFR (CKD) >90 (>60 ml/min/1.73 sqM); Anion Gap 10 mmol/L; Blood Urea Nitrogen 13 mg/dL (7-17); Calcium 8.3 mg/dL (8.4-10.2); Carbon Dioxide 27 mmol/L (22-30); Chloride 101 mmol/L (98-107); Glucose 127 mg/dL (74-99); Non-African American GFR(CKD) >90 (>60 ml/min/1.73 sqM); Potassium 3.8 mmol/L (3.5-5.1); Sodium 138 mmol/L (137-145)
--- NOTE | 2023-06-12 15:08 | PN ---
PROGRESS NOTE DATE OF SERVICE: 06/12/2023 SUBJECTIVE: This is a 52-year-old woman, who was admitted after herniated nuclear pulposus surgery. She is improving significantly. No chest pain. No palpitation. PHYSICAL EXAMINATION: VITAL SIGNS: Pulse 67, blood pressure 109/70, respirations 20. CHEST: Clear to auscultation. CARDIOVASCULAR: S1 and S2 muffled. ABDOMEN: Soft. LEGS: No edema. No swelling. LABORATORY DATA: Reviewed. ASSESSMENT: 1. Status post herniated nucleus pulposus surgery. 2. Back pain. 3. Hypertension history. 4. History of degenerative joint disease. 5. History of diverticulosis. RECOMMENDATIONS: Recommend to continue current medications. Continue symptomatic treatment. Otherwise, resume the home medications. Closely follow with primary physician. Rest of the recommendations per Orthopedic Surgery. MMODL / IJN: [id number] /
== END 2023-06-12 14:05 | disposition home or self-care (01) ==
LOC: OR 06:10 → 4SSUR 11:13 → OR 06-09 11:35 → 4SSUR 06-09 11:41
PROVIDERS: ADMIT Orthopaedic Surgery Orthopaedic Surgery of the Spine; ATTEND Orthopaedic Surgery Orthopaedic Surgery of the Spine
DX: M51.17 Intervertebral disc disorders with radiculopathy, lumbosacral region (principal); M43.17 Spondylolisthesis, lumbosacral region; I10 Essential (primary) hypertension; Z87.19 Personal history of other diseases of the digestive system; Z79.899 Other long term (current) drug therapy
CPT/HCPCS: 96376 ×5; 36430; 96365; 96366; 96375; 97116 ×2; 97161; 80048 ×2; 85025 ×2; 72100; 22853; 20939; 20930; 20936; 22633; G0378 ×4; C1713 ×2; J2250; J0330; J2710; J0690 ×2; J2405 ×2; J2001; J3010; J1170 ×7; J2704; J1790; J2371

== ENCOUNTER → 2024-05-24 | Outpatient (CLI) | payer OTHER ==
[2024-05-24 08:46] VITALS: BP 135/90; PULSE 66; RESP 16
--- NOTE | 2024-05-24 14:30 | P.PAINPG ---
Objective - Vital Signs Vital signs: Vital Signs Temp Pulse 66 05/24/24 08:42 Resp 16 05/24/24 08:42 BP 135/90 05/24/24 08:42 Pulse Ox 98 05/24/24 08:42 FiO2 Intake & Output 05/23/24 05/24/24 05/24/24 18:59 06:59 18:59 Weight 106.594 kg PQRS Measure Charge Sheet Mode of Arrival: Ambulatory Comment: HISTORY OF PRESENT ILLNESS: A 53 yr old female w mother at side as a referral from [facility] presents today w severe and chronic LBP > 1 yr secondary to L4-L5 radiculopathy, L5-S1 post laminectomy syndrome, Sacroiliitis for evaluation. Pt states pain level is provoked at 5-6 /10 in intensity, constant, localized in the lower lumbar spine, predominantly axial, dull in character without shooting pain. Pain is provoked by over activity. Pain is alleviated by PT x 6 wks which ended in Summer 2022, physician guided home exercises 5 times weekly since Summer 2022, heat, medications ([place] 7.5/325mg), topical, repositioning and rest . PMH: OA, HTN, Ankylosing Spondylitis PSH: L5-S1 Laminectomy/ Decompression/ Fusion (2022), Appendectomy, C- Section, D&C, Cholecystectomy, Tubal Ligation, EGD/ Colonoscopy SH: Negative x3. Lives w daughter FH: Fa- [place]. Mo- COPD/ . All: See list Meds: See list REVIEW OF ORGAN SYSTEMS: CONSTITUTIONAL: No fevers or chills. No recent weight loss. NEUROLOGICAL: + numbness and tingling along the distal extremities. No seizure disorders or headaches. MUSCULOSKELETAL: + pain PSYCHIATRIC: Denies current depression or suicidal thoughts. Physical Examinations : Constitutional : Cooperative , not in acute distress . Neurologic : Cranial nerve II to XII intact. No focal neurological deficits. Psychiatric : alert & oriented x 3. Matching mood & appropriate affect. Judgment & insight intact. Musculoskeletal : Cervical Spine Motor strength in the deltoid and buster ps: Normal right side. Normal Left side Motor strength biceps and the wrist extensors: Normal right side . Normal left side Motor strength in the triceps muscle: Normal right side. Normal left side Deep tendon reflexes: Normal at the biceps. Normal at Brachioradialis. Normal at triceps Vertebral body tenderness to deep palpation over Cervical facet loading test: positive bilaterally Spurling test: positive bilaterally Neck distraction test: positive bilaterally Siomara sign: positive bilaterally Lumbar spine Motor strength lower extremities ,thigh and legs 5/5 Right side , 5/5 Left side Deep tendon reflexes : Normal Knee Jerk. Normal Ankle Jerk Vertebral body tenderness over Martines Test positive Lumbar facet Loading Test: positive Right / positive Left Range of motion of the lumbar spine Flexion 30 degrees, extension 10 degrees Straight Leg Raise test: Left/ Right positive at degrees Kaye test: positive right / positive left. Severe tenderness over the Sacroiliac joint on the Right / Left sides Gaenslen test: positive bilaterally Seated flexion test: positive bilaterally. Sacral spine : Severe tenderness over the Sacroiliac joint: right side / left side Range of motion: Flexion of the lumbar spine <60 degrees Range of motion: Extension of the lumbar spine <20 degrees Gaenslen's Test positive BL Kaye test: positive right side / left side Thigh Thrust Test BL positive Sacral Thrust Test Imaging: MRI non contrast lumbar spine from 03/14/24 reviewed Assessment/ Plan : L4-L5 radiculopathy, L5-S5 post laminectomy syndrome, Sacroiliitis Recommendation of BL SI injection. Would benefit from BL TFESI L4-L5 also. Risks, benefits of procedure discussed and patient verbalized understanding. Admits to anti- coagulant use or medical history of diabetes. Protocol for discontinuation/ continuation of medications kota procedure discussed. All questions answered. I have spent greater than 30 minutes on patient care today. Dr Cantrell was available by phone for the evaluation of this patient. The time was used to review the medical records including relevant urine studies and Prescription history (MAPs), review of the available imaging, evaluation and examination of the patient, coordination of care with the medical staff and if applicable referring physicians, as well as creation of the medical record - Pain Location Lower Back Non-Pharmacological Interventions: Ice, Physical Therapy Pharmacological Interventions: PRN Medication, Scheduled Medication PQRS Narrative: Smoking Status Never smoker Blood Pressure 135/90 Pain Intensity [Lower Back] 5 Scale Used Numeric (1 - 10) Hx Alcohol Use (MH) No Home Medications: Ambulatory Orders Ibuprofen [Motrin] 600 mg PO Q8HR PRN #20 tab 01/11/23 Fluticasone Propionate [Flovent Diskus] 1 puff INHALATION DAILY PRN 01/23/23 Losartan/Hydrochlorothiazide [Losartan-Hctz 100-12.5 mg Tab] 1 tab PO QAM 01/23/23 Zolpidem [Ambien] 10 mg PO HS PRN 01/23/23 atenoloL 100 mg PO HS 01/23/23 methocarbamoL [Robaxin-750] 1,500 mg PO TID PRN 01/23/23 HYDROcodone/APAP 10-325MG [[place] 10-325] 1 tab PO Q6HR PRN 05/31/23 Cyclobenzaprine [Flexeril] 10 mg PO TID PRN #60 tablet 06/12/23 HYDROcodone/APAP 10-325MG [[place] 10-325] 1 tab PO Q4-6H PRN #42 tab 06/12/23 Sennosides [Senokot] 2 tab PO DAILY PRN #60 tablet 06/12/23 diazePAM [Valium] 5 mg PO DAILY PRN 1 Days #2 tab 05/24/24 Controlled Substance Measures - Controlled Substance Measures Is patient prescribed a controlled substance at discharge?: Yes When asked, does pt state using other controlled substances?: Yes If prescribed controlled substance>3 days was MAPS reviewed?: Prescribed <3 Days
== END ==
LOC: PNWHC3 08:26
PROVIDERS: ATTEND Specialist
DX: M46.98 Unspecified inflammatory spondylopathy, sacral and sacrococcygeal region (principal); M47.26 Other spondylosis with radiculopathy, lumbar region; M46.1 Sacroiliitis, not elsewhere classified; M96.1 Postlaminectomy syndrome, not elsewhere classified; Z91.041 Radiographic dye allergy status
CPT/HCPCS: 99211

== ENCOUNTER 2024-06-14 07:27 | Day surgery (SDC) | payer OTHER ==
[2024-06-12 09:31] VITALS: BMI 37.5
[~2024-06-14 07:27] MED LIST changes: +LACTATED RINGERS 1,000 ML IV SCH; -ceFAZolin 1,000 MG in SODIUM CHLORIDE 0.9% IRRIGATIO 1,000 ML IRRIGATION PRN
[2024-06-14 08:00] VITALS: RESP 16; TEMP 97.3
[2024-06-14] MEDS ORDERED: methylPREDNISolone ACETATE 80 MG/ML 1 ML VIAL ONE (08:34)
[2024-06-14] MEDS ORDERED: ROPIVACAINE 5MG/ML 20ML VIAL ONE (08:34)
--- NOTE | 2024-06-14 08:42 | P.PCN ---
Date of Procedure: 06/14/24 Procedure(s) Performed: Procedure= bilateral sacroiliac joints steroid injection under fluoroscopy guidance (fluoroscopy image stored on file in the radiology Department ) Preoperative diagnosis= 1-bilateral sacroiliitis 2-lumbar degenerative disc disease 3-lumbar facet arthropathy Postoperative diagnosis=Same as preop Diagnosis . Complication = none Condition= stable Anesthesia= local anesthesia with ropivacaine 0.5% 4 ml only Indication for the procedure= patient complaining of low back pain , examination was positive for severe tenderness over the sacroiliac joints bilaterally and patient diagnosed with sacroiliitis, for this reason she was good candidate for sacroiliac joint steroid injection. Description of the procedure= procedure risk and benefits discussed with the patient, including but not limited, risk of infection and bleeding, and ALLERGIC reaction to the medication and not complete pain relief and patient agreed with the preceding patient taken to the operating room, placed in prone position or standard monitors applied to the patient then after induction of anesthesia back prepped with chlorhexidine 3 times , Then under strict sterile technique, first I did the right sacroiliac joint the which was identified under fluoroscopy guidance been local infiltration of the skin and subcu interstitial with lidocaine 1% then 22-gauge Quincke Needle advanced slowly under fluoroscopy and placed in the right sacroiliac joint needle placement confirmed with AP and oblique and lateral view, and after appropriate needle placement confirmed and after negative aspiration, or heme , then Ropivacaine 0.5% 2 mL, and 40 mg of Depo-Medrol mixed together and injected in the right sacroiliac joint after negative aspiration patient tolerated the procedure well without any complication. Then the left sacroiliac joint steroid injection done under strict sterile technique local infiltration of the skin and subcu interstitial at the location of the left sacroiliac joint then a 22-gauge Quincke Needle advanced slowly under fluoroscopy time placed in the left sacroiliac joint, needle placement confirmed with AP and oblique and lateral view then after appropriate needle placement confirmed, with the AP and oblique and lateral view, and after negative aspiration 0.5% Ropivacaine 2 mL and 40 mg of Depo-Medrol injected in the left sacroiliac joint after negative aspiration patient tolerated the procedure well that any complications and she will follow up in clinic 3 weeks note= Isovue was not injected because patient had allergy to IVP dye.
[2024-06-14 09:06] VITALS: BP 135/79; PULSE 59
--- NOTE | 2024-06-14 09:15 | FL ---
EXAMINATION TYPE: FL guided pain mgmt statistic DATE OF EXAM: 06/14/2024 8:49 AM COMPARISON: Pre Operative Images if available both CT/MRI or plain film CLINICAL INDICATION: Female, 53 years old with history of SI JOINT INJECTION; TECHNIQUE: FL guided pain mgmt statistic, multiple fluoroscopic images provided for procedure. Total fluoroscopy time: 15.0 seconds Total submitted images to PACS: 2 DAP: 0.7457 mGym2 Gycm2 uGym2 cGycm2 or equivalent. FINDINGS: Fluoroscopic images during injection for pain management demonstrate multilevel degeneration changes throughout the spine. No evidence for fracture. No acute process identified. IMPRESSION: 1. No evidence for intraoperative complication. 2. Please see the operative/procedural note for further details. [facility], , 06/14/2024 9:13 AM
== END 2024-06-14 09:15 | disposition home or self-care (01) ==
LOC: ORPAIN 07:27
PROVIDERS: ATTEND Specialist
DX: M46.1 Sacroiliitis, not elsewhere classified (principal); M51.369 Other intervertebral disc degeneration, lumbar region without mention of lumbar back pain or lower extremity pain; M47.816 Spondylosis without myelopathy or radiculopathy, lumbar region
CPT/HCPCS: 81025; 27096; J2795; J1010

== ENCOUNTER → 2024-07-16 | Outpatient (CLI) | payer OTHER ==
[2024-07-16 11:59] VITALS: RESP 16
[2024-07-16 12:01] VITALS: BP 183/96; PULSE 63; TEMP 98.2
--- NOTE | 2024-07-16 17:19 | P.PAINPG ---
PQRS Measure Charge Sheet Comment: HISTORY OF PRESENT ILLNESS: A 53 yr old female w sister at side presents today w severe and chronic LBP > 1 yr secondary to L4-L5 radiculopathy, L5-S1 post laminectomy syndrome, Sacroiliitis for evaluation s/p BL SI #1. Pt states she experienced 80 % pain relief x 1 wks s/p procedure. Pt states pain level is provoked at 8 /10 in intensity, constant, localized in the lower lumbar spine, predominantly axial, dull in character w shooting pain towards the BLEs. Pain is provoked by over activity. Pain is alleviated by PT x 6 wks which ended in Summer 2022, physician guided home exercises 5 times weekly since Summer 2022, heat, medications, topical, repositioning and rest . Interventional procedures include L4-L5 radiculopathy, L5-S1 post laminectomy syndrome, BL SI x1 Medications include Westbrook 7.5/325mg REVIEW OF ORGAN SYSTEMS: CONSTITUTIONAL: No fevers or chills. No recent weight loss. NEUROLOGICAL: + numbness and tingling along the distal extremities. No seizure disorders or headaches. MUSCULOSKELETAL: + pain PSYCHIATRIC: Denies current depression or suicidal thoughts. Physical Examinations : Constitutional : Cooperative , not in acute distress . Neurologic : Cranial nerve II to XII intact. No focal neurological deficits. Psychiatric : alert & oriented x 3. Matching mood & appropriate affect. Judgment & insight intact. Musculoskeletal : Cervical Spine Motor strength in the deltoid and biceps: Normal right side. Normal Left side Motor strength biceps and the wrist extensors: Normal right side . Normal left side Motor strength in the triceps muscle: Normal right side. Normal left side Deep tendon reflexes: Normal at the biceps. Normal at Brachioradialis. Normal at triceps Vertebral body tenderness to deep palpation over Cervical facet loading test: positive bilaterally Spurling test: positive bilaterally Neck distraction test: positive bilaterally Siomara sign: positive bilaterally Lumbar spine Motor strength lower extremities ,thigh and legs 5/5 Right side , 5/5 Left side Deep tendon reflexes : Normal Knee Jerk. Normal Ankle Jerk Vertebral body tenderness over L4 Martines Test positive BL L4-L5 Lumbar facet Loading Test: positive Right / positive Left Range of motion of the lumbar spine Flexion 30 degrees, extension 10 degrees Straight Leg Raise test: Left/ Right positive at degrees Kaye test: positive right / positive left. Severe tenderness over the Sacroiliac joint on the Right / Left sides Gaenslen test: positive bilaterally Seated flexion test: positive bilaterally. Sacral spine : Severe tenderness over the Sacroiliac joint: right side / left side Range of motion: Flexion of the lumbar spine <60 degrees Range of motion: Extension of the lumbar spine <20 degrees Gaenslen's Test positive BL Kaye test: positive right side / left side Thigh Thrust Test BL positive Sacral Thrust Test Imaging: MRI non contrast lumbar spine from 03/14/24 reviewed Assessment/ Plan : L4-L5 radiculopathy, L5-S5 post laminectomy syndrome, Sacroiliitis Recommendation of follow up w Dr Garcia to explore additional treatment options. Will hold off on BL TFESI L4-L5 at this time. Methyldosepack #21 to take as directed on package prescribed. Use, side effects, adverse reactions, safe storage discussed. All questions answered. I have spent greater than 30 minutes on patient care today. Dr Cantrell was available by phone for the evaluation of this patient. The time was used to review the medical records including relevant urine studies and Prescription hi story (MAPs), review of the available imaging, evaluation and examination of the patient, coordination of care with the medical staff and if applicable referring physicians, as well as creation of the medical record - Pain Location Bilateral Lower Back Non-Pharmacological Interventions: Ice, Inactivity, Physical Therapy, Position/Reposition, Sitting Pharmacological Interventions: Epidural, PRN Medication, Scheduled Medication, Topical Medication PQRS Narrative: Smoking Status Never smoker Hx Alcohol Use (MH) No Home Medications: Ambulatory Orders Fluticasone Propionate [Flovent Diskus] 1 puff INHALATION DAILY PRN 01/23/23 Losartan/Hydrochlorothiazide [Losartan-Hctz 100-12.5 mg Tab] 1 tab PO QAM 01/23/23 Zolpidem [Ambien] 10 mg PO HS PRN 01/23/23 atenoloL 100 mg PO HS 01/23/23 methocarbamoL [Robaxin-750] 1,500 mg PO TID PRN 01/23/23 Sennosides [Senokot] 2 tab PO DAILY PRN #60 tablet 06/12/23 diazePAM [Valium] 5 mg PO DAILY PRN 1 Days #2 tab 05/30/24 HYDROcodone/APAP 7.5-325MG [Westbrook 7.5-325] 1 tab PO Q6HR PRN 06/12/24 Ibuprofen [Motrin] 800 mg PO Q8H PRN 06/12/24 Phentermine HCl [Adipex-P] 37.5 mg PO DAILY 06/12/24 methylPREDNISolone Dose Pack [Medrol Dose Pack] 4 mg PO DIRECTED #21 tab 07/16/24 Controlled Substance Measures - Controlled Substance Measures Is patient prescribed a controlled substance at discharge?: No
== END ==
LOC: PNWHC3 10:53
PROVIDERS: ATTEND Specialist
DX: M46.1 Sacroiliitis, not elsewhere classified (principal); M96.1 Postlaminectomy syndrome, not elsewhere classified; M54.16 Radiculopathy, lumbar region; G89.29 Other chronic pain; Z91.041 Radiographic dye allergy status
CPT/HCPCS: 99211

== ENCOUNTER → 2024-08-09 | Outpatient (CLI) | payer OTHER ==
--- NOTE | 2024-08-09 09:44 | CT ---
EXAMINATION TYPE: CT lumbar spine wo con, CT pelvis wo con CT DLP: 1098.2 (accession [id number]), 649.5 (accession [id number]) mGycm, Automated exposure control for dose reduction was used. DATE OF EXAM: 08/09/2024 8:40 AM COMPARISON: Lumbar spine radiograph 06/08/2023, 05/20/2022, CT abdomen pelvis 01/23/2023. CLINICAL INDICATION:Female, 53 years old with history of M54.50 low back pain; PHH, low back pain TECHNIQUE: Multiple axial images were obtained of the pelvis and lumbar spine. Soft tissue and bone windows in coronal and sagittal planes were obtained and reviewed. Contrast used: none. Oral contrast used: none. FINDINGS: KIDNEYS AND URETERS: The upper poles are not entirely included in the [id number]. No evidence of h ydronephrosis or renal calculus. PELVIS BLADDER: Unremarkable REPRODUCTIVE: Unremarkable noncontrast antegrade appearance of the uterus. Along the left aspect is a tubal ligation clip. BOWEL: Colonic diverticulosis without evidence for acute diverticulitis. Postsurgical changes from ap pendectomy. No focal bowel wall thickening or surrounding inflammatory changes. No evidence of bowel obstruction. PERITONEUM: No evidence of pneumoperitoneum or free fluid. Redemonstration of a metallic density mukesh cent to the inferior aspect of the spleen possibly representing a migrated tubal ligation clip. Addit ional suspected tubal ligation clip migration within the anterior upper pelvis. VASCULATURE: No evidence of aortic aneurysm. MUSCULOSKELETAL: No acute osseous abnormalities. No acute fracture within the visualized lumbar spine . Vertebral body heights are maintained. Normal alignment. Surgical changes with bilateral pedicle sc rews and rods with disc spacers involving L5-S1. This creates streak artifact which limits evaluation . Hardware appears intact with appropriate alignment. Multilevel anterior osteophytosis. No significant neural foraminal or central canal stenosis at L5-S1. Broad-based disc bulge with ligamentum flavum buckling and bilateral facet arthropathy at L4-L5 resul ting in at least mild central canal stenosis. Mild bilateral neural foraminal stenosis. Broad-based disc bulge with mild effacement of the anterior thecal sac at L3-L4 with bilateral facet arthropathy. No neural foraminal stenosis. No significant central canal stenosis at L2-L3. Bilateral facet arthropathy. No neural foraminal sten osis. The upper portion of the lumbar spine is not included in the [id number] on the lumbar and pelvic C T. Degenerative changes of bilateral SI joints. LYMPH NODES: No gross evidence for lymphadenopathy. SOFT TISSUE/ABDOMINAL WALL: Partial visualization of left periumbilical fat-containing hernia with de fect measuring 1.9 cm. Midline lower abdominal/pelvic anterior wall scarring from prior surgery. IMPRESSION: 1. No evidence for acute process. 2. Postsurgical changes from posterior fusion L5-S1. Hardware appears intact and appropriately positi oned. 3. Multilevel degenerative disc disease of the visualized lumbar spine as described above. The upper aspect of the lumbar spine L1 is not included in the [id number]. 4. Fat filled umbilical hernia redemonstrated. 5. Colonic diverticulosis without evidence for acute diverticulitis. [facility], , 08/09/2024 9:42 AM
== END | disposition home or self-care (01) ==
LOC: RADCTMAIN 07:56
PROVIDERS: ATTEND Orthopaedic Surgery
DX: M46.01 Spinal enthesopathy, occipito-atlanto-axial region (principal); K42.9 Umbilical hernia without obstruction or gangrene; K57.30 Diverticulosis of large intestine without perforation or abscess without bleeding; R10.2 Pelvic and perineal pain; M51.360 Other intervertebral disc degeneration, lumbar region with discogenic back pain only; Z98.1 Arthrodesis status
CPT/HCPCS: 72131; 72192

== ENCOUNTER → 2024-10-15 | Outpatient (CLI) | payer OTHER ==
--- NOTE | 2024-10-15 16:22 | MR ---
INDICATION: Patient age:Female; 53 years old; Reason for study: M54.50 LOW BACK PAIN M96.0 PSEUDARTHROSIS AFTER FU; [facility]. COMPARISONS: CT lumbar spine 08/09/2024, lumbar spine radiograph 06/08/2023, MR thoracic spine 01/25/20, lumbosacral spine radiographs 05/20/2022. TECHNIQUE: Multi planar, multi sequence imaging was performed utilizing: T1-weighted, T2-weighted, a nd turbo inversion recovery imaging of the lumbar spine. The patient was not given contrast. FINDINGS: Postsurgical changes with bilateral pedicle screws and rods involving L5-S1. There is a dis c spacer identified at this level. This creates susceptibility artifact which limits evaluation. The lumbar vertebral bodies do have preserved heights and alignment. Multilevel type II Modic changes. Fe w T1/T2 hyperintense foci within the vertebral bodies likely representing benign vertebral hemangioma s. Increased STIR signal within the L5 and S1 vertebral bodies. There is corresponding low T1 and inc reased T2 signal. Findings are consistent with type I Modic changes. Multilevel disc desiccation is p resent. The conus medullaris and the distal spinal cord do appear unremarkable with regards to their signal intensity and morphology. Incidental sacral Tarlov cyst. L1-L2: No significant disc pathology is identified. The spinal canal and neural foramen are patent. L2-L3: No significant disc pathology is identified. No significant spinal canal stenosis. Bilateral facet arthropathy. No neural foraminal stenosis. L3-L4: Broad-based disc bulge with minimal central canal stenosis. Bilateral ligament flavum bucklin g and facet arthropathy. No neural foraminal stenosis. L4-L5: Broad-based disc bulge and ligamentum flavum buckling resulting in moderate central canal sten osis. Bilateral facet arthropathy. Moderate bilateral neural foraminal stenosis. L5-S1: Postsurgical changes without evidence for significant central canal stenosis. No disc herniati on. Bilateral facet arthropathy. No gross evidence of significant neural foraminal stenosis. Other significant findings: None. IMPRESSION: Postsurgical changes L5-S1 posterior fusion. Multilevel degenerative disc disease which is most prono unced at L4-L5 with disc bulge and ligamentum flavum buckling. Results in moderate central canal sten osis. Bilateral facet arthropathy at this level results in moderate bilateral neural foraminal stenos is. [facility], , 10/15/2024 4:19 PM
== END | disposition home or self-care (01) ==
LOC: RADMRIMAIN 15:16
PROVIDERS: ATTEND Orthopaedic Surgery
DX: M48.061 Spinal stenosis, lumbar region without neurogenic claudication (principal); M51.360 Other intervertebral disc degeneration, lumbar region with discogenic back pain only; M47.816 Spondylosis without myelopathy or radiculopathy, lumbar region; M96.0 Pseudarthrosis after fusion or arthrodesis; Z98.1 Arthrodesis status
CPT/HCPCS: 72148

== ENCOUNTER → 2025-01-17 | Outpatient (CLI) | payer BC, OTHER ==
[2025-01-17 11:06] VITALS: BP 134/81; PULSE 67; RESP 18; TEMP 99.2
--- NOTE | 2025-01-17 12:35 | P.PAINPG ---
PQRS Measure Charge Sheet Comment: HISTORY OF PRESENT ILLNESS: A 54 yr old female w sister at side presents today w severe and chronic LBP > 1 yr secondary to L4-L5 radiculopathy, L5-S1 post laminectomy syndrome, Sacroiliitis for evaluation. Pt underwent a BL SI in Jun 2024 where she experienced 75% pain relief x 3-4 mo s/p procedure. Pt states pain level is provoked at 8 /10 in intensity, constant, localized in the lower lumbar spine, predominantly axial, dull in character w shooting pain towards the BL hips. Pain is provoked by sitting for periods > 15 min Pain is alleviated by PT x 6 wks which ended in Summer 2022, physician guided home exercises 5 times weekly since Summer 2022, heat, medications, topical, repositioning and rest . Oswestry axial pain score of 27. Interventional procedures include L4-L5 radiculopathy, L5-S1 post laminectomy syndrome, BL SI x1 (07/03) Medications include Happy 7.5/325mg, Methyldose pack x1 (08/04) REVIEW OF ORGAN SYSTEMS: CONSTITUTIONAL: No fevers or chills. No recent weight loss. NEUROLOGICAL: + numbness and tingling along the distal extremities. No seizure disorders or headaches. MUSCULOSKELETAL: + pain PSYCHIATRIC: Denies current depression or suicidal thoughts. Physical Examinations : Constitutional : Cooperative , not in acute distress . Neurologic : Cranial nerve II to XII intact. No focal neurological deficits. Psychiatric : alert & oriented x 3. Matching mood & appropriate affect. Judgment & insight intact. Musculoskeletal : Cervical Spine Motor strength in the deltoid and biceps: Normal right side. Normal Left side Motor strength biceps and the wrist extensors: Normal right side . Normal left side Motor strength in the triceps muscle: Normal right side. Normal left side Deep tendon reflexes: Normal at the biceps. Normal at Brachioradialis. Normal at triceps Vertebral body tenderness to deep palpation over Cervical facet loading test: positive bilaterally Spurling test: positive bilaterally Neck distraction test: positive bilaterally Siomara sign: positive bilaterally Lumbar spine Motor strength lower extremities ,thigh and legs 5/5 Right side , 5/5 Left side Deep tendon reflexes : Normal Knee Jerk. Normal Ankle Jerk Vertebral body tenderness over L4 Martines Test positive BL L4-L5 Lumbar facet Loading Test: positive Right / positive Left Range of motion of the lumbar spine Flexion 30 degrees, extension 10 degrees Straight Leg Raise test: Left/ Right positive at degrees Kaye test: positive right / positive left. Severe tenderness over the Sacroiliac joint on the Right / Left sides Gaenslen test: positive bilaterally Seated flexion test: positive bilaterally. Sacral spine : Severe tenderness over the Sacroiliac joint: right side / left side Range of motion: Flexion of the lumbar spine <60 degrees Range of motion: Extension of the lumbar spine <20 degrees Gaenslen's Test positive BL Kaye test: positive right side / left side Thigh Thrust Test BL positive Sacral Thrust Test Imaging: MRI non contrast lumbar spine from 03/14/24 reviewed Assessment/ Plan : L4-L5 radiculopathy, L5-S5 post laminectomy syndrome, Sacroiliitis Recommendation of BL SI #2. Will hold off on BL TFESI L4-L5 at this time. Risks, benefits of procedure discussed and pt verbalized understanding. All questions answered. I have spent greater than 30 minutes on patient care today. Dr Cantrell was available by phone for the evaluation of this patient. The time was used to review the medical records including relevant urine studies and Prescription history (MAPs), review of the available imaging, evaluation and examination of the patient, coordination of care with the medical staff and if applicable referring physicians, as well as creation of the medical record PQRS Narrative: Smoking Status Never smoker Hx Alcohol Use (MH) No Home Medications: Ambulatory Orders Fluticasone Propionate [Flovent Diskus] 1 puff INHALATION DAILY PRN 01/23/23 Losartan/Hydrochlorothiazide [Losartan-Hctz 100-12.5 mg Tab] 1 tab PO QAM 01/23/23 Zolpidem [Ambien] 10 mg PO HS PRN 01/23/23 atenoloL 100 mg PO HS 01/23/23 methocarbamoL [Robaxin-750] 1,500 mg PO TID PRN 01/23/23 Sennosides [Senokot] 2 tab PO DAILY PRN #60 tablet 06/12/23 diazePAM [Valium] 5 mg PO DAILY PRN 1 Days #2 tab 05/30/24 HYDROcodone/APAP 7.5-325MG [Happy 7.5-325] 1 tab PO Q6HR PRN 06/12/24 Ibuprofen [Motrin] 800 mg PO Q8H PRN 12/03/24 Phentermine HCl [Adipex-P] 37.5 mg PO DAILY 06/12/24 methylPREDNISolone Dose Pack [Medrol Dose Pack] 4 mg PO DIRECTED #21 tab 07/16/24 Controlled Substance Measures - Controlled Substance Measures Is patient prescribed a controlled substance at discharge?: No
== END ==
LOC: PNWHC3 10:31
PROVIDERS: ATTEND Specialist
DX: M47.26 Other spondylosis with radiculopathy, lumbar region (principal); M96.1 Postlaminectomy syndrome, not elsewhere classified; M46.1 Sacroiliitis, not elsewhere classified; Z91.041 Radiographic dye allergy status
CPT/HCPCS: 99211